=== PATIENT | male | born 1960 | race Caucasian/White ===

== ENCOUNTER → 2017-07-18 16:01 | Outpatient (CLI) | payer BC, SELFPAY ==
--- NOTE | 2017-07-18 16:03 | DI.US.S_ITS ---
PROCEDURE: US ABDOMEN COMPLETE INDICATIONS: RIGHT UPPER QUADRANT PAIN TECHNIQUE: Real-time scanning was performed of the abdominal and retroperitoneal organs, with image documentation. COMPARISON: [facility], US, ABDOMEN COMPLETE, 12/15/2014, 7:24. FINDINGS: Liver: Liver is normal in size and homogeneous in echotexture, diffusely hyperechoic consistent with fatty infiltration. Gallbladder: The gallbladder is surgically absent. Biliary ducts: Intrahepatic bile ducts are non-dilated. Extrahepatic bile duct caliber measures by 0.0 mm. Normal is 6-7 mm or less in diameter, or 10 mm or less post-cholecystectomy. Pancreas: Not seen due to bowel gas. Spleen: Spleen is normal in size and homogeneous in echotexture. Kidneys: Kidneys are normal in size and echotexture. Right kidney measures 11.7 cm long; left kidney measures 12.4 cm long. No hydronephrosis or nephrolithiasis. No solid masses. Aorta: Visualized aorta is normal in caliber at less than 3 cm. Iliacs: Not seen due to bowel gas. IVC: Not seen due to bowel gas. Miscellaneous: No free abdominal fluid. IMPRESSION: Fatty infiltration throughout the liver, prior cholecystectomy. Significant portions of the retroperitoneum are not seen due to overlying bowel gas including the pancreas, proximal third of the aorta, the iliac arteries, and the IVC. Dictated by: Jose A Patten M.D. on 07/18/2017 at 16:53 Approved by: Jose A Patten M.D. on 07/18/2017 at 16:55
== END ==
PROVIDERS: PCP Family Medicine; Visit Provider Internal Medicine Gastroenterology
DX: K76.0 Fatty (change of) liver, not elsewhere classified (principal); R10.11 Right upper quadrant pain; Z90.49 Acquired absence of other specified parts of digestive tract
CPT/HCPCS: 76700

== ENCOUNTER → 2017-07-24 07:14 | Outpatient (CLI) | payer BC, SELFPAY ==
[2017-07-24 09:35] LABS: Add Manual Diff / Slide Review NO; Basophils Percent Auto 0.7 % (0-2); Eosinophils Percent Auto 2.4 % (2-4); Hematocrit 41.7 % (41-53); Hemoglobin 14.5 g/dL (13.5-17.5); Lymphocytes Percent Auto 44.9 % (25-40); Mean Corpuscular HGB Conc 34.7 % (30-36); Mean Corpuscular Hemoglobin 32.9 PG (26-34); Mean Corpuscular Volume 94.8 fL (80-100); Monocytes Percent Auto 10.4 % (3-14); Neutrophils Absolute Auto 2100 /uL (3000-5900); Neutrophils Percent Auto 41.6 % (50-75); Platelet Count 210 X10^3/uL (150-400); Red Cell Distribution Width 12.7 % (11.6-14.8); White Blood Cell Count 5.1 X10^3/uL (4.5-11.0)
[2017-07-24 09:50] LABS: Alanine Aminotransferase 81 IU/L (21-72); Albumin 4.1 g/dL (3.5-5.0); Albumin Globulin Ratio 1.3 (1.0-2.8); Alkaline Phosphatase 34 U/L (38-126); Aspartate Aminotransferase 36 IU/L (17-59); Bilirubin Total 0.5 mg/dL (0.2-1.3); Blood Urea Nitrogen 18 mg/dL (9-20); Calcium 9.4 mg/dL (8.4-10.2); Carbon Dioxide 25 mmol/L (22-32); Chloride 101 mmol/L (98-107); Cholesterol 158 mg/dL (140-199); Estimated Glomerular Filt Rate > 60.0 mL/min (>60); Globulin 3.1 g/dL (1.7-4.1); Glucose 153 mg/dL (70-100); HDL Cholesterol 36 mg/dL (40-60); HEMOLYSIS < 15 (0-50); LDL Cholesterol Calculated 74 mg/dL (<100); Potassium 3.7 mmol/L (3.4-5.1); Sodium 139 mmol/L (137-145); Total Protein 7.2 g/dL (6.3-8.2); Triglycerides 242 mg/dL (35-150)
[2017-07-24 10:04] LABS: Hemoglobin A1C% w Est Avg Glu 7.4 % (4.0-6.0)
[2017-07-24 10:06] LABS: Creatinine Urine Random 138.8 mg/dL
[2017-07-24 10:10] LABS: Microalbumi Creatinin Ratio Ur 4.3 ug/mg CR (<30); Microalbumin Urine Random 0.6 mg/dL (0-1.6)
== END ==
PROVIDERS: PCP Family Medicine; Visit Provider Internal Medicine Cardiovascular Disease
DX: E78.5 Hyperlipidemia, unspecified (principal); E11.9 Type 2 diabetes mellitus without complications
CPT/HCPCS: 36415; 80053; 80061; 82043; 82570; 83036; 85025

== ENCOUNTER → 2017-08-15 07:38 | Outpatient (CLI) | payer BC, SELFPAY ==
--- NOTE | 2017-08-15 | DI.NM.S_ITS ---
PROCEDURE: NM GASTRIC EMPTYING STUDY RADIOPHARMACEUTICAL: 1 mCi Tc-99m sulfur colloid in an egg sandwich. INDICATIONS: RIGHT UPPER QUADRANT PAIN TECHNIQUE: A Tc-99m labeled sulfur colloid labeled egg sandwich or oatmeal was served to the patient. Anterior and posterior planar images of the abdomen were obtained at 0 minutes and 30 minutes, then at hourly intervals up to 4 hours. The patient was upright and ambulating during the interval. COMPARISON: None. FINDINGS: The stomach has normal size, morphology, and position. There is normal emptying of solid gastric contents from the stomach by visual inspection. No gastroesophageal reflux is visualized. The percentage of tracer retained at specific time points are as follows: Time point Percent gastric retention Normal range 30 minutes 90% 70% or more 1 hour 76% 30% to 90% 2 hours 56% 60% or less 3 hours 21% 30% or less 4 hours 4% 10% or less IMPRESSION: Normal gastric emptying study. Dictated by: Opal Mendoza M.D. on 08/15/2017 at 15:33 Approved by: Opal Mendoza M.D. on 08/15/2017 at 15:38
== END ==
PROVIDERS: PCP Family Medicine; Visit Provider Internal Medicine Gastroenterology
DX: R10.11 Right upper quadrant pain (principal)
CPT/HCPCS: 78264; A9541

== ENCOUNTER 2017-11-02 11:57 | Emergency (ER) | payer BC, SELFPAY ==
--- NOTE | 2017-11-02 12:06 | ED.SOB ---
HPI - SOB/Dyspnea General Chief Complaint: Chest Pain Stated Complaint: Chest Congestion Time Seen by Provider: 11/02/17 12:06 Source: patient Mode of arrival: ambulatory Limitations: no limitations History of Present Illness Patient is a 57-year-old male who presents with chest heaviness shortness of breath. It has been ongoing for at least 2 weeks he initially thought he had upper respiratory cold got started on a Z-Lang 3 days ago which he says does not feel like helping. He does have a history of coronary artery disease he says he does not feel like he is having a heart attack. He has had stents in the past and at that time it radiates to his arms. Today he denies any radiation of pain. He does have a cough which is nonproductive in he does feel slightly short of breath with exertion. He was using an albuterol with a spacer at home from the last time he when he had pneumonia but does not seem to be helping. He currently is chest pain-free now. MD Complaint: shortness of breath Related Data Home Medications Medication Instructions Recorded Confirmed melatonin 9 mg PO HS #0 06/09/10 11/02/17 [BENEFIBER] 9 gm PO HSP #0 06/24/16 11/02/17 fenofibrate nanocrystallized 145 mg PO QDAY #0 05/04/17 11/02/17 [Tricor] carvedilol 3.125 mg tablet 3.125 mg PO BID 08/10/17 11/02/17 losartan 50 mg tablet 50 mg PO DAILY 08/10/17 11/02/17 rosuvastatin 40 mg tablet 40 mg PO DAILY 08/10/17 11/02/17 Previous Rx's Medication Instructions Recorded finasteride 5 mg tablet 1.25 mg PO QDAY #30 tab 07/05/17 Glucose: Test Strips See Label Instructions .ROUTE 07/06/17 .COMPLEX #100 glipizide ER 5 mg tablet, extended 5 mg PO DAILY #30 tab 08/10/17 release 24 hr omeprazole 40 mg PO QDAY@0600 #90 cap 09/04/17 metformin 500 mg tablet 500 mg PO BIDCC #180 tab 11/01/17 doxycycline hyclate 100 mg PO BID #14 cap 11/02/17 Allergies Allergy/AdvReac Type Severity Reaction Status Date / Time grass pollen [GRASS POLLEN] Allergy Unknown Verified 11/02/17 11:07 mold [MOLD] Allergy Unknown Verified 11/02/17 11:07 Review of Systems Review of Systems All systems reviewed & are unremarkable except as noted in HPI and below Constitutional Denies chills, Denies fever(s), Denies lethargy and Denies weakness Cardiovascular Reports as per HPI Respiratory Reports as per HPI Gastrointestinal Gastrointestinal: Denies abdominal pain, Denies change in bowel habits, Denies diarrhea, Denies nausea and Denies vomiting Musculoskeletal Denies back pain, Denies muscle weakness, Denies numbness and Denies tingling Integumentary/Breasts Denies pruritus, Denies erythema, Denies rash and Denies wounds Neurologic Denies numbness, Denies tingling and Denies weakness [facility] Social History Smoking Status: Never smoker alcohol intake: current (social) substance use type: does not use Exam Initial Vital Signs Initial Vital Signs: Vital Signs Temperature 97.7 F 11/02/17 12:09 Pulse Rate 79 11/02/17 12:09 Respiratory Rate 20 11/02/17 12:09 Blood Pressure 167/106 H 11/02/17 12:09 Pulse Oximetry 97 11/02/17 12:09 GENERAL: Well-appearing, well-nourished and in no acute distress. HEENT: Head atraumatic,EOMI, pupils reactive, face symmetric, CARDIOVASCULAR: Regular rate and rhythm without murmurs, rubs or gallops. RESPIRATORY: Breath sounds equal bilaterally, no wheezes rales or rhonchi. ABDOMEN: Soft, nontender. Normoactive bowel sounds all 4 quadrants. No guarding or rebound. EXTREMITIES: Normal range of motion, no clubbing or edema. Neurovascularly intact NEUROLOGICAL: Alert and oriented x4.Normal gait and speech. Cranial nerves II through XII grossly intact. SKIN: Warm, dry, no laceration, no petechiae, no rashes or lesions. Course Orders Ordered: ED Orders 11/02/17 12:21 Consult to Respiratory Therapy Evaluate & Treat 11/02/17 12:22 XR chest 2V Stat 11/02/17 12:35 B Type Natriuretic Peptide Stat Complete Blood Count AUTO DIFF Stat Comprehensive Metabolic Panel Stat Magnesium Stat Troponin & CK Cardiac Panel Stat 11/02/17 13:18 Blood Culture Stat Lactate (Lactic Acid) Stat Discontinued Medications Albuterol/Ipratropium (Duoneb) 3 ml INH NOW ONE Stop: 11/02/17 12:21 Last Admin: 11/02/17 12:39 Dose: 3 ml Vital Signs - 8 hr 11/02/17 12:09 11/02/17 12:39 11/02/17 13:00 Temperature 97.7 F Pulse Rate 79 68 74 Respiratory Rate 20 15 Blood Pressure 167/106 H Blood Pressure [Right Arm] 136/86 Pulse Oximetry 97 99 97 11/02/17 13:38 Temperature Pulse Rate 75 Respiratory Rate 26 H Blood Pressure Blood Pressure [Right Arm] 127/75 Pulse Oximetry 98 MDM - SOB/Dyspnea Lab Data Attestation: I reviewed the patient's lab results. Result diagrams: 11/02/17 12:35 11/02/17 12:35 Lab Results 11/02/17 11/02/17 11/02/17 Range/Units 12:35 12:35 12:35 WBC 5.9 (4.5-11.0) X10^3/uL RBC 4.39 L (4.5-5.9) X10^6/uL Hgb 14.3 (13.5-17.5) g/dL Hct 40.8 L (41-53) % MCV 92.9 (80-100) fL MCH 32.6 (26-34) PG MCHC 35.1 (30-36) % RDW 12.9 (11.6-14.8) % Plt Count 188 (150-400) X10^3/uL Neut % (Auto) 60.9 (50-75) % Lymph % (Auto) 26.2 (25-40) % [place] % (Auto) 10.3 (3-14) % Eos % (Auto) 2.2 (2-4) % Baso % (Auto) 0.4 (0-2) % Neut # (Auto) 3600 (1568-2957) /uL Sodium 144 (137-145) mmol/L Potassium 4.3 (3.4-5.1) mmol/L Chloride 107 (98-107) mmol/L Carbon Dioxide 24 (22-32) mmol/L BUN 13 (9-20) mg/dL Creatinine 0.70 (0.66-1.25) mg/dL Estimated GFR > 60.0 (>60) mL/min BUN/Creatinine Ratio 18.6 (6-22) Glucose 145 H (70-100) mg/dL Lactate (0.7-2.1) mmol/L Calcium 9.8 (8.4-10.2) mg/dL Magnesium 1.8 (1.6-2.3) mg/dL Total Bilirubin 0.4 (0.2-1.3) mg/dL AST 41 (17-59) IU/L ALT 73 H (21-72) IU/L Alkaline Phosphatase 29 L (38-126) U/L Total Creatine Kinase 71 (55-170) U/L CK-MB (CK-2) TNP CK-MB (CK-2) Rel Index TNP Troponin I < 0.012 (0.01-0.034) ng/mL B-Natriuretic Peptide < 100.0 (<100) Total Protein 7.5 (6.3-8.2) g/dL Albumin 4.5 (3.5-5.0) g/dL Globulin 3.0 (1.7-4.1) g/dL Albumin/Globulin Ratio 1.5 (1.0-2.8) // Range/Units 13:18 WBC (4.5-11.0) X10^3/uL RBC (4.5-5.9) X10^6/uL Hgb (13.5-17.5) g/dL Hct (41-53) % MCV (80-100) fL MCH (26-34) PG MCHC (30-36) % RDW (11.6-14.8) % Plt Count (150-400) X10^3/uL Neut % (Auto) (50-75) % Lymph % (Auto) (25-40) % [place] % (Auto) (3-14) % Eos % (Auto) (2-4) % Baso % (Auto) (0-2) % Neut # (Auto) (9202-6893) /uL Sodium (137-145) mmol/L Potassium (3.4-5.1) mmol/L Chloride (98-107) mmol/L Carbon Dioxide (22-32) mmol/L BUN (9-20) mg/dL Creatinine (0.66-1.25) mg/dL Estimated GFR (>60) mL/min BUN/Creatinine Ratio (6-22) Glucose (70-100) mg/dL Lactate 1.1 (0.7-2.1) mmol/L Calcium (8.4-10.2) mg/dL Magnesium (1.6-2.3) mg/dL Total Bilirubin (0.2-1.3) mg/dL AST (17-59) IU/L ALT (21-72) IU/L Alkaline Phosphatase (38-126) U/L Total Creatine Kinase (55-170) U/L CK-MB (CK-2) CK-MB (CK-2) Rel Index Troponin I (0.01-0.034) ng/mL B-Natriuretic Peptide (<100) Total Protein (6.3-8.2) g/dL Albumin (3.5-5.0) g/dL Globulin (1.7-4.1) g/dL Albumin/Globulin Ratio (1.0-2.8) Imaging Data Chest x-ray: Radiologist's impression: PROCEDURE: XR CHEST 2V INDICATIONS: cough sob TECHNIQUE: 2 views of the chest were acquired. COMPARISON: [facility], , CHEST 1 VIEW, 04/05/2017, 14:10. FINDINGS: Surgical changes and devices: None. Lungs and pleura: No pleural effusions or pneumothorax. No acute consolidation. Scattered atelectasis Mediastinum: Mediastinal contours are normal. Heart size is normal. Bones and chest wall: No suspicious bony abnormalities. Soft tissues appear unremarkable. IMPRESSION: No acute consolidation Dictated by: Joe Borges M.D. on 11/02/2017 at 13:17 ECG Data Attestation: I personally reviewed and interpreted this ECG as follows: Prior ECG tracings: available for review Interpretation: Normal sinus rhythm rate [address] changes [place] interval is prolonged at 2:36 a.m. previous ER interval also prolonged 232, no T-wave inversions or ST changes MDM Narrative Medical decision making narrative: Patient overall is feeling better after his albuterol. No significant chest x-ray or blood work abnormalities. Possibility is atypical pneumonia. We will switch him to doxycycline. Discharge Plan Departure Patient Disposition: Home Clinical Impression: Atypical pneumonia Discharge Date/Time: 11/02/17 14:17 Interventions: ED Discharge Assessment Last Done: 11/02/17 14:17 Instructions: Atypical Pneumonia Activity Restrictions/Additional Instructions: *You have been diagnosed with atypical pneumonia *What to do: Blood work and x-ray actually looked good. *Continue to take medications as directed Stop taking azithromycin Start taking doxycycline twice a day *Follow up with your primary care provider in 2-3 days *Return to ER if you should have increasing chest pain, shortness of breath or any new, worsening or concerning symptoms Prescriptions: New doxycycline hyclate 100 mg capsule 100 mg PO BID Qty: 14 RF: 0 No Action losartan 50 mg tablet 50 mg PO DAILY RF: 0 rosuvastatin 40 mg tablet 40 mg PO DAILY RF: 0 carvedilol 3.125 mg tablet 3.125 mg PO BID RF: 0 glipizide 5 mg tablet extended release 24hr 5 mg PO DAILY Qty: 30 RF: 5 melatonin 3 MG tablet 9 mg PO HS Qty: 0 RF: 0 [BENEFIBER] 9 gm PO HSP Qty: 0 RF: 0 fenofibrate nanocrystallized [Tricor] 145 MG tablet 145 mg PO QDAY Qty: 0 RF: 0 finasteride 5 mg tablet 1.25 mg PO QDAY Qty: 30 RF: 3 Glucose: Test Strips See Label Instructions .ROUTE .COMPLEX Qty: 100 RF: 3 omeprazole 40 mg capsule,delayed release(DR/EC) 40 mg PO QDAY@0600 Qty: 90 RF: 3 metformin 500 mg tablet 500 mg PO BIDCC Qty: 180 RF: 1 Referrals: Maciej Garrett MD [Primary Care Provider] -
[2017-11-02 12:09] VITALS: BP 167/106; PULSE 79; RESP 20; TEMP 36.5; O2SAT 97; BMI 33.9
--- NOTE | 2017-11-02 12:22 | DI.RAD.S_ITS ---
PROCEDURE: XR CHEST 2V INDICATIONS: cough sob TECHNIQUE: 2 views of the chest were acquired. COMPARISON: [facility], , CHEST 1 VIEW, 04/05/2017, 14:10. FINDINGS: Surgical changes and devices: None. Lungs and pleura: No pleural effusions or pneumothorax. No acute consolidation. Scattered atelectasis Mediastinum: Mediastinal contours are normal. Heart size is normal. Bones and chest wall: No suspicious bony abnormalities. Soft tissues appear unremarkable. IMPRESSION: No acute consolidation Dictated by: Joe Borges M.D. on 11/02/2017 at 13:17 Approved by: Joe Borges M.D. on 11/02/2017 at 13:18
[2017-11-02 12:39] VITALS: PULSE 68; RESP 15; O2SAT 99
[2017-11-02] MEDS: ALBUTEROL/IPRATROPIUM 3 ML AMPUL INH (12:39)
[2017-11-02 12:45] LABS: Add Manual Diff / Slide Review NO; Basophils Percent Auto 0.4 % (0-2); Eosinophils Percent Auto 2.2 % (2-4); Hematocrit 40.8 % (41-53); Hemoglobin 14.3 g/dL (13.5-17.5); Lymphocytes Percent Auto 26.2 % (25-40); Mean Corpuscular HGB Conc 35.1 % (30-36); Mean Corpuscular Hemoglobin 32.6 PG (26-34); Mean Corpuscular Volume 92.9 fL (80-100); Monocytes Percent Auto 10.3 % (3-14); Neutrophils Absolute Auto 3600 /uL (3000-5900); Neutrophils Percent Auto 60.9 % (50-75); Platelet Count 188 X10^3/uL (150-400); Red Blood Cell Count 4.39 X10^6/uL (4.5-5.9); Red Cell Distribution Width 12.9 % (11.6-14.8); White Blood Cell Count 5.9 X10^3/uL (4.5-11.0)
[2017-11-02 13:00] VITALS: BP 136/86; PULSE 74; O2SAT 97
[2017-11-02 13:02] LABS: Alanine Aminotransferase 73 IU/L (21-72); Albumin 4.5 g/dL (3.5-5.0); Albumin Globulin Ratio 1.5 (1.0-2.8); Alkaline Phosphatase 29 U/L (38-126); Aspartate Aminotransferase 41 IU/L (17-59); BUN Creatinine Ratio 18.6 (6-22); Bilirubin Total 0.4 mg/dL (0.2-1.3); Blood Urea Nitrogen 13 mg/dL (9-20); Calcium 9.8 mg/dL (8.4-10.2); Carbon Dioxide 24 mmol/L (22-32); Chloride 107 mmol/L (98-107); Estimated Glomerular Filt Rate > 60.0 mL/min (>60); Glucose 145 mg/dL (70-100); HEMOLYSIS 22 (0-50); Potassium 4.3 mmol/L (3.4-5.1); Sodium 144 mmol/L (137-145); Total Protein 7.5 g/dL (6.3-8.2)
[2017-11-02 13:03] LABS: Creatine Kinase 71 U/L (55-170); Magnesium 1.8 mg/dL (1.6-2.3)
[2017-11-02 13:17] LABS: Troponin I < 0.012 ng/mL (0.01-0.034)
[2017-11-02 13:19] LABS: B Type Natriuretic Peptide < 100.0 (<100)
[2017-11-02 13:38] VITALS: BP 127/75; PULSE 75; RESP 26; O2SAT 98
[2017-11-02 13:38] LABS: Lactate (Lactic Acid) 1.1 mmol/L (0.7-2.1)
== END 2017-11-02 14:17 | disposition home or self-care (01) ==
PROVIDERS: Emergency Provider Emergency Medicine; PCP Student in an Organized Health Care Education/Training Program
DX: J18.9 Pneumonia, unspecified organism (principal)
CPT/HCPCS: 36415; 36591; 71046; 80053; 82550; 83605; 83735; 83880; 84484; 85025; 87040; 93005; 94640; 99282; 99285

== ENCOUNTER → 2017-11-20 08:12 | Outpatient (CLI) | payer BC, SELFPAY ==
[2017-11-20 09:12] LABS: Add Manual Diff / Slide Review NO; Basophils Percent Auto 0.6 % (0-2); Eosinophils Percent Auto 1.8 % (2-4); Hematocrit 41.2 % (41-53); Hemoglobin 14.4 g/dL (13.5-17.5); Lymphocytes Percent Auto 32.8 % (25-40); Mean Corpuscular HGB Conc 34.9 % (30-36); Mean Corpuscular Hemoglobin 32.4 PG (26-34); Mean Corpuscular Volume 92.8 fL (80-100); Monocytes Percent Auto 10.6 % (3-14); Neutrophils Absolute Auto 3700 /uL (3000-5900); Neutrophils Percent Auto 54.2 % (50-75); Platelet Count 202 X10^3/uL (150-400); Red Blood Cell Count 4.43 X10^6/uL (4.5-5.9); Red Cell Distribution Width 12.6 % (11.6-14.8); White Blood Cell Count 6.9 X10^3/uL (4.5-11.0)
[2017-11-20 09:19] LABS: Hemoglobin A1C% w Est Avg Glu 7.3 % (4.0-6.0)
[2017-11-20 09:29] LABS: BUN Creatinine Ratio 15.6 (6-22); Blood Urea Nitrogen 14 mg/dL (9-20); Calcium 9.4 mg/dL (8.4-10.2); Carbon Dioxide 28 mmol/L (22-32); Chloride 102 mmol/L (98-107); Estimated Glomerular Filt Rate > 60.0 mL/min (>60); Glucose 146 mg/dL (70-100); HEMOLYSIS < 15 (0-50); Sodium 140 mmol/L (137-145)
[2017-11-20 09:39] LABS: Alanine Aminotransferase 63 IU/L (21-72); Albumin 4.2 g/dL (3.5-5.0); Albumin Globulin Ratio 1.6 (1.0-2.8); Alkaline Phosphatase 34 U/L (38-126); Aspartate Aminotransferase 31 IU/L (17-59); Bilirubin Total 0.5 mg/dL (0.2-1.3); Bilirubin Unconjugated 0.2 mg/dL (0.0-1.1); Cholesterol 126 mg/dL (140-199); Globulin 2.7 g/dL (1.7-4.1); HDL Cholesterol 34 mg/dL (40-60); HEMOLYSIS < 15 (0-50); LDL Cholesterol Calculated 57 mg/dL (<100); Total Protein 6.9 g/dL (6.3-8.2); Triglycerides 177 mg/dL (35-150)
== END ==
PROVIDERS: Family Medicine; Family Provider Student in an Organized Health Care Education/Training Program; PCP Student in an Organized Health Care Education/Training Program; Visit Provider Internal Medicine Cardiovascular Disease
DX: E78.00 Pure hypercholesterolemia, unspecified (principal); I10 Essential (primary) hypertension; R73.9 Hyperglycemia, unspecified
CPT/HCPCS: 36415; 80048; 80061; 80076; 83036; 85025

== ENCOUNTER → 2017-12-11 15:11 | Outpatient (CLI) | payer BC, SELFPAY ==
[2017-12-14 12:47] LABS: QuantiFERON TB NEGATIVE (Negative)
== END ==
PROVIDERS: Family Provider Student in an Organized Health Care Education/Training Program; PCP Student in an Organized Health Care Education/Training Program; Visit Provider Student in an Organized Health Care Education/Training Program
DX: R61 Generalized hyperhidrosis (principal); Z11.1 Encounter for screening for respiratory tuberculosis
CPT/HCPCS: 36415; 86480

== ENCOUNTER → 2017-12-13 13:49 | Outpatient (CLI) | payer BC, SELFPAY ==
--- NOTE | 2017-12-13 13:51 | DI.CT.S_ITS ---
PROCEDURE: CT CHEST WO CON INDICATIONS: Shortness of breath. H/o pneumonia TECHNIQUE: Noncontrast 5 mm thick sections acquired from the pulmonary apices to the posterior costophrenic angles. 7 mm thick coronal and sagittal MIP reformats were then acquired. For radiation dose reduction, the following was used: automated exposure control, adjustment of mA and/or kV according to patient size. COMPARISON: Prior CT chest abdomen pelvis 03/27/17.. FINDINGS: Image quality: Excellent. Lungs and pleura: No acute air space opacities. No pleural effusions or pneumothorax. Central and peripheral airways are patent and normal in caliber. Mediastinum: Heart size is normal. No pericardial effusion. No mediastinal adenopathy by size criteria. Thoracic aorta and central pulmonary arteries are normal in size. Esophagus is normal in caliber. No hiatal hernia. Bones and chest wall: No suspicious bony lesions. No vertebral body compression fractures. No axillary or supraclavicular adenopathy by size criteria. Thyroid gland appears lobulated in its inferior midline. Abdomen: Visualized upper abdominal solid organs and bowel loops appear normal in the absence of contrast except for what appears to be prominent fatty infiltration throughout the liver and surgical clips of prior cholecystectomy. IMPRESSION: Prior cholecystectomy, no acute disease over the chest. Prominent fatty infiltration throughout the liver partially visualized. No pneumonia found. Note is made of lobulation of the inferior thyroid midline, potentially an indicator of thyroid nodules in that area. The thyroid areas better visualized by CT scanning today than in March earlier this year due to streak artifact from contrast injection. Thyroid ultrasound may be warranted as followup. Dictated by: Jose A Patten M.D. on 12/13/2017 at 14:17 Approved by: Jose A Patten M.D. on 12/13/2017 at 14:20
== END ==
PROVIDERS: Family Provider Student in an Organized Health Care Education/Training Program; PCP Student in an Organized Health Care Education/Training Program; Visit Provider Student in an Organized Health Care Education/Training Program
DX: R06.02 Shortness of breath (principal); Z90.49 Acquired absence of other specified parts of digestive tract; K76.0 Fatty (change of) liver, not elsewhere classified; E07.9 Disorder of thyroid, unspecified
CPT/HCPCS: 71250

== ENCOUNTER → 2017-12-15 15:37 | Outpatient (CLI) | payer BC, SELFPAY ==
[2017-12-15 15:54] LABS: Add Manual Diff / Slide Review NO; Basophils Percent Auto 0.8 % (0-2); Eosinophils Percent Auto 2.2 % (2-4); Hematocrit 44.6 % (41-53); Hemoglobin 15.2 g/dL (13.5-17.5); Mean Corpuscular HGB Conc 34.1 % (30-36); Mean Corpuscular Hemoglobin 32.2 PG (26-34); Mean Corpuscular Volume 94.5 fL (80-100); Monocytes Percent Auto 10.9 % (3-14); Neutrophils Absolute Auto 2700 /uL (3000-5900); Neutrophils Percent Auto 49.1 % (50-75); Platelet Count 214 X10^3/uL (150-400); Red Blood Cell Count 4.71 X10^6/uL (4.5-5.9); Red Cell Distribution Width 13.2 % (11.6-14.8); White Blood Cell Count 5.5 X10^3/uL (4.5-11.0)
[2017-12-15 16:04] LABS: D Dimer 447 ng/mL (<230)
[2017-12-15 16:18] LABS: Erythrocyte Sedimentation Rate 6 MM/HR (0-15)
[2017-12-15 16:51] LABS: C-Reactive Protein Quant < 0.5 mg/dL (<1.0)
[2017-12-15 16:55] LABS: Vitamin D 25 Hydroxy (D3) 24.6 ng/mL (30.0-100.0)
[2017-12-15 17:08] LABS: TSH w/ Reflex to FT4 1.07 uIU/mL (0.47-4.68)
== END ==
PROVIDERS: PCP Student in an Organized Health Care Education/Training Program; Visit Provider Student in an Organized Health Care Education/Training Program
DX: R06.09 Other forms of dyspnea (principal); R06.00 Dyspnea, unspecified; R07.89 Other chest pain; E55.9 Vitamin D deficiency, unspecified; I25.10 Atherosclerotic heart disease of native coronary artery without angina pectoris; R53.83 Other fatigue; E04.1 Nontoxic single thyroid nodule; J18.9 Pneumonia, unspecified organism
CPT/HCPCS: 36415; 82306; 84443; 85025; 85379; 85651; 86140

== ENCOUNTER → 2017-12-18 12:02 | Outpatient (CLI) | payer BC, SELFPAY ==
[2017-12-18 13:31] LABS: BUN Creatinine Ratio 18.8 (6-22); Blood Urea Nitrogen 15 mg/dL (9-20); Estimated Glomerular Filt Rate > 60.0 mL/min (>60)
--- NOTE | 2017-12-18 15:45 | DI.CT.S_ITS ---
PROCEDURE: CT ANGIO CHEST PE PROTOCOL INDICATIONS: Suspect PE; SOB TECHNIQUE: After the administration of intravenous contrast, 2 mm thick sections acquired from the pulmonary apices to the posterior costophrenic angles. 3-dimensional maximum intensity projection (MIP) coronal and sagittal reformats were then acquired through the thorax. For radiation dose reduction, the following was used: automated exposure control, adjustment of mA and/or kV according to patient size. COMPARISON: None. FINDINGS: Image quality: Excellent. Pulmonary arteries: Pulmonary arteries are normal in size, but demonstrate definite bilateral intraluminal filling defects diagnostic of central pulmonary embolism. These emboli involving the lungs bilaterally in the middle and lower thirds, generally are nonocclusive, and are not associated with pulmonary infarctions or evidence of mass lesion within the visualized chest or upper abdomen. Lungs and pleura: Lungs are clear. No pleural effusions or pneumothorax. Central and peripheral airways are patent. Mediastinum: Heart size is normal, without pericardial effusion. No mediastinal or hilar adenopathy. Thoracic aorta is normal in caliber and enhancement. Esophagus is normal in caliber, without hiatal hernia. Bones and chest wall: No suspicious bony lesions. Ribs and thoracic spine appear intact throughout. Thyroid gland appears normal where well visualized. No axillary or supraclavicular adenopathy. Abdomen: Visualized upper abdominal solid organs appear normal in the early arterial phase of enhancement. IMPRESSION: Moderate severity of bilateral pulmonary emboli, which are present within the mid and lower pulmonary arteries and generally nonocclusive. No secondary pulmonary infarction is found. The findings were immediately called to the ordering health care provider caring for the patient. Dictated by: Jose A Patten M.D. on 12/18/2017 at 16:17 Approved by: Jose A Patten M.D. on 12/18/2017 at 16:23
== END ==
PROVIDERS: PCP Student in an Organized Health Care Education/Training Program; Visit Provider Student in an Organized Health Care Education/Training Program
DX: I26.99 Other pulmonary embolism without acute cor pulmonale (principal); R06.02 Shortness of breath; R07.89 Other chest pain; R06.09 Other forms of dyspnea
CPT/HCPCS: 36415; 71275; 82565; 84520

== ENCOUNTER → 2018-03-06 16:39 | Outpatient (CLI) | payer BC, SELFPAY ==
[2018-03-06 17:59] LABS: Add Manual Diff / Slide Review NO; Basophils Absolute Auto 0 /uL (0-100); Basophils Percent Auto 0.4 % (0-2); Eosinophils Absolute Auto 100 /uL (0-450); Eosinophils Percent Auto 1.6 % (2-4); Hematocrit 45.9 % (41-53); Hemoglobin 15.7 g/dL (13.5-17.5); Lymphocytes Absolute Auto 1600 /uL (1100-4500); Lymphocytes Percent Auto 31.7 % (25-40); Mean Corpuscular HGB Conc 34.3 % (30-36); Mean Corpuscular Hemoglobin 32.2 PG (26-34); Mean Corpuscular Volume 93.9 fL (80-100); Monocytes Absolute Auto 500 /uL (0-900); Monocytes Percent Auto 10.4 % (3-14); Neutrophils Absolute Auto 2900 /uL (1500-7000); Neutrophils Percent Auto 55.9 % (50-75); Platelet Count 219 X10^3/uL (150-400); Red Blood Cell Count 4.89 X10^6/uL (4.5-5.9); Red Cell Distribution Width 13.4 % (11.6-14.8); White Blood Cell Count 5.2 X10^3/uL (4.5-11.0)
[2018-03-06 18:36] LABS: Erythrocyte Sedimentation Rate 2 MM/HR (0-15)
[2018-03-06 18:50] LABS: BUN Creatinine Ratio 18.8 (6-22); Blood Urea Nitrogen 15 mg/dL (9-20); Calcium 10.3 mg/dL (8.4-10.2); Carbon Dioxide 23 mmol/L (22-32); Chloride 102 mmol/L (98-107); Creatine Kinase 59 U/L (55-170); Estimated Glomerular Filt Rate > 60.0 mL/min (>60); Glucose 142 mg/dL (70-100); HEMOLYSIS < 15 (0-50); Potassium 4.5 mmol/L (3.4-5.1); Sodium 137 mmol/L (137-145)
== END ==
PROVIDERS: PCP Student in an Organized Health Care Education/Training Program; Visit Provider Student in an Organized Health Care Education/Training Program
DX: M79.10 Myalgia, unspecified site (principal); R50.9 Fever, unspecified
CPT/HCPCS: 36415; 80048; 82550; 85025; 85651

== ENCOUNTER → 2018-04-11 16:18 | Outpatient (CLI) | payer BC, SELFPAY ==
[2018-04-11 18:01] LABS: BUN Creatinine Ratio 22.9 (6-22); Blood Urea Nitrogen 16 mg/dL (9-20); Carbon Dioxide 24 mmol/L (22-32); Chloride 101 mmol/L (98-107); Creatine Kinase 57 U/L (55-170); Estimated Glomerular Filt Rate > 60.0 mL/min (>60); Glucose 277 mg/dL (70-100); HEMOLYSIS 15 (0-50); Magnesium 1.7 mg/dL (1.6-2.3); Potassium 4.1 mmol/L (3.4-5.1); Sodium 138 mmol/L (137-145)
[2018-04-11 18:04] LABS: Hemoglobin A1C% w Est Avg Glu 8.1 % (4.0-6.0)
== END ==
PROVIDERS: PCP Student in an Organized Health Care Education/Training Program; Visit Provider Student in an Organized Health Care Education/Training Program
DX: Z00.00 Encounter for general adult medical examination without abnormal findings (principal); R25.2 Cramp and spasm; E11.9 Type 2 diabetes mellitus without complications
CPT/HCPCS: 36415; 80048; 82550; 83036; 83735

== ENCOUNTER → 2018-05-23 14:54 | Outpatient (CLI) | payer BC, SELFPAY ==
--- NOTE | 2018-05-23 15:57 | DIET.PN ---
DIABETES Nutrition Initial Assessment:? ASSESS:?? 57 yom referred for T2DM. Pt with 2-3 yr hx. He was diagnosed when he had a stent placed. At that time he saw an RD for education. States he generally eat high protein and vegetables w/ low-mod carbs. He has noticed his blood sugar rising over the last several months, but more intensely since March. He was place on Xarelto in December and was given a 5mg increase in Glipizide, but does not report any other changes in med hx or lifestyle. LABS: Per pt report:? A1c: 8.1 (04/24) 7.3 (11/23) FB-250 ? MEDS:?? glipizide 15mg; metformin 1000mg BID ? DIET: Per 24-hour recall:? B: yogurt, apple, almonds L: sandwich on wheat bread D: chicken and mushroom soup Sn: trailmix w/ dried fruit ? Weight: 250lb ? Exercise:? walking 10-15 min 2-3x/day (on work breaks) NUTRITION DX 1. Altered Nutrition related labs related to impaired glucose metabolism, lack of previous exposure to accurate nutrition information as evidenced by pt report, dx of diabetes, previous diet high in refined carbohydrates.? INTERVENTION(s): 1. Discussed pathophysiology of diabetes. Reviewed A1c and its correlation to blood glucose numbers. Discussed recommended BG ranges. 2. Discussed importance of self-monitoring, how often, and when to check. 3. Reviewed hyper/hypoglycemia and treatment. 4. Reviewed safe disposal of equipment (strip/lancets/insulin needles). 5. Discussed impact of nutrition/diet on blood sugar control.? Discussed fed versus non-fed state.?? 6. Discussed the effect of carbohydrates/protein/fat on blood sugar control.? Stressed importance of consistent carbohydrate intake at each meal and provided instructions for recommended servings/portions of carbohydrates/protein per meal. Provided pt with educational material. 7. Reviewed carbohydrate counting and measuring carbohydrate content via serving sizes and reading nutrition labels.? Provided handouts.?? 8. Discussed the difference between simple versus complex carbohydrates and the effect of fiber on blood sugar control.? Discussed various methods to increase fiber content in diet. 9. Stressed importance of meal timing and not going >4-5 hours between meals. Encouraged adding protein to each meal to support glucose control. Provided list of protein foods. Discussed best protein options for heart health and to alleviate hunger. Patient agreeable. 10. Discussed healthy weight loss through diet and exercise to increase lean muscle mass.? Pt agreeable to walking daily. SMART goals: 1. Pt would like to increase physical activity to 3x/wk for 30 min/day incorporating running/rowing/resistance training. 2. Pt would like to see A1c and continuous BG within normal limits by next labs through dietary changes discussed and increased PA. MONITOR/EVALUATE: Anticipate good compliance.? Nutrition follow up schedule for 1 mo to review BG, weight, food record and discuss protein/fat.
== END ==
PROVIDERS: PCP Student in an Organized Health Care Education/Training Program; Visit Provider Student in an Organized Health Care Education/Training Program
DX: E11.9 Type 2 diabetes mellitus without complications (principal)
CPT/HCPCS: 97802

== ENCOUNTER → 2018-06-11 11:42 | Outpatient (CLI) | payer BC, SELFPAY ==
[2018-06-11 12:58] LABS: Estimated Glomerular Filt Rate > 60.0 mL/min (>60)
== END ==
PROVIDERS: PCP Student in an Organized Health Care Education/Training Program; Visit Provider Internal Medicine
DX: Z01.812 Encounter for preprocedural laboratory examination (principal)
CPT/HCPCS: 36415; 82565

== ENCOUNTER → 2018-07-05 07:17 | Outpatient (CLI) | payer BC, SELFPAY ==
[2018-07-05 09:15] LABS: Add Manual Diff / Slide Review NO; Basophils Absolute Auto 0 /uL (0-100); Basophils Percent Auto 0.6 % (0-2); Eosinophils Absolute Auto 100 /uL (0-450); Eosinophils Percent Auto 2.6 % (2-4); Hematocrit 43.6 % (41-53); Hemoglobin 15.1 g/dL (13.5-17.5); Lymphocytes Absolute Auto 1500 /uL (1100-4500); Lymphocytes Percent Auto 33.7 % (25-40); Mean Corpuscular HGB Conc 34.6 % (30-36); Mean Corpuscular Hemoglobin 32.4 PG (26-34); Mean Corpuscular Volume 93.7 fL (80-100); Monocytes Absolute Auto 500 /uL (0-900); Monocytes Percent Auto 10.1 % (3-14); Neutrophils Absolute Auto 2400 /uL (1500-7000); Platelet Count 212 X10^3/uL (150-400); Red Blood Cell Count 4.65 X10^6/uL (4.5-5.9); Red Cell Distribution Width 13.5 % (11.6-14.8); White Blood Cell Count 4.6 X10^3/uL (4.5-11.0)
[2018-07-05 09:31] LABS: Blood Urea Nitrogen 16 mg/dL (9-20); Carbon Dioxide 25 mmol/L (22-32); Chloride 106 mmol/L (98-107); Cholesterol 153 mg/dL (140-199); Estimated Glomerular Filt Rate > 60.0 mL/min (>60); Glucose 168 mg/dL (70-100); HDL Cholesterol 37 mg/dL (40-60); HEMOLYSIS 16 (0-50); LDL Cholesterol Calculated 64 mg/dL (<100); Potassium 4.1 mmol/L (3.4-5.1); Sodium 141 mmol/L (137-145); Triglycerides 260 mg/dL (35-150)
== END ==
PROVIDERS: PCP Student in an Organized Health Care Education/Training Program; Visit Provider Internal Medicine Cardiovascular Disease
DX: I10 Essential (primary) hypertension (principal)
CPT/HCPCS: 36415; 80048; 80061; 85025

== ENCOUNTER → 2018-09-25 15:16 | Outpatient (CLI) | payer BC, SELFPAY ==
[2018-09-25 15:42] LABS: D Dimer < 200 ng/mL (<230)
[2018-09-25 17:16] LABS: BUN Creatinine Ratio 21.4 (6-22); Blood Urea Nitrogen 15 mg/dL (9-20); Calcium 10.5 mg/dL (8.4-10.2); Carbon Dioxide 22 mmol/L (22-32); Chloride 106 mmol/L (98-107); Estimated Glomerular Filt Rate > 60.0 mL/min (>60); Glucose 175 mg/dL (70-100); HEMOLYSIS < 15 (0-50); Potassium 4.3 mmol/L (3.4-5.1); Sodium 141 mmol/L (137-145)
== END ==
PROVIDERS: PCP Student in an Organized Health Care Education/Training Program; Visit Provider Student in an Organized Health Care Education/Training Program
DX: E11.9 Type 2 diabetes mellitus without complications (principal); I26.99 Other pulmonary embolism without acute cor pulmonale; N14.1 Nephropathy induced by other drugs, medicaments and biological substances; T50.8X5A Adverse effect of diagnostic agents, initial encounter
CPT/HCPCS: 36415; 80048; 85379

== ENCOUNTER → 2018-12-18 15:26 | Outpatient (CLI) | payer BC, SELFPAY ==
[2018-12-18 15:39] LABS: Bacteria Urine None Seen
[2018-12-18 17:03] LABS: Appearance Urine UA CLEAR; Bilirubin Urine UA NEGATIVE (NEGATIVE); Color Urine UA YELLOW; Glucose Urine UA 2+ g/dL (Negative); Ketones Urine UA NEGATIVE (NEGATIVE); Leukocyte Esterase Urine UA NEGATIVE (NEGATIVE); Nitrite Urine UA NEGATIVE (Negative); Occult Blood Urine UA NEGATIVE (Negative); Protein Urine UA NEGATIVE (Negative); Specific Gravity Urine UA 1.015 (1.000-1.035); Urobilinogen Urine UA 0.2 E.U./dL (0.2)
[2018-12-18 17:10] LABS: Culture Indicated Urine Cult Not Indicated; RBC Urine 0-1/HPF (0-5/HPF); Squamous Epithelial Cell Urine None Seen (0-5/HPF); WBC Urine 1-5/HPF (0-5/HPF)
== END ==
PROVIDERS: PCP Student in an Organized Health Care Education/Training Program; Visit Provider Student in an Organized Health Care Education/Training Program
DX: R30.0 Dysuria (principal)
CPT/HCPCS: 81001

== ENCOUNTER → 2018-12-28 10:44 | Outpatient (CLI) | payer BC, SELFPAY ==
[2018-12-28 11:42] LABS: UR Morphine/Opiate cutoff 300 Negative (Negative); Ur Creatinine Normal (Normal); Ur Specific Gravity Normal (Normal); Urine Amphetamines Negative (Negative); Urine Barbiturates Negative (Negative); Urine Benzodiazepines Negative (Negative); Urine Cocaine Negative (Negative); Urine MDMA Negative (Negative); Urine Methadone Negative (Negative); Urine Methamphetamines Negative (Negative); Urine Oxycodone Negative (Negative); Urine Phencyclidine Negative (Negative); Urine Tetrahydrocannabinol Negative (Negative); Urine Tricyclic Antidepressant Negative (Negative); Urine pH Normal (Normal)
== END ==
PROVIDERS: PCP Student in an Organized Health Care Education/Training Program; Visit Provider Family Medicine Sleep Medicine
DX: F51.3 Sleepwalking [somnambulism] (principal); G47.19 Other hypersomnia; G47.33 Obstructive sleep apnea (adult) (pediatric); Z87.898 Personal history of other specified conditions
CPT/HCPCS: 80305

== ENCOUNTER → 2019-04-24 07:24 | Outpatient (CLI) | payer BC, SELFPAY ==
[2019-04-24 08:36] LABS: BUN Creatinine Ratio 16.8 (6-22); Blood Urea Nitrogen 17 mg/dL (9-20); Calcium 10.3 mg/dL (8.4-10.2); Carbon Dioxide 26 mmol/L (22-32); Chloride 104 mmol/L (98-107); Estimated Glomerular Filt Rate > 60.0 mL/min (>60); Glucose 160 mg/dL (70-100); HEMOLYSIS < 15 (0-50); Potassium 4.4 mmol/L (3.4-5.1); Sodium 140 mmol/L (137-145)
[2019-04-24 08:37] LABS: Hemoglobin A1C% w Est Avg Glu 6.8 % (4.0-6.0)
== END ==
PROVIDERS: PCP Student in an Organized Health Care Education/Training Program; Referring Provider Student in an Organized Health Care Education/Training Program; Visit Provider Student in an Organized Health Care Education/Training Program
DX: E11.9 Type 2 diabetes mellitus without complications (principal); I10 Essential (primary) hypertension
CPT/HCPCS: 36415; 80048; 83036

== ENCOUNTER 2019-08-07 09:05 | Emergency (ER) | payer BC, SELFPAY ==
[2019-08-07] VITALS (29 sets, daily range): BP systolic 131–194; BP diastolic 84–115; PULSE 64–98; RESP 9–27; TEMP 37.1; O2SAT 94–99; BMI 33.2
--- NOTE | 2019-08-07 09:27 | DI.RAD.S_ITS ---
PROCEDURE: XR CHEST 1V INDICATIONS: chest pain TECHNIQUE: One view of the chest was acquired. COMPARISON: [facility], CT, CT ANGIO CHEST PE PROTOCOL, 12/18/2017, 15:52. [facility], CR, XR CHEST 2V, 11/02/2017, 12:22. [facility], CR, CHEST 1 VIEW, 04/05/2017, 14:10. FINDINGS: Surgical changes and devices: None. Lungs and pleura: Low lung volumes. No consolidation. No pleural effusions or pneumothorax. Mediastinum: Mediastinal contours appear normal. Heart size is normal. Bones and chest wall: No suspicious bony lesions. Overlying soft tissues appear unremarkable. IMPRESSION: Low lung volumes. No acute cardiopulmonary abnormality. Dictated by: David Baldwin M.D. on 08/07/2019 at 10:01 Approved by: David Baldwin M.D. on 08/07/2019 at 10:02
--- NOTE | 2019-08-07 09:28 | DI.CT.S_ITS ---
PROCEDURE: CT ANGIO CHEST PE PROTOCOL INDICATIONS: SOB with hx of PE TECHNIQUE: After the administration of intravenous contrast, 2 mm thick sections acquired from the pulmonary apices to the posterior costophrenic angles. 3-dimensional maximum intensity projection (MIP) coronal and sagittal reformats were then acquired through the thorax. For radiation dose reduction, the following was used: automated exposure control, adjustment of mA and/or kV according to patient size. COMPARISON: [facility], CT, CT CHEST WO CON, 12/13/2017, 13:46. [facility], CT, CHEST/ABDOMEN WITH CONTRAST, 03/27/2017, 8:08. [facility], CR, XR CHEST 1V, 08/07/2019, 9:31. [facility], CT, CT ANGIO CHEST PE PROTOCOL, 12/18/2017, 15:52. FINDINGS: Image quality: Excellent. Pulmonary arteries: Pulmonary arteries demonstrate no intraluminal filling defects to suggest central pulmonary embolism. Mild pruning of distal pulmonary arteries likely sequelae of prior PE. Lungs and pleura: Lungs are clear. No pleural effusions or pneumothorax. Central and peripheral airways are patent. Mediastinum: Heart size is normal, without pericardial effusion. No mediastinal or hilar adenopathy. Coronary artery calcifications consistent with atherosclerosis. Thoracic aorta is normal in caliber and enhancement. Esophagus is normal in caliber. Small hiatal hernia. Bones and chest wall: No suspicious bony lesions. Ribs and thoracic spine appear intact throughout. Thyroid gland is normal. No axillary or supraclavicular adenopathy. Abdomen: A hepatomegaly and hepatic steatosis. Gallbladder is surgically absent. There is fatty infiltration in pancreas. IMPRESSION: 1. No evidence for acute pulmonary embolism. 2. Pruning of distal pulmonaries, likely sequelae of prior PE. 3. Coronary artery atherosclerosis. 4. Mild hepatomegaly and hepatic steatosis. Dictated by: Opal Mendoza M.D. on 08/07/2019 at 10:21 Approved by: Opal Mendoza M.D. on 08/07/2019 at 10:39
--- NOTE | 2019-08-07 09:31 | ED_ITS ---
HPI - Chest Pain General Chief Complaint: Chest Pain Stated Complaint: chest pain Time Seen by Provider: 08/07/19 09:17 Source: patient Limitations: no limitations History of Present Illness HPI narrative: Patient is a 59-year-old male with history of coronary artery disease and pulmonary embolisms presenting with chest pain and shortness of breath. He says actually started yesterday is started on left side of his chest it radiates to the right side and through to his back. It is worse with exertion is better with rest. He says it has been going on for about 36 hours this morning however it was worse. He also has a history of pulmonary embolisms he has been short of breath. He they are unsure why he developed pulmonary embolisms he was initially on Xarelto but has not been on any anticoagulation for some time. He denies any orthopnea or lower extremity edema. MD complaint: chest pain Duration: improved Onset: during rest Pain location: left chest Severity: moderate Quality: tightness Exacerbating factors: exertion Related Data Home Medications Medication Instructions Recorded Confirmed melatonin 9 mg PO HS #0 06/09/10 01/16/19 [BENEFIBER] 9 gm PO HSP #0 06/24/16 01/16/19 empagliflozin 25 mg tablet 25 mg PO DAILY tab 10/02/18 01/16/19 Previous Rx's Medication Instructions Recorded Glucose: Test Strips See Rx Instructions .ROUTE 07/06/17 .COMPLEX #100 aspirin 81 mg tablet,delayed 81 mg PO DAILY #30 tab 12/11/17 release carvedilol 3.125 mg tablet 3.125 mg PO BID #180 tab 04/17/18 fenofibrate nanocrystallized 145 145 mg PO QDAY #90 tab 04/17/18 mg tablet losartan 50 mg tablet 50 mg PO DAILY #90 tab 04/17/18 rosuvastatin 40 mg tablet 40 mg PO DAILY #90 tab 04/17/18 prazosin 5 mg capsule 5 mg PO BEDTIME #90 cap 10/23/18 finasteride 1 mg tablet 1 mg PO QDAY #90 tab 12/26/18 mometasone 0.1 % topical cream 1 applictn TOP BID #15 gram 01/17/19 metformin 500 mg tablet 1,000 mg PO BIDCC #360 tab 02/19/19 glipizide 5 mg tablet, extended 5 mg PO DAILY #90 tab 04/29/19 release 24 hr omeprazole 40 mg capsule,delayed 40 mg PO QDAY@0600 #90 cap 04/29/19 release Allergies Allergy/AdvReac Type Severity Reaction Status Date / Time grass pollen [GRASS POLLEN] Allergy Unknown Verified 08/07/19 09:38 mold [MOLD] Allergy Unknown Verified 08/07/19 09:38 Review of Systems Review of Systems Narrative: GENERAL: Denies chills, fatigue, malaise, fever, sweats, travel HEENT: Denies sinus pain, ear pain, sore throat, difficulty swallowing, neck pain RESPIRATORY: Denies dyspnea, cough, wheezing, hemoptysis, sputum. CARDIOVASCULAR: See HPI GASTROINTESTINAL: Denies nausea, vomiting, abdominal pain, diarrhea, constipation, melena. : Denies dysuria, frequency, incontinence, hematuria, urinary retention, flank pain. MUSCULOSKELETAL: Denies weakness, joint pain, or bony pain SKIN: No rash, no erythema, no pruritus NEUROLOGIC: Denies weakness, dizziness, headache, numbness, change in speech, confusion PSYCHIATRIC: No concerning psychosocial issues. 12 point review of systems is negative except for those stated above and HPI Patient History Medical History Allergic rhinitis (Chronic Unknown) Coronary artery disease (Chronic Unknown) Diabetes (Chronic Unknown) GERD (gastroesophageal reflux disease) (Chronic Unknown) Hx of pneumothorax (Resolved 1978) Hyperlipemia (Chronic Unknown) Hypertension (Chronic Unknown) IBS (irritable bowel syndrome) (Chronic Unknown) Pure hypercholesterolemia (Chronic 02/18/16) Status post insertion of drug-eluting stent into left anterior descending (LAD) artery (Resolved 06/2015) Tinnitus of both ears (Chronic) Type 2 diabetes mellitus without complication, without long-term current use of insulin (Chronic 06/24/16) Surgical History History of esophagogastroduodenoscopy (EGD) Status post colectomy Status post laparoscopic cholecystectomy Social History Smoking Status: Never smoker alcohol intake: current substance use type: does not use Smoking Status: Never smoker Substance Use Type: does not use Exam Initial Vital Signs Initial Vital Signs: Vital Signs Temperature 98.7 F 08/07/19 09:06 Pulse Rate 72 08/07/19 09:06 Respiratory Rate 12 08/07/19 09:06 Blood Pressure 194/115 H 08/07/19 09:06 Pulse Oximetry 99 08/07/19 09:06 GENERAL: Well-appearing, well-nourished and in no acute distress. HEENT: Head atraumatic,EOMI, pupils reactive, face symmetric, moist mucous membranes CARDIOVASCULAR: Regular rate and rhythm without murmurs, rubs or gallops. RESPIRATORY: Breath sounds equal bilaterally, no wheezes rales or rhonchi. ABDOMEN: Soft, nontender. Normoactive bowel sounds all 4 quadrants. No guarding or rebound. EXTREMITIES: Normal range of motion, no clubbing or edema. Neurovascularly intact NEUROLOGICAL: Alert and oriented x4.Normal gait and speech. Cranial nerves II through XII grossly intact. SKIN: Warm, dry, no laceration, no petechiae, no rashes or lesions. Course Orders Ordered: ED Orders 08/07/19 09:20 Complete Blood Count AUTO DIFF Stat Comprehensive Metabolic Panel Stat Lipase Stat NT-proBNP (BNP-Adult 18+) Stat Partial Thromboplastin Time Stat Prothrombin Time INR Stat Troponin & CK Cardiac Panel Stat 08/07/19 09:27 XR chest 1V Stat EKG-12 Lead Stat 08/07/19 09:28 CT angio chest PE protocol Stat 08/07/19 12:06 Troponin I Stat Heparin Sodium/Dextrose (Heparin Drip) 25,000 unit in 500 mls @ 20 mls/hr IV CONT MARIA C; Protocol Last Admin: 08/07/19 10:47 Dose: 1,000 units/hr, 20 mls/hr Documented by: COLETTE Nitroglycerin (Nitrostat) 0.4 mg SL [id number] PRN PRN Reason: Chest Pain Last Admin: 08/07/19 10:27 Dose: 0.4 mg Documented by: Admin: 08/07/19 09:37 Dose: 0.4 mg Documented by: COLETTE Discontinued Medications Aspirin (Aspirin Chew) 324 mg PO NOW ONE Stop: 08/07/19 09:28 Last Admin: 08/07/19 09:36 Dose: 324 mg Documented by: COLETTE Heparin Sodium (Porcine) (Heparin) 5,000 unit IV NOW ONE Stop: 08/07/19 10:21 Last Admin: 08/07/19 10:47 Dose: 5,000 unit Documented by: JNUNEZ Consultations Consultation #1: Dr. Pickering, hospitalist at [facility] happily accepts patient Time: 11:17 Consultation #2: Dr. Hackett, cardiology at [facility] more agrees with current treatment and transfer Time: 11:22 Vital Signs Vital signs: Vital Signs - 8 hr 08/07/19 09:06 08/07/19 09:13 08/07/19 09:15 Temperature 98.7 F Pulse Rate 72 64 75 Respiratory Rate 12 16 17 Blood Pressure 194/115 H Pulse Oximetry 99 98 98 08/07/19 09:30 08/07/19 09:31 08/07/19 09:37 Temperature Pulse Rate 79 78 95 H Respiratory Rate 17 20 Blood Pressure 152/95 H 152/95 H Pulse Oximetry 97 97 08/07/19 09:45 08/07/19 10:03 08/07/19 10:05 Temperature Pulse Rate 98 H 80 Respiratory Rate 27 H 23 Blood Pressure 147/91 H 157/92 H Pulse Oximetry 96 96 96 08/07/19 10:14 08/07/19 10:15 08/07/19 10:27 Temperature Pulse Rate 85 80 80 Respiratory Rate 24 13 Blood Pressure 153/95 H 152/93 H 152/93 H Pulse Oximetry 97 96 08/07/19 10:30 08/07/19 10:45 08/07/19 11:00 Temperature Pulse Rate 92 H 89 88 Respiratory Rate 18 16 15 Blood Pressure 131/88 146/84 H 143/87 H Pulse Oximetry 94 95 96 08/07/19 11:15 08/07/19 11:30 08/07/19 11:31 Temperature Pulse Rate 83 85 86 Respiratory Rate 15 13 21 Blood Pressure 151/84 H 146/88 H Pulse Oximetry 96 96 96 08/07/19 11:45 08/07/19 12:00 08/07/19 12:15 Temperature Pulse Rate 82 85 82 Respiratory Rate 11 L 21 13 Blood Pressure 146/94 H 143/92 H 145/92 H Pulse Oximetry 94 96 95 08/07/19 12:30 08/07/19 12:45 08/07/19 13:00 Temperature Pulse Rate 81 77 80 Respiratory Rate 14 14 12 Blood Pressure 137/89 135/90 141/89 H Pulse Oximetry 95 96 96 MDM - Chest Pain Lab Data Attestation: I reviewed the patient's lab results. Result diagrams: 08/07/19 09:20 08/07/19 09:20 Labs: Lab Results 08/07/19 08/07/19 08/07/19 Range/Units 09:20 09:20 09:20 WBC 5.1 (4.5-11.0) X10^3/uL RBC 5.00 (4.5-5.9) X10^6/uL Hgb 16.6 (13.5-17.5) g/dL Hct 47.7 (41-53) % MCV 95.4 (80-100) fL MCH 33.1 (26-34) PG MCHC 34.7 (30-36) % RDW 13.0 (11.6-14.8) % Plt Count 209 (150-400) X10^3/uL Neut % (Auto) 59.3 (50-75) % Lymph % (Auto) 28.0 (25-40) % [place] % (Auto) 10.5 (3-14) % Eos % (Auto) 1.8 L (2-4) % Baso % (Auto) 0.4 (0-2) % Neut # (Auto) 3000 (8195-8958) /uL Lymph # (Auto) 1400 (4916-2392) /uL [place] # (Auto) 500 (0-900) /uL Eos # (Auto) 100 (0-450) /uL Baso # (Auto) 0 (0-100) /uL PT 12.0 (10.1-12.7) SECONDS INR 1.0 (0.9-1.3) APTT 32 (26.4-36.2) SECONDS Sodium 139 (137-145) mmol/L Potassium 4.2 (3.4-5.1) mmol/L Chloride 108 H (98-107) mmol/L Carbon Dioxide 21 L (22-32) mmol/L BUN 14 (9-20) mg/dL Creatinine 0.74 (0.66-1.25) mg/dL Estimated GFR > 60.0 (>60) mL/min BUN/Creatinine Ratio 18.9 (6-22) Glucose 181 H (80-110) mg/dL Calcium 10.4 H (8.4-10.2) mg/dL Total Bilirubin 0.6 (0.2-1.3) mg/dL AST 38 (17-59) IU/L ALT 53 H (<50) IU/L Alkaline Phosphatase 39 (38-126) U/L Total Creatine Kinase 98 (55-170) U/L CK-MB (CK-2) TNP CK-MB (CK-2) Rel Index TNP Troponin I 0.398 H* (0.01-0.034) ng/mL NT-Pro-B Natriuret Pep 295 H (<125) pg/mL Total Protein 7.7 (6.3-8.2) g/dL Albumin 4.6 (3.5-5.0) g/dL Globulin 3.1 (1.7-4.1) g/dL Albumin/Globulin Ratio 1.5 (1.0-2.8) Lipase 39 (23-300) U/L 08/07/19 Range/Units 12:06 WBC (4.5-11.0) X10^3/uL RBC (4.5-5.9) X10^6/uL Hgb (13.5-17.5) g/dL Hct (41-53) % MCV (80-100) fL MCH (26-34) PG MCHC (30-36) % RDW (11.6-14.8) % Plt Count (150-400) X10^3/uL Neut % (Auto) (50-75) % Lymph % (Auto) (25-40) % [place] % (Auto) (3-14) % Eos % (Auto) (2-4) % Baso % (Auto) (0-2) % Neut # (Auto) (0001-0159) /uL Lymph # (Auto) (0228-4441) /uL [place] # (Auto) (0-900) /uL Eos # (Auto) (0-450) /uL Baso # (Auto) (0-100) /uL PT (10.1-12.7) SECONDS INR (0.9-1.3) APTT (26.4-36.2) SECONDS Sodium (137-145) mmol/L Potassium (3.4-5.1) mmol/L Chloride (98-107) mmol/L Carbon Dioxide (22-32) mmol/L BUN (9-20) mg/dL Creatinine (0.66-1.25) mg/dL Estimated GFR (>60) mL/min BUN/Creatinine Ratio (6-22) Glucose (80-110) mg/dL Calcium (8.4-10.2) mg/dL Total Bilirubin (0.2-1.3) mg/dL AST (17-59) IU/L ALT (<50) IU/L Alkaline Phosphatase (38-126) U/L Total Creatine Kinase (55-170) U/L CK-MB (CK-2) CK-MB (CK-2) Rel Index Troponin I 0.445 H* (0.01-0.034) ng/mL NT-Pro-B Natriuret Pep (<125) pg/mL Total Protein (6.3-8.2) g/dL Albumin (3.5-5.0) g/dL Globulin (1.7-4.1) g/dL Albumin/Globulin Ratio (1.0-2.8) Lipase (23-300) U/L Imaging Data Chest x-ray: Radiologist's Impression: PROCEDURE: XR CHEST 1V INDICATIONS: chest pain TECHNIQUE: One view of the chest was acquired. COMPARISON: [facility], CT, CT ANGIO CHEST PE PROTOCOL, 12/18/2017, 15:52. [facility], CR, XR CHEST 2V, 11/02/2017, 12:22. [facility], , CHEST 1 VIEW, 04/05/2017, 14:10. FINDINGS: Surgical changes and devices: None. Lungs and pleura: Low lung volumes. No consolidation. No pleural effusions or pneumothorax. Mediastinum: Mediastinal contours appear normal. Heart size is normal. Bones and chest wall: No suspicious bony lesions. Overlying soft tissues appear unremarkable. IMPRESSION: Low lung volumes. No acute cardiopulmonary abnormality. Dictated by: David Baldwin M.D. on 08/07/2019 at 10:01 Approved by: David Baldwin M.D. on 08/07/2019 at 10:02 CT scan - chest: Radiologist's Impression: PROCEDURE: CT ANGIO CHEST PE PROTOCOL INDICATIONS: SOB with hx of PE TECHNIQUE: After the administration of intravenous contrast, 2 mm thick sections acquired from the pulmonary apices to the posterior costophrenic angles. 3-dimensional maximum intensity projection (MIP) coronal and sagittal reformats were then acquired through the thorax. For radiation dose reduction, the following was used: automated exposure control, adjustment of mA and/or kV according to patient size. COMPARISON: [facility], CT, CT CHEST WO CON, 12/13/2017, 13:46. [facility], CT, CHEST/ABDOMEN WITH CONTRAST, 03/27/2017, 8:08. [facility], CR, XR CHEST 1V, 08/07/2019, 9:31. [facility], CT, CT ANGIO CHEST PE PROTOCOL, 12/18/2017, 15:52. FINDINGS: Image quality: Excellent. Pulmonary arteries: Pulmonary arteries demonstrate no intraluminal filling d efects to suggest central pulmonary embolism. Mild pruning of distal pulmonary arteries likely sequelae of prior PE. Lungs and pleura: Lungs are clear. No pleural effusions or pneumothorax. Cent ral and peripheral airways are patent. Mediastinum: Heart size is normal, without pericardial effusion. No mediastinal or hilar adenopathy. Coronary artery calcifications consistent with atheros clerosis. Thoracic aorta is normal in caliber and enhancement. Esophagus is normal in caliber. Small hiatal hernia. Bones and chest wall: No suspicious bony lesions. Ribs and thoracic spine appe ar intact throughout. Thyroid gland is normal. No axillary or supraclavicular adenopathy. Abdomen: A hepatomegaly and hepatic steatosis. Gallbladder is surgically absent. There is fatty infiltration in pancreas. IMPRESSION: 1. No evidence for acute pulmonary embolism. 2. Pruning of distal pulmonaries, likely sequelae of prior PE. 3. Coronary artery atherosclerosis. 4. Mild hepatomegaly and hepatic steatosis. Dictated by: Opal Mendoza M.D. on 08/07/2019 at 10:21 ECG Data Attestation: I personally reviewed and interpreted this ECG as follows: Prior ECG tracings: available for review Interpretation: Normal sinus rhythm rate 81 p.r. interval 222 QRS 99 QTC 412 Q- wave noted in lead 3 similar to previous EKG use ST elevation noted in AVF similar to prior no ST depression, appears similar to previous EKG in 2018 EKG 2. MDM Narrative Medical decision making narrative: Patient received 2 nitroglycerin and is chest pain-free. Troponin returns and is elevated based on patient's symptoms and prior history and elevation and troponin concern for NSTEMI or recent cardiac event. He is placed on heparin drip. He remained stable. Repeat troponin is rising. Patient is followed by Dr. Richards at [facility] however [facility] is full and not accepting any patient's. Patient is transferred to [place] to [facility] Critical Care Time Critical Care Time Critical Care Time: Yes Total Critical Care Time: 30 Attestation: The high probability of a clinically significant, sudden or life threatening deterioration of the [cardiovascular] system(s) required my full and direct attention, intervention and personal management. The aggregate critical care time was 30 minutes. This time is in addition to time spent performing reported procedures but includes the following: [x] Data Review and interpretation [x] Patient assessment and monitoring of vital signs [x] Documentation [x] Medication orders and management Discharge Plan Departure Patient Disposition: [facility] Clinical Impression: Acute coronary syndrome Prescriptions: No Action aspirin [Aspir-81] 81 mg tablet,delayed release (DR/EC) 81 mg PO DAILY Qty: 30 RF: 11 melatonin 3 MG tablet 9 mg PO HS Qty: 0 RF: 0 [BENEFIBER] 9 gm PO HSP Qty: 0 RF: 0 Glucose: Test Strips See Rx Instructions .ROUTE .COMPLEX Qty: 100 RF: 3 carvedilol 3.125 mg tablet 3.125 mg PO BID Qty: 180 RF: 1 fenofibrate nanocrystallized [Tricor] 145 mg tablet 145 mg PO QDAY Qty: 90 RF: 1 losartan 50 mg tablet 50 mg PO DAILY Qty: 90 RF: 1 rosuvastatin 40 mg tablet 40 mg PO DAILY Qty: 90 RF: 1 prazosin 5 mg capsule 5 mg PO BEDTIME Qty: 90 RF: 1 finasteride 1 mg tablet 1 mg PO QDAY Qty: 90 RF: 0 mometasone 0.1 % cream 1 applictn TOP BID Qty: 15 RF: 0 metformin 500 mg tablet 1,000 mg PO BIDCC Qty: 360 RF: 1 omeprazole 40 mg capsule,delayed release(DR/EC) 40 mg PO QDAY@0600 Qty: 90 RF: 3 glipizide 5 mg tablet extended release 24hr 5 mg PO DAILY Qty: 90 RF: 0 Jardiance 25 mg tablet 25 mg PO DAILY RF: 0 Referrals: Maciej Garrett MD [Primary Care Provider] -
[2019-08-07 09:36] LABS: Add Manual Diff / Slide Review NO; Basophils Absolute Auto 0 /uL (0-100); Basophils Percent Auto 0.4 % (0-2); Eosinophils Absolute Auto 100 /uL (0-450); Eosinophils Percent Auto 1.8 % (2-4); Hematocrit 47.7 % (41-53); Hemoglobin 16.6 g/dL (13.5-17.5); Lymphocytes Absolute Auto 1400 /uL (1100-4500); Mean Corpuscular HGB Conc 34.7 % (30-36); Mean Corpuscular Hemoglobin 33.1 PG (26-34); Mean Corpuscular Volume 95.4 fL (80-100); Monocytes Absolute Auto 500 /uL (0-900); Monocytes Percent Auto 10.5 % (3-14); Neutrophils Absolute Auto 3000 /uL (1500-7000); Neutrophils Percent Auto 59.3 % (50-75); Platelet Count 209 X10^3/uL (150-400); White Blood Cell Count 5.1 X10^3/uL (4.5-11.0)
[2019-08-07] MEDS: ASPIRIN 81 MG CHEW TAB 324 MG PO (09:36)
[2019-08-07] MEDS: NITROGLYCERIN 0.4 MG SL TAB SL ×2 (09:37→10:27)
[2019-08-07 09:39] LABS: PTT Partial Thromboplastin Tim 32 SECONDS (26.4-36.2)
[2019-08-07 09:43] LABS: Alanine Aminotransferase 53 IU/L (<50); Albumin 4.6 g/dL (3.5-5.0); Albumin Globulin Ratio 1.5 (1.0-2.8); Alkaline Phosphatase 39 U/L (38-126); Aspartate Aminotransferase 38 IU/L (17-59); BUN Creatinine Ratio 18.9 (6-22); Bilirubin Total 0.6 mg/dL (0.2-1.3); Blood Urea Nitrogen 14 mg/dL (9-20); Calcium 10.4 mg/dL (8.4-10.2); Carbon Dioxide 21 mmol/L (22-32); Chloride 108 mmol/L (98-107); Creatine Kinase 98 U/L (55-170); Estimated Glomerular Filt Rate > 60.0 mL/min (>60); Globulin 3.1 g/dL (1.7-4.1); Glucose 181 mg/dL (80-110); Lipase 39 U/L (23-300); Potassium 4.2 mmol/L (3.4-5.1); Sodium 139 mmol/L (137-145); Total Protein 7.7 g/dL (6.3-8.2)
[2019-08-07 09:53] LABS: NT-proBNP (BNP-Adult 18+) 295 pg/mL (<125)
[2019-08-07 10:18] LABS: HEMOLYSIS 22 (0-50)
[2019-08-07 10:20] LABS: Troponin I 0.398 ng/mL (0.01-0.034)
[2019-08-07] MEDS: HEPARIN DRIP 25,000 UNIT/500 ML IV.SOLN 20 UNIT IV (10:47)
[2019-08-07] MEDS: HEPARIN 5,000 UNIT/ML VIAL 5000 UNIT IV (10:47)
[2019-08-07 12:48] LABS: Troponin I 0.445 ng/mL (0.01-0.034)
[2019-08-07 14:17] LABS: COVID19 -Nasal RAPID Negative (Negative)
--- NOTE | 2019-08-07 14:27 | PC.NURSE ---
Heparin infusing upon discharge
== END 2019-08-07 14:30 | disposition short-term general hospital (02) ==
PROVIDERS: Emergency Provider Emergency Medicine; PCP Student in an Organized Health Care Education/Training Program
DX: I24.9 Acute ischemic heart disease, unspecified (principal); R06.02 Shortness of breath; E11.9 Type 2 diabetes mellitus without complications
CPT/HCPCS: 36415; 71045; 71275; 80053; 82550; 83690; 83880; 84484; 85025; 85610; 85730; 87635; 93005; 96365; 96366; 96375; 99285; 99291; J1644; Q9967

== ENCOUNTER → 2019-08-19 08:00 | Outpatient (CLI) | payer BC, SELFPAY ==
[2019-08-19 09:24] LABS: Add Manual Diff / Slide Review NO; Basophils Absolute Auto 0 /uL (0-100); Basophils Percent Auto 0.7 % (0-2); Eosinophils Absolute Auto 100 /uL (0-450); Eosinophils Percent Auto 2.6 % (2-4); Hematocrit 41.3 % (41-53); Hemoglobin 14.3 g/dL (13.5-17.5); Lymphocytes Absolute Auto 2100 /uL (1100-4500); Lymphocytes Percent Auto 43.7 % (25-40); Mean Corpuscular HGB Conc 34.7 % (30-36); Mean Corpuscular Hemoglobin 32.8 PG (26-34); Mean Corpuscular Volume 94.7 fL (80-100); Monocytes Absolute Auto 500 /uL (0-900); Monocytes Percent Auto 10.3 % (3-14); Neutrophils Absolute Auto 2100 /uL (1500-7000); Neutrophils Percent Auto 42.7 % (50-75); Platelet Count 270 X10^3/uL (150-400); Red Blood Cell Count 4.36 X10^6/uL (4.5-5.9); Red Cell Distribution Width 13.2 % (11.6-14.8); White Blood Cell Count 4.8 X10^3/uL (4.5-11.0)
[2019-08-19 10:09] LABS: BUN Creatinine Ratio 20.2 (6-22); Blood Urea Nitrogen 17 mg/dL (9-20); Calcium 9.7 mg/dL (8.4-10.2); Carbon Dioxide 24 mmol/L (22-32); Chloride 105 mmol/L (98-107); Cholesterol 133 mg/dL (140-199); Estimated Glomerular Filt Rate > 60.0 mL/min (>60); Glucose 108 mg/dL (80-110); HDL Cholesterol 34 mg/dL (40-60); HEMOLYSIS < 15 (0-50); LDL Cholesterol Calculated 53 mg/dL (<100); Potassium 3.9 mmol/L (3.4-5.1); Sodium 138 mmol/L (137-145); Triglycerides 232 mg/dL (35-150)
== END ==
PROVIDERS: PCP Student in an Organized Health Care Education/Training Program; Referring Provider Internal Medicine Cardiovascular Disease; Visit Provider Internal Medicine Cardiovascular Disease
DX: I25.10 Atherosclerotic heart disease of native coronary artery without angina pectoris (principal); E78.5 Hyperlipidemia, unspecified
CPT/HCPCS: 36415; 80048; 80061; 85025

== ENCOUNTER → 2019-09-22 13:38 | Outpatient (CLI) | payer BC, SELFPAY ==
[2019-09-23 17:36] LABS: COVID19 Sendout Not Detected (Not Detect)
== END ==
PROVIDERS: PCP Student in an Organized Health Care Education/Training Program; Visit Provider Physician Assistant
DX: Z11.59 Encounter for screening for other viral diseases (principal)
CPT/HCPCS: 87635

== ENCOUNTER → 2019-11-06 14:55 | Outpatient (CLI) | payer BC, SELFPAY ==
--- NOTE | 2019-11-06 14:57 | DI.RAD.S_ITS ---
PROCEDURE: XR HAND LT MIN 3V INDICATIONS: Thumb pain TECHNIQUE: 3 views of the hand(s) acquired. COMPARISON: None. FINDINGS: Bones: No fracture. Diffuse interphalangeal osteoarthritis. Scattered degenerative subchondral sclerosis and spurring. 1st CMC and triscaphe joint degeneration also noted. Subluxed appearance of the 1st CMC joint Soft tissues: No suspicious soft tissue calcifications. IMPRESSION: 1st CMC joint degeneration and subluxation. Diffuse left hand osteoarthritis as above Dictated by: Joe Borges M.D. on 11/06/2019 at 16:19 Approved by: Joe Borges M.D. on 11/06/2019 at 16:27
== END ==
PROVIDERS: Family Provider Student in an Organized Health Care Education/Training Program; PCP Student in an Organized Health Care Education/Training Program; Referring Provider Student in an Organized Health Care Education/Training Program; Visit Provider Student in an Organized Health Care Education/Training Program
DX: M79.645 Pain in left finger(s) (principal); M19.042 Primary osteoarthritis, left hand; M18.12 Unilateral primary osteoarthritis of first carpometacarpal joint, left hand
CPT/HCPCS: 73130

== ENCOUNTER 2019-11-12 09:30 | Outpatient (RCR) | payer BC, SELFPAY ==
--- NOTE | 2019-11-05 11:53 | OT.OP.EVAL ---
Visit Care Team Role Provider Type Maciej Garrett MD Attending Provider Physician Family Provider Primary Care Provider Referring Provider Specialty: Internal Medicine Address: [address] [place] [address], [address], [place], [address] Email: [email or web address] Occupational Therapy Initial Evaluation OT Outpatient Adult Evaluation Start: 11/05/19 09:13 Freq: Status: Active Protocol: Document 11/05/19 10:04 [facility] (Rec: 11/05/19 10:05 [facility] [id number]) General Information Visit Start Time 09:15 Visit Stop Time 10:00 Total Visit Minutes 45 Plan of Care Dates 11/05/19-12/17/19 Insurance Information [facility] Treatment Setting Outpatient Care Note Type Initial Evaluation Goals [employer] Goals 1. John will be modified independent with execution of home exercise program utilizing provided written and visual instructions from therapist. 2. John will verbalize 100% understanding of joint protection principles with ability to reference written/ visual materials as needed. 3. John will be able to verbally identify 2-3 conservative techniques that he can utilize to address pain /discomfort of the left thumb. Assessment/Plan Treatment Assessment John is a 59 y.o right hand dominant male who was referred by his PCP, Maciej Garrett MD, secondary to flexor tenosynovitis of the left thumb. 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 John is predominantly working from home secondary to COVID. PMH: Significant for blood clots; blood pressure; diabetes I; hearing problems; heart attack ; heart disease; pulmonary embolism; vision problems; surgery in 2007. Evaluation findings: Tender to palpation of CMCJ. Minor tightness palpated of L thumb adductor. No observed locking of L thumb into flexion; no palpation of nodule. Pain exacerbated w/ lateral thumb pinch; denial of pain exacerbation w/ gripping of large items and/or completing work or gardening tasks (given left hand is non- dominant hand). Slight IPJ flex noted w/ L thumb w/ lateral pinch. Prescribed anti inflammatory by PCP; applying topically as directed by PCP to area of discomfort. Reportedly has used 2 week prescription within allotted time frame. Denial of use of additional conservative measures for pain/discomfort sx management; denial of use/ history of use of splint. Denial of education re: joint protection principles relative to the hand/digits. Pain 3/10 without active use; exacerbation to 7/10 as indicated on Pain Assessment Grid. Verbal indication of 4/ 10 on pain scale post- treatment session activities. Patient is modifying day-to- day life utilizing 2-handed approach/grasping objects from above. Based on evaluation findings outpatient OT is recommended to provide education and develop an appropriate HEP, which would include joint protection education, strengthening as tolerated/ able, neuro retraining, conservative pain/swelling management techniques, self- manual techniques, and identification of appropriate splinting option and/or referral to [facility] for custom- made splint. Home Exercise Program Treatment: Initiated HEP. Instructed in 2 different techniques to address tightness of add. Initiated joint protection education; provided basic handout which is comprised of joint protection principles. Initiated CMC neuro re- education. Discussed having an x-ray given findings in evaluation relative to dx of arthritis. Comment 6 weeks Treatment Frequency Once a Week Therapeutic Contents Active Range of Motion, Adaptive Equipment Education, Client Education,Cognitive Skills Development,Functional Activities,Home Exercise Program,Joint Protection, Manual Therapy,Education, Neurodevelopment Treatment, Neuromuscular Re-Education, Self-Care,Stretching/ Flexibility Activities, Therapeutic Activities, Therapeutic Exercises, Modalities,Sensory Re- education Types of Modalities Contrast Bath,E-Stim, Functional Stimulation (FES), Ice Massage,Ultrasound Patient Instruction Home Exercise Program,Plan of Care,Questions/Concerns Other Suggested Referrals Recommend consideration of x- ray given presenting sx
--- NOTE | 2019-12-31 12:02 | OT.OP.DC ---
Visit Care Team Role Provider Type Maciej Garrett MD Attending Provider Physician Family Provider Primary Care Provider Referring Provider Address: [address] [place] [address], [address], [place], [address] Email: [email or web address] Outpatient OT Outpatient Adult Evaluation Start: 11/05/19 09:13 Freq: Status: Active Protocol: Document 11/05/19 10:04 [facility] (Rec: 11/05/19 09:22 AMS [id number]) Assessment/Plan Assessment Treatment Assessment Error. Therapist unable to correct. OT Outpatient Treatment Note - Adult Start: 11/05/19 09:13 Freq: Status: Active Protocol: Document 12/31/19 11:56 [facility] (Rec: 12/31/19 12:02 AMS [id number]) OT Outpatient Adult Treatment Note Visit Information Plan of Care Dates 11/05/19-12/17/19 Insurance Information [facility] Setting Treatment Setting Outpatient Care Visit Type Note Type Discharge Summary General Information General Information John is a 59 y.o right hand dominant male who was referred by his PCP, Maciej Garrett MD, secondary to flexor tenosynovitis of the left thumb. 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 John is predominantly working from home secondary to COVID. PMH: Significant for blood clots; blood pressure; diabetes I; hearing problems; heart attack ; heart disease; pulmonary embolism; vision problems; surgery in 2007. - Subjective Observations Per [facility] Staff note in [facility], patient 'was having an injection' (11/25/19) and thus , treatment was 'placed on hold'. Patient has not been seen in the outpatient setting since 11/12/19 and POC ended on 12/17/19. Thus, recommend d /c from outpatient OT at this time and therapist to follow- up as appropriate/as deemed appropriate by PCP. - Objective Shelter Goals ALL GOALS D/C 12/31/19 1. Don will be modified independent with execution of home exercise program utilizing provided written and visual instructions from therapist. 2. Don will verbalize 100% understanding of joint protection principles with ability to reference written/ visual materials as needed. GOALS MET Don will be able to verbally identify 2-3 conservative techniques that he can utilize to address pain/discomfort of the left thumb. - - Assessment Assessment of Improvement Per [facility], patient 'was having an injection' (11/25/19) and thus , treatment was 'placed on hold'. Patient has not been seen in the outpatient setting since 11/12/19 and POC ended on 12/17/19. Thus, recommend d /c from outpatient OT at this time and therapist to follow- up as appropriate/as deemed appropriate by PCP. - Plan Therapy Recommendations Discharge from Occupational Therapy
== END 2020-01-01 08:01 ==
LOC: OT 09:30
PROVIDERS: Family Provider Student in an Organized Health Care Education/Training Program; PCP Student in an Organized Health Care Education/Training Program; Referring Provider Student in an Organized Health Care Education/Training Program; Visit Provider Student in an Organized Health Care Education/Training Program
DX: M65.9 Synovitis and tenosynovitis, unspecified (principal); M25.542 Pain in joints of left hand; R53.1 Weakness
CPT/HCPCS: 97035; 97110; 97165; 97530

== ENCOUNTER → 2019-12-06 07:11 | Outpatient (CLI) | payer BC, SELFPAY ==
[2019-12-06 08:17] LABS: Add Manual Diff / Slide Review NO; Basophils Absolute Auto 0 /uL (0-100); Basophils Percent Auto 0.5 % (0-2); Eosinophils Absolute Auto 100 /uL (0-450); Eosinophils Percent Auto 1.9 % (2-4); Hematocrit 44.5 % (41-53); Hemoglobin 15.1 g/dL (13.5-17.5); Lymphocytes Absolute Auto 1800 /uL (1100-4500); Lymphocytes Percent Auto 35.1 % (25-40); Mean Corpuscular HGB Conc 33.9 % (30-36); Mean Corpuscular Hemoglobin 32.4 PG (26-34); Mean Corpuscular Volume 95.7 fL (80-100); Monocytes Absolute Auto 600 /uL (0-900); Monocytes Percent Auto 12.1 % (3-14); Neutrophils Absolute Auto 2500 /uL (1500-7000); Neutrophils Percent Auto 50.4 % (50-75); Platelet Count 211 X10^3/uL (150-400); Red Blood Cell Count 4.65 X10^6/uL (4.5-5.9); Red Cell Distribution Width 13.1 % (11.6-14.8)
[2019-12-06 08:35] LABS: BUN Creatinine Ratio 24.4 (6-22); Blood Urea Nitrogen 19 mg/dL (9-20); Calcium 9.7 mg/dL (8.4-10.2); Carbon Dioxide 27 mmol/L (22-32); Chloride 105 mmol/L (98-107); Cholesterol 131 mg/dL (140-199); Estimated Glomerular Filt Rate > 60.0 mL/min (>60); Glucose 119 mg/dL (80-110); HDL Cholesterol 41 mg/dL (40-60); HEMOLYSIS < 15 (0-50); LDL Cholesterol Calculated 62 mg/dL (<100); Potassium 3.8 mmol/L (3.4-5.1); Sodium 139 mmol/L (137-145); Triglycerides 139 mg/dL (35-150)
== END ==
PROVIDERS: Family Provider Student in an Organized Health Care Education/Training Program; PCP Student in an Organized Health Care Education/Training Program; Referring Provider Internal Medicine Cardiovascular Disease; Visit Provider Internal Medicine Cardiovascular Disease
DX: E78.5 Hyperlipidemia, unspecified (principal); I10 Essential (primary) hypertension; Z12.5 Encounter for screening for malignant neoplasm of prostate
CPT/HCPCS: 36415; 80048; 80061; 85025; G0103

== ENCOUNTER 2019-12-19 14:00 | Outpatient (RCR) | payer BC, SELFPAY | END 2019-12-19 15:00 | LOC: CAR 14:00 | PROVIDERS: PCP Student in an Organized Health Care Education/Training Program; Referring Provider Student in an Organized Health Care Education/Training Program; Visit Provider Student in an Organized Health Care Education/Training Program | DX: I21.4 Non-ST elevation (NSTEMI) myocardial infarction (principal) | CPT/HCPCS: 93798 ==

== ENCOUNTER 2020-01-03 09:36 | Emergency (ER) | payer BC, SELFPAY ==
[2020-01-03] VITALS (9 sets, daily range): BP systolic 138–186; BP diastolic 82–108; PULSE 67–82; RESP 14–28; TEMP 37; O2SAT 94–100; BMI 31.8
--- NOTE | 2020-01-03 09:52 | DI.RAD.S_ITS ---
PROCEDURE: XR CHEST 1V INDICATIONS: chest pain TECHNIQUE: One view of the chest was acquired. COMPARISON: [facility], CR, XR CHEST 1V, 08/07/2019, 9:31. [facility], CR, XR CHEST 2V, 11/02/2017, 12:22. FINDINGS: Surgical changes and devices: Pacemaker in normal position, dual chamber leads. Lungs and pleura: Lungs are clear. No pleural effusions or pneumothorax. Mediastinum: Mediastinal contours appear normal. Heart size is normal. Bones and chest wall: No suspicious bony lesions. Overlying soft tissues appear unremarkable. IMPRESSION: Pacemaker appears normal, no source of chest pain is seen. Dictated by: Jose A Patten M.D. on 01/03/2020 at 10:44 Approved by: Jose A Patten M.D. on 01/03/2020 at 10:45
[2020-01-03 10:07] LABS: Add Manual Diff / Slide Review NO; Basophils Absolute Auto 0 /uL (0-100); Basophils Percent Auto 0.6 % (0-2); Eosinophils Absolute Auto 100 /uL (0-450); Eosinophils Percent Auto 1.9 % (2-4); Hematocrit 46.6 % (41-53); Hemoglobin 15.9 g/dL (13.5-17.5); Lymphocytes Absolute Auto 1800 /uL (1100-4500); Lymphocytes Percent Auto 28.3 % (25-40); Mean Corpuscular HGB Conc 34.2 % (30-36); Mean Corpuscular Hemoglobin 32.6 PG (26-34); Mean Corpuscular Volume 95.4 fL (80-100); Monocytes Absolute Auto 700 /uL (0-900); Monocytes Percent Auto 11.1 % (3-14); Neutrophils Absolute Auto 3700 /uL (1500-7000); Neutrophils Percent Auto 58.1 % (50-75); Platelet Count 202 X10^3/uL (150-400); Red Blood Cell Count 4.89 X10^6/uL (4.5-5.9); Red Cell Distribution Width 13.1 % (11.6-14.8); White Blood Cell Count 6.4 X10^3/uL (4.5-11.0)
[2020-01-03 10:11] LABS: INR 1.1 (0.9-1.3); Prothrombin Time 12.2 SECONDS (10.1-12.7)
[2020-01-03 10:14] LABS: PTT Partial Thromboplastin Tim 32 SECONDS (26.4-36.2)
[2020-01-03 10:16] LABS: Alanine Aminotransferase 59 IU/L (<50); Albumin 4.7 g/dL (3.5-5.0); Albumin Globulin Ratio 1.4 (1.0-2.8); Alkaline Phosphatase 36 U/L (38-126); Aspartate Aminotransferase 35 IU/L (17-59); BUN Creatinine Ratio 17.9 (6-22); Bilirubin Total 0.6 mg/dL (0.2-1.3); Blood Urea Nitrogen 15 mg/dL (9-20); Calcium 9.6 mg/dL (8.4-10.2); Carbon Dioxide 26 mmol/L (22-32); Chloride 107 mmol/L (98-107); Creatine Kinase 82 U/L (55-170); Estimated Glomerular Filt Rate > 60.0 mL/min (>60); Globulin 3.4 g/dL (1.7-4.1); Glucose 126 mg/dL (80-110); HEMOLYSIS 21 (0-50); Lipase 62 U/L (23-300); Potassium 4.1 mmol/L (3.4-5.1); Sodium 140 mmol/L (137-145); Total Protein 8.1 g/dL (6.3-8.2)
[2020-01-03 10:28] LABS: Troponin I < 0.012 ng/mL (0.01-0.034)
--- NOTE | 2020-01-03 11:08 | ED.CHESTPAIN ---
HPI - Chest Pain General Chief Complaint: Chest Pain Stated Complaint: pacemaker placed Wed/thinks collapsed lung/painful Time Seen by Provider: 01/03/20 11:08 Source: patient Mode of arrival: Ambulatory Limitations: no limitations History of Present Illness HPI narrative: This is a 59-year-old male who comes to the emergency department with complaint of anterior chest pain radiating up to his neck. Patient had a pacemaker placed on Monday approximately [address] Beltrán for a cardiac arrhythmia or possible AV block. Patient also has had cardiac stents placed in August. He is on aspirin and Brilinta, his hypertension, dyslipidemia, [id number] diabetes. Patient has also had a history of collapsed lung as well as multiple emboli found on a CT several years ago. He was on 6 months of anticoagulation with Xarelto and then his medication was stopped. There were no known exacerbating factors at that time. Patient has not had fevers no cold cough or congestion other than some mild rhinorrhea. He states he has seasonal allergies and this is typical. He has not had any voice changes. He is unsure if he was intubated or had an LMA or was just sedated for his procedure. He states he feels mildly short of breath but does have pain with deep inspiration. He also has pain at the site of the pacemaker but states that that is a different location in a different type of pain. He has not had any nausea, no vomiting no other GI or urinary symptoms. He is not appreciate any redness, swelling or drainage from his pacemaker site and states it seems to be healing well. Related Data Home Medications Medication Instructions Recorded Confirmed melatonin 9 mg PO HS #0 06/09/10 10/17/19 ticagrelor 90 mg tablet 90 mg PO BID 08/20/19 10/17/19 losartan 100 mg tablet 100 mg PO DAILY 10/17/19 10/17/19 Previous Rx's Medication Instructions Recorded Glucose: Test Strips See Rx Instructions .ROUTE 07/06/17 .COMPLEX #100 aspirin 81 mg tablet,delayed 81 mg PO DAILY #30 tab 12/11/17 release fenofibrate nanocrystallized 145 145 mg PO QDAY #90 tab 04/17/18 mg tablet rosuvastatin 40 mg tablet 40 mg PO DAILY #90 tab 04/17/18 mometasone 0.1 % topical cream 1 applictn TOP BID #15 gram 01/17/19 omeprazole 40 mg capsule,delayed 40 mg PO QDAY@0600 #90 cap 04/29/19 release nitroglycerin 0.4 mg sublingual 0.4 mg SL Q5M PRN #20 tab 08/20/19 tablet glipizide 5 mg tablet, extended 5 mg PO DAILY #90 tab 09/09/19 release 24 hr metformin 500 mg tablet 1,000 mg PO BIDCC #360 tab 09/09/19 empagliflozin 25 mg tablet 25 mg PO DAILY #90 tab 09/18/19 diclofenac sodium 1 % topical gel 2 gram TOP QID PRN #100 gram 10/17/19 finasteride 1 mg tablet 1 mg PO QDAY #90 tab 12/30/19 Allergies Allergy/AdvReac Type Severity Reaction Status Date / Time grass pollen [GRASS POLLEN] Allergy Unknown Verified 01/03/20 09:52 mold [MOLD] Allergy Unknown Verified 01/03/20 09:52 Review of Systems Review of Systems ROS Unobtainable: All systems reviewed & are unremarkable except as noted in HPI and below Patient History Medical History Allergic rhinitis (Unknown) Coronary artery disease (Unknown) Diabetes (Unknown) GERD (gastroesophageal reflux disease) (Unknown) Hx of pneumothorax (1978) Hyperlipemia (Unknown) Hypertension (Unknown) IBS (irritable bowel syndrome) (Unknown) Pure hypercholesterolemia (02/18/16) Status post insertion of drug-eluting stent into left anterior descending (LAD) artery (06/2015) Tinnitus of both ears Type 2 diabetes mellitus without complication, without long-term current use of insulin (06/24/16) Surgical History History of esophagogastroduodenoscopy (EGD) S/P coronary artery stent placement (~08/2019) Status post colectomy Status post laparoscopic cholecystectomy Social History Smoking Status: Never smoker alcohol intake: current substance use type: does not use Smoking Status: Never smoker alcohol intake frequency: holidays/special occasions only Substance Use Type: does not use Exam Narrative Exam Narrative: GENERAL: Alert and oriented x three, well-nourished male in mild distress. HEENT: Head normocephalic, atraumatic, EOMI, pupils reactive, face symmetric, moist mucous membranes NECK: Supple, full range of motion CARDIOVASCULAR: Regular rate and rhythm without murmurs, rubs or gallops. Patient's incision with pacemaker is present, is clean dry and intact with no significant erythema or drainage. Appears to be healing well. No edema bilateral lower extremities. No JVD. RESPIRATORY: Breath sounds equal bilaterally, no wheezes rales or rhonchi. No tachypnea or accessory muscle use. ABDOMEN: Soft, nontender. Normoactive bowel sounds all 4 quadrants. No guarding or rebound, rigidity, no mass : No CVA tenderness EXTREMITIES: Normal range of motion, no clubbing or edema. Neurovascularly intact NEUROLOGICAL: Cranial nerves II through XII grossly intact. Moving all extremities SKIN: Warm, dry, no petechiae, no rashes or lesions. Initial Vital Signs Initial Vital Signs: Vital Signs Temperature 98.6 F 01/03/20 09:47 Pulse Rate 82 01/03/20 09:47 Respiratory Rate 20 01/03/20 09:47 Blood Pressure 186/108 H 01/03/20 09:47 Pulse Oximetry 100 01/03/20 09:47 Scores PERC Score Age greater than or equal to 50 years: Yes Heart rate greater than or equal to 100 bpm: No Room Air O2 Sat less than 95%: No Unilateral leg swelling: No Recent trauma or surgery: Yes Hemoptysis: No Prior PE or DVT: Yes Hormone Use: No Total PERC Score: 3 Course Orders Ordered: ED Orders 01/03/20 09:50 Complete Blood Count AUTO DIFF Stat Comprehensive Metabolic Panel Stat Lipase Stat Partial Thromboplastin Time Stat Prothrombin Time INR Stat Troponin & CK Cardiac Panel Stat 01/03/20 09:52 XR chest 1V Stat EKG-12 Lead Stat 01/03/20 11:20 CT angio chest PE protocol Stat Discontinued Medications Acetaminophen (Acetaminophen 325 Mg Tablet) 975 mg PO NOW ONE Stop: 01/03/20 11:22 Last Admin: 01/03/20 11:28 Dose: 975 mg Documented by: FRANCISCO Sodium Chloride (Normal Saline 0.9%) 1,000 mls @ 250 mls/hr IV CONT MARIA C Last Admin: 01/03/20 11:28 Dose: 250 mls/hr Documented by: FRANCISCO Vital Signs Vital signs: Vital Signs - 8 hr 01/03/20 11:00 01/03/20 11:30 01/03/20 12:04 Pulse Rate 74 74 67 Respiratory Rate 14 18 15 Blood Pressure 145/90 H 150/96 H Pulse Oximetry 94 97 100 01/03/20 12:11 01/03/20 12:30 01/03/20 13:03 Pulse Rate 70 67 73 Respiratory Rate 28 H 16 18 Blood Pressure 138/82 147/89 H 152/99 H Pulse Oximetry 98 96 97 MDM - Chest Pain Lab Data Attestation: I reviewed the patient's lab results. Lab results narrative: CBC shows no major abnormalities, CMP shows normal electrolytes and renal function along with a glucose of 126. ALT is slightly elevated at 59 with a normal AST and normal alk-phos and bilirubin, lipase is negative and troponin is also negative. Result diagrams: 01/03/20 09:50 01/03/20 09:50 Labs: Lab Results 01/03/20 01/03/20 01/03/20 Range/Units 09:50 09:50 09:50 WBC 6.4 (4.5-11.0) X10^3/uL RBC 4.89 (4.5-5.9) X10^6/uL Hgb 15.9 (13.5-17.5) g/dL Hct 46.6 (41-53) % MCV 95.4 (80-100) fL MCH 32.6 (26-34) PG MCHC 34.2 (30-36) % RDW 13.1 (11.6-14.8) % Plt Count 202 (150-400) X10^3/uL Neut % (Auto) 58.1 (50-75) % Lymph % (Auto) 28.3 (25-40) % Storey % (Auto) 11.1 (3-14) % Eos % (Auto) 1.9 L (2-4) % Baso % (Auto) 0.6 (0-2) % Neut # (Auto) 3700 (3301-6581) /uL Lymph # (Auto) 1800 (7368-7377) /uL Storey # (Auto) 700 (0-900) /uL Eos # (Auto) 100 (0-450) /uL Baso # (Auto) 0 (0-100) /uL PT 12.2 (10.1-12.7) SECONDS INR 1.1 (0.9-1.3) APTT 32 (26.4-36.2) SECONDS Sodium 140 (137-145) mmol/L Potassium 4.1 (3.4-5.1) mmol/L Chloride 107 (98-107) mmol/L Carbon Dioxide 26 (22-32) mmol/L BUN 15 (9-20) mg/dL Creatinine 0.84 (0.66-1.25) mg/dL Estimated GFR > 60.0 (>60) mL/min BUN/Creatinine Ratio 17.9 (6-22) Glucose 126 H (80-110) mg/dL Calcium 9.6 (8.4-10.2) mg/dL Total Bilirubin 0.6 (0.2-1.3) mg/dL AST 35 (17-59) IU/L ALT 59 H (<50) IU/L Alkaline Phosphatase 36 L (38-126) U/L Total Creatine Kinase 82 (55-170) U/L CK-MB (CK-2) TNP CK-MB (CK-2) Rel Index TNP Troponin I < 0.012 (0.01-0.034) ng/mL Total Protein 8.1 (6.3-8.2) g/dL Albumin 4.7 (3.5-5.0) g/dL Globulin 3.4 (1.7-4.1) g/dL Albumin/Globulin Ratio 1.4 (1.0-2.8) Lipase 62 (23-300) U/L Imaging Data Chest x-ray: Radiologist's Impression: [address] [id number] ReportSigned Patient: Serafin Jauregui EMR#: [id number]: 1960Acct:[id number]/Sex: 59 / MDate of Service: 01/03/20Loc: EDAccession Number: [id number] Procedure: XR chest 1V Ordering Provider: Shannon Rivas D.O. PROCEDURE: XR CHEST 1V INDICATIONS: chest pain TECHNIQUE: One view of the chest was acquired. COMPARISON: [facility], CR, XR CHEST 1V, 08/07/2019, 9:31. [facility], CR, XR CHEST 2V, 11/02/2017, 12:22. FINDINGS: Surgical changes and devices: Pacemaker in normal position, dual chamber leads. Lungs and pleura: Lungs are clear. No pleural effusions or pneumothorax. Mediastinum: Mediastinal contours appear normal. Heart size is normal. Bones and chest wall: No suspicious bony lesions. Overlying soft tissues appear unremarkable. IMPRESSION: Pacemaker appears normal, no source of chest pain is seen. Dictated by: Jose A Patten M.D. on 01/03/2020 at 10:44 Approved by: Jose A Patten M.D. on 01/03/2020 at 10:45 CT scan - chest: Radiologist's Impression: [address] [id number] Scan ReportSigned Patient: Serafin Jauregui EMR#: [id number]: [id number]:[id number]/Sex: 59 / MDate of Service: 01/03/20Loc: EDAccession Number: [id number] Procedure: CT angio chest PE protocol Ordering Provider: Shannon Rivas D.O. PROCEDURE: CT ANGIO CHEST PE PROTOCOL INDICATIONS: chest pain, s/p pacer placed, hx of multiple PE's TECHNIQUE: After the administration of intravenous contrast, 2 mm thick sections acquired from the pulmonary apices to the posterior costophrenic angles. 3-dimensional maximum intensity projection (MIP) coronal and sagittal reformats were then acquired through the thorax. For radiation dose reduction, the following was used: automated exposure control, adjustment of mA and/or kV according to patient size. COMPARISON: [facility], CT, CT ANGIO CHEST PE PROTOCOL, 08/07/2019, 9:44. FINDINGS: Image quality: Excellent. Pulmonary arteries: Pulmonary arteries are normal in size, and demonstrate no intraluminal filling defects to suggest central pulmonary embolism. A pruned appearance of the pulmonary arteries consistent with prior PEs is again noted Lungs and pleura: Mild bibasilar atelectasis. Lungs are clear. No pleural effusions or pneumothorax. Central and peripheral airways are patent. Mediastinum: Heart size is normal, without pericardial effusion. No mediastinal or hilar adenopathy. Thoracic aorta is normal in caliber and enhancement. Esophagus is normal in caliber, without hiatal hernia. The coronary arteries have atherosclerotic calcifications. Bones and chest wall: No suspicious bony lesions. There is been interval placement of a left chest wall pacer. Ribs and thoracic spine appear intact throughout. Thyroid gland is normal. . No axillary or supraclavicular . enopathy. Abdomen: The liver demonstrates low density consistent with hepatic steatosis. Otherwise upper abdominal solid organs appear normal in the early arterial phase of enhancement. IMPRESSION: 1. No pulmonary embolism. 2. No acute abnormality of the chest. 3. Coronary artery atherosclerosis. 4. Hepatic steatosis. Dictated by: Cruz Burden M.D. on 01/03/2020 at 12:15 Approved by: Cruz Burden M.D. on 01/03/2020 at 12:24 ECG Data Attestation: I personally reviewed and interpreted this ECG as follows: Prior ECG tracings: available for review Interpretation: Sinus rhythm with first-degree AV block rate of 78, P are 226, QRS of 96 and QTC of 428. Patient has a full lab and/inverted T-wave in 3 AVS only new changes compared to prior EKG is AVF no elevation appreciated. MDM Narrative Medical decision making narrative: This is a 59-year-old male who comes with complaint of chest pain at the site of his pacemaker placement but also centrally. He states it has been present since his procedure and has been slowly worsening he does describe it as pleuritic. He is unsure if he was intubated but some of his descriptive symptoms do sound consistent with irritation from possibly an LMA or ET tube. Patient's labs do not support any infectious or cardiac causes at this time. He does have a significant history for unprovoked pulmonary emboli and CT angiography shows no PE but signs consistent with prior PE's and hepatic steatosis. Patient and I discussed findings, strict return precautions. Discharge Plan Departure Patient Disposition: Home Clinical Impression: Atypical chest pain, Hepatic steatosis Instructions: DI for Atypical Chest Pain Activity Restrictions/Additional Instructions: Follow-up with your radial saw operator this coming week for recheck. Your labs and imaging do not show any acute findings for the reason of your discomfort I suspect he may have some irritation from your procedure. Continue home medications as prescribed. You may continue Tylenol up to a 1000 mg every 8 hours or a total of 3000 mg in 24 hours. Return to the ER for fevers greater 100.4 F, new or worsening chest pain or pressure, lightheadedness or passing out, persistent vomiting, swelling in your lower extremities, signs of infection at her pacemaker site or other new or concerning symptoms. Prescriptions: No Action aspirin [Aspir-81] 81 mg tablet,delayed release (DR/EC) 81 mg PO DAILY Qty: 30 RF: 11 melatonin 3 MG tablet 9 mg PO HS Qty: 0 RF: 0 Glucose: Test Strips See Rx Instructions .ROUTE .COMPLEX Qty: 100 RF: 3 fenofibrate nanocrystallized [Tricor] 145 mg tablet 145 mg PO QDAY Qty: 90 RF: 1 rosuvastatin 40 mg tablet 40 mg PO DAILY Qty: 90 RF: 1 mometasone 0.1 % cream 1 applictn TOP BID Qty: 15 RF: 0 omeprazole 40 mg capsule,delayed release(DR/EC) 40 mg PO QDAY@0600 Qty: 90 RF: 3 glipizide 5 mg tablet extended release 24hr 5 mg PO DAILY Qty: 90 RF: 1 metformin 500 mg tablet 1,000 mg PO BIDCC Qty: 360 RF: 1 Jardiance 25 mg tablet 25 mg PO DAILY Qty: 90 RF: 1 finasteride 1 mg tablet 1 mg PO QDAY Qty: 90 RF: 3 Brilinta 90 mg tablet 90 mg PO BID RF: 0 nitroglycerin 0.4 mg tablet, sublingual 0.4 mg SL Q5M PRN (Reason: chest pain) Qty: 20 RF: 0 losartan 100 mg tablet 100 mg PO DAILY RF: 0 diclofenac sodium [Voltaren] 1 % gel 2 gram TOP QID PRN (Reason: pain) Qty: 100 RF: 1 Referrals: Maciej Garrett MD [Primary Care Provider] -
--- NOTE | 2020-01-03 11:20 | DI.CT.S_ITS ---
PROCEDURE: CT ANGIO CHEST PE PROTOCOL INDICATIONS: chest pain, s/p pacer placed, hx of multiple PE's TECHNIQUE: After the administration of intravenous contrast, 2 mm thick sections acquired from the pulmonary apices to the posterior costophrenic angles. 3-dimensional maximum intensity projection (MIP) coronal and sagittal reformats were then acquired through the thorax. For radiation dose reduction, the following was used: automated exposure control, adjustment of mA and/or kV according to patient size. COMPARISON: [facility], CT, CT ANGIO CHEST PE PROTOCOL, 08/07/2019, 9:44. FINDINGS: Image quality: Excellent. Pulmonary arteries: Pulmonary arteries are normal in size, and demonstrate no intraluminal filling defects to suggest central pulmonary embolism. A pruned appearance of the pulmonary arteries consistent with prior PEs is again noted Lungs and pleura: Mild bibasilar atelectasis. Lungs are clear. No pleural effusions or pneumothorax. Central and peripheral airways are patent. Mediastinum: Heart size is normal, without pericardial effusion. No mediastinal or hilar adenopathy. Thoracic aorta is normal in caliber and enhancement. Esophagus is normal in caliber, without hiatal hernia. The coronary arteries have atherosclerotic calcifications. Bones and chest wall: No suspicious bony lesions. There is been interval placement of a left chest wall pacer. Ribs and thoracic spine appear intact throughout. Thyroid gland is normal. . No axillary or supraclavicular . enopathy. Abdomen: The liver demonstrates low density consistent with hepatic steatosis. Otherwise upper abdominal solid organs appear normal in the early arterial phase of enhancement. IMPRESSION: 1. No pulmonary embolism. 2. No acute abnormality of the chest. 3. Coronary artery atherosclerosis. 4. Hepatic steatosis. Dictated by: Cruz Burden M.D. on 01/03/2020 at 12:15 Approved by: Cruz Burden M.D. on 01/03/2020 at 12:24
[2020-01-03] MEDS: SODIUM CHLORIDE 0.9% 1,000 ML 250 ML IV (11:28)
[2020-01-03] MEDS: ACETAMINOPHEN 325 MG TABLET 975 MG PO (11:28)
--- NOTE | 2020-01-10 19:14 | PC.NURSE ---
stop time 1300
== END 2020-01-03 13:03 | disposition home or self-care (01) ==
PROVIDERS: Emergency Provider Emergency Medicine; Family Provider Student in an Organized Health Care Education/Training Program; PCP Student in an Organized Health Care Education/Training Program
DX: R07.89 Other chest pain (principal); K76.0 Fatty (change of) liver, not elsewhere classified; Z95.0 Presence of cardiac pacemaker
CPT/HCPCS: 36415; 71045; 71275; 80053; 82550; 83690; 84484; 85025; 85610; 85730; 93005; 93010; 96360; 96361; 99284; Q9967

== ENCOUNTER 2020-01-08 14:28 | Emergency (ER) | payer BC, SELFPAY ==
[2020-01-08] VITALS (9 sets, daily range): BP systolic 128–183; BP diastolic 80–105; PULSE 62–73; RESP 15–25; TEMP 36.2; O2SAT 95–99; BMI 40.0
--- NOTE | 2020-01-08 14:32 | DI.RAD.S_ITS ---
PROCEDURE: XR CHEST 1V INDICATIONS: chest pain TECHNIQUE: One view of the chest was acquired. COMPARISON: [facility], CR, XR CHEST 1V, 01/03/2020, 10:10. [facility], CR, XR CHEST 1V, 08/07/2019, 9:31. FINDINGS: Surgical changes and devices: Pacemaking device with dual chamber leads normal Lungs and pleura: Lungs are clear. No pleural effusions or pneumothorax. Mediastinum: Mediastinal contours appear normal. Heart size is normal. Bones and chest wall: No suspicious bony lesions. Overlying soft tissues appear unremarkable. IMPRESSION: Normal for age considering pacemaker device, source of current chest pain symptoms is not seen. Dictated by: Jose A Patten M.D. on 01/08/2020 at 15:06 Approved by: Jose A Patten M.D. on 01/08/2020 at 15:07
[2020-01-08 15:00] LABS: Add Manual Diff / Slide Review NO; Basophils Absolute Auto 0 /uL (0-100); Basophils Percent Auto 0.6 % (0-2); Eosinophils Absolute Auto 100 /uL (0-450); Eosinophils Percent Auto 2.2 % (2-4); Hematocrit 44.7 % (41-53); Hemoglobin 15.1 g/dL (13.5-17.5); Lymphocytes Absolute Auto 1300 /uL (1100-4500); Lymphocytes Percent Auto 24.3 % (25-40); Mean Corpuscular HGB Conc 33.7 % (30-36); Mean Corpuscular Hemoglobin 32.1 PG (26-34); Mean Corpuscular Volume 95.3 fL (80-100); Monocytes Absolute Auto 600 /uL (0-900); Monocytes Percent Auto 10.8 % (3-14); Neutrophils Absolute Auto 3400 /uL (1500-7000); Neutrophils Percent Auto 62.1 % (50-75); Platelet Count 238 X10^3/uL (150-400); Red Blood Cell Count 4.69 X10^6/uL (4.5-5.9); Red Cell Distribution Width 12.9 % (11.6-14.8); White Blood Cell Count 5.4 X10^3/uL (4.5-11.0)
[2020-01-08 15:03] LABS: INR 1.1 (0.9-1.3); Prothrombin Time 12.1 SECONDS (10.1-12.7)
--- NOTE | 2020-01-08 15:03 | ED.CHESTPAIN ---
HPI - Chest Pain <OLE BermudezP - Last Filed: 01/08/20 19:43> General Chief Complaint: Chest Pain Stated Complaint: chest pain Time Seen by Provider: 01/08/20 14:46 Source: patient Mode of arrival: Ambulatory Limitations: no limitations History of Present Illness HPI narrative: 59yo male presents to the ED for throat pain that radiates to his chest. He was seen in the ED for the same on 01/03/2020 diagnosed with atypical chest pain. Patient had a pacemaker placed on 01/01/2020 at [facility] by Dr. Beltrán. He states ?they put something down my throat for the procedure, he is unsure if he was completely intubated. He reports he was sedated. Patient states the day after he developed a sore throat with a raspy voice that worsened on Monday which prompted him to be seen in the emergency department. He states the pain starts in his throat and radiates down to his mid chest laterally. He states this throat pain is a dull aching constant pain worse with swallowing and better with eating. His chest pain is a sharp stabbing pain that occurs when he swallows. After his stay in the emergency department, he states his pain improved on Monday and Monday, started returned yesterday and is worse today. He states ?this feels like a collapsed lung ?. Reports he had a collapsed lung as a young adult. He denies any other symptoms such as rhinorrhea, cough, dizziness, shortness of breath, nausea, vomiting, diarrhea, or any other concerns. Patient states he had a follow-up visit for his pacemaker, states it is reading an operating appropriately. Patient reports the place maker was placed for AV blocks. He attempted to follow up with his PCP and was told to be seen in the ED. Related Data Home Medications Medication Instructions Recorded Confirmed melatonin 9 mg PO HS #0 06/09/10 10/17/19 ticagrelor 90 mg tablet 90 mg PO BID 08/20/19 10/17/19 losartan 100 mg tablet 100 mg PO DAILY 10/17/19 10/17/19 Previous Rx's Medication Instructions Recorded Glucose: Test Strips See Rx Instructions .ROUTE 07/06/17 .COMPLEX #100 aspirin 81 mg tablet,delayed 81 mg PO DAILY #30 tab 12/11/17 release fenofibrate nanocrystallized 145 145 mg PO QDAY #90 tab 04/17/18 mg tablet rosuvastatin 40 mg tablet 40 mg PO DAILY #90 tab 04/17/18 mometasone 0.1 % topical cream 1 applictn TOP BID #15 gram 01/17/19 omeprazole 40 mg capsule,delayed 40 mg PO QDAY@0600 #90 cap 04/29/19 release nitroglycerin 0.4 mg sublingual 0.4 mg SL Q5M PRN #20 tab 08/20/19 tablet glipizide 5 mg tablet, extended 5 mg PO DAILY #90 tab 09/09/19 release 24 hr metformin 500 mg tablet 1,000 mg PO BIDCC #360 tab 09/09/19 empagliflozin 25 mg tablet 25 mg PO DAILY #90 tab 09/18/19 diclofenac sodium 1 % topical gel 2 gram TOP QID PRN #100 gram 10/17/19 finasteride 5 mg tablet 1.25 mg PO DAILY #23 tab 01/05/20 Allergies Allergy/AdvReac Type Severity Reaction Status Date / Time grass pollen [GRASS POLLEN] Allergy Unknown Verified 01/03/20 09:52 mold [MOLD] Allergy Unknown Verified 01/03/20 09:52 Review of Systems <CHRISTEL Bermudez - Last Filed: 01/08/20 19:43> Review of Systems Narrative: REVIEW OF SYSTEMS: GENERAL: Denies fever or chills. HENT: No head trauma. CARDIOVASCULAR: Reports sharp stabbing chest pain that starts in the throat and radiates to his chest. RESPIRATORY: No shortness of breath or cough. GASTROINTESTINAL: No nausea, vomiting, diarrhea, or constipation. GENITOURINARY: No flank pain. MUSCULOSKELETAL: No deformities. INTEGUMENTARY: No rash. NEURO: No numbness, tingling, memory loss, or confusion. Patient History <CHRISTEL Bermudez - Last Filed: 01/08/20 19:43> Medical History Allergic rhinitis (Unknown) Coronary artery disease (Unknown) Diabetes (Unknown) GERD (gastroesophageal reflux disease) (Unknown) Hx of pneumothorax (1978) Hyperlipemia (Unknown) Hypertension (Unknown) IBS (irritable bowel syndrome) (Unknown) Pure hypercholesterolemia (02/18/16) Status post insertion of drug-eluting stent into left anterior descending (LAD) artery (06/2015) Tinnitus of both ears Type 2 diabetes mellitus without complication, without long-term current use of insulin (06/24/16) Surgical History History of esophagogastroduodenoscopy (EGD) S/P coronary artery stent placement (~08/2019) Status post colectomy Status post laparoscopic cholecystectomy Social History Smoking Status: Never smoker alcohol intake: current substance use type: does not use Smoking Status: Never smoker alcohol intake frequency: holidays/special occasions only Substance Use Type: does not use Exam <CHRISTEL Bermudez - Last Filed: 01/08/20 19:43> Initial Vital Signs Initial Vital Signs: Vital Signs Blood Pressure 183/105 H 01/08/20 14:33 PHYSICAL EXAMINATION: GENERAL: 59-year-old male well-appearing, awake and alert. HENT: Normocephalic, atraumatic. Ear canals patent. Oral mucosa is pink and moist. Oropharynx without erythema, no lymphadenopathy. Voice without alteration. EYES: Conjunctiva pink, sclera white, no periorbital swelling. CHEST: Normal to inspection and without deformities. CARDIOVASCULAR: S1 and S2 sounds normal. Regular rate and rhythm, no murmurs, clicks, or bruits. No pedal edema. RESPIRATORY: Normal respiratory rate, trachea midline, airway patent. No stridor, nasal flaring or accessory muscle use. Lungs are clear in all helms without wheeze, rhonchi, or crackles. GASTROINTESTINAL: Bowel sounds normoactive. Abdomen is soft and non-tender. No organomegaly. MUSCULOSKELETAL: Normal gait and coordination. Equal tone and mass bilaterally. EXTREMITIES: CMS intact. Moves all extremities. SKIN: Warm, dry, soft, appropriate color for ethnicity. No lesions, rashes, or wounds. NEURO: Alert and Oriented X 3. <Cristhian Sterling MD - Last Filed: 01/09/20 18:40> Initial Vital Signs Initial Vital Signs: Vital Signs Blood Pressure 183/105 H 01/08/20 14:33 Course <CHRISTEL Bermudez - Last Filed: 01/08/20 19:43> Course Course Narrative: Patient reported improved symptoms post administration of GI cocktail. Orders Ordered: Discontinued Medications Al Hydrox/Mg Hydrox/Simethicone 20 ml/ Lidocaine HCl 15 ml 0 ml PO NOW ONE Stop: 01/08/20 16:56 Last Admin: 01/08/20 17:03 Dose: 45 ml Documented by: DESIREER Consultations Consultation #1: Patient staffed with Dr. Sterling discussed test, test results, plan of care. Vital Signs Vital signs: Vital Signs - 8 hr 01/08/20 14:33 01/08/20 14:34 01/08/20 14:35 Temperature 97.1 F L Pulse Rate 73 69 Respiratory Rate 18 Blood Pressure 183/105 H 183/105 H Pulse Oximetry 98 99 01/08/20 15:00 01/08/20 15:30 01/08/20 15:32 Temperature Pulse Rate 68 73 71 Respiratory Rate 23 18 16 Blood Pressure 131/87 146/90 H Pulse Oximetry 96 97 97 01/08/20 16:00 01/08/20 16:30 01/08/20 17:00 Temperature Pulse Rate 68 62 67 Respiratory Rate 15 20 25 H Blood Pressure 140/81 143/80 H 128/84 Pulse Oximetry 96 95 96 <Cristhian Sterling MD - Last Filed: 01/09/20 18:40> Orders Ordered: Discontinued Medications Al Hydrox/Mg Hydrox/Simethicone 20 ml/ Lidocaine HCl 15 ml 0 ml PO NOW ONE Stop: 01/08/20 16:56 Last Admin: 01/08/20 17:03 Dose: 45 ml Documented by: [email or web address] Vital Signs Vital signs: Vital Signs - 8 hr 01/08/20 14:33 01/08/20 14:34 01/08/20 14:35 Temperature 97.1 F L Pulse Rate 73 69 Respiratory Rate 18 Blood Pressure 183/105 H 183/105 H Pulse Oximetry 98 99 01/08/20 15:00 01/08/20 15:30 01/08/20 15:32 Temperature Pulse Rate 68 73 71 Respiratory Rate 23 18 16 Blood Pressure 131/87 146/90 H Pulse Oximetry 96 97 97 01/08/20 16:00 01/08/20 16:30 01/08/20 17:00 Temperature Pulse Rate 68 62 67 Respiratory Rate 15 20 25 H Blood Pressure 140/81 143/80 H 128/84 Pulse Oximetry 96 95 96 MDM - Chest Pain <OLE BermudezP - Last Filed: 01/08/20 19:43> Medical Records Data Attestation: I reviewed the patient's medical records. Lab Data Attestation: I reviewed the patient's lab results. Result diagrams: 01/08/20 14:45 01/08/20 14:45 Labs: Lab Results 01/08/20 01/08/20 01/08/20 Range/Units 14:45 14:45 14:45 WBC 5.4 (4.5-11.0) X10^3/uL RBC 4.69 (4.5-5.9) X10^6/uL Hgb 15.1 (13.5-17.5) g/dL Hct 44.7 (41-53) % MCV 95.3 (80-100) fL MCH 32.1 (26-34) PG MCHC 33.7 (30-36) % RDW 12.9 (11.6-14.8) % Plt Count 238 (150-400) X10^3/uL Neut % (Auto) 62.1 (50-75) % Lymph % (Auto) 24.3 L (25-40) % [place] % (Auto) 10.8 (3-14) % Eos % (Auto) 2.2 (2-4) % Baso % (Auto) 0.6 (0-2) % Neut # (Auto) 3400 (4965-7211) /uL Lymph # (Auto) 1300 (8197-6108) /uL [place] # (Auto) 600 (0-900) /uL Eos # (Auto) 100 (0-450) /uL Baso # (Auto) 0 (0-100) /uL PT 12.1 (10.1-12.7) SECONDS INR 1.1 (0.9-1.3) APTT 30 D (26.4-36.2) SECONDS Sodium 139 (137-145) mmol/L Potassium 4.3 (3.4-5.1) mmol/L Chloride 106 (98-107) mmol/L Carbon Dioxide 23 (22-32) mmol/L BUN 18 (9-20) mg/dL Creatinine 0.79 (0.66-1.25) mg/dL Estimated GFR > 60.0 (>60) mL/min BUN/Creatinine Ratio 22.8 H (6-22) Glucose 125 H (80-110) mg/dL Calcium 10.1 (8.4-10.2) mg/dL Total Bilirubin 0.4 (0.2-1.3) mg/dL AST 36 (17-59) IU/L ALT 50 H (<50) IU/L Alkaline Phosphatase 36 L (38-126) U/L Total Creatine Kinase 60 (55-170) U/L CK-MB (CK-2) TNP CK-MB (CK-2) Rel Index TNP Troponin I < 0.012 (0.01-0.034) ng/mL Total Protein 8.1 (6.3-8.2) g/dL Albumin 4.8 (3.5-5.0) g/dL Globulin 3.3 (1.7-4.1) g/dL Albumin/Globulin Ratio 1.5 (1.0-2.8) Lipase 54 (23-300) U/L Imaging Data CT NECK: : Radiologist's Impression: [address] [id number] Scan ReportSigned Patient: Serafin Jauregui EMR#: [id number]: [id number]:[id number]/Sex: 59 / MDate of Service: 01/08/20Loc: EDAccession Number: [id number] Procedure: CT soft tissue neck w con Ordering Provider: Charlotte Freitas PROCEDURE: CT SOFT TISSUE NECK W CON INDICATIONS: Throat pain/swelling 1 week post intubation TECHNIQUE: After the administration of intravenous contrast, 3.0 mm axial sections acquired from the sella to the aortic arch. Additional oblique axial 3.0 mm sections acquired through the pharynx. 3 mm thick coronal and sagittal reformats were generated. For radiation dose reduction, the following was used: automated exposure control. COMPARISON: [facility], CT, CT ANGIO CHEST PE PROTOCOL, 01/03/2020, 11:56. [facility], CR, XR CHEST 1V, 01/03/2020, 10:10. [facility], CR, XR CHEST 2 VIEWS, 01/01/2020, 20:35. FINDINGS: Image quality: Excellent. Lymph nodes: No enlarged lymph nodes seen throughout the neck. Vessels: Visualized vasculature appears patent. Neck spaces: The oropharynx, nasopharynx, and pharynx demonstrate no mucosal lesions. The vocal cords, false vocal cords, pyriform sinuses, epiglottis, vallecula, and tongue base all appear normal. Extramucosal spaces appear unremarkable. Glands: The parotid and submandibular glands appear normal. Thyroid gland appears normal . Miscellaneous: Visualized brain and orbits appear normal. Lung apices appear clear. Superficial soft tissues appear normal. Bones: No suspicious bony lesions. Visualized sinuses and mastoids appear unremarkable. IMPRESSION: Reported pain after intubation approximately 1 week ago. No evidence of hematoma or soft tissue edema identified. The tracheal airway is normal in caliber. No sign of airway margin inflammation. Source of continued pain is not identified. Dictated by: Jose A Patten M.D. on 01/08/2020 at 15:49 Approved by: Jose A Patten M.D. on 01/08/2020 at 15:51 Chest x-ray: Radiologist's Impression: [address] [id number] ReportSigned Patient: Serafin Jauregui EMR#: [id number]: 1960Acct:[id number]/Sex: 59 / MDate of Service: 01/08/20Loc: EDAccession Number: [id number] Procedure: XR chest 1V Ordering Provider: Cristhian Sterling MD PROCEDURE: XR CHEST 1V INDICATIONS: chest pain TECHNIQUE: One view of the chest was acquired. COMPARISON: [facility], CR, XR CHEST 1V, 01/03/2020, 10:10. [facility], CR, XR CHEST 1V, 08/07/2019, 9:31. FINDINGS: Surgical changes and devices: Pacemaking device with dual chamber leads normal Lungs and pleura: Lungs are clear. No pleural effusions or pneumothorax. Mediastinum: Mediastinal contours appear normal. Heart size is normal. Bones and chest wall: No suspicious bony lesions. Overlying soft tissues appear unremarkable. IMPRESSION: Normal for age considering pacemaker device, source of current chest pain symptoms is not seen. Dictated by: Jose A Patten M.D. on 01/08/2020 at 15:06 Approved by: Jose A Patten M.D. on 01/08/2020 at 15:07 [facility] Narrative Medical decision making narrative: 59-year-old male presents emergency department for throat pain that radiates to chest. Patient had an extensive workup in the emergency department on 01/03/[address] a that was negative for any PEs or aneurysms and negative cardiac workup. Less concerning for cardiac etiology given negative cardiac or today and negative cardiac workup on 01/03/2020. Additionally, pain starts in the throat and radiates to chest, patient describes as sharp stabbing which is less concerning for ACS. I suspect patient's throat pain is most likely caused by a barotrauma given airway and/or intubation that was using procedure. However, given continued complaints that has gotten better but worse in the past few days, CT soft tissue neck was ordered to assess for abscess, tears, or infections. CT soft tissue neck was negative for any concerning findings. Patient was able to swallow, eat and drink, no significant throat swelling or concerns for airway compromise. Patient is hemodynamically stable. Reported improved symptoms after GI cocktail administration. Patient is non hypoxic, not tachycardic, and well-appearing. Patient was referred for a follow-up with ENT for further evaluation and treatment. Strict ED return precautions given for new or worsening symptoms. Patient agreed to plan of care verbalized understanding. <Cristhian Sterling MD - Last Filed: 01/09/20 18:40> Lab Data Labs: Lab Results 01/08/20 01/08/20 01/08/20 Range/Units 14:45 14:45 14:45 WBC 5.4 (4.5-11.0) X10^3/uL RBC 4.69 (4.5-5.9) X10^6/uL Hgb 15.1 (13.5-17.5) g/dL Hct 44.7 (41-53) % MCV 95.3 (80-100) fL MCH 32.1 (26-34) PG MCHC 33.7 (30-36) % RDW 12.9 (11.6-14.8) % Plt Count 238 (150-400) X10^3/uL Neut % (Auto) 62.1 (50-75) % Lymph % (Auto) 24.3 L (25-40) % [place] % (Auto) 10.8 (3-14) % Eos % (Auto) 2.2 (2-4) % Baso % (Auto) 0.6 (0-2) % Neut # (Auto) 3400 (8535-3752) /uL Lymph # (Auto) 1300 (8263-4958) /uL [place] # (Auto) 600 (0-900) /uL Eos # (Auto) 100 (0-450) /uL Baso # (Auto) 0 (0-100) /uL PT 12.1 (10.1-12.7) SECONDS INR 1.1 (0.9-1.3) APTT 30 D (26.4-36.2) SECONDS Sodium 139 (137-145) mmol/L Potassium 4.3 (3.4-5.1) mmol/L Chloride 106 (98-107) mmol/L Carbon Dioxide 23 (22-32) mmol/L BUN 18 (9-20) mg/dL Creatinine 0.79 (0.66-1.25) mg/dL Estimated GFR > 60.0 (>60) mL/min BUN/Creatinine Ratio 22.8 H (6-22) Glucose 125 H (80-110) mg/dL Calcium 10.1 (8.4-10.2) mg/dL Total Bilirubin 0.4 (0.2-1.3) mg/dL AST 36 (17-59) IU/L ALT 50 H (<50) IU/L Alkaline Phosphatase 36 L (38-126) U/L Total Creatine Kinase 60 (55-170) U/L CK-MB (CK-2) TNP CK-MB (CK-2) Rel Index TNP Troponin I < 0.012 (0.01-0.034) ng/mL Total Protein 8.1 (6.3-8.2) g/dL Albumin 4.8 (3.5-5.0) g/dL Globulin 3.3 (1.7-4.1) g/dL Albumin/Globulin Ratio 1.5 (1.0-2.8) Lipase 54 (23-300) U/L Discharge Plan Departure Patient Disposition: Home Clinical Impression: Atypical chest pain, Pain in throat Instructions: DI for Atypical Chest Pain Activity Restrictions/Additional Instructions: Thank you for entrusting me with your care today. As discussed, your laboratory work, chest x-ray, and CT are non-remarkable. I am unsure the exact cause of your pain, it is most likely due to the procedure and the breathing tube that they put in your throat. I refer due to ENT, please give them a call tomorrow to schedule an appointment. Follow-up with your primary care provider in the next few weeks if another referral is needed. Return emergency department for any new or worsening symptoms. Prescriptions: No Action aspirin [Aspir-81] 81 mg tablet,delayed release (DR/EC) 81 mg PO DAILY Qty: 30 RF: 11 melatonin 3 MG tablet 9 mg PO HS Qty: 0 RF: 0 Glucose: Test Strips See Rx Instructions .ROUTE .COMPLEX Qty: 100 RF: 3 fenofibrate nanocrystallized [Tricor] 145 mg tablet 145 mg PO QDAY Qty: 90 RF: 1 rosuvastatin 40 mg tablet 40 mg PO DAILY Qty: 90 RF: 1 mometasone 0.1 % cream 1 applictn TOP BID Qty: 15 RF: 0 omeprazole 40 mg capsule,delayed release(DR/EC) 40 mg PO QDAY@0600 Qty: 90 RF: 3 glipizide 5 mg tablet extended release 24hr 5 mg PO DAILY Qty: 90 RF: 1 metformin 500 mg tablet 1,000 mg PO BIDCC Qty: 360 RF: 1 Jardiance 25 mg tablet 25 mg PO DAILY Qty: 90 RF: 1 finasteride 5 mg tablet 1.25 mg PO DAILY Qty: 23 RF: 3 Brilinta 90 mg tablet 90 mg PO BID RF: 0 nitroglycerin 0.4 mg tablet, sublingual 0.4 mg SL Q5M PRN (Reason: chest pain) Qty: 20 RF: 0 losartan 100 mg tablet 100 mg PO DAILY RF: 0 diclofenac sodium [Voltaren] 1 % gel 2 gram TOP QID PRN (Reason: pain) Qty: 100 RF: 1 Referrals: Maciej Garrett MD [Primary Care Provider] - Michel Self MD [Physician] -
[2020-01-08 15:06] LABS: PTT Partial Thromboplastin Tim 30 SECONDS (26.4-36.2)
--- NOTE | 2020-01-08 15:11 | DI.CT.S_ITS ---
PROCEDURE: CT SOFT TISSUE NECK W CON INDICATIONS: Throat pain/swelling 1 week post intubation TECHNIQUE: After the administration of intravenous contrast, 3.0 mm axial sections acquired from the sella to the aortic arch. Additional oblique axial 3.0 mm sections acquired through the pharynx. 3 mm thick coronal and sagittal reformats were generated. For radiation dose reduction, the following was used: automated exposure control. COMPARISON: [facility], CT, CT ANGIO CHEST PE PROTOCOL, 01/03/2020, 11:56. [facility], CR, XR CHEST 1V, 01/03/2020, 10:10. [facility], CR, XR CHEST 2 VIEWS, 01/01/2020, 20:35. FINDINGS: Image quality: Excellent. Lymph nodes: No enlarged lymph nodes seen throughout the neck. Vessels: Visualized vasculature appears patent. Neck spaces: The oropharynx, nasopharynx, and pharynx demonstrate no mucosal lesions. The vocal cords, false vocal cords, pyriform sinuses, epiglottis, vallecula, and tongue base all appear normal. Extramucosal spaces appear unremarkable. Glands: The parotid and submandibular glands appear normal. Thyroid gland appears normal . Miscellaneous: Visualized brain and orbits appear normal. Lung apices appear clear. Superficial soft tissues appear normal. Bones: No suspicious bony lesions. Visualized sinuses and mastoids appear unremarkable. IMPRESSION: Reported pain after intubation approximately 1 week ago. No evidence of hematoma or soft tissue edema identified. The tracheal airway is normal in caliber. No sign of airway margin inflammation. Source of continued pain is not identified. Dictated by: Jose A Patten M.D. on 01/08/2020 at 15:49 Approved by: Jose A Patten M.D. on 01/08/2020 at 15:51
[2020-01-08 15:12] LABS: Alanine Aminotransferase 50 IU/L (<50); Albumin 4.8 g/dL (3.5-5.0); Albumin Globulin Ratio 1.5 (1.0-2.8); Alkaline Phosphatase 36 U/L (38-126); Aspartate Aminotransferase 36 IU/L (17-59); BUN Creatinine Ratio 22.8 (6-22); Bilirubin Total 0.4 mg/dL (0.2-1.3); Blood Urea Nitrogen 18 mg/dL (9-20); Calcium 10.1 mg/dL (8.4-10.2); Carbon Dioxide 23 mmol/L (22-32); Chloride 106 mmol/L (98-107); Creatine Kinase 60 U/L (55-170); Estimated Glomerular Filt Rate > 60.0 mL/min (>60); Globulin 3.3 g/dL (1.7-4.1); Glucose 125 mg/dL (80-110); HEMOLYSIS < 15 (0-50); Lipase 54 U/L (23-300); Potassium 4.3 mmol/L (3.4-5.1); Sodium 139 mmol/L (137-145); Total Protein 8.1 g/dL (6.3-8.2)
[2020-01-08 15:23] LABS: Troponin I < 0.012 ng/mL (0.01-0.034)
[2020-01-08] MEDS: MAG HYDROX/ALUMINUM/SIMETH SUS 20 ML, LIDOCAINE VISCOUS 2% 15 ML PO (17:03)
== END 2020-01-08 17:28 | disposition home or self-care (01) ==
PROVIDERS: Emergency Medicine; Emergency Provider Nurse Practitioner; Family Provider Student in an Organized Health Care Education/Training Program; PCP Student in an Organized Health Care Education/Training Program
DX: R07.89 Other chest pain (principal); R07.0 Pain in throat; Z95.0 Presence of cardiac pacemaker; E11.9 Type 2 diabetes mellitus without complications
CPT/HCPCS: 36415; 70491; 71045; 80053; 82550; 83690; 84484; 85025; 85610; 85730; 93005; 99284

== ENCOUNTER → 2020-02-12 16:37 | Outpatient (CLI) | payer BC, SELFPAY ==
[2020-02-12 17:48] LABS: Microalbumi Creatinin Ratio Ur 11.4 ug/mg CR (<30); Microalbumin Urine Random 1.1 mg/dL (0-1.6)
[2020-02-12 18:07] LABS: Hemoglobin A1C% w Est Avg Glu 6.9 % (4.0-6.0)
== END ==
PROVIDERS: Family Provider Student in an Organized Health Care Education/Training Program; PCP Student in an Organized Health Care Education/Training Program; Referring Provider Student in an Organized Health Care Education/Training Program; Visit Provider Student in an Organized Health Care Education/Training Program
DX: E11.65 Type 2 diabetes mellitus with hyperglycemia (principal)
CPT/HCPCS: 36415; 82043; 82570; 83036

== ENCOUNTER 2020-04-22 14:30 | Outpatient (RCR) | payer BC, SELFPAY ==
--- NOTE | 2020-03-13 16:50 | PT.OIE ---
Current Diagnoses Pain in right shoulder (03/13/20) Stiffness of right shoulder, not elsewhere classified (03/13/20) Bicipital tendinitis, right shoulder (03/13/20) Impingement syndrome of right shoulder (03/13/20) Past Medical History (Last Reviewed 01/08/20 @ 19:25 by CHRISTEL Bermudez) Allergic rhinitis (Unknown) Coronary artery disease (Unknown) Diabetes (Unknown) GERD (gastroesophageal reflux disease) (Unknown) Hx of pneumothorax (1978) Hyperlipemia (Unknown) Hypertension (Unknown) IBS (irritable bowel syndrome) (Unknown) Pure hypercholesterolemia (02/18/16) Status post insertion of drug-eluting stent into left anterior descending (LAD) artery (06/2015) Tinnitus of both ears Type 2 diabetes mellitus without complication, without long-term current use of insulin (06/24/16) Past Surgical History (Last Reviewed 01/08/20 @ 19:25 by CHRISTEL Bermudez) History of esophagogastroduodenoscopy (EGD) S/P coronary artery stent placement (~08/2019) Status post colectomy Status post laparoscopic cholecystectomy Visit Care Team Role Provider Type Maciej Garrett MD Attending Provider Physician Family Provider Primary Care Provider Referring Provider Specialty: Internal Medicine Address: [address] [place] [address], [address], [facility] Email: [email or web address] Physical Therapy Initial Evaluation PT-OP-A Visit Information Start: 03/13/20 16:02 Freq: Status: Active Protocol: Document 03/13/20 14:30 DCW (Rec: 03/13/20 16:49 DCW [id number]) Out-Patient Physical Therapy Visit Information Visit Information Visit Type Initial Evaluation Visit Start Time 14:30 Visit Stop Time 15:10 Total Visit Minutes 40 Visit Number 1 Number of CALCIMINER Visits 0 Evaluation Information Evaluation Date 03/13/20 PT-OP-B Current Condition Start: 03/13/20 16:12 Freq: Status: Active Protocol: Document 03/13/20 14:30 DCW (Rec: 03/13/20 16:49 DCW [id number]) Current Condition History of Current Condition Onset Date four month history Current Complaints R shoulder pain, stiffness, weakness History of Current Condition Pt is a 59 year old male presenting with a four month history of right shoulder pain . Pt reports he initially noticed pain in his left thumb in November,, was told it was arthritis, and received an injection, which helped greatly. Pt notes, however, that following his injection, he noticed increased pain around his right shoulder. Pt assumed it was also arthritis, and assumed it would get better, however it has not improved over the past four months. Pt reports pain is worst with any overhead activities, especially when in abduction. Notes his current pain is 2/10, but it can get as high as a 7/10. PT-OP-C Subjective Start: 03/13/20 16:02 Freq: Status: Active Protocol: Document 03/13/20 14:30 DCW (Rec: 03/13/20 16:49 DCW [id number]) OP-PT Subjective Patient Comments Patient Comments It seems to mainly be pain down the from and outside of my arm, but just down to about mid-way toward my elbow. Patient Reported Progress Same Patient Questionnaires Quick Dash- Upper Extremity Quick Dash UE Score 27.27% Quick Dash UE Impairment 20 to 39% Impaired (Score 20- 39) OP-PT Pain Assessment Pain Assessment Grid Paper Pain Assessment Grid Completed Yes Location Right Upper Anterior Lateral Arm Intensity 6 Scale Used Numeric (0 - 10) PT-OP-E Functional Tests Start: 03/13/20 16:02 Freq: Status: Active Protocol: Document 03/13/20 14:30 DCW (Rec: 03/13/20 16:49 DCW [id number]) Functional Tests Apley's Scratch Test Action 1- Left Posterior opposite shoulder Action 1- Right Lateral opposite shoulder Action 2- Left T4 Action 2- Right T4 Action 3- Left T5 Action 3- Right T10 PT-OP-F Manual Assessment Start: 03/13/20 16:02 Freq: Status: Active Protocol: Document 03/13/20 14:30 DCW (Rec: 03/13/20 16:49 DCW [id number]) Manual Assessments Soft Tissue Assessment Soft Tissue Mobility Assessment Tenderness to palpation 3/4 - wincing and withdraw along subacrominal space and bicipital groove. Noticeable inflammation and edema along long head biceps tendon with palpation. PT-OP-K Range of Motion Start: 03/13/20 16:02 Freq: Status: Active Protocol: Document 03/13/20 14:30 DCW (Rec: 03/13/20 16:49 [facility] [id number]) Shoulder Goniometric Range of Motion Shoulder Right Active Testing Position Sitting Flexion 130 Abduction 160 Comments Pain at 90? both abduction and flexion PT-OP-L Special Tests Start: 03/13/20 16:02 Freq: Status: Active Protocol: Document 03/13/20 14:30 DCW (Rec: 03/13/20 16:49 [facility] [id number]) Special Tests Shoulder Special Tests Painful Arc Test Results Positive R Yergason's Biceps Test Results Positive R Speed's Biceps Test Results Negative Passive ER Rotator Cuff Test Results Mild complaint of pain at end- range Lift-Off Rotator Cuff Test Results Negative Thomas Boom Impingement Test Results Positive R Comments Elicited strongest reaction from pt Empty Can Test Results Negative Drop Arm Rotator Cuff Test Results Negative Clunk Test Test Results Negative Belly Press Test Results Negative Apprehension Test Test Results Negative PT-OP-M Strength Start: 03/13/20 16:02 Freq: Status: Active Protocol: Document 03/13/20 14:30 DCW (Rec: 03/13/20 16:49 [facility] [id number]) Shoulder Strength Shoulder Manual Muscle Testing Right Flexion 4- Good- Abduction (C5) 4 Good External Rotation 4 Good Internal Rotation 4 Good PT-OP-Q Treatments Start: 03/13/20 16:02 Freq: Status: Active Protocol: Document 03/13/20 14:30 DCW (Rec: 03/13/20 16:49 [facility] [id number]) Therapeutic Exercises Sitting Exercises 2 Sitting Exercise Name Shoulder internal rotation Side right Resistance Lv 2 Equipment Used T-band 1 Sitting Exercise Name Shoulder external rotation Side right Resistance Lv 2 Equipment Used T-band PT-OP-T Assessment and Plan Start: 03/13/20 16:02 Freq: Status: Active Protocol: Document 03/13/20 14:30 DCW (Rec: 03/13/20 16:49 [facility] [id number]) Physical Therapy Assessment Rehab Potential Rehabilitation Potential Good Evaluation Complexity Number of Personal Factors/Comorbidities 0 Number of Body Systems Impaired 3 Impairments Impairments Functional Activities, Functional Mobility,Pain,ROM, Soft Tissue Mobility,Strength, Tone Goals Three Impairment Pt experiences tenderness to palpation 3/4 at bicipital groove Warehouse Puller Goal (LTG) Tenderness to palpation decreased to 2/4 - pain with wincing along bicipital groove LTG Duration 05/11/20 Two Impairment Pt experiences limited overhead activities secondary to pain [facility] Goal (LTG) Pt to demonstrate a pain-free range of motion with both flexion and abduction 0?-120? LTG Duration 05/11/20 One Impairment Pt does not have an appropriate home exercise program Short Term Goal (STG) Pt to be independent and compliant with appropriate HEP STG Duration 04/10/20 Assessment Summary Assessment Pt presents with signs and symptoms consistent with right subacromial impingement and bicipital tendonitis. Pt's testing was most significantly positive with Thomas-Boom impingement, and pt's location of pain with overhead motion supports this complaint. Pt should benefit from skilled therapy focusing on improving strength of surrounding musculature to increase ability for proper compensatory strategies. Pt should also benefit from STM to decrease current protective tone, modalities to decrease inflammation and pain-control, and ROM to help limit risk of adhesive capsulitis. Physical Therapy Plan Frequency and Duration Frequency of Treatment 2x/Week Duration of Treatment Eight weeks Plan of Care Start Date 03/13/20 Plan of Care End Date 05/08/20 Therapeutic Interventions Therapeutic Interventions Home Exercise Program,Joint Mobilizations,Manual Therapy, Patient/Caregiver Education, Self-Care/Home Management,Soft Tissue Mobilization, Therapeutic Activities, Therapeutic Exercises Modalities Cold Pack/Ice Massage,Electric Stimulation,Hot Packs, Iontophoresis,Ultrasound Other Therapeutic Interventions Iontophoresis using Dexamethasone 4 mg/mL Next Visit Focus/Plan Next Note Type Treatment Note Next Visit Plan Shoulder strengthening, STM, ROM
--- NOTE | 2020-03-13 16:50 | PT.OPPOC ---
Physical, Occupational & Speech Therapy At [facility] Current Diagnoses Pain in right shoulder (03/13/20) Stiffness of right shoulder, not elsewhere classified (03/13/20) Bicipital tendinitis, right shoulder (03/13/20) Impingement syndrome of right shoulder (03/13/20) Visit Care Team Role Provider Type Maciej Garrett MD Attending Provider Physician Family Provider Primary Care Provider Referring Provider Specialty: Internal Medicine Address: [address] [place] [address], [address], [facility] Email: [email or web address] Plan Of Care PT-OP-T Assessment and Plan Start: 03/13/20 16:02 Freq: Status: Active Protocol: Document 03/13/20 14:30 DCW (Rec: 03/13/20 16:49 DCW [id number]) Physical Therapy Assessment Rehab Potential Rehabilitation Potential Good Evaluation Complexity Number of Personal Factors/Comorbidities 0 Number of Body Systems Impaired 3 Impairments Impairments Functional Activities, Functional Mobility,Pain,ROM, Soft Tissue Mobility,Strength, Tone Goals Three Impairment Pt experiences tenderness to palpation 3/4 at bicipital groove Alf Goal (LTG) Tenderness to palpation decreased to 2/4 - pain with wincing along bicipital groove LTG Duration 05/11/20 Two Impairment Pt experiences limited overhead activities secondary to pain Logistics Analyst Goal (LTG) Pt to demonstrate a pain-free range of motion with both flexion and abduction 0?-120? LTG Duration 05/11/20 One Impairment Pt does not have an appropriate home exercise program Short Term Goal (STG) Pt to be independent and compliant with appropriate HEP STG Duration 04/10/20 Assessment Summary Assessment Pt presents with signs and symptoms consistent with right subacromial impingement and bicipital tendonitis. Pt's testing was most significantly positive with Thomas-Boom impingement, and pt's location of pain with overhead motion supports this complaint. Pt should benefit from skilled therapy focusing on improving strength of surrounding musculature to increase ability for proper compensatory strategies. Pt should also benefit from STM to decrease current protective tone, modalities to decrease inflammation and pain-control, and ROM to help limit risk of adhesive capsulitis. Physical Therapy Plan Frequency and Duration Frequency of Treatment 2x/Week Duration of Treatment Eight weeks Plan of Care Start Date 03/13/20 Plan of Care End Date 05/08/20 Therapeutic Interventions Therapeutic Interventions Home Exercise Program,Joint Mobilizations,Manual Therapy, Patient/Caregiver Education, Self-Care/Home Management,Soft Tissue Mobilization, Therapeutic Activities, Therapeutic Exercises Modalities Cold Pack/Ice Massage,Electric Stimulation,Hot Packs, Iontophoresis,Ultrasound Other Therapeutic Interventions Iontophoresis using Dexamethasone 4 mg/mL Next Visit Focus/Plan Next Note Type Treatment Note Next Visit Plan Shoulder strengthening, STM, ROM Plan of Care Dates Plan of Care Start Date 03/13/20 Plan of Care End Date 05/08/20 Electronically Signed by: Abhishek Reddy, PT 03/13/20 [id number] Please Sign and Return: I have reviewed this Plan of Care and certify that the skilled therapy services above are required to meet the patient?s needs. Physician Signature Date Printed Name and Credentials Clinical Instructor Signature Printed Name and Credentials
--- NOTE | 2020-03-16 12:45 | PT.OTN ---
Current Diagnoses Pain in right shoulder (03/16/20) Stiffness of right shoulder, not elsewhere classified (03/16/20) Bicipital tendinitis, right shoulder (03/16/20) Impingement syndrome of right shoulder (03/16/20) Physical Therapy Treatment Note PT-OP-A Visit Information Start: 03/13/20 16:02 Freq: Status: Active Protocol: Document 03/16/20 12:00 DCW (Rec: 03/16/20 12:45 DCW [id number]) Out-Patient Physical Therapy Visit Information Visit Information Visit Type Treatment Note Visit Start Time 12:00 Visit Stop Time 12:45 Total Visit Minutes 45 Visit Number 2 Number of TIMBER FRAMER HELPER Visits 0 Evaluation Information Evaluation Date 03/13/20 PT-OP-B Current Condition Start: 03/13/20 16:12 Freq: Status: Active Protocol: Document 03/13/20 14:30 DCW (Rec: 03/13/20 16:49 DCW [id number]) Current Condition History of Current Condition Onset Date four month history Current Complaints R shoulder pain, stiffness, weakness History of Current Condition Pt is a 59 year old male presenting with a four month history of right shoulder pain . Pt reports he initially noticed pain in his left thumb in November,, was told it was arthritis, and received an injection, which helped greatly. Pt notes, however, that following his injection, he noticed increased pain around his right shoulder. Pt assumed it was also arthritis, and assumed it would get better, however it has not improved over the past four months. Pt reports pain is worst with any overhead activities, especially when in abduction. Notes his current pain is 2/10, but it can get as high as a 7/10. PT-OP-C Subjective Start: 03/13/20 16:02 Freq: Status: Active Protocol: Document 03/16/20 12:00 DCW (Rec: 03/16/20 12:45 DCW [id number]) OP-PT Subjective Patient Comments Patient Comments Pt notes his shoulder is no better, no worse. PT-OP-E Functional Tests Start: 03/13/20 16:02 Freq: Status: Active Protocol: Document 03/13/20 14:30 DCW (Rec: 03/13/20 16:49 DCW [id number]) Functional Tests Apley's Scratch Test Action 1- Left Posterior opposite shoulder Action 1- Right Lateral opposite shoulder Action 2- Left T4 Action 2- Right T4 Action 3- Left T5 Action 3- Right T10 PT-OP-F Manual Assessment Start: 03/13/20 16:02 Freq: Status: Active Protocol: Document 03/13/20 14:30 DCW (Rec: 03/13/20 16:49 DCW [id number]) Manual Assessments Soft Tissue Assessment Soft Tissue Mobility Assessment Tenderness to palpation 3/4 - wincing and withdraw along subacrominal space and bicipital groove. Noticeable inflammation and edema along long head biceps tendon with palpation. PT-OP-K Range of Motion Start: 03/13/20 16:02 Freq: Status: Active Protocol: Document 03/13/20 14:30 DCW (Rec: 03/13/20 16:49 DCW [id number]) Shoulder Goniometric Range of Motion Shoulder Right Active Testing Position Sitting Flexion 130 Abduction 160 Comments Pain at 90? both abduction and flexion PT-OP-L Special Tests Start: 03/13/20 16:02 Freq: Status: Active Protocol: Document 03/13/20 14:30 DCW (Rec: 03/13/20 16:49 DCW [id number]) Special Tests Shoulder Special Tests Painful Arc Test Results Positive R Yergason's Biceps Test Results Positive R Speed's Biceps Test Results Negative Passive ER Rotator Cuff Test Results Mild complaint of pain at end- range Lift-Off Rotator Cuff Test Results Negative Thomas Boom Impingement Test Results Positive R Comments Elicited strongest reaction from pt Empty Can Test Results Negative Drop Arm Rotator Cuff Test Results Negative Clunk Test Test Results Negative Belly Press Test Results Negative Apprehension Test Test Results Negative PT-OP-M Strength Start: 03/13/20 16:02 Freq: Status: Active Protocol: Document 03/13/20 14:30 DCW (Rec: 03/13/20 16:49 DCW [id number]) Shoulder Strength Shoulder Manual Muscle Testing Right Flexion 4- Good- Abduction (C5) 4 Good External Rotation 4 Good Internal Rotation 4 Good PT-OP-Q Treatments Start: 03/13/20 16:02 Freq: Status: Active Protocol: Document 03/16/20 12:00 DCW (Rec: 03/16/20 12:45 DCW [id number]) Cardio Equipment Upper Body Ergometer (UBE) Duration (Minutes) 5 RPM 60 Seat Position 13 Height 3.5 Other Forward/Backward Therapeutic Exercises Supine Exercises 1 Supine Exercise Name Serratus punch Side bilateral Resistance 3# Comments Lowered to 45 degrees flexion d/t pain Sidelying Exercises 1 Sidelying Exercise Name External rotation Side right Resistance 4# Sitting Exercises 3 Sitting Exercise Name PROM - Pulleys Side bilateral Comments Flex/Abd Standing Exercises 2 Standing Exercise Name Shoulder Flex Side bilateral Resistance 3# Comments Pain-free ROM 1 Standing Exercise Name Shoulder Abd Side bilateral Resistance 3# Comments Pain-free ROM Manual Therapy Treatment Soft Tissue Mobilization 1 Body Location R Pec, LH Biceps tendon Mobilization Type Cross-Friction,Sustained Pressure Joint Mobilizations 1 Joint R GH Direction Inf Grade III PT-OP-R Modalities Start: 03/13/20 16:02 Freq: Status: Active Protocol: Document 03/16/20 12:00 DCW (Rec: 03/16/20 12:45 DCW [id number]) Iontophoresis Treatment Right Anterior Shoulder Treatment Medication Hyaluronidase (+) Medication Amount (mL) (ml) 1.0 Medication Dosage 4 mg/mL Treatment Polarity Negative to Negative Active Electrode Placement Bicipital Groove PT-OP-T Assessment and Plan Start: 03/13/20 16:02 Freq: Status: Active Protocol: Document 03/16/20 12:00 DCW (Rec: 03/16/20 12:45 DCW [id number]) Physical Therapy Assessment Impairments Impairments Functional Activities, Functional Mobility,Pain,ROM, Soft Tissue Mobility,Strength, Tone Goals Three Impairment Pt experiences tenderness to palpation 3/4 at bicipital groove Meat Smoker Goal (LTG) Tenderness to palpation decreased to 2/4 - pain with wincing along bicipital groove LTG Duration 05/11/20 Two Impairment Pt experiences limited overhead activities secondary to pain Meat Smoker Goal (LTG) Pt to demonstrate a pain-free range of motion with both flexion and abduction 0?-120? LTG Duration 05/11/20 One Impairment Pt does not have an appropriate home exercise program Short Term Goal (STG) Pt to be independent and compliant with appropriate HEP STG Duration 04/10/20 Assessment Summary Assessment Pt tolerated treatment fairly well today, cooker tender along bicipital groove and into pec major. Trial of Ionto /c Dexamethasone to help decrease inflammatory response along LH biceps tendon. Physical Therapy Plan Frequency and Duration Frequency of Treatment 2x/Week Duration of Treatment Eight weeks Plan of Care Start Date 03/13/20 Plan of Care End Date 05/08/20 Therapeutic Interventions Therapeutic Interventions Home Exercise Program,Joint Mobilizations,Manual Therapy, Patient/Caregiver Education, Self-Care/Home Management,Soft Tissue Mobilization, Therapeutic Activities, Therapeutic Exercises Modalities Cold Pack/Ice Massage,Electric Stimulation,Hot Packs, Iontophoresis,Ultrasound Other Therapeutic Interventions Iontophoresis using Dexamethasone 4 mg/mL Next Visit Focus/Plan Next Note Type Treatment Note Next Visit Plan Shoulder strengthening, STM, ROM
--- NOTE | 2020-03-19 15:17 | PT.OTN ---
Current Diagnoses Pain in right shoulder (03/19/20) Stiffness of right shoulder, not elsewhere classified (03/19/20) Bicipital tendinitis, right shoulder (03/19/20) Impingement syndrome of right shoulder (03/19/20) Physical Therapy Treatment Note PT-OP-A Visit Information Start: 03/13/20 16:02 Freq: Status: Active Protocol: Document 03/19/20 14:37 SP (Rec: 03/19/20 15:59 SP [id number]) Out-Patient Physical Therapy Visit Information Visit Information Visit Type Treatment Note Visit Note GARO Shearer attended tx. Visit Start Time 14:37 Visit Stop Time 15:17 Total Visit Minutes 40 Visit Number 3 Number of ROLL COATING MACHINE OPERATOR Visits 1 PT-OP-B Current Condition Start: 03/13/20 16:12 Freq: Status: Active Protocol: Document 03/13/20 14:30 DCW (Rec: 03/13/20 16:49 DCW [id number]) Current Condition History of Current Condition Onset Date four month history Current Complaints R shoulder pain, stiffness, weakness History of Current Condition Pt is a 59 year old male presenting with a four month history of right shoulder pain . Pt reports he initially noticed pain in his left thumb in November,, was told it was arthritis, and received an injection, which helped greatly. Pt notes, however, that following his injection, he noticed increased pain around his right shoulder. Pt assumed it was also arthritis, and assumed it would get better, however it has not improved over the past four months. Pt reports pain is worst with any overhead activities, especially when in abduction. Notes his current pain is 2/10, but it can get as high as a 7/10. PT-OP-C Subjective Start: 03/13/20 16:02 Freq: Status: Active Protocol: Document 03/19/20 14:37 SP (Rec: 03/19/20 15:59 SP [id number]) OP-PT Subjective Patient Comments Patient Comments Pt reported R shld 2/10 pre tx , doing ok, no significant changes, all painful. Has a hard time sleeping finding comfortable position. Not sure the iontophoresis patch made any difference. PT-OP-E Functional Tests Start: 03/13/20 16:02 Freq: Status: Active Protocol: Document 03/13/20 14:30 DCW (Rec: 03/13/20 16:49 DCW [id number]) Functional Tests Apley's Scratch Test Action 1- Left Posterior opposite shoulder Action 1- Right Lateral opposite shoulder Action 2- Left T4 Action 2- Right T4 Action 3- Left T5 Action 3- Right T10 PT-OP-F Manual Assessment Start: 03/13/20 16:02 Freq: Status: Active Protocol: Document 03/13/20 14:30 DCW (Rec: 03/13/20 16:49 DCW [id number]) Manual Assessments Soft Tissue Assessment Soft Tissue Mobility Assessment Tenderness to palpation 3/4 - wincing and withdraw along subacrominal space and bicipital groove. Noticeable inflammation and edema along long head biceps tendon with palpation. PT-OP-K Range of Motion Start: 03/13/20 16:02 Freq: Status: Active Protocol: Document 03/13/20 14:30 DCW (Rec: 03/13/20 16:49 DCW [id number]) Shoulder Goniometric Range of Motion Shoulder Right Active Testing Position Sitting Flexion 130 Abduction 160 Comments Pain at 90? both abduction and flexion PT-OP-L Special Tests Start: 03/13/20 16:02 Freq: Status: Active Protocol: Document 03/13/20 14:30 DCW (Rec: 03/13/20 16:49 DCW [id number]) Special Tests Shoulder Special Tests Painful Arc Test Results Positive R Yergason's Biceps Test Results Positive R Speed's Biceps Test Results Negative Passive ER Rotator Cuff Test Results Mild complaint of pain at end- range Lift-Off Rotator Cuff Test Results Negative Thomas Boom Impingement Test Results Positive R Comments Elicited strongest reaction from pt Empty Can Test Results Negative Drop Arm Rotator Cuff Test Results Negative Clunk Test Test Results Negative Belly Press Test Results Negative Apprehension Test Test Results Negative PT-OP-M Strength Start: 03/13/20 16:02 Freq: Status: Active Protocol: Document 03/13/20 14:30 DCW (Rec: 03/13/20 16:49 DCW [id number]) Shoulder Strength Shoulder Manual Muscle Testing Right Flexion 4- Good- Abduction (C5) 4 Good External Rotation 4 Good Internal Rotation 4 Good PT-OP-Q Treatments Start: 03/13/20 16:02 Freq: Status: Active Protocol: Document 03/19/20 14:37 SP (Rec: 03/19/20 15:59 SP [id number]) Therapeutic Exercises Supine Exercises 1 Supine Exercise Name Serratus punch Side bilateral Resistance 3# Comments Lowered to 45 degrees flexion 1-2/10 pain Sidelying Exercises open book Sidelying Exercise Name focus scap retraction glides and TS rotation flexibility Side bilateral Reps/Minutes x5 Comments cued scap away from head awareness, TS and scapular mobility 1 Sidelying Exercise Name External rotation Side right Resistance 4>3# Reps/Minutes x10 Comments cued just passed front- muscle tiring- pain free Sitting Exercises 3 Sitting Exercise Name PROM FF, ABD- Pulleys Side bilateral Comments Cued scap stab depression awarenes 2 Sitting Exercise Name Standing: Shoulder internal rotation w/ towel under arm Side right Resistance Lv 2 Equipment Used T-band Reps/Minutes x10 Comments cued retract/depression awareness 1 Sitting Exercise Name Standing: Shoulder external rotation w/ towel under arm Side right Resistance Lv 2 Equipment Used T-band Reps/Minutes x10 Comments cued retract/depression awareness Standing Exercises pec stetch corner Standing Exercise Name add HEP Side bilateral Reps/Minutes 20 sec x3 Comments cued CS ext neutral, scap scap depression 2 Standing Exercise Name Shoulder Flex Side bilateral Resistance 3# Reps/Minutes x10 Comments Pain-free ROM 1 Standing Exercise Name Shoulder Abd Side bilateral Resistance 3# Reps/Minutes 10 Comments Pain-free ROM PT-OP-R Modalities Start: 03/13/20 16:02 Freq: Status: Active Protocol: Document 03/16/20 12:00 DCW (Rec: 03/16/20 12:45 DCW [id number]) Iontophoresis Treatment Right Anterior Shoulder Treatment Medication Hyaluronidase (+) Medication Amount (mL) (ml) 1.0 Medication Dosage 4 mg/mL Treatment Polarity Negative to Negative Active Electrode Placement Bicipital Groove PT-OP-T Assessment and Plan Start: 03/13/20 16:02 Freq: Status: Active Protocol: Document 03/19/20 14:37 SP (Rec: 03/19/20 15:59 SP [id number]) Physical Therapy Assessment Goals Three Impairment Pt experiences tenderness to palpation 3/4 at bicipital groove Qa Consultant Goal (LTG) Tenderness to palpation decreased to 2/4 - pain with wincing along bicipital groove LTG Duration 05/11/20 Two Impairment Pt experiences limited overhead activities secondary to pain [facility]ci Goal (LTG) Pt to demonstrate a pain-free range of motion with both flexion and abduction 0?-120? LTG Duration 05/11/20 One Impairment Pt does not have an appropriate home exercise program Short Term Goal (STG) Pt to be independent and compliant with appropriate HEP STG Duration 04/10/20 Assessment Summary Assessment Pt tolerated tx well, cued to stay within painfree range during ther ex and scap retraction/ depression stabilization and CS extension to neutral awareness for proper form. Pt stated no increase in pain just muscle tiring end of tx. Physical Therapy Plan Frequency and Duration Frequency of Treatment 2x/Week Duration of Treatment Eight weeks Plan of Care Start Date 03/13/20 Plan of Care End Date 05/08/20 Therapeutic Interventions Therapeutic Interventions Home Exercise Program,Joint Mobilizations,Manual Therapy, Patient/Caregiver Education, Self-Care/Home Management,Soft Tissue Mobilization, Therapeutic Activities, Therapeutic Exercises Modalities Cold Pack/Ice Massage,Electric Stimulation,Hot Packs, Iontophoresis,Ultrasound Other Therapeutic Interventions Iontophoresis using Dexamethasone 4 mg/mL Next Visit Focus/Plan Next Note Type Treatment Note Next Visit Plan Shoulder strengthening, STM, ROM
--- NOTE | 2020-03-27 08:15 | PT.OTN ---
Current Diagnoses Pain in right shoulder (03/27/20) Stiffness of right shoulder, not elsewhere classified (03/27/20) Bicipital tendinitis, right shoulder (03/27/20) Impingement syndrome of right shoulder (03/27/20) Physical Therapy Treatment Note PT-OP-A Visit Information Start: 03/13/20 16:02 Freq: Status: Active Protocol: Document 03/27/20 07:30 LD (Rec: 03/27/20 17:02 LD [id number]) Out-Patient Physical Therapy Visit Information Visit Information Visit Type Treatment Note Visit Note GARO Shearer co-led tx w/ supervision of LUCHO Branch. Visit Start Time 07:30 Visit Stop Time 08:15 Total Visit Minutes 45 Visit Number 4 Number of RIFFLER TENDER Visits 1 PT-OP-B Current Condition Start: 03/13/20 16:12 Freq: Status: Active Protocol: Document 03/13/20 14:30 DCW (Rec: 03/13/20 16:49 DCW [id number]) Current Condition History of Current Condition Onset Date four month history Current Complaints R shoulder pain, stiffness, weakness History of Current Condition Pt is a 59 year old male presenting with a four month history of right shoulder pain . Pt reports he initially noticed pain in his left thumb in November,, was told it was arthritis, and received an injection, which helped greatly. Pt notes, however, that following his injection, he noticed increased pain around his right shoulder. Pt assumed it was also arthritis, and assumed it would get better, however it has not improved over the past four months. Pt reports pain is worst with any overhead activities, especially when in abduction. Notes his current pain is 2/10, but it can get as high as a 7/10. PT-OP-C Subjective Start: 03/13/20 16:02 Freq: Status: Active Protocol: Document 03/27/20 07:30 LD (Rec: 03/27/20 17:02 LD [id number]) OP-PT Subjective Patient Comments Patient Comments Pt reports doing ok, has been doing his exercises at home. PT-OP-E Functional Tests Start: 03/13/20 16:02 Freq: Status: Active Protocol: Document 03/13/20 14:30 DCW (Rec: 03/13/20 16:49 DCW [id number]) Functional Tests Apley's Scratch Test Action 1- Left Posterior opposite shoulder Action 1- Right Lateral opposite shoulder Action 2- Left T4 Action 2- Right T4 Action 3- Left T5 Action 3- Right T10 PT-OP-F Manual Assessment Start: 03/13/20 16:02 Freq: Status: Active Protocol: Document 03/13/20 14:30 DCW (Rec: 03/13/20 16:49 DCW [id number]) Manual Assessments Soft Tissue Assessment Soft Tissue Mobility Assessment Tenderness to palpation 3/4 - wincing and withdraw along subacrominal space and bicipital groove. Noticeable inflammation and edema along long head biceps tendon with palpation. PT-OP-K Range of Motion Start: 03/13/20 16:02 Freq: Status: Active Protocol: Document 03/13/20 14:30 DCW (Rec: 03/13/20 16:49 DCW [id number]) Shoulder Goniometric Range of Motion Shoulder Right Active Testing Position Sitting Flexion 130 Abduction 160 Comments Pain at 90? both abduction and flexion PT-OP-L Special Tests Start: 03/13/20 16:02 Freq: Status: Active Protocol: Document 03/13/20 14:30 DCW (Rec: 03/13/20 16:49 DCW [id number]) Special Tests Shoulder Special Tests Painful Arc Test Results Positive R Yergason's Biceps Test Results Positive R Speed's Biceps Test Results Negative Passive ER Rotator Cuff Test Results Mild complaint of pain at end- range Lift-Off Rotator Cuff Test Results Negative Thomas Boom Impingement Test Results Positive R Comments Elicited strongest reaction from pt Empty Can Test Results Negative Drop Arm Rotator Cuff Test Results Negative Clunk Test Test Results Negative Belly Press Test Results Negative Apprehension Test Test Results Negative PT-OP-M Strength Start: 03/13/20 16:02 Freq: Status: Active Protocol: Document 03/13/20 14:30 DCW (Rec: 03/13/20 16:49 DCW [id number]) Shoulder Strength Shoulder Manual Muscle Testing Right Flexion 4- Good- Abduction (C5) 4 Good External Rotation 4 Good Internal Rotation 4 Good PT-OP-Q Treatments Start: 03/13/20 16:02 Freq: Status: Active Protocol: Document 03/27/20 07:35 LD (Rec: 03/27/20 10:16 LD [id number]) Therapeutic Exercises Supine Exercises 1 Supine Exercise Name Serratus punch Side bilateral Resistance 3# Comments Lowered to 45 degrees flexion 1-2/10 pain Sidelying Exercises open book Sidelying Exercise Name focus scap retraction glides and TS rotation flexibility Side bilateral Reps/Minutes x5 Comments cued scap away from head awareness, TS and scapular mobility 1 Sidelying Exercise Name External rotation Side right Resistance 2# Reps/Minutes x10 Comments cued just passed front- muscle tiring- pain free Sitting Exercises 3 Sitting Exercise Name PROM FF, ABD- Pulleys Side bilateral Comments Cued scap stab depression awarenes 2 Sitting Exercise Name Standing: Shoulder internal rotation w/ towel under arm Side right Resistance Lv 2 Equipment Used T-band Reps/Minutes x10 Comments cued retract/depression awareness Standing Exercises D1 Extension Side right Resistance L2 Reps/Minutes 10x Comments cued for scap depression and tall posture, comfort of arm position Shoulder extension Standing Exercise Name added to HEP Side bilateral Resistance L2 Reps/Minutes 10x Comments cued for scap depression, retraction, neutral CS D2 Extension Standing Exercise Name error, add later Rows Standing Exercise Name added to HEP Side bilateral Resistance L2 Reps/Minutes 10x Comments cued for scap depression, retraction and neutral CS PT-OP-R Modalities Start: 03/13/20 16:02 Freq: Status: Active Protocol: Document 03/27/20 07:35 LD (Rec: 03/27/20 10:16 [id number]) Iontophoresis Treatment Right Anterior Shoulder Treatment Medication Dexamethasone (-) Medication Amount (mL) (ml) 1.0 Medication Dosage 4 mg/mL Treatment Polarity Negative to positive Active Electrode Placement Bicipital Groove PT-OP-T Assessment and Plan Start: 03/13/20 16:02 Freq: Status: Active Protocol: Document 03/27/20 07:35 LD (Rec: 03/27/20 10:16 [id number]) Physical Therapy Assessment Goals Three Impairment Pt experiences tenderness to palpation 3/4 at bicipital groove Shelter Goal (LTG) Tenderness to palpation decreased to 2/4 - pain with wincing along bicipital groove LTG Duration 05/11/20 Two Impairment Pt experiences limited overhead activities secondary to pain Tool Maker Apprentice Goal (LTG) Pt to demonstrate a pain-free range of motion with both flexion and abduction 0?-120? LTG Duration 05/11/20 One Impairment Pt does not have an appropriate home exercise program Short Term Goal (STG) Pt to be independent and compliant with appropriate HEP STG Duration 04/10/20 Assessment Summary Assessment Tx focus on HEP review. Added rows, extension and D1 ext for scap stabilization. Required cueing for scap depresion/ retraction and neutral CS during ther ex. Tender near bicipital groove, applied Ionto to anterior R shoulder to decrease inflammatory repsonse. Pt reported 'no pain ' at end of tx. Physical Therapy Plan Frequency and Duration Frequency of Treatment 2x/Week Duration of Treatment Eight weeks Plan of Care Start Date 03/13/20 Plan of Care End Date 05/08/20 Therapeutic Interventions Therapeutic Interventions Home Exercise Program,Joint Mobilizations,Manual Therapy, Patient/Caregiver Education, Self-Care/Home Management,Soft Tissue Mobilization, Therapeutic Activities, Therapeutic Exercises Modalities Cold Pack/Ice Massage,Electric Stimulation,Hot Packs, Iontophoresis,Ultrasound Other Therapeutic Interventions Iontophoresis using Dexamethasone 4 mg/mL Next Visit Focus/Plan Next Note Type Treatment Note Next Visit Plan Assess response to iontophoresis. Review HEP. Shoulder strengthening, STM, ROM
--- NOTE | 2020-03-31 13:45 | PT.OTN ---
Current Diagnoses Pain in right shoulder (03/31/20) Stiffness of right shoulder, not elsewhere classified (03/31/20) Bicipital tendinitis, right shoulder (03/31/20) Impingement syndrome of right shoulder (03/31/20) Physical Therapy Treatment Note PT-OP-A Visit Information Start: 03/13/20 16:02 Freq: Status: Active Protocol: Document 03/31/20 13:13 SP (Rec: 03/31/20 15:17 SP [id number]) Out-Patient Physical Therapy Visit Information Visit Information Visit Type Treatment Note Visit Note ASSEMBLER CARDS AND ANNOUNCEMENTS brought pt back late. Visit Start Time 13:11 Visit Stop Time 13:45 Total Visit Minutes 34 Visit Number 5 Number of ASSEMBLER CARDS AND ANNOUNCEMENTS Visits 2 PT-OP-B Current Condition Start: 03/13/20 16:12 Freq: Status: Active Protocol: Document 03/13/20 14:30 DCW (Rec: 03/13/20 16:49 DCW [id number]) Current Condition History of Current Condition Onset Date four month history Current Complaints R shoulder pain, stiffness, weakness History of Current Condition Pt is a 59 year old male presenting with a four month history of right shoulder pain . Pt reports he initially noticed pain in his left thumb in November,, was told it was arthritis, and received an injection, which helped greatly. Pt notes, however, that following his injection, he noticed increased pain around his right shoulder. Pt assumed it was also arthritis, and assumed it would get better, however it has not improved over the past four months. Pt reports pain is worst with any overhead activities, especially when in abduction. Notes his current pain is 2/10, but it can get as high as a 7/10. PT-OP-C Subjective Start: 03/13/20 16:02 Freq: Status: Active Protocol: Document 03/31/20 13:13 SP (Rec: 03/31/20 15:17 SP [id number]) OP-PT Subjective Patient Comments Patient Comments Pt stated thinks the iontophoresis patch did help with pain control but adhesive only lasted approx 6 hrs so applied tape to last longer. Pt pain 2/10 anterior R shld pain upon arrival but states feels is getting less. Compliant with HEP. Patient Reported Progress Improving PT-OP-E Functional Tests Start: 03/13/20 16:02 Freq: Status: Active Protocol: Document 03/13/20 14:30 DCW (Rec: 03/13/20 16:49 DCW [id number]) Functional Tests Apley's Scratch Test Action 1- Left Posterior opposite shoulder Action 1- Right Lateral opposite shoulder Action 2- Left T4 Action 2- Right T4 Action 3- Left T5 Action 3- Right T10 PT-OP-F Manual Assessment Start: 03/13/20 16:02 Freq: Status: Active Protocol: Document 03/13/20 14:30 DCW (Rec: 03/13/20 16:49 DCW [id number]) Manual Assessments Soft Tissue Assessment Soft Tissue Mobility Assessment Tenderness to palpation 3/4 - wincing and withdraw along subacrominal space and bicipital groove. Noticeable inflammation and edema along long head biceps tendon with palpation. PT-OP-K Range of Motion Start: 03/13/20 16:02 Freq: Status: Active Protocol: Document 03/13/20 14:30 DCW (Rec: 03/13/20 16:49 DCW [id number]) Shoulder Goniometric Range of Motion Shoulder Right Active Testing Position Sitting Flexion 130 Abduction 160 Comments Pain at 90? both abduction and flexion PT-OP-L Special Tests Start: 03/13/20 16:02 Freq: Status: Active Protocol: Document 03/13/20 14:30 DCW (Rec: 03/13/20 16:49 DCW [id number]) Special Tests Shoulder Special Tests Painful Arc Test Results Positive R Yergason's Biceps Test Results Positive R Speed's Biceps Test Results Negative Passive ER Rotator Cuff Test Results Mild complaint of pain at end- range Lift-Off Rotator Cuff Test Results Negative Thomas Boom Impingement Test Results Positive R Comments Elicited strongest reaction from pt Empty Can Test Results Negative Drop Arm Rotator Cuff Test Results Negative Clunk Test Test Results Negative Belly Press Test Results Negative Apprehension Test Test Results Negative PT-OP-M Strength Start: 03/13/20 16:02 Freq: Status: Active Protocol: Document 03/13/20 14:30 DCW (Rec: 03/13/20 16:49 DCW [id number]) Shoulder Strength Shoulder Manual Muscle Testing Right Flexion 4- Good- Abduction (C5) 4 Good External Rotation 4 Good Internal Rotation 4 Good PT-OP-Q Treatments Start: 03/13/20 16:02 Freq: Status: Active Protocol: Document 03/31/20 13:13 SP (Rec: 03/31/20 15:17 SP [id number]) Therapeutic Exercises Sidelying Exercises shld abd Sidelying Exercise Name added to HEP Side right Resistance AROM Reps/Minutes x10 Comments cued humeral protraction then inferior glide pain free range open book Sidelying Exercise Name scapular retraction glide and TS rotation flexibility Side right Reps/Minutes x5 Comments cued scap away from head awareness, TS and scapular mobility 1 Sidelying Exercise Name External rotation Side right Resistance 2# Reps/Minutes x10 Comments cued just passed front- muscle tiring- pain free Standing Exercises shld IR w/ TB Standing Exercise Name towel roll under arm Side right Resistance TB #2 Reps/Minutes x10 Comments cued scap stab, CS neutral, relax jaw STMs pec racquet ball wall Standing Exercise Name self STMs vs pec roll at wall Reps/Minutes 2 min totatl Comments lessened tightness over anterior shld D1 Extension Standing Exercise Name Review HEP Side right Resistance L2 Reps/Minutes 10x Comments cued for scap depression and tall posture, comfort of arm position, CS neut Shoulder extension Standing Exercise Name review HEP Side bilateral Resistance L2 Reps/Minutes 10x Comments cued for scap depression, retraction, neutral CS Rows Standing Exercise Name Review HEP Side bilateral Resistance L2 Reps/Minutes 10x Comments cued for scap depression, retraction and neutral CS pec stetch corner Standing Exercise Name added to HEP Side right Reps/Minutes 30 x2 Comments cued CS ext neutral posture PT-OP-R Modalities Start: 03/13/20 16:02 Freq: Status: Active Protocol: Document 03/27/20 07:35 LD (Rec: 03/27/20 10:16 LD [id number]) Iontophoresis Treatment Right Anterior Shoulder Treatment Medication Dexamethasone (-) Medication Amount (mL) (ml) 1.0 Medication Dosage 4 mg/mL Treatment Polarity Negative to positive Active Electrode Placement Bicipital Groove PT-OP-T Assessment and Plan Start: 03/13/20 16:02 Freq: Status: Active Protocol: Document 03/31/20 13:13 SP (Rec: 03/31/20 15:17 SP [id number]) Physical Therapy Assessment Goals Three Impairment Pt experiences tenderness to palpation 3/4 at bicipital groove Ripsaw Grader Goal (LTG) Tenderness to palpation decreased to 2/4 - pain with wincing along bicipital groove LTG Duration 05/11/20 Two Impairment Pt experiences limited overhead activities secondary to pain Ripsaw Grader Goal (LTG) Pt to demonstrate a pain-free range of motion with both flexion and abduction 0?-120? LTG Duration 05/11/20 One Impairment Pt does not have an appropriate home exercise program Short Term Goal (STG) Pt to be independent and compliant with appropriate HEP STG Duration 04/10/20 Assessment Summary Assessment Pt tolerated tx well, required cuing for scap stabilization, neutral CS and inferior glide of proximal humerus awareness . No increase in pain end of tx. Forgot to reapply iontophoreses at end of tx. Assess need next tx. Physical Therapy Plan Frequency and Duration Frequency of Treatment 2x/Week Duration of Treatment Eight weeks Plan of Care Start Date 03/13/20 Plan of Care End Date 05/08/20 Therapeutic Interventions Therapeutic Interventions Home Exercise Program,Joint Mobilizations,Manual Therapy, Patient/Caregiver Education, Self-Care/Home Management,Soft Tissue Mobilization, Therapeutic Activities, Therapeutic Exercises Modalities Cold Pack/Ice Massage,Electric Stimulation,Hot Packs, Iontophoresis,Ultrasound Other Therapeutic Interventions Iontophoresis using Dexamethasone 4 mg/mL Next Visit Focus/Plan Next Note Type Treatment Note Next Visit Plan Assess response to Review HEP . Continue per PT POC: Shoulder strengthening, STM, ROM
--- NOTE | 2020-04-02 13:00 | PT.OTN ---
Current Diagnoses Pain in right shoulder (04/02/20) Stiffness of right shoulder, not elsewhere classified (04/02/20) Bicipital tendinitis, right shoulder (04/02/20) Impingement syndrome of right shoulder (04/02/20) Physical Therapy Treatment Note PT-OP-A Visit Information Start: 03/13/20 16:02 Freq: Status: Active Protocol: Document 04/02/20 12:18 LD (Rec: 04/02/20 14:15 LD [id number]) Out-Patient Physical Therapy Visit Information Visit Information Visit Type Treatment Note Visit Note SPTA led tx w/ supervision of [facility]. Visit Start Time 12:18 Visit Stop Time 13:00 Total Visit Minutes 42 Visit Number 6 Number of LIFE SCIENCES INSTRUCTOR Visits 3 PT-OP-B Current Condition Start: 03/13/20 16:12 Freq: Status: Active Protocol: Document 03/13/20 14:30 DCW (Rec: 03/13/20 16:49 DCW [id number]) Current Condition History of Current Condition Onset Date four month history Current Complaints R shoulder pain, stiffness, weakness History of Current Condition Pt is a 59 year old male presenting with a four month history of right shoulder pain . Pt reports he initially noticed pain in his left thumb in November,, was told it was arthritis, and received an injection, which helped greatly. Pt notes, however, that following his injection, he noticed increased pain around his right shoulder. Pt assumed it was also arthritis, and assumed it would get better, however it has not improved over the past four months. Pt reports pain is worst with any overhead activities, especially when in abduction. Notes his current pain is 2/10, but it can get as high as a 7/10. PT-OP-C Subjective Start: 03/13/20 16:02 Freq: Status: Active Protocol: Document 04/02/20 12:18 LD (Rec: 04/02/20 14:15 LD [id number]) OP-PT Subjective Patient Comments Patient Comments Pt stated pain level 1/10 in R anterior shoulder, would like iontophoresis patch today. Patient Reported Progress Improving PT-OP-E Functional Tests Start: 03/13/20 16:02 Freq: Status: Active Protocol: Document 03/13/20 14:30 DCW (Rec: 03/13/20 16:49 DCW [id number]) Functional Tests Apley's Scratch Test Action 1- Left Posterior opposite shoulder Action 1- Right Lateral opposite shoulder Action 2- Left T4 Action 2- Right T4 Action 3- Left T5 Action 3- Right T10 PT-OP-F Manual Assessment Start: 03/13/20 16:02 Freq: Status: Active Protocol: Document 03/13/20 14:30 DCW (Rec: 03/13/20 16:49 DCW [id number]) Manual Assessments Soft Tissue Assessment Soft Tissue Mobility Assessment Tenderness to palpation 3/4 - wincing and withdraw along subacrominal space and bicipital groove. Noticeable inflammation and edema along long head biceps tendon with palpation. PT-OP-K Range of Motion Start: 03/13/20 16:02 Freq: Status: Active Protocol: Document 03/13/20 14:30 DCW (Rec: 03/13/20 16:49 DCW [id number]) Shoulder Goniometric Range of Motion Shoulder Right Active Testing Position Sitting Flexion 130 Abduction 160 Comments Pain at 90? both abduction and flexion PT-OP-L Special Tests Start: 03/13/20 16:02 Freq: Status: Active Protocol: Document 03/13/20 14:30 DCW (Rec: 03/13/20 16:49 DCW [id number]) Special Tests Shoulder Special Tests Painful Arc Test Results Positive R Yergason's Biceps Test Results Positive R Speed's Biceps Test Results Negative Passive ER Rotator Cuff Test Results Mild complaint of pain at end- range Lift-Off Rotator Cuff Test Results Negative Thomas Boom Impingement Test Results Positive R Comments Elicited strongest reaction from pt Empty Can Test Results Negative Drop Arm Rotator Cuff Test Results Negative Clunk Test Test Results Negative Belly Press Test Results Negative Apprehension Test Test Results Negative PT-OP-M Strength Start: 03/13/20 16:02 Freq: Status: Active Protocol: Document 03/13/20 14:30 DCW (Rec: 03/13/20 16:49 DCW [id number]) Shoulder Strength Shoulder Manual Muscle Testing Right Flexion 4- Good- Abduction (C5) 4 Good External Rotation 4 Good Internal Rotation 4 Good PT-OP-Q Treatments Start: 03/13/20 16:02 Freq: Status: Active Protocol: Document 04/02/20 12:17 LD (Rec: 04/02/20 14:15 LD [id number]) Cardio Equipment Upper Body Ergometer (UBE) Duration (Minutes) 6 RPM 60 Seat Position 13 Height 3.5 Other Forward/Backward Therapeutic Exercises Sidelying Exercises shld abd Sidelying Exercise Name Review HEP Side right Resistance AROM Reps/Minutes x10 Comments cued hum retraction w/ an upward rot, then inferior glide pain free ROM open book Sidelying Exercise Name scapular retraction glide and TS rotation flexibility (HEP review) Side right Reps/Minutes x5 Comments cued scap away from head awareness, TS and scapular mobility 1 Sidelying Exercise Name External rotation (HEP review) Side right Resistance 2# Reps/Minutes x10 Comments cued just passed front- muscle tiring- pain free Standing Exercises D1 Extension Standing Exercise Name Review HEP Side right Resistance L2 Reps/Minutes 10x Comments cued for scap depression and tall posture, comfort of arm position, CS neut Shoulder extension Standing Exercise Name review HEP Side bilateral Resistance L2 Reps/Minutes 10x Comments cued for scap depression, retraction, neutral CS Rows Standing Exercise Name Review HEP Side bilateral Resistance L2 Reps/Minutes 10x Comments cued for scap depression, retraction and neutral CS pec stetch corner Standing Exercise Name Review HEP Side right Reps/Minutes 30 x2 Comments cued CS ext neutral posture PT-OP-R Modalities Start: 03/13/20 16:02 Freq: Status: Active Protocol: Document 04/02/20 12:17 LD (Rec: 04/02/20 14:15 LD [id number]) Iontophoresis Treatment Right Anterior Shoulder Treatment Medication Dexamethasone (-) Medication Amount (mL) (ml) 1.0 Medication Dosage 4 mg/mL Treatment Polarity Negative to positive Active Electrode Placement Bicipital Groove PT-OP-T Assessment and Plan Start: 03/13/20 16:02 Freq: Status: Active Protocol: Document 04/02/20 12:17 LD (Rec: 04/02/20 14:15 LD [id number]) Physical Therapy Assessment Goals Three Impairment Pt experiences tenderness to palpation 3/4 at bicipital groove Senior Care Goal (LTG) Tenderness to palpation decreased to 2/4 - pain with wincing along bicipital groove LTG Duration 05/11/20 Two Impairment Pt experiences limited overhead activities secondary to pain Senior Care Goal (LTG) Pt to demonstrate a pain-free range of motion with both flexion and abduction 0?-120? LTG Duration 05/11/20 One Impairment Pt does not have an appropriate home exercise program Short Term Goal (STG) Pt to be independent and compliant with appropriate HEP STG Duration 04/10/20 Assessment Summary Assessment Tx focus on HEP review. Applied iontophoresis patch ( shorter wear time) beginning of tx. Pt tolerated tx well with good awareness of neutral CS, and additional cueing for scap stabilization. No increase in pain end of tx. Will assess response to iontophoresis next tx. Physical Therapy Plan Frequency and Duration Frequency of Treatment 2x/Week Duration of Treatment Eight weeks Plan of Care Start Date 03/13/20 Plan of Care End Date 05/08/20 Therapeutic Interventions Therapeutic Interventions Home Exercise Program,Joint Mobilizations,Manual Therapy, Patient/Caregiver Education, Self-Care/Home Management,Soft Tissue Mobilization, Therapeutic Activities, Therapeutic Exercises Modalities Cold Pack/Ice Massage,Electric Stimulation,Hot Packs, Iontophoresis,Ultrasound Other Therapeutic Interventions Iontophoresis using Dexamethasone 4 mg/mL Next Visit Focus/Plan Next Note Type Treatment Note Next Visit Plan Assess response to iotophoresis. Review HEP. Continue per PT POC: Shoulder strengthening, STM, ROM
--- NOTE | 2020-04-08 14:32 | PT.OTN ---
Current Diagnoses Pain in right shoulder (04/08/20) Stiffness of right shoulder, not elsewhere classified (04/08/20) Bicipital tendinitis, right shoulder (04/08/20) Impingement syndrome of right shoulder (04/08/20) Physical Therapy Treatment Note PT-OP-A Visit Information Start: 03/13/20 16:02 Freq: Status: Active Protocol: Document 04/08/20 13:45 DCW (Rec: 04/08/20 14:32 DCW [id number]) Out-Patient Physical Therapy Visit Information Visit Information Visit Type Treatment Note Visit Start Time 13:45 Visit Stop Time 14:30 Total Visit Minutes 45 Visit Number 7 Number of PRIVATE SECURITY GUARD Visits 0 Evaluation Information Evaluation Date 03/13/20 PT-OP-B Current Condition Start: 03/13/20 16:12 Freq: Status: Active Protocol: Document 03/13/20 14:30 DCW (Rec: 03/13/20 16:49 DCW [id number]) Current Condition History of Current Condition Onset Date four month history Current Complaints R shoulder pain, stiffness, weakness History of Current Condition Pt is a 59 year old male presenting with a four month history of right shoulder pain . Pt reports he initially noticed pain in his left thumb in November,, was told it was arthritis, and received an injection, which helped greatly. Pt notes, however, that following his injection, he noticed increased pain around his right shoulder. Pt assumed it was also arthritis, and assumed it would get better, however it has not improved over the past four months. Pt reports pain is worst with any overhead activities, especially when in abduction. Notes his current pain is 2/10, but it can get as high as a 7/10. PT-OP-C Subjective Start: 03/13/20 16:02 Freq: Status: Active Protocol: Document 04/08/20 13:45 DCW (Rec: 04/08/20 14:32 DCW [id number]) OP-PT Subjective Patient Comments Patient Comments I actually think it's getting better. PT-OP-E Functional Tests Start: 03/13/20 16:02 Freq: Status: Active Protocol: Document 03/13/20 14:30 DCW (Rec: 03/13/20 16:49 DCW [id number]) Functional Tests Apley's Scratch Test Action 1- Left Posterior opposite shoulder Action 1- Right Lateral opposite shoulder Action 2- Left T4 Action 2- Right T4 Action 3- Left T5 Action 3- Right T10 PT-OP-F Manual Assessment Start: 03/13/20 16:02 Freq: Status: Active Protocol: Document 03/13/20 14:30 DCW (Rec: 03/13/20 16:49 DCW [id number]) Manual Assessments Soft Tissue Assessment Soft Tissue Mobility Assessment Tenderness to palpation 3/4 - wincing and withdraw along subacrominal space and bicipital groove. Noticeable inflammation and edema along long head biceps tendon with palpation. PT-OP-K Range of Motion Start: 03/13/20 16:02 Freq: Status: Active Protocol: Document 03/13/20 14:30 DCW (Rec: 03/13/20 16:49 DCW [id number]) Shoulder Goniometric Range of Motion Shoulder Right Active Testing Position Sitting Flexion 130 Abduction 160 Comments Pain at 90? both abduction and flexion PT-OP-L Special Tests Start: 03/13/20 16:02 Freq: Status: Active Protocol: Document 03/13/20 14:30 DCW (Rec: 03/13/20 16:49 DCW [id number]) Special Tests Shoulder Special Tests Painful Arc Test Results Positive R Yergason's Biceps Test Results Positive R Speed's Biceps Test Results Negative Passive ER Rotator Cuff Test Results Mild complaint of pain at end- range Lift-Off Rotator Cuff Test Results Negative Thomas Boom Impingement Test Results Positive R Comments Elicited strongest reaction from pt Empty Can Test Results Negative Drop Arm Rotator Cuff Test Results Negative Clunk Test Test Results Negative Belly Press Test Results Negative Apprehension Test Test Results Negative PT-OP-M Strength Start: 03/13/20 16:02 Freq: Status: Active Protocol: Document 03/13/20 14:30 DCW (Rec: 03/13/20 16:49 DCW [id number]) Shoulder Strength Shoulder Manual Muscle Testing Right Flexion 4- Good- Abduction (C5) 4 Good External Rotation 4 Good Internal Rotation 4 Good PT-OP-Q Treatments Start: 03/13/20 16:02 Freq: Status: Active Protocol: Document 04/08/20 13:45 DCW (Rec: 04/08/20 14:32 DCW [id number]) Cardio Equipment Upper Body Ergometer (UBE) Duration (Minutes) 5 RPM 60 Seat Position 13 Height 3.0 Other Forward/Backward Therapeutic Exercises Supine Exercises 2 Supine Exercise Name Horizontal Adduction Side bilateral Resistance 3# 1 Supine Exercise Name Serratus punch Side bilateral Resistance 3# Standing Exercises 5 Standing Exercise Name Finger walk ball up wall Side right Equipment Used Red 1.5 kg ball 4 Standing Exercise Name Wall clocks Side bilateral Resistance Yellow Equipment Used T-band 3 Standing Exercise Name Wall push-ups Comments <> and W hand placement shld IR w/ TB Standing Exercise Name IR/ER Side right Resistance TB #3 Reps/Minutes x10 Comments cued scap stab, CS neutral, relax jaw 2 Standing Exercise Name Shoulder Flex Side bilateral Resistance 3# Reps/Minutes x10 Comments Pain-free ROM 1 Standing Exercise Name Shoulder Abd Side bilateral Resistance 3# Reps/Minutes 10 Comments Pain-free ROM Other Exercises 1 Other Exercise Name Resisted UE side-stepping Resistance Yellow Equipment Used T-band Manual Therapy Treatment Soft Tissue Mobilization 1 Body Location R Pec, LH Biceps tendon Mobilization Type Cross-Friction,Sustained Pressure Joint Mobilizations 1 Joint R GH Direction Inf Grade III PT-OP-R Modalities Start: 03/13/20 16:02 Freq: Status: Active Protocol: Document 04/08/20 13:45 DCW (Rec: 04/08/20 14:32 DCW [id number]) Iontophoresis Treatment Right Anterior Shoulder Treatment Medication Dexamethasone (-) Medication Amount (mL) (ml) 1.0 Medication Dosage 4 mg/mL Treatment Polarity Negative to positive Active Electrode Placement Bicipital Groove PT-OP-T Assessment and Plan Start: 03/13/20 16:02 Freq: Status: Active Protocol: Document 04/08/20 13:45 DCW (Rec: 04/08/20 14:32 DCW [id number]) Physical Therapy Assessment Goals Three Impairment Pt experiences tenderness to palpation 3/4 at bicipital groove Fdc Goal (LTG) Tenderness to palpation decreased to 2/4 - pain with wincing along bicipital groove LTG Duration 05/11/20 Two Impairment Pt experiences limited overhead activities secondary to pain Strip Machine Tender Goal (LTG) Pt to demonstrate a pain-free range of motion with both flexion and abduction 0?-120? LTG Duration 05/11/20 One Impairment Pt does not have an appropriate home exercise program Short Term Goal (STG) Pt to be independent and compliant with appropriate HEP STG Duration 04/10/20 Assessment Summary Assessment Pt showing good progress so far, significantly improving pain-free ROM, tolerating treatment very well. Physical Therapy Plan Frequency and Duration Frequency of Treatment 2x/Week Duration of Treatment Eight weeks Plan of Care Start Date 03/13/20 Plan of Care End Date 05/08/20 Therapeutic Interventions Therapeutic Interventions Home Exercise Program,Joint Mobilizations,Manual Therapy, Patient/Caregiver Education, Self-Care/Home Management,Soft Tissue Mobilization, Therapeutic Activities, Therapeutic Exercises Modalities Cold Pack/Ice Massage,Electric Stimulation,Hot Packs, Iontophoresis,Ultrasound Other Therapeutic Interventions Iontophoresis using Dexamethasone 4 mg/mL Next Visit Focus/Plan Next Note Type Treatment Note Next Visit Plan Assess response to iotophoresis. Review HEP. Continue per PT POC: Shoulder strengthening, STM, ROM
--- NOTE | 2020-04-10 15:23 | PT.OTN ---
Current Diagnoses Pain in right shoulder (04/10/20) Stiffness of right shoulder, not elsewhere classified (04/10/20) Bicipital tendinitis, right shoulder (04/10/20) Impingement syndrome of right shoulder (04/10/20) Physical Therapy Treatment Note PT-OP-A Visit Information Start: 03/13/20 16:02 Freq: Status: Active Protocol: Document 04/10/20 14:32 DCW (Rec: 04/10/20 15:23 DCW [id number]) Out-Patient Physical Therapy Visit Information Visit Information Visit Type Treatment Note Visit Start Time 14:32 Visit Stop Time 15:15 Total Visit Minutes 43 Visit Number 8 Number of SOLUTIONS MARKET CONSULTANT Visits 0 Evaluation Information Evaluation Date 03/13/20 PT-OP-B Current Condition Start: 03/13/20 16:12 Freq: Status: Active Protocol: Document 03/13/20 14:30 DCW (Rec: 03/13/20 16:49 DCW [id number]) Current Condition History of Current Condition Onset Date four month history Current Complaints R shoulder pain, stiffness, weakness History of Current Condition Pt is a 59 year old male presenting with a four month history of right shoulder pain . Pt reports he initially noticed pain in his left thumb in November,, was told it was arthritis, and received an injection, which helped greatly. Pt notes, however, that following his injection, he noticed increased pain around his right shoulder. Pt assumed it was also arthritis, and assumed it would get better, however it has not improved over the past four months. Pt reports pain is worst with any overhead activities, especially when in abduction. Notes his current pain is 2/10, but it can get as high as a 7/10. PT-OP-C Subjective Start: 03/13/20 16:02 Freq: Status: Active Protocol: Document 04/10/20 14:32 DCW (Rec: 04/10/20 15:21 DCW [id number]) OP-PT Subjective Patient Comments Patient Comments It's a little stiff today. I wouldn't stay sore, but certainly stiff. PT-OP-E Functional Tests Start: 03/13/20 16:02 Freq: Status: Active Protocol: Document 03/13/20 14:30 DCW (Rec: 03/13/20 16:49 DCW [id number]) Functional Tests Apley's Scratch Test Action 1- Left Posterior opposite shoulder Action 1- Right Lateral opposite shoulder Action 2- Left T4 Action 2- Right T4 Action 3- Left T5 Action 3- Right T10 PT-OP-F Manual Assessment Start: 03/13/20 16:02 Freq: Status: Active Protocol: Document 03/13/20 14:30 DCW (Rec: 03/13/20 16:49 DCW [id number]) Manual Assessments Soft Tissue Assessment Soft Tissue Mobility Assessment Tenderness to palpation 3/4 - wincing and withdraw along subacrominal space and bicipital groove. Noticeable inflammation and edema along long head biceps tendon with palpation. PT-OP-K Range of Motion Start: 03/13/20 16:02 Freq: Status: Active Protocol: Document 03/13/20 14:30 DCW (Rec: 03/13/20 16:49 DCW [id number]) Shoulder Goniometric Range of Motion Shoulder Right Active Testing Position Sitting Flexion 130 Abduction 160 Comments Pain at 90? both abduction and flexion PT-OP-L Special Tests Start: 03/13/20 16:02 Freq: Status: Active Protocol: Document 03/13/20 14:30 DCW (Rec: 03/13/20 16:49 DCW [id number]) Special Tests Shoulder Special Tests Painful Arc Test Results Positive R Yergason's Biceps Test Results Positive R Speed's Biceps Test Results Negative Passive ER Rotator Cuff Test Results Mild complaint of pain at end- range Lift-Off Rotator Cuff Test Results Negative Thomas Boom Impingement Test Results Positive R Comments Elicited strongest reaction from pt Empty Can Test Results Negative Drop Arm Rotator Cuff Test Results Negative Clunk Test Test Results Negative Belly Press Test Results Negative Apprehension Test Test Results Negative PT-OP-M Strength Start: 03/13/20 16:02 Freq: Status: Active Protocol: Document 03/13/20 14:30 DCW (Rec: 03/13/20 16:49 DCW [id number]) Shoulder Strength Shoulder Manual Muscle Testing Right Flexion 4- Good- Abduction (C5) 4 Good External Rotation 4 Good Internal Rotation 4 Good PT-OP-Q Treatments Start: 03/13/20 16:02 Freq: Status: Active Protocol: Document 04/10/20 14:32 DCW (Rec: 04/10/20 15:21 DCW [id number]) Cardio Equipment Upper Body Ergometer (UBE) Duration (Minutes) 6 RPM 60 Seat Position 13 Height 3.5 Other Forward/Backward Therapeutic Exercises Standing Exercises 6 Standing Exercise Name D1/D2 Flexion Side right Resistance 2# 4 Standing Exercise Name Wall clocks Side bilateral Resistance Yellow Equipment Used T-band shld IR w/ TB Standing Exercise Name IR/ER Side right Resistance TB #3 Reps/Minutes x10 Comments cued scap stab, CS neutral, relax jaw 2 Standing Exercise Name Shoulder Flex Side bilateral Resistance 4# Reps/Minutes x10 Comments Pain-free ROM 1 Standing Exercise Name Shoulder Abd Side bilateral Resistance 4# Reps/Minutes 10 Comments Pain-free ROM Other Exercises 1 Other Exercise Name Resisted UE side-stepping Resistance Yellow Equipment Used T-band Manual Therapy Treatment Soft Tissue Mobilization 1 Body Location R Pec, LH Biceps tendon Mobilization Type Cross-Friction,Sustained Pressure Joint Mobilizations 1 Joint R GH Direction Inf Grade III PT-OP-R Modalities Start: 03/13/20 16:02 Freq: Status: Active Protocol: Document 04/08/20 13:45 DCW (Rec: 04/08/20 14:32 DCW [id number]) Iontophoresis Treatment Right Anterior Shoulder Treatment Medication Dexamethasone (-) Medication Amount (mL) (ml) 1.0 Medication Dosage 4 mg/mL Treatment Polarity Negative to positive Active Electrode Placement Bicipital Groove PT-OP-T Assessment and Plan Start: 03/13/20 16:02 Freq: Status: Active Protocol: Document 04/10/20 14:32 DCW (Rec: 04/10/20 15:21 DCW [id number]) Physical Therapy Assessment Impairments Impairments Functional Activities, Functional Mobility,Pain,ROM, Soft Tissue Mobility,Strength, Tone Goals Three Impairment Pt experiences tenderness to palpation 3/4 at bicipital groove Correction Goal (LTG) Tenderness to palpation decreased to 2/4 - pain with wincing along bicipital groove LTG Duration 05/11/20 Two Impairment Pt experiences limited overhead activities secondary to pain Umbrella Frame Maker Goal (LTG) Pt to demonstrate a pain-free range of motion with both flexion and abduction 0?-120? LTG Duration 05/11/20 One Impairment Pt does not have an appropriate home exercise program Short Term Goal (STG) Pt to be independent and compliant with appropriate HEP STG Duration 04/10/20 Assessment Summary Assessment Pt did well today. Does note his blood sugar has increased recently, wonders if it is caused by the Dexamethasone, therapist decided to skip Ionto to see if his blood sugar stabilizes. Physical Therapy Plan Frequency and Duration Frequency of Treatment 2x/Week Duration of Treatment Eight weeks Plan of Care Start Date 03/13/20 Plan of Care End Date 05/08/20 Therapeutic Interventions Therapeutic Interventions Home Exercise Program,Joint Mobilizations,Manual Therapy, Patient/Caregiver Education, Self-Care/Home Management,Soft Tissue Mobilization, Therapeutic Activities, Therapeutic Exercises Modalities Cold Pack/Ice Massage,Electric Stimulation,Hot Packs, Iontophoresis,Ultrasound Other Therapeutic Interventions Iontophoresis using Dexamethasone 4 mg/mL Next Visit Focus/Plan Next Note Type Treatment Note Next Visit Plan Discuss pt's blood sugar response to skipping ionto. Continue per PT POC: Shoulder strengthening, STM, ROM
--- NOTE | 2020-04-13 15:19 | PT.OTN ---
Current Diagnoses Pain in right shoulder (04/13/20) Stiffness of right shoulder, not elsewhere classified (04/13/20) Bicipital tendinitis, right shoulder (04/13/20) Impingement syndrome of right shoulder (04/13/20) Physical Therapy Treatment Note PT-OP-A Visit Information Start: 03/13/20 16:02 Freq: Status: Active Protocol: Document 04/13/20 14:31 DCW (Rec: 04/13/20 15:19 DCW [id number]) Out-Patient Physical Therapy Visit Information Visit Information Visit Type Treatment Note Visit Start Time 14:31 Visit Stop Time 15:15 Total Visit Minutes 44 Visit Number 9 Number of CHARGE ACCOUNTS AUDIT CLERK Visits 0 Evaluation Information Evaluation Date 03/13/20 PT-OP-B Current Condition Start: 03/13/20 16:12 Freq: Status: Active Protocol: Document 03/13/20 14:30 DCW (Rec: 03/13/20 16:49 DCW [id number]) Current Condition History of Current Condition Onset Date four month history Current Complaints R shoulder pain, stiffness, weakness History of Current Condition Pt is a 59 year old male presenting with a four month history of right shoulder pain . Pt reports he initially noticed pain in his left thumb in November,, was told it was arthritis, and received an injection, which helped greatly. Pt notes, however, that following his injection, he noticed increased pain around his right shoulder. Pt assumed it was also arthritis, and assumed it would get better, however it has not improved over the past four months. Pt reports pain is worst with any overhead activities, especially when in abduction. Notes his current pain is 2/10, but it can get as high as a 7/10. PT-OP-C Subjective Start: 03/13/20 16:02 Freq: Status: Active Protocol: Document 04/13/20 14:31 DCW (Rec: 04/13/20 15:19 DCW [id number]) OP-PT Subjective Patient Comments Patient Comments It was feeling good until early Monday morning, I woke up in a lot of pain, a 6 or 7. It has gone down a bit, but it is still certainly not the good feeling I had last week. PT-OP-E Functional Tests Start: 03/13/20 16:02 Freq: Status: Active Protocol: Document 03/13/20 14:30 DCW (Rec: 03/13/20 16:49 DCW [id number]) Functional Tests Apley's Scratch Test Action 1- Left Posterior opposite shoulder Action 1- Right Lateral opposite shoulder Action 2- Left T4 Action 2- Right T4 Action 3- Left T5 Action 3- Right T10 PT-OP-F Manual Assessment Start: 03/13/20 16:02 Freq: Status: Active Protocol: Document 03/13/20 14:30 DCW (Rec: 03/13/20 16:49 DCW [id number]) Manual Assessments Soft Tissue Assessment Soft Tissue Mobility Assessment Tenderness to palpation 3/4 - wincing and withdraw along subacrominal space and bicipital groove. Noticeable inflammation and edema along long head biceps tendon with palpation. PT-OP-K Range of Motion Start: 03/13/20 16:02 Freq: Status: Active Protocol: Document 03/13/20 14:30 DCW (Rec: 03/13/20 16:49 DCW [id number]) Shoulder Goniometric Range of Motion Shoulder Right Active Testing Position Sitting Flexion 130 Abduction 160 Comments Pain at 90? both abduction and flexion PT-OP-L Special Tests Start: 03/13/20 16:02 Freq: Status: Active Protocol: Document 03/13/20 14:30 DCW (Rec: 03/13/20 16:49 DCW [id number]) Special Tests Shoulder Special Tests Painful Arc Test Results Positive R Yergason's Biceps Test Results Positive R Speed's Biceps Test Results Negative Passive ER Rotator Cuff Test Results Mild complaint of pain at end- range Lift-Off Rotator Cuff Test Results Negative Thomas Boom Impingement Test Results Positive R Comments Elicited strongest reaction from pt Empty Can Test Results Negative Drop Arm Rotator Cuff Test Results Negative Clunk Test Test Results Negative Belly Press Test Results Negative Apprehension Test Test Results Negative PT-OP-M Strength Start: 03/13/20 16:02 Freq: Status: Active Protocol: Document 03/13/20 14:30 DCW (Rec: 03/13/20 16:49 DCW [id number]) Shoulder Strength Shoulder Manual Muscle Testing Right Flexion 4- Good- Abduction (C5) 4 Good External Rotation 4 Good Internal Rotation 4 Good PT-OP-Q Treatments Start: 03/13/20 16:02 Freq: Status: Active Protocol: Document 04/13/20 14:31 DCW (Rec: 04/13/20 15:19 DCW [id number]) Cardio Equipment Upper Body Ergometer (UBE) Duration (Minutes) 6 RPM 60 Seat Position 13 Height 3.5 Other Forward/Backward Therapeutic Exercises Standing Exercises 6 Standing Exercise Name D1/D2 Flexion Side right Resistance 2# 4 Standing Exercise Name Wall clocks Side bilateral Resistance Yellow Equipment Used T-band Shoulder extension Standing Exercise Name Shoulder Ext Side bilateral Resistance L2 Reps/Minutes 10x Comments cued for scap depression, retraction, neutral CS Rows Standing Exercise Name Review HEP Side bilateral Resistance L2 Reps/Minutes 10x Comments cued for scap depression, retraction and neutral CS 2 Standing Exercise Name Shoulder Flex Side bilateral Resistance 4# Reps/Minutes x10 Comments Pain-free ROM 1 Standing Exercise Name Shoulder Abd Side bilateral Resistance 4# Reps/Minutes 10 Comments Pain-free ROM Other Exercises 1 Other Exercise Name Resisted UE side-stepping Resistance Yellow Equipment Used T-band Manual Therapy Treatment Soft Tissue Mobilization 1 Body Location R Pec, LH Biceps tendon Mobilization Type Cross-Friction,Sustained Pressure Joint Mobilizations 1 Joint R GH Direction Inf Grade III PT-OP-R Modalities Start: 03/13/20 16:02 Freq: Status: Active Protocol: Document 04/08/20 13:45 DCW (Rec: 04/08/20 14:32 DCW [id number]) Iontophoresis Treatment Right Anterior Shoulder Treatment Medication Dexamethasone (-) Medication Amount (mL) (ml) 1.0 Medication Dosage 4 mg/mL Treatment Polarity Negative to positive Active Electrode Placement Bicipital Groove PT-OP-T Assessment and Plan Start: 03/13/20 16:02 Freq: Status: Active Protocol: Document 04/13/20 14:31 DCW (Rec: 04/13/20 15:19 DCW [id number]) Physical Therapy Assessment Impairments Impairments Functional Activities, Functional Mobility,Pain,ROM, Soft Tissue Mobility,Strength, Tone Goals Three Impairment Pt experiences tenderness to palpation 3/4 at bicipital groove Custodial Goal (LTG) Tenderness to palpation decreased to 2/4 - pain with wincing along bicipital groove LTG Duration 05/11/20 Two Impairment Pt experiences limited overhead activities secondary to pain Photo Tube Assembler Goal (LTG) Pt to demonstrate a pain-free range of motion with both flexion and abduction 0?-120? LTG Duration 05/11/20 One Impairment Pt does not have an appropriate home exercise program Short Term Goal (STG) Pt to be independent and compliant with appropriate HEP STG Duration 04/10/20 Assessment Summary Assessment Pt improved since his flare-up this weekend, increased pain along bicipital groove. Physical Therapy Plan Frequency and Duration Frequency of Treatment 2x/Week Duration of Treatment Eight weeks Plan of Care Start Date 03/13/20 Plan of Care End Date 05/08/20 Therapeutic Interventions Therapeutic Interventions Home Exercise Program,Joint Mobilizations,Manual Therapy, Patient/Caregiver Education, Self-Care/Home Management,Soft Tissue Mobilization, Therapeutic Activities, Therapeutic Exercises Modalities Cold Pack/Ice Massage,Electric Stimulation,Hot Packs, Iontophoresis,Ultrasound Other Therapeutic Interventions Iontophoresis using Dexamethasone 4 mg/mL Next Visit Focus/Plan Next Note Type Treatment Note Next Visit Plan Discuss pt's blood sugar response to skipping ionto. Continue per PT POC: Shoulder strengthening, STM, ROM
--- NOTE | 2020-04-15 15:15 | PT.OTN ---
Current Diagnoses Pain in right shoulder (04/15/20) Stiffness of right shoulder, not elsewhere classified (04/15/20) Bicipital tendinitis, right shoulder (04/15/20) Impingement syndrome of right shoulder (04/15/20) Physical Therapy Treatment Note PT-OP-A Visit Information Start: 03/13/20 16:02 Freq: Status: Active Protocol: Document 04/15/20 14:30 DCW (Rec: 04/15/20 15:15 DCW [id number]) Out-Patient Physical Therapy Visit Information Visit Information Visit Type Treatment Note Visit Start Time 14:30 Visit Stop Time 15:15 Total Visit Minutes 45 Visit Number 10 Number of TOWN ADMINISTRATOR Visits 0 Evaluation Information Evaluation Date 03/13/20 PT-OP-B Current Condition Start: 03/13/20 16:12 Freq: Status: Active Protocol: Document 03/13/20 14:30 DCW (Rec: 03/13/20 16:49 DCW [id number]) Current Condition History of Current Condition Onset Date four month history Current Complaints R shoulder pain, stiffness, weakness History of Current Condition Pt is a 59 year old male presenting with a four month history of right shoulder pain . Pt reports he initially noticed pain in his left thumb in November,, was told it was arthritis, and received an injection, which helped greatly. Pt notes, however, that following his injection, he noticed increased pain around his right shoulder. Pt assumed it was also arthritis, and assumed it would get better, however it has not improved over the past four months. Pt reports pain is worst with any overhead activities, especially when in abduction. Notes his current pain is 2/10, but it can get as high as a 7/10. PT-OP-C Subjective Start: 03/13/20 16:02 Freq: Status: Active Protocol: Document 04/15/20 14:30 DCW (Rec: 04/15/20 15:15 DCW [id number]) OP-PT Subjective Patient Comments Patient Comments Pt notes that he is still doing much better than he was this past weekend when he had a flare-up. PT-OP-E Functional Tests Start: 03/13/20 16:02 Freq: Status: Active Protocol: Document 03/13/20 14:30 DCW (Rec: 03/13/20 16:49 DCW [id number]) Functional Tests Apley's Scratch Test Action 1- Left Posterior opposite shoulder Action 1- Right Lateral opposite shoulder Action 2- Left T4 Action 2- Right T4 Action 3- Left T5 Action 3- Right T10 PT-OP-F Manual Assessment Start: 03/13/20 16:02 Freq: Status: Active Protocol: Document 03/13/20 14:30 DCW (Rec: 03/13/20 16:49 DCW [id number]) Manual Assessments Soft Tissue Assessment Soft Tissue Mobility Assessment Tenderness to palpation 3/4 - wincing and withdraw along subacrominal space and bicipital groove. Noticeable inflammation and edema along long head biceps tendon with palpation. PT-OP-K Range of Motion Start: 03/13/20 16:02 Freq: Status: Active Protocol: Document 03/13/20 14:30 DCW (Rec: 03/13/20 16:49 DCW [id number]) Shoulder Goniometric Range of Motion Shoulder Right Active Testing Position Sitting Flexion 130 Abduction 160 Comments Pain at 90? both abduction and flexion PT-OP-L Special Tests Start: 03/13/20 16:02 Freq: Status: Active Protocol: Document 03/13/20 14:30 DCW (Rec: 03/13/20 16:49 DCW [id number]) Special Tests Shoulder Special Tests Painful Arc Test Results Positive R Yergason's Biceps Test Results Positive R Speed's Biceps Test Results Negative Passive ER Rotator Cuff Test Results Mild complaint of pain at end- range Lift-Off Rotator Cuff Test Results Negative Thomas Boom Impingement Test Results Positive R Comments Elicited strongest reaction from pt Empty Can Test Results Negative Drop Arm Rotator Cuff Test Results Negative Clunk Test Test Results Negative Belly Press Test Results Negative Apprehension Test Test Results Negative PT-OP-M Strength Start: 03/13/20 16:02 Freq: Status: Active Protocol: Document 03/13/20 14:30 DCW (Rec: 03/13/20 16:49 DCW [id number]) Shoulder Strength Shoulder Manual Muscle Testing Right Flexion 4- Good- Abduction (C5) 4 Good External Rotation 4 Good Internal Rotation 4 Good PT-OP-Q Treatments Start: 03/13/20 16:02 Freq: Status: Active Protocol: Document 04/15/20 14:30 DCW (Rec: 04/15/20 15:15 DCW [id number]) Therapeutic Exercises Supine Exercises 1 Supine Exercise Name 90/90 IR/ER /c weighted ball Side right Equipment Used 1.5 kg ball Standing Exercises 6 Standing Exercise Name D1/D2 Flexion Side right Resistance 2# 4 Standing Exercise Name Wall clocks Side bilateral Resistance Yellow Equipment Used T-band shld IR w/ TB Standing Exercise Name IR/ER Side right Resistance TB #3 Reps/Minutes x10 Comments cued scap stab, CS neutral, relax jaw Shoulder extension Standing Exercise Name Shoulder Ext Side bilateral Resistance Lv 3 Reps/Minutes 10x Comments cued for scap depression, retraction, neutral CS Rows Side bilateral Resistance Lv 3 Reps/Minutes 10x Comments cued for scap depression, retraction and neutral CS 2 Standing Exercise Name Shoulder Flex Side bilateral Resistance 4# Reps/Minutes x10 Comments Pain-free ROM 1 Standing Exercise Name Shoulder Abd Side bilateral Resistance 4# Reps/Minutes 10 Comments Pain-free ROM Other Exercises 1 Other Exercise Name Resisted UE side-stepping Resistance Yellow Equipment Used T-band Manual Therapy Treatment Soft Tissue Mobilization 1 Body Location R Pec, LH Biceps tendon Mobilization Type Cross-Friction,Sustained Pressure Joint Mobilizations 1 Joint R GH Direction Inf Grade III PT-OP-R Modalities Start: 03/13/20 16:02 Freq: Status: Active Protocol: Document 04/08/20 13:45 DCW (Rec: 04/08/20 14:32 DCW [id number]) Iontophoresis Treatment Right Anterior Shoulder Treatment Medication Dexamethasone (-) Medication Amount (mL) (ml) 1.0 Medication Dosage 4 mg/mL Treatment Polarity Negative to positive Active Electrode Placement Bicipital Groove PT-OP-T Assessment and Plan Start: 03/13/20 16:02 Freq: Status: Active Protocol: Document 04/15/20 14:30 DCW (Rec: 04/15/20 15:15 DCW [id number]) Physical Therapy Assessment Impairments Impairments Functional Activities, Functional Mobility,Pain,ROM, Soft Tissue Mobility,Strength, Tone Goals Three Impairment Pt experiences tenderness to palpation 3/4 at bicipital groove Retirement Goal (LTG) Tenderness to palpation decreased to 2/4 - pain with wincing along bicipital groove LTG Duration 05/11/20 Two Impairment Pt experiences limited overhead activities secondary to pain Personal Financial Counselor Goal (LTG) Pt to demonstrate a pain-free range of motion with both flexion and abduction 0?-120? LTG Duration 05/11/20 One Impairment Pt does not have an appropriate home exercise program Short Term Goal (STG) Pt to be independent and compliant with appropriate HEP STG Duration 04/10/20 Assessment Summary Assessment Pt much better today than earlier this week, is having some decreased scapulothoracic rhythm due to subscap tightness. Physical Therapy Plan Frequency and Duration Frequency of Treatment 2x/Week Duration of Treatment Eight weeks Plan of Care Start Date 03/13/20 Plan of Care End Date 05/08/20 Therapeutic Interventions Therapeutic Interventions Home Exercise Program,Joint Mobilizations,Manual Therapy, Patient/Caregiver Education, Self-Care/Home Management,Soft Tissue Mobilization, Therapeutic Activities, Therapeutic Exercises Modalities Cold Pack/Ice Massage,Electric Stimulation,Hot Packs, Iontophoresis,Ultrasound Other Therapeutic Interventions Iontophoresis using Dexamethasone 4 mg/mL Next Visit Focus/Plan Next Note Type Treatment Note Next Visit Plan Discuss pt's blood sugar response to skipping ionto. Continue per PT POC: Shoulder strengthening, STM, ROM
--- NOTE | 2020-04-20 15:16 | PT.OTN ---
Current Diagnoses Pain in right shoulder (04/20/20) Stiffness of right shoulder, not elsewhere classified (04/20/20) Bicipital tendinitis, right shoulder (04/20/20) Impingement syndrome of right shoulder (04/20/20) Physical Therapy Treatment Note PT-OP-A Visit Information Start: 03/13/20 16:02 Freq: Status: Active Protocol: Document 04/20/20 14:32 DCW (Rec: 04/20/20 15:15 DCW [id number]) Out-Patient Physical Therapy Visit Information Visit Information Visit Type Treatment Note Visit Start Time 14:32 Visit Stop Time 15:15 Total Visit Minutes 43 Visit Number 11 Number of FIRE SPRINKLER SERVICE TECHNICIAN Visits 0 Evaluation Information Evaluation Date 03/13/20 PT-OP-B Current Condition Start: 03/13/20 16:12 Freq: Status: Active Protocol: Document 03/13/20 14:30 DCW (Rec: 03/13/20 16:49 DCW [id number]) Current Condition History of Current Condition Onset Date four month history Current Complaints R shoulder pain, stiffness, weakness History of Current Condition Pt is a 59 year old male presenting with a four month history of right shoulder pain . Pt reports he initially noticed pain in his left thumb in November,, was told it was arthritis, and received an injection, which helped greatly. Pt notes, however, that following his injection, he noticed increased pain around his right shoulder. Pt assumed it was also arthritis, and assumed it would get better, however it has not improved over the past four months. Pt reports pain is worst with any overhead activities, especially when in abduction. Notes his current pain is 2/10, but it can get as high as a 7/10. PT-OP-C Subjective Start: 03/13/20 16:02 Freq: Status: Active Protocol: Document 04/20/20 14:32 DCW (Rec: 04/20/20 15:15 DCW [id number]) OP-PT Subjective Patient Comments Patient Comments It's feeling pretty good. It' s getting back to the 'I think it's getting better' state where it was before my flare- up. PT-OP-E Functional Tests Start: 03/13/20 16:02 Freq: Status: Active Protocol: Document 03/13/20 14:30 DCW (Rec: 03/13/20 16:49 DCW [id number]) Functional Tests Apley's Scratch Test Action 1- Left Posterior opposite shoulder Action 1- Right Lateral opposite shoulder Action 2- Left T4 Action 2- Right T4 Action 3- Left T5 Action 3- Right T10 PT-OP-F Manual Assessment Start: 03/13/20 16:02 Freq: Status: Active Protocol: Document 03/13/20 14:30 DCW (Rec: 03/13/20 16:49 DCW [id number]) Manual Assessments Soft Tissue Assessment Soft Tissue Mobility Assessment Tenderness to palpation 3/4 - wincing and withdraw along subacrominal space and bicipital groove. Noticeable inflammation and edema along long head biceps tendon with palpation. PT-OP-K Range of Motion Start: 03/13/20 16:02 Freq: Status: Active Protocol: Document 03/13/20 14:30 DCW (Rec: 03/13/20 16:49 DCW [id number]) Shoulder Goniometric Range of Motion Shoulder Right Active Testing Position Sitting Flexion 130 Abduction 160 Comments Pain at 90? both abduction and flexion PT-OP-L Special Tests Start: 03/13/20 16:02 Freq: Status: Active Protocol: Document 03/13/20 14:30 DCW (Rec: 03/13/20 16:49 DCW [id number]) Special Tests Shoulder Special Tests Painful Arc Test Results Positive R Yergason's Biceps Test Results Positive R Speed's Biceps Test Results Negative Passive ER Rotator Cuff Test Results Mild complaint of pain at end- range Lift-Off Rotator Cuff Test Results Negative Thomas Boom Impingement Test Results Positive R Comments Elicited strongest reaction from pt Empty Can Test Results Negative Drop Arm Rotator Cuff Test Results Negative Clunk Test Test Results Negative Belly Press Test Results Negative Apprehension Test Test Results Negative PT-OP-M Strength Start: 03/13/20 16:02 Freq: Status: Active Protocol: Document 03/13/20 14:30 DCW (Rec: 03/13/20 16:49 DCW [id number]) Shoulder Strength Shoulder Manual Muscle Testing Right Flexion 4- Good- Abduction (C5) 4 Good External Rotation 4 Good Internal Rotation 4 Good PT-OP-Q Treatments Start: 03/13/20 16:02 Freq: Status: Active Protocol: Document 04/20/20 14:32 DCW (Rec: 04/20/20 15:15 DCW [id number]) Therapeutic Exercises Supine Exercises 1 Supine Exercise Name 90/90 IR/ER /c weighted ball Side right Equipment Used 1.5 kg ball Sitting Exercises 3 Sitting Exercise Name PROM FF, ABD- Pulleys Side bilateral Comments Cued scap stab depression awarenes Standing Exercises 6 Standing Exercise Name D1/D2 Flexion Side right Resistance 2# 2 Standing Exercise Name Shoulder Flex Side bilateral Resistance 4# Reps/Minutes x10 Comments Pain-free ROM 1 Standing Exercise Name Shoulder Abd Side bilateral Resistance 4# Reps/Minutes 10 Comments Pain-free ROM Manual Therapy Treatment Soft Tissue Mobilization 1 Body Location R Pec, LH Biceps tendon Mobilization Type Cross-Friction,Sustained Pressure Joint Mobilizations 1 Joint R GH Direction Inf Grade III PT-OP-R Modalities Start: 03/13/20 16:02 Freq: Status: Active Protocol: Document 04/20/20 14:32 DCW (Rec: 04/20/20 15:15 DCW [id number]) Iontophoresis Treatment Right Anterior Shoulder Treatment Medication Dexamethasone (-) Medication Amount (mL) (ml) 1.0 Medication Dosage 4 mg/mL Treatment Polarity Negative to positive Active Electrode Placement Bicipital Groove PT-OP-T Assessment and Plan Start: 03/13/20 16:02 Freq: Status: Active Protocol: Document 04/20/20 14:32 DCW (Rec: 04/20/20 15:15 DCW [id number]) Physical Therapy Assessment Impairments Impairments Functional Activities, Functional Mobility,Pain,ROM, Soft Tissue Mobility,Strength, Tone Goals Three Impairment Pt experiences tenderness to palpation 3/4 at bicipital groove Clinical Pharmacist Goal (LTG) Tenderness to palpation decreased to 2/4 - pain with wincing along bicipital groove LTG Duration 05/11/20 Two Impairment Pt experiences limited overhead activities secondary to pain Long-Term Goal (LTG) Pt to demonstrate a pain-free range of motion with both flexion and abduction 0?-120? LTG Duration 05/11/20 One Impairment Pt does not have an appropriate home exercise program Short Term Goal (STG) Pt to be independent and compliant with appropriate HEP STG Duration 04/10/20 Assessment Summary Assessment Returned to use of Ionto today to help with continued biceps tendon pain and inflammation. Assess next visit if pt's blood sugar have stayed down or increased after dose of Dexamethasone. Physical Therapy Plan Frequency and Duration Frequency of Treatment 2x/Week Duration of Treatment Eight weeks Plan of Care Start Date 03/13/20 Plan of Care End Date 05/08/20 Therapeutic Interventions Therapeutic Interventions Home Exercise Program,Joint Mobilizations,Manual Therapy, Patient/Caregiver Education, Self-Care/Home Management,Soft Tissue Mobilization, Therapeutic Activities, Therapeutic Exercises Modalities Cold Pack/Ice Massage,Electric Stimulation,Hot Packs, Iontophoresis,Ultrasound Other Therapeutic Interventions Iontophoresis using Dexamethasone 4 mg/mL Next Visit Focus/Plan Next Note Type Treatment Note Next Visit Plan Discuss pt's blood sugar response to skipping ionto. Continue per PT POC: Shoulder strengthening, STM, ROM
--- NOTE | 2020-04-22 15:16 | PT.OTN ---
Current Diagnoses Pain in right shoulder (04/22/20) Stiffness of right shoulder, not elsewhere classified (04/22/20) Bicipital tendinitis, right shoulder (04/22/20) Impingement syndrome of right shoulder (04/22/20) Physical Therapy Treatment Note PT-OP-A Visit Information Start: 03/13/20 16:02 Freq: Status: Active Protocol: Document 04/22/20 14:30 DCW (Rec: 04/22/20 15:16 DCW [id number]) Out-Patient Physical Therapy Visit Information Visit Information Visit Type Treatment Note Visit Start Time 14:30 Visit Stop Time 15:15 Total Visit Minutes 45 Visit Number [address] Visits 0 Evaluation Information Evaluation Date 03/13/20 PT-OP-B Current Condition Start: 03/13/20 16:12 Freq: Status: Active Protocol: Document 03/13/20 14:30 DCW (Rec: 03/13/20 16:49 DCW [id number]) Current Condition History of Current Condition Onset Date four month history Current Complaints R shoulder pain, stiffness, weakness History of Current Condition Pt is a 59 year old male presenting with a four month history of right shoulder pain . Pt reports he initially noticed pain in his left thumb in November,, was told it was arthritis, and received an injection, which helped greatly. Pt notes, however, that following his injection, he noticed increased pain around his right shoulder. Pt assumed it was also arthritis, and assumed it would get better, however it has not improved over the past four months. Pt reports pain is worst with any overhead activities, especially when in abduction. Notes his current pain is 2/10, but it can get as high as a 7/10. PT-OP-C Subjective Start: 03/13/20 16:02 Freq: Status: Active Protocol: Document 04/22/20 14:30 DCW (Rec: 04/22/20 15:16 DCW [id number]) OP-PT Subjective Patient Comments Patient Comments Pt notes a bit more pain today than yesterday. PT-OP-E Functional Tests Start: 03/13/20 16:02 Freq: Status: Active Protocol: Document 03/13/20 14:30 DCW (Rec: 03/13/20 16:49 DCW [id number]) Functional Tests Apley's Scratch Test Action 1- Left Posterior opposite shoulder Action 1- Right Lateral opposite shoulder Action 2- Left T4 Action 2- Right T4 Action 3- Left T5 Action 3- Right T10 PT-OP-F Manual Assessment Start: 03/13/20 16:02 Freq: Status: Active Protocol: Document 03/13/20 14:30 DCW (Rec: 03/13/20 16:49 DCW [id number]) Manual Assessments Soft Tissue Assessment Soft Tissue Mobility Assessment Tenderness to palpation 3/4 - wincing and withdraw along subacrominal space and bicipital groove. Noticeable inflammation and edema along long head biceps tendon with palpation. PT-OP-K Range of Motion Start: 03/13/20 16:02 Freq: Status: Active Protocol: Document 03/13/20 14:30 DCW (Rec: 03/13/20 16:49 DCW [id number]) Shoulder Goniometric Range of Motion Shoulder Right Active Testing Position Sitting Flexion 130 Abduction 160 Comments Pain at 90? both abduction and flexion PT-OP-L Special Tests Start: 03/13/20 16:02 Freq: Status: Active Protocol: Document 03/13/20 14:30 DCW (Rec: 03/13/20 16:49 DCW [id number]) Special Tests Shoulder Special Tests Painful Arc Test Results Positive R Yergason's Biceps Test Results Positive R Speed's Biceps Test Results Negative Passive ER Rotator Cuff Test Results Mild complaint of pain at end- range Lift-Off Rotator Cuff Test Results Negative Thomas Boom Impingement Test Results Positive R Comments Elicited strongest reaction from pt Empty Can Test Results Negative Drop Arm Rotator Cuff Test Results Negative Clunk Test Test Results Negative Belly Press Test Results Negative Apprehension Test Test Results Negative PT-OP-M Strength Start: 03/13/20 16:02 Freq: Status: Active Protocol: Document 03/13/20 14:30 DCW (Rec: 03/13/20 16:49 DCW [id number]) Shoulder Strength Shoulder Manual Muscle Testing Right Flexion 4- Good- Abduction (C5) 4 Good External Rotation 4 Good Internal Rotation 4 Good PT-OP-Q Treatments Start: 03/13/20 16:02 Freq: Status: Active Protocol: Document 04/22/20 14:30 DCW (Rec: 04/22/20 15:16 DCW [id number]) Cardio Equipment Upper Body Ergometer (UBE) Duration (Minutes) 6 RPM 60 Seat Position 13 Height 3.5 Other Forward/Backward Therapeutic Exercises Supine Exercises 1 Supine Exercise Name 90/90 IR/ER /c weighted ball Side right Equipment Used 1.5 kg ball Standing Exercises 6 Standing Exercise Name D1/D2 Flexion Side right Resistance 3# shld IR w/ TB Standing Exercise Name IR/ER Side right Resistance TB #3 Reps/Minutes x10 Comments cued scap stab, CS neutral, relax jaw 2 Standing Exercise Name Shoulder Flex Side bilateral Resistance 4# Reps/Minutes x10 Comments Pain-free ROM 1 Standing Exercise Name Shoulder Abd Side bilateral Resistance 4# Reps/Minutes 10 Comments Pain-free ROM Manual Therapy Treatment Soft Tissue Mobilization 1 Body Location R Pec, LH Biceps tendon Mobilization Type Cross-Friction,Sustained Pressure Joint Mobilizations 1 Joint R GH Direction Inf Grade III PT-OP-R Modalities Start: 03/13/20 16:02 Freq: Status: Active Protocol: Document 04/22/20 14:30 DCW (Rec: 04/22/20 15:16 DCW [id number]) Iontophoresis Treatment Right Anterior Shoulder Patient Tolerance Stopped using as it once again caused increase in pt's blood sugar PT-OP-T Assessment and Plan Start: 03/13/20 16:02 Freq: Status: Active Protocol: Document 04/22/20 14:30 DCW (Rec: 04/22/20 15:16 DCW [id number]) Physical Therapy Assessment Impairments Impairments Functional Activities, Functional Mobility,Pain,ROM, Soft Tissue Mobility,Strength, Tone Goals Three Impairment Pt experiences tenderness to palpation 3/4 at bicipital groove Snf Goal (LTG) Tenderness to palpation decreased to 2/4 - pain with wincing along bicipital groove LTG Duration 05/11/20 Two Impairment Pt experiences limited overhead activities secondary to pain Snf Goal (LTG) Pt to demonstrate a pain-free range of motion with both flexion and abduction 0?-120? LTG Duration 05/11/20 One Impairment Pt does not have an appropriate home exercise program Short Term Goal (STG) Pt to be independent and compliant with appropriate HEP STG Duration 04/10/20 Assessment Summary Assessment Pt again experienced blood sugar increase with use of Ionto patch, will stop using for this reason. Pt overall is showing improvement, decreased tone through right pec. Physical Therapy Plan Frequency and Duration Frequency of Treatment 2x/Week Duration of Treatment Eight weeks Plan of Care Start Date 03/13/20 Plan of Care End Date 05/08/20 Therapeutic Interventions Therapeutic Interventions Home Exercise Program,Joint Mobilizations,Manual Therapy, Patient/Caregiver Education, Self-Care/Home Management,Soft Tissue Mobilization, Therapeutic Activities, Therapeutic Exercises Modalities Cold Pack/Ice Massage,Electric Stimulation,Hot Packs, Iontophoresis,Ultrasound Other Therapeutic Interventions Iontophoresis using Dexamethasone 4 mg/mL Next Visit Focus/Plan Next Note Type Treatment Note Next Visit Plan Discuss pt's blood sugar response to skipping ionto. Continue per PT POC: Shoulder strengthening, STM, ROM
--- NOTE | 2020-07-09 15:26 | PT.OPDS ---
Current Diagnoses Pain in right shoulder (04/22/20) Stiffness of right shoulder, not elsewhere classified (04/22/20) Bicipital tendinitis, right shoulder (04/22/20) Impingement syndrome of right shoulder (04/22/20) Visit Care Team Role Provider Type Maciej Garrett MD Attending Provider Physician Family Provider Primary Care Provider Referring Provider Specialty: Internal Medicine Address: [address] [place] [address], [address], [facility] Email: [email or web address] Visit Number Visit Number 12 Discharge Summary PT-OP-B Current Condition Start: 03/13/20 16:12 Freq: Status: Active Protocol: Document 03/13/20 14:30 DCW (Rec: 03/13/20 16:49 DCW [id number]) Current Condition History of Current Condition Onset Date four month history Current Complaints R shoulder pain, stiffness, weakness History of Current Condition Pt is a 59 year old male presenting with a four month history of right shoulder pain . Pt reports he initially noticed pain in his left thumb in November,, was told it was arthritis, and received an injection, which helped greatly. Pt notes, however, that following his injection, he noticed increased pain around his right shoulder. Pt assumed it was also arthritis, and assumed it would get better, however it has not improved over the past four months. Pt reports pain is worst with any overhead activities, especially when in abduction. Notes his current pain is 2/10, but it can get as high as a 7/10. PT-OP-C Subjective Start: 03/13/20 16:02 Freq: Status: Active Protocol: Document 04/22/20 14:30 DCW (Rec: 04/22/20 15:16 DCW [id number]) OP-PT Subjective Patient Comments Patient Comments Pt notes a bit more pain today than yesterday. PT-OP-E Functional Tests Start: 03/13/20 16:02 Freq: Status: Active Protocol: Document 03/13/20 14:30 DCW (Rec: 03/13/20 16:49 DCW [id number]) Functional Tests Maximey's Scratch Test Action 1- Left Posterior opposite shoulder Action 1- Right Lateral opposite shoulder Action 2- Left T4 Action 2- Right T4 Action 3- Left T5 Action 3- Right T10 PT-OP-F Manual Assessment Start: 03/13/20 16:02 Freq: Status: Active Protocol: Document 03/13/20 14:30 DCW (Rec: 03/13/20 16:49 DCW [id number]) Manual Assessments Soft Tissue Assessment Soft Tissue Mobility Assessment Tenderness to palpation 3/4 - wincing and withdraw along subacrominal space and bicipital groove. Noticeable inflammation and edema along long head biceps tendon with palpation. PT-OP-K Range of Motion Start: 03/13/20 16:02 Freq: Status: Active Protocol: Document 03/13/20 14:30 DCW (Rec: 03/13/20 16:49 DCW [id number]) Shoulder Goniometric Range of Motion Shoulder Right Active Testing Position Sitting Flexion 130 Abduction 160 Comments Pain at 90? both abduction and flexion PT-OP-L Special Tests Start: 03/13/20 16:02 Freq: Status: Active Protocol: Document 03/13/20 14:30 DCW (Rec: 03/13/20 16:49 DCW [id number]) Special Tests Shoulder Special Tests Painful Arc Test Results Positive R Yergason's Biceps Test Results Positive R Speed's Biceps Test Results Negative Passive ER Rotator Cuff Test Results Mild complaint of pain at end- range Lift-Off Rotator Cuff Test Results Negative Thomas Boom Impingement Test Results Positive R Comments Elicited strongest reaction from pt Empty Can Test Results Negative Drop Arm Rotator Cuff Test Results Negative Clunk Test Test Results Negative Belly Press Test Results Negative Apprehension Test Test Results Negative PT-OP-M Strength Start: 03/13/20 16:02 Freq: Status: Active Protocol: Document 03/13/20 14:30 DCW (Rec: 03/13/20 16:49 DCW [id number]) Shoulder Strength Shoulder Manual Muscle Testing Right Flexion 4- Good- Abduction (C5) 4 Good External Rotation 4 Good Internal Rotation 4 Good PT-OP-T Assessment and Plan Start: 03/13/20 16:02 Freq: Status: Active Protocol: Document 07/09/20 15:25 DCW (Rec: 07/09/20 15:26 DCW [id number]) Physical Therapy Assessment Assessment Summary Assessment Pt has not been seen in skilled therapy for more than two months, will be discharged at this time. Pt will need a new referral in order to return to therapy. Physical Therapy Plan Discharge Physical Therapy Discharge Reasons No Longer Attending PT Next Visit Focus/Plan Next Note Type Discharge Summary
== END 2020-07-10 07:56 | disposition home or self-care (01) ==
LOC: PHYS 14:30
PROVIDERS: Family Provider Student in an Organized Health Care Education/Training Program; PCP Student in an Organized Health Care Education/Training Program; Referring Provider Student in an Organized Health Care Education/Training Program; Visit Provider Student in an Organized Health Care Education/Training Program
DX: M25.511 Pain in right shoulder (principal); M25.611 Stiffness of right shoulder, not elsewhere classified; M75.41 Impingement syndrome of right shoulder; M75.21 Bicipital tendinitis, right shoulder
CPT/HCPCS: 97110; 97140; 97161

== ENCOUNTER → 2020-07-13 07:08 | Outpatient (CLI) | payer BC, SELFPAY ==
[2020-07-13 08:02] LABS: Add Manual Diff / Slide Review NO; Basophils Absolute Auto 0 /uL (0-100); Basophils Percent Auto 0.7 % (0-2); Eosinophils Absolute Auto 100 /uL (0-450); Eosinophils Percent Auto 2.7 % (2-4); Hematocrit 43.6 % (41-53); Hemoglobin 15.1 g/dL (13.5-17.5); Lymphocytes Absolute Auto 1600 /uL (1100-4500); Lymphocytes Percent Auto 36.2 % (25-40); Mean Corpuscular HGB Conc 34.6 % (30-36); Mean Corpuscular Hemoglobin 32.8 PG (26-34); Mean Corpuscular Volume 94.9 fL (80-100); Monocytes Absolute Auto 400 /uL (0-900); Monocytes Percent Auto 10.2 % (3-14); Neutrophils Absolute Auto 2200 /uL (1500-7000); Neutrophils Percent Auto 50.2 % (50-75); Platelet Count 203 X10^3/uL (150-400); Red Blood Cell Count 4.59 X10^6/uL (4.5-5.9); Red Cell Distribution Width 13.4 % (11.6-14.8); White Blood Cell Count 4.3 X10^3/uL (4.5-11.0)
[2020-07-13 08:25] LABS: BUN Creatinine Ratio 22.4 (6-22); Blood Urea Nitrogen 17 mg/dL (9-20); Calcium 10.3 mg/dL (8.4-10.2); Carbon Dioxide 23 mmol/L (22-32); Chloride 103 mmol/L (98-107); Cholesterol 162 mg/dL (140-199); Estimated Glomerular Filt Rate > 60.0 mL/min (>60); Glucose 153 mg/dL (80-110); HDL Cholesterol 42 mg/dL (40-60); HEMOLYSIS < 15 (0-50); LDL Cholesterol Calculated 55 mg/dL (<100); Potassium 4.3 mmol/L (3.4-5.1); Sodium 137 mmol/L (137-145); Triglycerides 323 mg/dL (35-150)
== END ==
PROVIDERS: Family Provider Student in an Organized Health Care Education/Training Program; PCP Student in an Organized Health Care Education/Training Program; Referring Provider Internal Medicine Cardiovascular Disease; Visit Provider Internal Medicine Cardiovascular Disease
DX: I10 Essential (primary) hypertension (principal); E78.5 Hyperlipidemia, unspecified
CPT/HCPCS: 36415; 80048; 80061; 85025

== ENCOUNTER → 2020-08-14 14:35 | Outpatient (CLI) | payer BC, SELFPAY ==
[2020-08-14 15:45] LABS: Hemoglobin A1C% w Est Avg Glu 7.2 % (4.0-6.0)
[2020-08-14 16:19] LABS: Prostate Specific Antigen Scrn 0.371 ng/mL (0.1-4.0)
== END ==
PROVIDERS: Family Provider Student in an Organized Health Care Education/Training Program; PCP Student in an Organized Health Care Education/Training Program; Referring Provider Student in an Organized Health Care Education/Training Program; Visit Provider Student in an Organized Health Care Education/Training Program
DX: E11.9 Type 2 diabetes mellitus without complications (principal); Z12.5 Encounter for screening for malignant neoplasm of prostate
CPT/HCPCS: 36415; 83036; G0103

== ENCOUNTER → 2020-12-02 09:19 | Outpatient (CLI) | payer BC, SELFPAY ==
[2020-12-02 12:53] LABS: COVID19 -Nasal RAPID Negative (Negative)
== END ==
PROVIDERS: Family Provider Student in an Organized Health Care Education/Training Program; PCP Student in an Organized Health Care Education/Training Program; Visit Provider Nurse Practitioner Family
DX: Z20.822 Contact with and (suspected) exposure to COVID-19 (principal)
CPT/HCPCS: 87635

== ENCOUNTER 2020-12-03 10:09 | Day surgery (SDC) | payer BC, SELFPAY ==
[2020-12-01 15:22] VITALS: BMI 32.4
[2020-12-03] VITALS (8 sets, daily range): BP systolic 121–135; BP diastolic 68–86; PULSE 60–68; RESP 12–18; TEMP 36.1–36.4; O2SAT 94–98; BMI 31.4
[2020-12-03] MEDS: LACTATED RINGERS 1,000 ML 42 ML IV (10:56)
--- NOTE | 2020-12-03 12:12 | PM.HP.1 ---
History of Present Illness History of Present Illness Date Patient Seen: 12/03/20 Time Patient Seen: 12:05 Chief complaint: LEFT THUMB Narrative: 60-year-old gentleman with pain to the base of the left thumb that has affected his everyday hand use. Lot of pain with any gripping or twisting. Continues to have issues despite conservative treatment. Patient History Medical History Allergic rhinitis (Unknown) Coronary artery disease (Unknown) Diabetes (Unknown) Dyspnea on exertion (05/01/17) GERD (gastroesophageal reflux disease) (Unknown) Hx of pneumothorax (1978) Hyperlipemia (Unknown) Hypertension (Unknown) IBS (irritable bowel syndrome) (Unknown) Paresthesia of left upper extremity (12/17/15) Pure hypercholesterolemia (02/18/16) Status post insertion of drug-eluting stent into left anterior descending (LAD) artery (06/2015) Tinnitus of both ears Type 2 diabetes mellitus without complication, without long-term current use of insulin (06/24/16) Surgical History History of esophagogastroduodenoscopy (EGD) S/P coronary artery stent placement (~08/2019) Status post colectomy Status post laparoscopic cholecystectomy Family & Social History Social History: household members significant other Tobacco & Substance use: Smoking Status Never smoker alcohol intake current alcohol intake frequency a few times a week Substance Use Type does not use Meds Home Medications and Allergies Home Medications Medication Instructions Recorded Confirmed Type melatonin 3 mg tablet 9 mg PO HS #0 06/09/10 12/03/20 History aspirin 81 mg tablet,delayed 81 mg PO DAILY #30 tab 12/11/17 12/03/20 Rx release (Aspir-) fenofibrate nanocrystallized 145 145 mg PO QDAY #90 tab 04/17/18 12/03/20 Rx mg tablet (Tricor) rosuvastatin 40 mg tablet 40 mg PO DAILY #90 tab 04/17/18 12/03/20 Rx mometasone 0.1 % topical cream 1 applictn TOP BID #15 gram 01/17/19 12/03/20 Rx nitroglycerin 0.4 mg sublingual 0.4 mg SL Q5M PRN #20 tab 08/20/19 12/01/20 Rx tablet losartan 100 mg tablet 100 mg PO DAILY 10/17/19 12/03/20 History finasteride 5 mg tablet 1.25 mg PO DAILY #23 tab 01/05/20 12/03/20 Rx diclofenac sodium 1 % topical gel 2 g TOP QID PRN #100 gram 03/30/20 12/03/20 Rx (Voltaren) omeprazole 40 mg capsule,delayed 40 mg PO QDAY@0600 #90 cap 04/20/20 12/03/20 Rx release carvedilol 3.125 mg tablet 3.125 mg PO BID 07/23/20 12/03/20 History metformin 500 mg tablet 1,000 mg PO BIDCC #360 tab 09/28/20 12/03/20 Rx empagliflozin 25 mg tablet 25 mg PO DAILY #90 tab 10/05/20 12/03/20 Rx (Jardiance) glipizide 5 mg tablet, extended 5 mg PO DAILY #90 tab 11/16/20 12/03/20 Rx release 24 hr Allergies Allergy/AdvReac Type Severity Reaction Status Date / Time grass pollen [GRASS POLLEN] Allergy Unknown Verified 06/01/20 16:00 mold [MOLD] Allergy Unknown Verified 06/01/20 16:00 Exam Vital Signs (past 8 hours): - 12/03/20 10:36 Temperature 97.6 F Pulse Rate 61 Respiratory Rate 18 Blood Pressure 135/86 Pulse Oximetry 97 Oxygen Delivery Method Room Air Narrative Exam Narrative: On physical exam, signs of arthritic changes to the basal joint. Positive shoulder sign and joint large mint. Decreased in both radial and palmar abduction as well as opposition. Pain at the end range of motion. Pain with grind testing. Crepitus coming from the basal joint. Full range of motion of the radiocarpal joint. Full range of motion of the 2nd through 5th fingers. Assessment & Plan Assessment & Plan narrative: Patient with left basal thumb arthritis this has been unresponsive to conservative treatment. Due to this fact, patient is interested in surgery to address his arthritis. I went over the risks and limitations associated with the procedure as well as the rehabilitation needed afterwards. All of the patient's questions and concerns were answered to his full satisfaction consent form was freely obtained. The risk, benefits, alternatives, possible complications, operative course, and postop outcomes were discussed. Complications including but not limiting to bleeding, infection, fracture, nerve injury, continued pain postoperatively or instability postoperatively were discussed in detail. Medical complications including but not limited to deep venous thrombosis event, anesthesia complications with excessive bleeding, vascular events or cardiac events and other possible complications were discussed in detail. Need for postoperative rehabilitation and anticipated hospital stay and clinical course were discussed in detail. Patient acknowledges understanding and elects to proceed with surgery. Time Spent With Patient Critical Care time: I spent a total of [] minutes of critical care time on this patient's care today; this time is exclusive of procedural time.
--- NOTE | 2020-12-03 12:14 | PM.PREOP ---
Pre-operative Note Interval Note History & Physical reviewed/Exam performed by Physician: Yes Changes to H&P: No
[2020-12-03] MEDS: CEFAZOLIN 1 GM VIAL 2 GM IV (13:05)
--- NOTE | 2020-12-03 13:21 | SUR.OPER ---
Supine on padded OR bed, head on pillow, Right arm secured on padded arm boards at <90 degrees abduction,Left arm positioned on arm table. legs uncrossed, safety belt at thigh, tape over blanket over lower legs.
[2020-12-03] MEDS: BUPIVACAINE 0.5% (PF) 30 ML, EPINEPHrine 0.15 MG INJ (13:29)
--- NOTE | 2020-12-03 14:10 | PM.OP.1 ---
Operative Date/Time/Diagnoses Date of procedure: 12/03/20 Time of procedure: 13:00 Pre-op diagnosis: Left basal thumb arthritis Post-op diagnosis: same Procedure & Clinicians Procedure: left basal thumb arthroplasty Same procedure as scheduled: Yes Indications: End-stage arthritis left basal joint Surgeon: Dexter Kessler Click Yes if Unassisted: Yes Anesthesia Type: General Operative Notes Findings: End-stage arthritis to the basal joint. No sign of any significant ST-T arthritis. Closure Type: primary Applied: implant(s) (Arthrex tight rope) Procedure in detail: On date of service, the patient was met in the holding area. The operative site was signed and witnessed by the OR staff. The surgery was once again discussed with patient, and any remaining questions Were answered fully. Patient was taken back to the operating theater and placed on the operating table in a supine position. Great care was taken to ensure that all bony prominences were properly padded. A well-padded tourniquet was placed up along the upper extremity. A timeout was performed verifying patient's name, procedure, and operative site. The arm was prepped and draped in the normal sterile fashion. An Esmarch was used to exsanguinate the limb and the tourniquet was turned up to 250 mm mercury. A 15 blade was used to incise the skin only in a dorsal radial position. Pickups and tenotomy 3 used to dissect down through the fascial tissue. Great care was taken to ensure that the branches off the superficial radial nerve root identified and protected. Next, an interval was made between EPB and APL. The recurrent branch of the radial artery was identified and protected. The capsular tissues surrounding the basal joints was opened and released around the trapezium and a 360? fashion. This gave us good visualization of the basal joint as well as the trapezial scaphoid joint. Significant arthritis at the basal joints but no sign of any arthritis at the trapezial scaphoid joint. Next half of the trapezium was removed as well as any potential osteophytes. The wound was then copiously irrigated to remove any remaining bony fragments. Guidewire was placed between the 1st and 2nd metacarpal. Its position was verified with C-arm. Once we were satisfied with the position of the guidewire and the distraction of the basal joint, suture material was passed through the 1st and 2nd metacarpal using the guidewire. Endobutton was then secured on to the 1st metacarpal. The thumb was then distracted in adducted while a 2nd Endobutton was secured to the 2nd metacarpal providing distraction and a suspension plasty of the basal joint. This provided a good suspension plasty of the basal joint and held the thumb out to the appropriate length. C-arm was brought in and final x-rays were obtained. The wound was copiously irrigated once again and then closed in a layered fashion. The hand was cleaned, dried, and dressed. Thumb spica splint was applied patient was extubated and taken to the PACU in stable condition. Complications: none Post-operative Condition: stable Disposition: PACU Plan for aftercare: Patient will be discharged home today. Patient will follow our postoperative protocol for basal thumb surgery.
[2020-12-03] MEDS: OXYCODONE IR 5 MG TABLET PO (15:10)
[2020-12-03] MEDS: ACETAMINOPHEN 325 MG TABLET 650 MG PO (15:10)
== END 2020-12-03 15:35 | disposition home or self-care (01) ==
PROVIDERS: Family Provider Student in an Organized Health Care Education/Training Program; PCP Student in an Organized Health Care Education/Training Program; Referring Provider Orthopaedic Surgery; Visit Provider Orthopaedic Surgery
PROC: (CPT 26540; principal; 2020-12-03 11:45)
DX: M18.12 Unilateral primary osteoarthritis of first carpometacarpal joint, left hand (principal); I10 Essential (primary) hypertension; E11.9 Type 2 diabetes mellitus without complications; Z79.84 Long term (current) use of oral hypoglycemic drugs; K21.9 Gastro-esophageal reflux disease without esophagitis; E78.5 Hyperlipidemia, unspecified
CPT/HCPCS: 25447; 82962; J0171; J0690; J2250; J2405; J2704; J3010

== ENCOUNTER → 2021-01-19 07:25 | Outpatient (CLI) | payer BC, SELFPAY ==
[2021-01-19 09:29] LABS: Hemoglobin A1C% w Est Avg Glu 6.9 % (4.0-6.0)
[2021-01-19 10:57] LABS: Creatinine Urine Random 69.9 mg/dL
[2021-01-19 11:05] LABS: Microalbumin Urine Random < 0.6 mg/dL (0-1.6)
== END ==
PROVIDERS: Family Provider Student in an Organized Health Care Education/Training Program; PCP Student in an Organized Health Care Education/Training Program; Referring Provider Student in an Organized Health Care Education/Training Program; Visit Provider Student in an Organized Health Care Education/Training Program
DX: E11.9 Type 2 diabetes mellitus without complications (principal)
CPT/HCPCS: 36415; 82043; 82570; 83036

== ENCOUNTER 2021-01-29 11:05 | Emergency (ER) | payer BC, SELFPAY ==
[2021-01-29] VITALS (15 sets, daily range): BP systolic 129–182; BP diastolic 81–106; PULSE 60–82; RESP 12–24; TEMP 36.9; O2SAT 92–97; BMI 31.4
--- NOTE | 2021-01-29 11:21 | DI.RAD.S_ITS ---
PROCEDURE: XR CHEST 1V INDICATIONS: chest pain TECHNIQUE: One view of the chest was acquired. COMPARISON: [facility], CR, XR CHEST 1V, 01/08/2020, 14:35. FINDINGS: Surgical changes and devices: Left chest wall pacer is seen with intact leads. Lungs and pleura: Lungs are clear. No pleural effusions or pneumothorax. Mediastinum: Mediastinal contours appear normal. Heart size is normal. Bones and chest wall: No suspicious bony lesions. Overlying soft tissues appear unremarkable. IMPRESSION: No acute cardiopulmonary abnormality. Dictated by: Cruz Burden M.D. on 01/29/2021 at 10:54 Approved by: Cruz Burden M.D. on 01/29/2021 at 10:55
[2021-01-29 11:34] LABS: Add Manual Diff / Slide Review NO; Basophils Absolute Auto 0 /uL (0-100); Basophils Percent Auto 0.5 % (0-2); Eosinophils Absolute Auto 100 /uL (0-450); Eosinophils Percent Auto 1.4 % (2-4); Hematocrit 44.8 % (41-53); Hemoglobin 15.2 g/dL (13.5-17.5); Lymphocytes Absolute Auto 1700 /uL (1100-4500); Lymphocytes Percent Auto 32.8 % (25-40); Mean Corpuscular Hemoglobin 31.8 PG (26-34); Mean Corpuscular Volume 93.3 fL (80-100); Monocytes Absolute Auto 500 /uL (0-900); Monocytes Percent Auto 9.7 % (3-14); Neutrophils Absolute Auto 2800 /uL (1500-7000); Neutrophils Percent Auto 55.6 % (50-75); Platelet Count 188 X10^3/uL (150-400); Red Blood Cell Count 4.79 X10^6/uL (4.5-5.9); White Blood Cell Count 5.1 X10^3/uL (4.5-11.0)
[2021-01-29 11:42] LABS: Alanine Aminotransferase 59 IU/L (<50); Albumin 4.8 g/dL (3.5-5.0); Albumin Globulin Ratio 1.5 (1.0-2.8); Alkaline Phosphatase 43 U/L (38-126); Aspartate Aminotransferase 45 IU/L (17-59); Bilirubin Total 0.6 mg/dL (0.2-1.3); Blood Urea Nitrogen 17 mg/dL (9-20); Calcium 10.1 mg/dL (8.4-10.2); Carbon Dioxide 21 mmol/L (22-32); Chloride 109 mmol/L (98-107); Creatine Kinase 72 U/L (55-170); Estimated Glomerular Filt Rate > 60.0 mL/min (>60); Globulin 3.2 g/dL (1.7-4.1); Glucose 155 mg/dL (80-110); HEMOLYSIS 36 (0-50); Lipase 62 U/L (23-300); Magnesium 1.9 mg/dL (1.6-2.3); Potassium 4.3 mmol/L (3.4-5.1); Sodium 140 mmol/L (137-145)
[2021-01-29 11:54] LABS: Troponin I < 0.012 ng/mL (0.01-0.034)
[2021-01-29 12:38] LABS: COVID19 -Nasal RAPID Negative (Negative)
--- NOTE | 2021-01-29 13:09 | ED_ITS ---
HPI - Chest Pain General Chief Complaint: Chest Pain Stated Complaint: chest pain/sob Time Seen by Provider: 01/29/21 13:03 Source: patient Mode of arrival: Ambulatory Limitations: no limitations Limitations: no limitations History of Present Illness HPI narrative: This is a 60-year-old male who comes with complaint of chest pain and shortness of breath. Patient states his 1st episode was at 4:00 a.m., patient states he took a nitro sublingual which resolved his symptoms. He had another episode at 9:30 a.m. took another sublingual nitro and resolved again. He describes it some left-sided pressure and indigestion. He has had some aching in his left arm as well. He was diaphoretic at that time but states that might have been related to his glucose being elevated. He denies any shortness of breath. No lightheadedness. Patient has not had any nausea or vomiting. He has not had any new swelling in his extremities. He did have surgery on his left thumb in November. Patient has a history significant for PE in 2017 with no exact cause found. Dyslipidemia diabetes, hypertension and coronary artery disease with stents on 2 different occasions for a total of 5 cardiac stents. He takes an aspirin 81 mg nightly, no other thinners. He has not had any other new medication changes. He does have a pacemaker. Mode history of colon resection. No tobacco, he drinks about 1 bottle of wine weekly, no illicit. His only allergies are to mold. Dr. Whittington is his manager sales training and Dr. Verma is his PCP. Related Data Home Medications Medication Instructions Recorded Confirmed melatonin 3 mg tablet 9 mg PO HS #0 06/09/10 12/03/20 losartan 100 mg tablet 100 mg PO DAILY 10/17/19 12/03/20 carvedilol 3.125 mg tablet 3.125 mg PO BID 07/23/20 12/03/20 Previous Rx's Medication Instructions Recorded aspirin 81 mg tablet,delayed 81 mg PO DAILY #30 tab 12/11/17 release (Aspir-) fenofibrate nanocrystallized 145 145 mg PO QDAY #90 tab 04/17/18 mg tablet (Tricor) rosuvastatin 40 mg tablet 40 mg PO DAILY #90 tab 04/17/18 mometasone 0.1 % topical cream 1 applictn TOP BID #15 gram 01/17/19 diclofenac sodium 1 % topical gel 2 g TOP QID PRN #100 gram 03/30/20 (Voltaren) omeprazole 40 mg capsule,delayed 40 mg PO QDAY@0600 #90 cap 04/20/20 release hydroxyzine pamoate 25 mg capsule 25 mg PO TID-QID PRN #60 cap 12/03/20 (Vistaril) oxycodone-acetaminophen 5 mg-325 2 tab PO Q4-6H PRN #60 tab 12/03/20 mg tablet (Percocet) metformin 500 mg tablet 1,000 mg PO BIDCC #360 tab 12/28/20 empagliflozin 25 mg tablet 25 mg PO DAILY #90 tab 01/04/21 (Jardiance) finasteride 5 mg tablet 1.25 mg PO DAILY #23 tab 01/04/21 glipizide 5 mg tablet, extended 5 mg PO DAILY #30 tab 01/25/21 release 24 hr nitroglycerin 0.4 mg sublingual 0.4 mg SL Q5M PRN #20 tab 01/28/21 tablet amlodipine 5 mg tablet 5 mg PO DAILY #20 tab 01/29/21 Allergies Allergy/AdvReac Type Severity Reaction Status Date / Time grass pollen [GRASS POLLEN] Allergy Unknown Verified 01/29/21 11:13 mold [MOLD] Allergy Unknown Verified 01/29/21 11:13 Review of Systems Review of Systems ROS Unobtainable: All systems reviewed & are unremarkable except as noted in HPI and below Patient History Medical History Allergic rhinitis (Unknown) Coronary artery disease (Unknown) Diabetes (Unknown) Dyspnea on exertion (05/01/17) GERD (gastroesophageal reflux disease) (Unknown) Hx of pneumothorax (1978) Hyperlipemia (Unknown) Hypertension (Unknown) IBS (irritable bowel syndrome) (Unknown) Paresthesia of left upper extremity (12/17/15) Pure hypercholesterolemia (02/18/16) Status post insertion of drug-eluting stent into left anterior descending (LAD) artery (06/2015) Tinnitus of both ears Type 2 diabetes mellitus without complication, without long-term current use of insulin (06/24/16) Surgical History History of esophagogastroduodenoscopy (EGD) S/P coronary artery stent placement (~08/2019) Status post colectomy Status post laparoscopic cholecystectomy Social History household members: significant other Smoking Status: Never smoker alcohol intake: current substance use type: does not use Smoking Status: Never smoker alcohol intake frequency: a few times a week Substance Use Type: does not use Exam Narrative Exam Narrative: GENERAL: Alert and oriented x three, well-nourished male in mild distress. HEENT: Head normocephalic, atraumatic, EOMI, pupils reactive, face symmetric, moist mucous membranes NECK: Supple, full range of motion CARDIOVASCULAR: Regular rate and rhythm without murmurs, rubs or gallops. No JVD. RESPIRATORY: Breath sounds equal bilaterally, no wheezes rales or rhonchi. ABDOMEN: Soft, nontender. Normoactive bowel sounds all 4 quadrants. No guarding or rebound, rigidity, no mass : No CVA tenderness EXTREMITIES: Normal range of motion, no clubbing. Patient has some mild swelling over the area of the left thumb with no warmth, erythema other skin changes. Neurovascularly intact. 2+ radial pulse bilaterally. NEUROLOGICAL: Cranial nerves II through XII grossly intact. Moving all extremities SKIN: Warm, dry, no petechiae, no rashes or lesions. Initial Vital Signs Initial Vital Signs: Vital Signs Pulse Rate 82 01/29/21 11:11 Blood Pressure 182/106 H 01/29/21 11:11 Pulse Oximetry 95 01/29/21 11:11 Course Orders Ordered: ED Orders 01/29/21 11:15 Complete Blood Count AUTO DIFF Stat Comprehensive Metabolic Panel Stat Lipase Stat Magnesium Stat Troponin & CK Cardiac Panel Stat 01/29/21 11:21 XR chest 1V Stat EKG-12 Lead Stat 01/29/21 12:04 COVID19 -Nasal swab/Pre-Proc Stat 01/29/21 13:28 Troponin I Stat 01/29/21 14:26 CT angio chest PE protocol Stat Discontinued Medications Amlodipine Besylate (Amlodipine 5 Mg Tablet) 5 mg PO NOW ONE Stop: 01/29/21 16:22 Last Admin: 01/29/21 16:36 Dose: 5 mg Documented by: JUAN ANTONIO Aspirin (Aspirin 81 Mg Chew Tab) 324 mg PO NOW ONE Stop: 01/29/21 15:46 Last Admin: 01/29/21 15:59 Dose: 243 mg Documented by: KESHA Reevaluation(s) Reevaluation #1: Patient I discussed Dr. Youngblood is recommendations for observation overnight and stress testing. He politely declines. He is aware that there was concerned about cardiac cause. We discussed risks versus benefits. Dr. Youngblood did recommend if patient chooses not to stay amlodipine 5 mg daily. We will initiate this here this evening in the emergency department the prescription to [facility]. Time: 16:24 Consultations Consultation #1: Dr. Youngblood, recommends cardiac observation and stress testing. She notes he had a cardiac catheterization in August with a repeat catheterization several days later which were negative. Patient if patient elects not to stay or stress testing is unavailable because of the holiday she would recommend amlodipine 5 mg daily and she would contact Dr. Whittington's leather whitener to expedite stress testing. Time: 16:05 Vital Signs Vital signs: Vital Signs - 8 hr 01/29/21 11:11 01/29/21 11:13 01/29/21 11:30 Temperature 98.4 F Pulse Rate 82 77 64 Respiratory Rate 19 15 Blood Pressure 182/106 H 182/106 H 139/81 Pulse Oximetry 95 95 93 01/29/21 12:00 01/29/21 12:30 01/29/21 13:00 Temperature Pulse Rate 65 63 62 Respiratory Rate 20 13 12 Blood Pressure 142/83 H 138/87 129/83 Pulse Oximetry 92 94 94 01/29/21 13:30 01/29/21 14:00 01/29/21 14:41 Temperature Pulse Rate 63 61 63 Respiratory Rate 16 17 20 Blood Pressure 147/85 H 149/88 H Pulse Oximetry 95 92 93 01/29/21 14:42 01/29/21 15:00 01/29/21 15:01 Temperature Pulse Rate 62 63 63 Respiratory Rate 24 19 13 Blood Pressure 143/92 H 160/94 H Pulse Oximetry 96 97 97 01/29/21 15:30 01/29/21 16:00 01/29/21 16:30 Temperature Pulse Rate 60 62 63 Respiratory Rate 15 17 15 Blood Pressure 139/97 H 137/96 H 148/82 H Pulse Oximetry 96 96 95 MDM - Chest Pain Lab Data Result diagrams: 01/29/21 11:15 01/29/21 11:15 Labs: Lab Results 01/29/21 01/29/21 01/29/21 Range/Units 11:15 11:15 12:04 WBC 5.1 (4.5-11.0) X10^3/uL RBC 4.79 (4.5-5.9) X10^6/uL Hgb 15.2 (13.5-17.5) g/dL Hct 44.8 (41-53) % MCV 93.3 (80-100) fL MCH 31.8 (26-34) PG MCHC 34.0 (30-36) % RDW 13.0 (11.6-14.8) % Plt Count 188 (150-400) X10^3/uL Neut % (Auto) 55.6 (50-75) % Lymph % (Auto) 32.8 (25-40) % Franklin % (Auto) 9.7 (3-14) % Eos % (Auto) 1.4 L (2-4) % Baso % (Auto) 0.5 (0-2) % Neut # (Auto) 2800 (9179-1773) /uL Lymph # (Auto) 1700 (2410-8521) /uL Franklin # (Auto) 500 (0-900) /uL Eos # (Auto) 100 (0-450) /uL Baso # (Auto) 0 (0-100) /uL Sodium 140 (137-145) mmol/L Potassium 4.3 (3.4-5.1) mmol/L Chloride 109 H (98-107) mmol/L Carbon Dioxide 21 L (22-32) mmol/L BUN 17 (9-20) mg/dL Creatinine 0.81 (0.66-1.25) mg/dL Estimated GFR > 60.0 (>60) mL/min BUN/Creatinine Ratio 21.0 (6-22) Glucose 155 H (80-110) mg/dL Calcium 10.1 (8.4-10.2) mg/dL Magnesium 1.9 (1.6-2.3) mg/dL Total Bilirubin 0.6 (0.2-1.3) mg/dL AST 45 (17-59) IU/L ALT 59 H (<50) IU/L Alkaline Phosphatase 43 (38-126) U/L Total Creatine Kinase 72 (55-170) U/L CK-MB (CK-2) TNP CK-MB (CK-2) Rel Index TNP Troponin I < 0.012 (0.01-0.034) ng/mL Total Protein 8.0 (6.3-8.2) g/dL Albumin 4.8 (3.5-5.0) g/dL Globulin 3.2 (1.7-4.1) g/dL Albumin/Globulin Ratio 1.5 (1.0-2.8) Lipase 62 (23-300) U/L SARS-CoV-2 (PCR) Negative (Negative) 01/29/21 Range/Units 13:28 WBC (4.5-11.0) X10^3/uL RBC (4.5-5.9) X10^6/uL Hgb (13.5-17.5) g/dL Hct (41-53) % MCV (80-100) fL MCH (26-34) PG MCHC (30-36) % RDW (11.6-14.8) % Plt Count (150-400) X10^3/uL Neut % (Auto) (50-75) % Lymph % (Auto) (25-40) % Franklin % (Auto) (3-14) % Eos % (Auto) (2-4) % Baso % (Auto) (0-2) % Neut # (Auto) (2250-5538) /uL Lymph # (Auto) (2896-1880) /uL Franklin # (Auto) (0-900) /uL Eos # (Auto) (0-450) /uL Baso # (Auto) (0-100) /uL Sodium (137-145) mmol/L Potassium (3.4-5.1) mmol/L Chloride (98-107) mmol/L Carbon Dioxide (22-32) mmol/L BUN (9-20) mg/dL Creatinine (0.66-1.25) mg/dL Estimated GFR (>60) mL/min BUN/Creatinine Ratio (6-22) Glucose (80-110) mg/dL Calcium (8.4-10.2) mg/dL Magnesium (1.6-2.3) mg/dL Total Bilirubin (0.2-1.3) mg/dL AST (17-59) IU/L ALT (<50) IU/L Alkaline Phosphatase (38-126) U/L Total Creatine Kinase (55-170) U/L CK-MB (CK-2) CK-MB (CK-2) Rel Index Troponin I < 0.012 (0.01-0.034) ng/mL Total Protein (6.3-8.2) g/dL Albumin (3.5-5.0) g/dL Globulin (1.7-4.1) g/dL Albumin/Globulin Ratio (1.0-2.8) Lipase (23-300) U/L SARS-CoV-2 (PCR) (Negative) Imaging Data CT scan - chest: Radiologist's Impression: Launch?[place] [address] CT Scan Report Signed Patient: Serafin Jauregui MR#: [id number] : 1960 Acct:[id number] Age/Sex: 60 / M Date of Service: 01/29/21 Loc: ED Accession Number: [id number] ?? Procedure: CT angio chest PE protocol Ordering Provider: Shannon Rivas D.O. PROCEDURE:? CT ANGIO CHEST PE PROTOCOL ? INDICATIONS:? chest pain, hx PE ? TECHNIQUE:? After the administration of intravenous contrast, 2 mm thick sections acquired from the pulmonary apices to the posterior costophrenic angles.? 3-dimensional maximum intensity projection (MIP) coronal and sagittal reformats were then acquired through the thorax.? For radiation dose reduction, the following was used:? automated exposure control, adjustment of mA and/or kV according to patient size.? ? COMPARISON:? [facility], CT, CT ANGIO CHEST PE PROTOCOL, 01/03/2020, 11:56. ? FINDINGS:? Image quality:? Excellent.? ? Pulmonary arteries:? Pulmonary arteries are normal in size, and demonstrate no intraluminal filling defects to suggest central pulmonary embolism.? ? Lungs and pleura:? Lungs are clear.? No pleural effusions or pneumothorax.? Central and peripheral airways are patent.? ? Mediastinum:? Heart size is normal, without pericardial effusion.? The coronary arteries have atherosclerotic calcifications.? No mediastinal or hilar adenopathy.? Thoracic aorta is normal in caliber and enhancement.? Esophagus is normal in caliber, without hiatal hernia.? ? Bones and chest wall:? No suspicious bony lesions.? Ribs and thoracic spine appear intact throughout.? Thyroid gland is normal.? No axillary or supraclavicular adenopathy.? ? Abdomen:? Visualized upper abdominal solid organs appear normal in the early arterial phase of enhancement.? ? IMPRESSION:? 1. No pulmonary embolism.? No acute abnormality of the chest. 2. Coronary artery atherosclerosis.? ? ? Dictated by: Cruz Burden M.D. on 01/29/2021 at 14:17 ? ? Approved by: Cruz Burden M.D. on 01/29/2021 at 14:19?? ECG Data Attestation: I personally reviewed and interpreted this ECG as follows: Prior ECG tracings: available for review Interpretation: Sinus rhythm with first-degree AV block. Rate of 69 AR 216, QRS of 94 and QTC of 407. Patient has a Q-wave with inverted T-waves in 3. No acute elevation or depression otherwise noted. Patient has prior EKG from 01/08/2020 which appears similar. Atrial paced rhythm intermittently. Rate of 61 AR 204 QRS of 98 QTC of 408. Patient has same changes in 3 and AVF as prior. With no other acute changes appreciated. MDM Narrative Medical decision making narrative: This is a 60-year-old male comes emergency department complaint of chest with 2 episodes that began today with a history of coronary artery disease, stents on 2 separate occasions for 5 total as well as a history of pulmonary emboli in 2018 with no clear cause found. Patient's EKG and labs are reassuring. He is a little hypertensive today. He has not been hypoxic or tachycardic. He did have improvement at home with sublingual nitro. His CT angiography does not show any pulmonary emboli. Case was discussed with his Cardiology team, Dr. Youngblood with cardiology. Recommendation is for cardiac obvious stress testing. We did check and there is stress testing available tomorrow morning. Patient was offered observation but politely refuses secondary to the holiday. He does understand risks versus benefits. Dr. Youngblood did then recommend amlodipine 5 mg daily and she will contact their leather whitener to have the patient seen promptly for cardiac stress testing. Discharge Plan Departure Patient Disposition: Home Clinical Impression: Chest pain Instructions: DI for Chest Pain Activity Restrictions/Additional Instructions: Follow up with cardiology. Your cardiology team is aware that you are here today and plan to return home. They recommend taking amlodipine 5 mg once daily. Prescription sent to [facility] in [place]. Continue your aspirin and other medications daily If you have new or worsening chest pain, shortness of breath, lightheadedness or passing out, new swelling in your extremities or other new or concerning symptoms please return. Prescriptions: New amlodipine 5 mg tablet 5 mg PO DAILY Qty: 20 0RF No Action aspirin [Aspir-81] 81 mg tablet,delayed release (DR/EC) 81 mg PO DAILY Qty: 30 11RF melatonin 3 MG tablet 9 mg PO HS Qty: 0 0RF fenofibrate nanocrystallized [Tricor] 145 mg tablet 145 mg PO QDAY Qty: 90 1RF rosuvastatin 40 mg tablet 40 mg PO DAILY Qty: 90 1RF mometasone 0.1 % cream 1 applictn TOP BID Qty: 15 0RF diclofenac sodium [Voltaren] 1 % gel 2 g TOP QID PRN (Reason: pain) Qty: 100 1RF Rx Instructions: apply to wrist or hand as needed for pain omeprazole 40 mg capsule,delayed release(DR/EC) 40 mg PO QDAY@0600 Qty: 90 3RF carvedilol 3.125 mg tablet 3.125 mg PO BID 0RF Rx Instructions: take 2 tablets twice a day per cardiology metformin 500 mg tablet 1,000 mg PO BIDCC Qty: 360 0RF Rx Instructions: PT NEEDS TO BE SEEN BEFORE ANYMORE FILLS 12/28/20 Jardiance 25 mg tablet 25 mg PO DAILY Qty: 90 0RF finasteride 5 mg tablet 1.25 mg PO DAILY Qty: 23 3RF Rx Instructions: Take one quarter tablet once a day. glipizide 5 mg tablet extended release 24hr 5 mg PO DAILY Qty: 30 0RF Rx Instructions: PT DUE FOR APPT W/PCP PRIOR TO END OF THIS RX/BEFORE FUTURE FILLS. PLEASE CALL TO SCHEDULE APPT. THANK YOU 01/25/21 nitroglycerin 0.4 mg tablet, sublingual 0.4 mg SL Q5M PRN (Reason: chest pain) Qty: 20 0RF Rx Instructions: do not exceed 3 doses per episode losartan 100 mg tablet 100 mg PO DAILY 0RF oxycodone-acetaminophen [Percocet] 5-325 mg tablet 2 tab PO Q4-6H PRN (Reason: pain) Qty: 60 0RF hydroxyzine pamoate [Vistaril] 25 mg capsule 25 mg PO TID-QID PRN (Reason: spasms) Qty: 60 0RF Referrals: Maciej Garrett MD [Primary Care Provider] - Ruben Whittington MD [Physician] -
[2021-01-29 14:01] LABS: Troponin I < 0.012 ng/mL (0.01-0.034)
--- NOTE | 2021-01-29 14:26 | DI.CT.S_ITS ---
PROCEDURE: CT ANGIO CHEST PE PROTOCOL INDICATIONS: chest pain, hx PE TECHNIQUE: After the administration of intravenous contrast, 2 mm thick sections acquired from the pulmonary apices to the posterior costophrenic angles. 3-dimensional maximum intensity projection (MIP) coronal and sagittal reformats were then acquired through the thorax. For radiation dose reduction, the following was used: automated exposure control, adjustment of mA and/or kV according to patient size. COMPARISON: [facility], CT, CT ANGIO CHEST PE PROTOCOL, 01/03/2020, 11:56. FINDINGS: Image quality: Excellent. Pulmonary arteries: Pulmonary arteries are normal in size, and demonstrate no intraluminal filling defects to suggest central pulmonary embolism. Lungs and pleura: Lungs are clear. No pleural effusions or pneumothorax. Central and peripheral airways are patent. Mediastinum: Heart size is normal, without pericardial effusion. The coronary arteries have atherosclerotic calcifications. No mediastinal or hilar adenopathy. Thoracic aorta is normal in caliber and enhancement. Esophagus is normal in caliber, without hiatal hernia. Bones and chest wall: No suspicious bony lesions. Ribs and thoracic spine appear intact throughout. Thyroid gland is normal. No axillary or supraclavicular adenopathy. Abdomen: Visualized upper abdominal solid organs appear normal in the early arterial phase of enhancement. IMPRESSION: 1. No pulmonary embolism. No acute abnormality of the chest. 2. Coronary artery atherosclerosis. Dictated by: Cruz Burden M.D. on 01/29/2021 at 14:17 Approved by: Cruz Burden M.D. on 01/29/2021 at 14:19
[2021-01-29] MEDS: ASPIRIN 81 MG CHEW TAB 324 MG PO (15:59)
[2021-01-29] MEDS: AMLODIPINE 5 MG TABLET PO (16:36)
== END 2021-01-29 16:41 | disposition home or self-care (01) ==
PROVIDERS: Emergency Provider Emergency Medicine; Family Provider Student in an Organized Health Care Education/Training Program; PCP Student in an Organized Health Care Education/Training Program
DX: R07.9 Chest pain, unspecified (principal); R06.02 Shortness of breath; Z20.822 Contact with and (suspected) exposure to COVID-19
CPT/HCPCS: 36415; 71045; 71275; 80053; 82550; 83690; 83735; 84484; 85025; 87635; 93005; 99284; C9803; Q9967

== ENCOUNTER 2021-02-17 08:30 | Outpatient (RCR) | payer BC, SELFPAY ==
--- NOTE | 2020-12-23 15:30 | OT.OP.EVAL ---
Visit Care Team Role Provider Type Dexter Kessler MD Referring Provider Physician Specialty: Orthopedic Surgery Address: [address] [place] [address], [address] Email: [email or web address] Maciej Garrett MD Family Provider Physician Primary Care Provider Specialty: Internal Medicine Address: [address] [place] [address], [facility] [address], [place], [address] Email: [email or web address] Maris Man MD Attending Provider Physician Specialty: Orthopedic Surgery Address: [address] [place] [address], [id number] Email: [email or web address] Occupational Therapy Initial Evaluation OT Outpatient Adult Evaluation Start: 12/23/20 15:51 Freq: Status: Active Protocol: Document 12/23/20 15:52 AMS (Rec: 12/23/20 16:00 AMS [id number]) General Information Visit Start Time 08:30 Visit Stop Time 09:00 Total Visit Minutes 30 Plan of Care Dates 12/23/20 - 02/17/21 Insurance Information [place]; no visit limits Treatment Setting Outpatient Care Goals Longterm Goals 1. Patient will be modified independent with execution of home exercise program utilizing provided written and visual instructions from therapist. 2. Patient will be able to verbally identify at least 2 different strategies to support edema management. 3. Patient will present with improved ability to engage in meaningful activities with incorporation of the left hand ; this will be evidenced by patient obtaining a score of 25.0 or less on QuickDASH UE Outcome Measure. Assessment/Plan Treatment Assessment Patient is a 60 year-old right hand dominant male referred to outpatient OT secondary to left thumb ligament reconstruction with tendon interposition surgery. Surgery was performed on 12/03/20 by Dexter Kessler MD. Prescription was as follows: OT to evaluate and treat. HEP. Range of motion. Restrictions : No strengthening. Patient arrived with custom brace. Pain Assessment Grid completed with indication of 6-7 out of 10 on the pain scale relative to volar radial surface of left hand and wrist and 6-8 out of 10 on the pain scale relative to dostal radial surface of the left hand and wrist. QuickDASH UE Outcome Measure Score = 59.1; QuickDASH UE Work Module Score = 68.8. Range of motion: 0- 43 degrees active left wrist extension; 0-40 degrees active left wrist flexion; 0-10 degrees active left wrist [address]; 0-30 degrees active left wrist UD. 0-20 degrees active left thumb flex and MCPJ (gentle range of motion); CMC active left thumb abduction 0-30 ( gentle range of motion); active left thumb IPJ flexion 0-45 degrees. Patient would likely benefit from outpatient OT following surgeon's orders /recommendations to support patient's ability to return to active engagement in meaningful activities with active incorporation of the left hand. Comment 8 weeks Comment 1-2 times per week Therapeutic Contents Active Range of Motion,Client Education,Cognitive Skills Development,Functional Activities,Home Exercise Program,Joint Protection, Manual Therapy,Education, Neurodevelopment Treatment, Neuromuscular Re-Education, Self-Care,Therapeutic Activities,Therapeutic Exercises,Modalities,Sensory Re-education Modalities As Needed,As Prescribed Additional Types of Modalities Heat/Ice/Paraffin/Contrast Baths/Ultrasound
--- NOTE | 2020-12-28 15:30 | OT.OP.TRT ---
Visit Care Team Role Provider Type Dexter Kessler MD Referring Provider Physician Specialty: Orthopedic Surgery Address: [address] [place] [address], [id number] Email: [email or web address] Family Provider Physician Primary Care Provider Specialty: Internal Medicine Address: [address] [place] [address], [facility] [address], [address] Email: [email or web address] Maris Man MD Attending Provider Physician Specialty: Orthopedic Surgery Address: [address] [place] [address], [id number] Email: @[employer] Occupational Therapy Treatment Note OT Outpatient Treatment Note - Adult Start: 12/23/20 15:51 Freq: Status: Active Protocol: Document 12/28/20 15:30 AMS (Rec: 12/29/20 11:37 AMS [id number]) OT Outpatient Adult Treatment Note Session Time Visit Start Time 08:30 Visit Stop Time 09:00 Total Visit Minutes 30 Visit Information Plan of Care Dates 12/23/20 - 02/17/21 Insurance Information [facility]; no visit limits Setting Treatment Setting Outpatient Care Visit Type Note Type Treatment Note General Information General Information Patient is a 60 year-old right hand dominant male referred to outpatient OT secondary to left thumb ligament reconstruction with tendon interposition surgery. Surgery was performed on 12/03/20 by Dexter Kessler MD. Prescription was as follows: OT to evaluate and treat. HEP. Range of motion. Restrictions : No strengthening. - Subjective Identification Type Name Identification Reconciled With Medical Record Observations I started wearing the brace again at night. It hurts in the mornings per Serafin. I have already returned to work . Patient/Caregiver Compliance with Home Excellent Exercise Program - Objective Objective Measurements Please refer to below for progress towards meeting established OT goals. 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 Patient will be modified independent with execution of home exercise program utilizing provided written and visual instructions from therapist. 2. Patient will be able to verbally identify at least 2 different strategies to support edema management. 3. Patient will present with improved ability to engage in meaningful activities with incorporation of the left hand ; this will be evidenced by patient obtaining a score of 25.0 or less on QuickDASH UE Outcome Measure. - Treatment 1 Descriptor Ultrasound. x 8 minutes to dorsum of left radial surface; x 8 minutes to volar radial surface of the left hand for swelling management. Skin intact pre- and post- treatment. Exercises 1 Descriptor HEP reviewed home exercise recommendations. Reviewed swelling management techniques including elevation, gentle massage, and use of cold compress. Reviewed gentle range of motion exercises for the thumb (joint blocking flex /ext), opposition, palmar abduction, as well as gross finger abduction, hook fist and full fist, and wrist range of motion in all directions. Recommended 3-5 hold as able/ tolerated (within gentle range of motion). Discussed elevation of UE at work and consideration of cold compress if able to so in office. - Assessment Assessment of Improvement (+) compliance with home exercise program. (+) wearing of night splint at this time. Stiffness/discomfort primarily in mornings. Focus of treatment on edema management, gentle range of motion, positioning. Advanced as able/ per protocol/per surgeon recommendations. - Plan Therapy Recommendations Continue with Current Program, Advance per Rehabilitation Protocol
--- NOTE | 2021-01-06 08:57 | OT.OP.TRT ---
Visit Care Team Role Provider Type Dexter Kessler MD Referring Provider Physician Specialty: Orthopedic Surgery Address: [address] [place] [address], [id number] Email: [email or web address] Maciej Garrett MD Family Provider Physician Primary Care Provider Specialty: Internal Medicine Address: [address] [place] [address], [facility] [address], [place], [address] Email: [email or web address] Maris Man MD Attending Provider Physician Specialty: Orthopedic Surgery Address: [address] [place] [address], [id number] Email: [email or web address] Occupational Therapy Treatment Note OT Outpatient Treatment Note - Adult Start: 12/23/20 15:51 Freq: Status: Active Protocol: Document 01/06/21 08:52 AMS (Rec: 01/06/21 08:57 AMS [id number]) OT Outpatient Adult Treatment Note Session Time Visit Start Time 07:30 Visit Stop Time 08:05 Total Visit Minutes 35 Visit Information Plan of Care Dates 12/23/20 - 02/17/21 Insurance Information [facility]; no visit limits Setting Treatment Setting Outpatient Care Visit Type Note Type Treatment Note General Information General Information Patient is a 60 year-old right hand dominant male referred to outpatient OT secondary to left thumb ligament reconstruction with tendon interposition surgery. Surgery was performed on 12/03/20 by Dexter Kessler MD. Prescription was as follows: OT to evaluate and treat. HEP. Range of motion. Restrictions : No strengthening. - Subjective Identification Type Name Identification Reconciled With Medical Record Observations I have been wearing the soft brace at night per Serafin. Ever since Thanksgiving this brace has been really tight around the thumb. Patient/Caregiver Compliance with Home Excellent Exercise Program - Objective Objective Measurements Please refer to below for progress towards meeting established OT goals. Alf Goals 1. Patient will be modified independent with execution of home exercise program utilizing provided written and visual instructions from therapist. 2. Patient will be able to verbally identify at least 2 different strategies to support edema management. 3. Patient will present with improved ability to engage in meaningful activities with incorporation of the left hand ; this will be evidenced by patient obtaining a score of 25.0 or less on QuickDASH UE Outcome Measure. - Treatment 1 Descriptor Ultrasound. x 8 minutes to dorsum of left radial surface; x 8 minutes to volar radial surface of the left hand for swelling management. Skin intact pre- and post- treatment. Exercises 1 Descriptor HEP reviewed home exercise recommendations. Reviewed swelling management techniques including elevation, gentle massage, and use of cold compress. Completed kinesiotaping to volar surface of radial side of hand w/ proximal anchor for swelling. Instructed to remove kinesiotape if redness/itching occurs from tape. Provided adhesive tape remover pads. - Assessment Assessment of Improvement (+) compliance with home exercise program. (+) wearing of soft splint at night d/t reported increased swelling since Thanksgiving. Trialed kinesiotape to volar surface of hand/digits/wrist to assist with swelling management. Taking [id number] pain medication. Began scar tissue management education; instructed in light massage. Advance as able/per protocol/ per surgeon recommendations. - Plan Therapy Recommendations Continue with Current Program, Advance per Rehabilitation Protocol
--- NOTE | 2021-01-11 15:30 | OT.OP.TRT ---
Visit Care Team Role Provider Type Dexter Kessler MD Referring Provider Physician Specialty: Orthopedic Surgery Address: [address] [place] [address], [address] Email: [email or web address] Maciej Garrett MD Family Provider Physician Primary Care Provider Specialty: Internal Medicine Address: [address] [place] [address], [facility] [address], [place], [address] Email: [email or web address] Maris Man MD Attending Provider Physician Specialty: Orthopedic Surgery Address: [address] [place] [address], [address] Email: @[email or web address] Occupational Therapy Treatment Note OT Outpatient Treatment Note - Adult Start: 12/23/20 15:51 Freq: Status: Active Protocol: Document 01/11/21 15:55 AMS (Rec: 01/11/21 15:56 AMS [id number]) OT Outpatient Adult Treatment Note Session Time Visit Start Time 07:35 Visit Stop Time 08:05 Total Visit Minutes 30 Visit Information Plan of Care Dates 12/23/20 - 02/17/21 Insurance Information [facility]; no visit limits Setting Treatment Setting Outpatient Care Visit Type Note Type Treatment Note General Information General Information Patient is a 60 year-old right hand dominant male referred to outpatient OT secondary to left thumb ligament reconstruction with tendon interposition surgery. Surgery was performed on 12/03/20 by Dexter Kessler MD. Prescription was as follows: OT to evaluate and treat. HEP. Range of motion. Restrictions : No strengthening. - Subjective Identification Type Name Identification Reconciled With Medical Record Observations The kinesiotape helped. I have an appointment with Dr. Kessler at 9:00 a.m. this morning per Serafin. Patient/Caregiver Compliance with Home Excellent Exercise Program - Objective Objective Measurements Please refer to below for progress towards meeting established OT goals. 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 Patient will be modified independent with execution of home exercise program utilizing provided written and visual instructions from therapist. 2. Patient will be able to verbally identify at least 2 different strategies to support edema management. 3. Patient will present with improved ability to engage in meaningful activities with incorporation of the left hand ; this will be evidenced by patient obtaining a score of 25.0 or less on QuickDASH UE Outcome Measure. - Treatment 1 Descriptor Ultrasound. x 8 minutes to dorsum of left radial surface; x 8 minutes to volar radial surface of the left hand for swelling management. Skin intact pre- and post- treatment. Exercises 1 Descriptor HEP reviewed home exercise recommendations. Reviewed swelling management techniques including elevation, gentle massage, and use of cold compress. Recommended contacting outpatient clinic front end ui developer staff to schedule additional appointments per recommendations of surgeon. - Assessment Assessment of Improvement (+) compliance with home exercise program. (+) response to kinesiotape to assist w/ swelling management. Patient to see surgeon this a.m. Advance as able/per protocol/ per surgeon recommendations. - Plan Additional Therapy Recommendations Advance per surgeon recommendations
--- NOTE | 2021-01-21 15:30 | OT.OP.TRT ---
Visit Care Team Role Provider Type Dexter Kessler MD Referring Provider Physician Specialty: Orthopedic Surgery Address: [address] [place] [address], [phone] Email: [email or web address] Maciej Garrett MD Family Provider Physician Primary Care Provider Specialty: Internal Medicine Address: [address] [place] [address], [facility] [address], [address] Email: [email or web address] Maris Man MD Attending Provider Physician Specialty: Orthopedic Surgery Address: [address] [place] [address], [address] Email: @[employer] Occupational Therapy Treatment Note OT Outpatient Treatment Note - Adult Start: 12/23/20 15:51 Freq: Status: Active Protocol: Document 01/21/21 14:44 AMS (Rec: 01/21/21 14:45 AMS [id number]) OT Outpatient Adult Treatment Note Visit Information Plan of Care Dates 12/23/20 - 02/17/21 Insurance Information [employer] [place]; no visit limits Setting Treatment Setting Outpatient Care Visit Type Note Type Treatment Note General Information General Information Patient is a 60 year-old right hand dominant male referred to outpatient OT secondary to left thumb ligament reconstruction with tendon interposition surgery. Surgery was performed on 12/03/20 by Dexter Kessler MD. Prescription was as follows: OT to evaluate and treat. HEP. Range of motion. Restrictions : No strengthening. - Subjective Identification Type Name Identification Reconciled With Medical Record Observations I think that the kinesiotape helped per Serafin. Patient/Caregiver Compliance with Home Excellent Exercise Program - Objective Objective Measurements Please refer to below for progress towards meeting established OT goals. 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 Patient will be modified independent with execution of home exercise program utilizing provided written and visual instructions from therapist. 2. Patient will present with improved ability to engage in meaningful activities with incorporation of the left hand ; this will be evidenced by patient obtaining a score of 25.0 or less on QuickDASH UE Outcome Measure. GOALS MET Able to verbally identify at least 2 different strategies to support edema management. * MET 01/22/21 - Treatment 1 Descriptor Ultrasound. x 8 minutes to dorsum of left radial surface for swelling management. Skin intact pre- and post- treatment. Exercises 1 Descriptor HEP. Reviewed home exercise recommendations, including new exercise Dr. Kessler recommended (thumb stretch hold for 60 seconds). Recommended isometric opposition hold for 5 to 8 seconds and light pinching (e. g., sponge). Also recommended thumb slides with specific focus on touching base of ring finger of the left hand. Reviewed splint wearing schedule - recommended wearing of splint at night time and when completing medium/heavy daily tasks. - Assessment Assessment of Improvement (+) compliance with home exercise program. (+) response to kinesiotape to assist w/ swelling management. Applied kinesiotape once again on this date. Upgraded home exercise program. Able to oppose thumb to left 4th digit. - Plan Therapy Recommendations Continue with Current Program, Advance per Rehabilitation Protocol Additional Therapy Recommendations Advance per surgeon recommendations
--- NOTE | 2021-01-27 15:30 | OT.OP.TRT ---
Visit Care Team Role Provider Type Dexter Kessler MD Referring Provider Physician Specialty: Orthopedic Surgery Address: [address] [place] [address], [address] Email: [email or web address] Maciej Garrett MD Family Provider Physician Primary Care Provider Specialty: Internal Medicine Address: [address] [place] [address], [address], [address] Email: [email or web address] Maris Man MD Attending Provider Physician Specialty: Orthopedic Surgery Address: [address] [place] [address], [address] Email: [email or web address] Occupational Therapy Treatment Note OT Outpatient Treatment Note - Adult Start: 12/23/20 15:51 Freq: Status: Active Protocol: Document 01/27/21 15:30 AMS (Rec: 01/28/21 12:04 AMS [id number]) OT Outpatient Adult Treatment Note Session Time Visit Start Time 07:35 Visit Stop Time 08:05 Total Visit Minutes 30 Visit Information Plan of Care Dates 12/23/20 - 02/17/21 Insurance Information [facility]; no visit limits Setting Treatment Setting Outpatient Care Visit Type Note Type Treatment Note General Information General Information Patient is a 60 year-old right hand dominant male referred to outpatient OT secondary to left thumb ligament reconstruction with tendon interposition surgery. Surgery was performed on 12/03/20 by Dexter Kessler MD. Prescription was as follows: OT to evaluate and treat. HEP. Range of motion. Restrictions : No strengthening. - Subjective Identification Type Name Identification Reconciled With Medical Record Observations I am able to do a lot more in the evening. It the morning the thumb is a lot stiffer per Serafin. Patient/Caregiver Compliance with Home Excellent Exercise Program - Objective Objective Measurements Please refer to below for progress towards meeting established OT goals. 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 Patient will be modified independent with execution of home exercise program utilizing provided written and visual instructions from therapist. 2. Patient will present with improved ability to engage in meaningful activities with incorporation of the left hand ; this will be evidenced by patient obtaining a score of 25.0 or less on QuickDASH UE Outcome Measure. GOALS MET Able to verbally identify at least 2 different strategies to support edema management. * MET 01/22/21 - Treatment 1 Descriptor Ultrasound. x 8 minutes to dorsum of left radial surface for swelling management. Skin intact pre- and post- treatment. Exercises 1 Descriptor HEP. Reviewed home exercise program. Provided clothespin for home use for slight increase in resistance with pinching activities (versus sponge); recommended completing as able to coordinate with opposition to each digit pad. Discussed focus on thumb abd to discourage tightening in of thumb add/maintaining web space. Serafin denied any questions. - Assessment Assessment of Improvement (+) compliance with home exercise program. Upgraded home exercise program. Able to oppose thumb to left 5th digit (in the evening). Overall, making progress. - Plan Therapy Recommendations Continue with Current Program, Advance per Rehabilitation Protocol Additional Therapy Recommendations Advance per surgeon recommendations
--- NOTE | 2021-02-03 08:57 | OT.OP.TRT ---
Visit Care Team Role Provider Type Dexter Kessler MD Referring Provider Physician Specialty: Orthopedic Surgery Address: [address] [place] [address], [address] Email: [email or web address] Maciej Garrett MD Family Provider Physician Primary Care Provider Specialty: Internal Medicine Address: [address] [place] [address], [address], [address] Email: [email or web address] Maris Man MD Attending Provider Physician Specialty: Orthopedic Surgery Address: [address] [place] [address], [id number] Email: [email or web address] Occupational Therapy Treatment Note OT Outpatient Treatment Note - Adult Start: 12/23/20 15:51 Freq: Status: Active Protocol: Document 02/03/21 08:53 AMS (Rec: 02/03/21 08:57 AMS [id number]) OT Outpatient Adult Treatment Note Session Time Visit Start Time 07:40 Visit Stop Time 08:00 Total Visit Minutes 20 Visit Information Plan of Care Dates 12/23/20 - 02/17/21 Insurance Information [facility]; no visit limits Setting Treatment Setting Outpatient Care Visit Type Note Type Treatment Note General Information General Information Patient is a 60 year-old right hand dominant male referred to outpatient OT secondary to left thumb ligament reconstruction with tendon interposition surgery. Surgery was performed on 12/03/20 by Dexter Kessler MD. Prescription was as follows: OT to evaluate and treat. HEP. Range of motion. Restrictions : No strengthening. - Subjective Identification Type Name Identification Reconciled With Medical Record Observations No new complaints. Patient/Caregiver Compliance with Home Excellent Exercise Program - Objective Objective Measurements Please refer to below for progress towards meeting established OT goals. 01/27/21 = report of ability to oppose thumb to 5th digit pad Halfway Goals 1. Patient will be modified independent with execution of home exercise program utilizing provided written and visual instructions from therapist. 2. Patient will present with improved ability to engage in meaningful activities with incorporation of the left hand ; this will be evidenced by patient obtaining a score of 25.0 or less on QuickDASH UE Outcome Measure. GOALS MET Able to verbally identify at least 2 different strategies to support edema management. * MET 01/22/21 - Treatment 1 Descriptor Ultrasound. x 8 minutes to dorsum of left radial surface for swelling management. Skin intact pre- and post- treatment. Exercises 1 Descriptor HEP. Reviewed home exercise program. Provided medium soft, red, theraputty for home use for slight increase in resistance with pinching activities. Instructed in various pinching exercises to execute with theraputty; recommended some resistance w/ palmar radial thumb abduction , extension, thumb abduction with palm on flat surface w/ avoidance of resistance w/ thumb adduction. Discussed care and storage of theraputty . Serafin denied any questions. - Assessment Assessment of Improvement (+) compliance with home exercise program. Upgraded home exercise program. Able to oppose thumb to left 5th digit in the morning; unable to touch base of 5th digit ( slide). Overall, making progress. - Plan Therapy Recommendations Continue with Current Program, Advance per Rehabilitation Protocol Additional Therapy Recommendations Advance per surgeon recommendations
--- NOTE | 2021-02-10 11:01 | OT.OP.TRT ---
Visit Care Team Role Provider Type Dexter Kessler MD Referring Provider Physician Specialty: Orthopedic Surgery Address: [address] [place] [address], [id number] Email: [email or web address] [email or web address] Garrett MD Family Provider Physician Primary Care Provider Specialty: Internal Medicine Address: [address] [place] [address], [address], [address] Email: [email or web address] Maris Man MD Attending Provider Physician Specialty: Orthopedic Surgery Address: [address] [place] [address], [id number] Email: @[email or web address] Occupational Therapy Treatment Note OT Outpatient Treatment Note - Adult Start: 12/23/20 15:51 Freq: Status: Active Protocol: Document 02/10/21 10:52 AMS (Rec: 02/10/21 11:01 [facility] [id number]) OT Outpatient Adult Treatment Note Session Time Visit Start Time 07:35 Visit Stop Time 08:02 Total Visit Minutes 27 Visit Information Plan of Care Dates 12/23/20 - 02/17/21 Insurance Information [facility]; no visit limits Setting Treatment Setting Outpatient Care Visit Type Note Type Treatment Note General Information General Information Patient is a 60 year-old right hand dominant male referred to outpatient OT secondary to left thumb ligament reconstruction with tendon interposition surgery. Surgery was performed on 12/03/20 by Dexter Kessler MD. Prescription was as follows: OT to evaluate and treat. HEP. Range of motion. Restrictions : No strengthening. - Subjective Identification Type Name Identification Reconciled With Medical Record Observations I am now able to manage the steering wheel with this hand (and actually turn it). I also am able to type using the thumb/left hand and do simple meal prep per Serafin. Patient/Caregiver Compliance with Home Excellent Exercise Program - Objective Objective Measurements Please refer to below for progress towards meeting established OT goals. 01/27/21 = report of ability to oppose thumb to 5th digit pad Skilled Nursing Goals 1. Patient will be modified independent with execution of home exercise program utilizing provided written and visual instructions from therapist. 2. Patient will present with improved ability to engage in meaningful activities with incorporation of the left hand ; this will be evidenced by patient obtaining a score of 25.0 or less on QuickDASH UE Outcome Measure. GOALS MET Able to verbally identify at least 2 different strategies to support edema management. * MET 01/22/21 - Treatment 4 Descriptor Scar tissue massage completed by therapist. Site of incision has healed. Multidirectional scar tissue massage completed. 1 Descriptor Ultrasound. x 8 minutes to dorsum of left radial surface for swelling management. Skin intact pre- and post- treatment. Exercises 3 Descriptor Weight bearing in preparation for functional movements/ transitional movements. Weight bearing TT. Forward/ backwards gentle rocking. 2x10 . 1 Descriptor HEP. Reviewed home exercise program. Provided medium firm, green, theraputty for home use for slight increase in resistance with pinching activities. Reviewed pinching/ strengthening exercises to execute with theraputty. Serafin is aware of proper care and storage of theraputty. Recommended working on functional weight bearing in forwards <-> backwards rocking motion at TT to support functional/transitional movements. Recommended working on stabilizing with the left hand, as well as opening screw top food items (peanut butter jar). 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 Provided TB #2 as another option for working on application programmer analyst/pulling. Recommended continued scar tissue massage. Serafin denied any questions. - Assessment Assessment of Improvement (+) compliance with home exercise program. Upgraded home exercise program. Able to oppose thumb to left 5th digit in the morning; able to execute thumb slide to PIPJ of 5th digit. Improving functional abilities of the left hand with active incorporation of the thumb. Overall, making progress. - Plan Therapy Recommendations Continue with Current Program, Advance per Rehabilitation Protocol Additional Therapy Recommendations Advance per surgeon recommendations
--- NOTE | 2021-02-17 15:30 | OT.OPPN ---
Current Diagnoses Unilateral primary osteoarthritis of first carpometacarpal joint, left hand (02/17/21) OT Progress Note OT Outpatient Treatment Note - Adult Start: 12/23/20 15:51 Freq: Status: Active Protocol: Document 02/17/21 15:30 AMS (Rec: 02/18/21 09:05 AMS [id number]) OT Outpatient Adult Treatment Note Session Time Visit Start Time 07:30 Visit Stop Time 08:02 Total Visit Minutes 32 Visit Information Plan of Care Dates 02/17/21 - 03/17/21 Insurance Information [employer] [place]; no visit limits Setting Treatment Setting Outpatient Care Visit Type Note Type Progress Note General Information General Information Patient is a 60 year-old right hand dominant male referred to outpatient OT secondary to left thumb ligament reconstruction with tendon interposition surgery. Surgery was performed on 12/03/20 by Dexter Kessler MD. Prescription was as follows: OT to evaluate and treat. HEP. Range of motion. Restrictions : No strengthening. - Subjective Identification Type Name Identification Reconciled With Medical Record Observations I see Dr. Kessler the of this month. Ever since I started using this hand, I have been using it more and more. I still am not able to pick-up a gallon of milk with this hand. There are also still twinges when trying to twist jar lid or stabilize the jar in the hand per Don. Patient/Caregiver Compliance with Home Excellent Exercise Program - Objective Objective Measurements Please refer to below for progress towards meeting established OT goals. 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 Patient will be modified independent with execution of home exercise program utilizing provided written and visual instructions from therapist. 2. Patient will present with improved functional abilities of the left hand. 2a. Patient will be able to manage gallon of milk with the left hand with meal preparation and/or management of grocery shopping items/ refrigerator. GOALS MET Able to verbally identify at least 2 different strategies to support edema management. * MET 01/22/21 Presenting w/ improved ability to engage in meaningful activities w/ incorporation of L hand; pt obtained a score of 25.0 or less on QuickDASH UE Outcome Measure. *MET = 22.73 - Treatment 4 Descriptor Scar tissue massage completed by therapist. Site of incision has healed. Multidirectional scar tissue massage completed. Exercises 3 Descriptor Weight bearing in preparation for functional movements/ transitional movements. Weight bearing TT. Forward/ backwards gentle rocking. 2x10 . 1 Descriptor HEP. Reviewed home exercise program, including thumb stretch. Recommend passive thumb tuck stretch combined with ulnar deviation. Serafin denied any questions. - Assessment Assessment of Improvement Serafin has made good progress since time of initial evaluation. Patient's pain has reduced from approx 6 to 8 out of 10 on the pain scale to 2 out of 10 on the pain scale . His QuickDASH Disability/ Symptom Score has also decreased from 59.1 to 22.73 and his QuickDASH Work Module Score has decreased from 68.8 to 18.75. Scores indicate improved ability to engage in meaningful activities in the home and work environments; this type of progress is also evidenced by patient report. Serafin reports ability to drive with active incorporation of left hand on steering wheel and complete most meal preparation/grocery shopping tasks (e.g., managing zip lock bags). Serafin reports primarily struggling with gallon of milk and opening/stabilizing jars with the left hand. Serafin has carried over recommendations and has demonstrated improved range of motion of the thumb w / reduction of swelling. Serafin reports that he will be following up with surgeon the 25 of February. Additional visits are recommended based on patient feedback and some difficulties still presenting in his day-to-day life. - Plan Therapy Recommendations Continue with Current Program, Advance per Rehabilitation Protocol Additional Therapy Recommendations Advance per surgeon recommendations Comment 4 weeks Comment 1-2 times per week Therapeutic Contents Active Range of Motion, Adaptive Equipment Education, Client Education,Cognitive Skills Development,Functional Activities,Home Exercise Program,Joint Protection, Manual Therapy,Education, Neurodevelopment Treatment, Neuromuscular Re-Education, Self-Care,Stretching/ Flexibility Activities, Therapeutic Activities, Therapeutic Exercises, Modalities Modalities As Needed,As Prescribed Additional Types of Modalities Ultrasound/Paraffin/Heat/Cold Please Sign and Return: I have reviewed this Plan of Care and certify that the skilled therapy services above are required to meet the patient?s needs. Physician Signature Date Printed Name and Credentials Clinical Instructor Signature Printed Name and Credentials
--- NOTE | 2021-03-18 08:40 | OT.OP.DC ---
Visit Care Team Role Provider Type Dexter Kessler MD Referring Provider Physician Address: [address] [place] [address], [id number] Email: [email or web address] Maciej Garrett MD Family Provider Physician Primary Care Provider Address: [address] [place] [address], [facility] [address], [place], [address] Email: [email or web address] Maris Man MD Attending Provider Physician Address: [address] [place] [address], [id number] Email: [email or web address] OT Outpatient OT Outpatient Adult Evaluation Start: 12/23/20 15:51 Freq: Status: Active Protocol: Document 12/23/20 15:52 AMS (Rec: 12/23/20 16:00 AMS [id number]) General Information Session Time Visit Start Time 08:30 Visit Stop Time 09:00 Total Visit Minutes 30 Visit Information Plan of Care Dates 12/23/20 - 02/17/21 Insurance Information [employer] [place]; no visit limits Setting Treatment Setting Outpatient Care Goals 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 Patient will be modified independent with execution of home exercise program utilizing provided written and visual instructions from therapist. 2. Patient will be able to verbally identify at least 2 different strategies to support edema management. 3. Patient will present with improved ability to engage in meaningful activities with incorporation of the left hand ; this will be evidenced by patient obtaining a score of 25.0 or less on QuickDASH UE Outcome Measure. Assessment/Plan Assessment Treatment Assessment Patient is a 60 year-old right hand dominant male referred to outpatient OT secondary to left thumb ligament reconstruction with tendon interposition surgery. Surgery was performed on 12/03/20 by Dexter Kessler MD. Prescription was as follows: OT to evaluate and treat. HEP. Range of motion. Restrictions : No strengthening. Patient arrived with custom brace. Pain Assessment Grid completed with indication of 6-7 out of 10 on the pain scale relative to volar radial surface of left hand and wrist and 6-8 out of 10 on the pain scale relative to dostal radial surface of the left hand and wrist. QuickDASH UE Outcome Measure Score = 59.1; QuickDASH UE Work Module Score = 68.8. Range of motion: 0- 43 degrees active left wrist extension; 0-40 degrees active left wrist flexion; 0-10 [address] active left wrist [address]; 0-30 degrees active left wrist UD. 0-20 degrees active left thumb flex and MCPJ (gentle range of motion); CMC active left thumb abduction 0-30 ( gentle range of motion); active left thumb IPJ flexion 0-45 degrees. Patient would likely benefit from outpatient OT following surgeon's orders /recommendations to support patient's ability to return to active engagement in meaningful activities with active incorporation of the left hand. Plan Comment 8 weeks Comment 1-2 times per week Therapeutic Contents Active Range of Motion,Client Education,Cognitive Skills Development,Functional Activities,Home Exercise Program,Joint Protection, Manual Therapy,Education, Neurodevelopment Treatment, Neuromuscular Re-Education, Self-Care,Therapeutic Activities,Therapeutic Exercises,Modalities,Sensory Re-education Modalities As Needed,As Prescribed Additional Types of Modalities Heat/Ice/Paraffin/Contrast Baths/Ultrasound Sensory Assessment Sensory Profile2 Functional Wrist/Hand Scan Hand Side OT Outpatient Treatment Note - Adult Start: 12/23/20 15:51 Freq: Status: Active Protocol: Document 03/18/21 08:34 [facility] (Rec: 03/18/21 08:39 [facility] [id number]) OT Outpatient Adult Treatment Note Visit Information Plan of Care Dates 02/17/21 - 03/17/21 Insurance Information [place]; no visit limits Setting Treatment Setting Outpatient Care Visit Type Note Type Discharge Summary - Subjective Identification Type Name Identification Reconciled With Medical Record Observations John had follow-up appointment with Dr. Kessler at the end of February (per documentation, Feb 25). Given that last appointment was cancelled, POC 03/17/21, John had follow-up w/ surgeon, and he has not been seen in the outpatient setting since , it is recommended that he be d/c from outpatient OT at this time. 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 * MET 01/22/21 Presenting w/ improved ability to engage in meaningful activities w/ incorporation of L hand; obtained score of 25. 0 or less on QuickDASH UE Outcome Measure. *MET 02/17/21 = 22.73 Patient will be modified independent with execution of home exercise program utilizing provided written and visual instructions from therapist. *mod independent w/ HEP established at time of last treatment session 02/17/21 GOALS D/C Able to manage gallon of milk with the left hand with meal preparation and/or management of grocery shopping items/ refrigerator. D/C 03/18; no follow-up appt to determine abilities - - Assessment Assessment of Improvement John had follow-up appointment with Dr. Kessler at the end of February (per documentation, Feb 25). Given that last appointment was cancelled, POC 03/17/21, John had follow-up w/ surgeon, and he has not been seen in the outpatient setting since , it is recommended that he be d/c from outpatient OT at this time. - Plan Therapy Recommendations Discharge from Occupational Therapy
== END 2021-03-19 08:50 ==
LOC: OT 08:30
PROVIDERS: Family Provider Student in an Organized Health Care Education/Training Program; PCP Student in an Organized Health Care Education/Training Program; Referring Provider Orthopaedic Surgery; Visit Provider Orthopaedic Surgery
DX: M18.12 Unilateral primary osteoarthritis of first carpometacarpal joint, left hand (principal)
CPT/HCPCS: 97035; 97110; 97140; 97165; 97530

== ENCOUNTER → 2021-03-15 11:57 | Outpatient (CLI) | payer BC, SELFPAY ==
[2021-03-15 13:49] LABS: COVID19 -Nasal RAPID Negative (Negative)
== END ==
PROVIDERS: Family Provider Student in an Organized Health Care Education/Training Program; PCP Student in an Organized Health Care Education/Training Program; Visit Provider Family Medicine Sleep Medicine
DX: Z20.822 Contact with and (suspected) exposure to COVID-19 (principal)
CPT/HCPCS: 87635; C9803

== ENCOUNTER → 2021-03-16 09:49 | Outpatient (CLI) | payer BC, SELFPAY ==
--- NOTE | 2021-03-16 | DI.NM.S_ITS ---
PROCEDURE: NM JOHN PERF SPECT R&S PHARM Rest and pharmacological stress myocardial perfusion SPECT with gated imaging and ejection fraction RADIOPHARMACEUTICAL: 13.1 mCi Tc-99m tetrafosmin IV at rest and 24.7 mCi Tc-99m tetrafosmin IV at peak effect of pharmacological stress. Khl-kln-rizajhna was performed. INDICATIONS: Precordial pain TECHNIQUE: Radiopharmaceutical was injected at peak stress test, and also at rest. SPECT images were obtained. SPECT myocardial perfusion images were displayed in short axis, horizontal long axis, and vertical long axis views. Gated images were reviewed using ETC Education software. COMPARISON: None. CARDIAC STRESS: A pharmacologic stress test was performed under the supervision of an attending staff, using an infusion of lexiscan 0.4mg IV X1. Hemodynamic data: There is normal blood pressure and heart rate response to pharmacologic stress. Symptoms: The patient denied anginal chest pain. Aminophylline: none EKG: No diagnostic changes of ischemia; no ectopy. FINDINGS: Raw data: There is good myocardial uptake of radiotracer. No significant motion artifacts. Onfu-sl-wcier ratio is 0.37 (normal is less than 0.38 for tetrafosmin tracer). Left ventricle function: Gated images demonstrate normal left ventricular wall thickening. No segmental wall motion abnormalities. No transient ischemic dilation; TID is 1.15 (normal less than 1.3). Left ventricle resting end diastolic volume is 122 mL. Left ventricle stress ejection fraction is 75%; normal range is above 45%. Myocardial perfusion: There is mildly intense fixed apical and inferior wall defect that mostly resolves with prone imaging, suggesting artifact but small non-transmural infarct can't be definitively excluded. No ischemia. IMPRESSION: Low risk, probably normal pharmaceutical nuclear stress test 1) There is mildly intense fixed apical and inferior wall defect that mostly resolves with prone imaging, suggesting artifact but small non-transmural infarct can't be definitively excluded. No ischemia. 2) Normal left ventricular size, wall motion, and systolic function (EF post stress 75%). 3) No ECG evidence of ischemia. 4) No angina during the study. 5) Compared to the nuclear stress test done 04/10/2017, no significant change. Dictated by: Ruben Whittington MD on 03/16/2021 at 16:39 Approved by: Ruben Whittington MD on 03/16/2021 at 16:42
== END ==
PROVIDERS: Family Provider Student in an Organized Health Care Education/Training Program; PCP Student in an Organized Health Care Education/Training Program; Referring Provider Internal Medicine; Visit Provider Internal Medicine
DX: R07.2 Precordial pain (principal)
CPT/HCPCS: 78452; 93016; 93017; 93018; A9502

== ENCOUNTER → 2021-07-13 07:09 | Outpatient (CLI) | payer BC, SELFPAY ==
[2021-07-13 08:11] LABS: Add Manual Diff / Slide Review NO; Basophils Absolute Auto 0 /uL (0-100); Basophils Percent Auto 0.6 % (0-2); Eosinophils Absolute Auto 100 /uL (0-450); Eosinophils Percent Auto 1.8 % (2-4); Hematocrit 44.2 % (41-53); Hemoglobin 15.4 g/dL (13.5-17.5); Lymphocytes Absolute Auto 1400 /uL (1100-4500); Lymphocytes Percent Auto 31.8 % (25-40); Mean Corpuscular HGB Conc 34.9 % (30-36); Mean Corpuscular Hemoglobin 32.8 PG (26-34); Mean Corpuscular Volume 94.1 fL (80-100); Monocytes Absolute Auto 500 /uL (0-900); Monocytes Percent Auto 10.9 % (3-14); Neutrophils Absolute Auto 2500 /uL (1500-7000); Neutrophils Percent Auto 54.9 % (50-75); Platelet Count 185 X10^3/uL (150-400); Red Cell Distribution Width 13.6 % (11.6-14.8); White Blood Cell Count 4.5 X10^3/uL (4.5-11.0)
[2021-07-13 09:00] LABS: BUN Creatinine Ratio 17.9 (6-22); Blood Urea Nitrogen 17 mg/dL (9-20); Carbon Dioxide 23 mmol/L (22-32); Chloride 104 mmol/L (98-107); Cholesterol 152 mg/dL (140-199); Estimated Glomerular Filt Rate > 60 mL/min (>60); Glucose 192 mg/dL (80-110); HDL Cholesterol 41 mg/dL (40-60); HEMOLYSIS < 15 (0-50); LDL Cholesterol Calculated 54 mg/dL (<100); Potassium 4.7 mmol/L (3.4-5.1); Sodium 140 mmol/L (137-145); Triglycerides 283 mg/dL (35-150)
[2021-07-13 09:25] LABS: Prostate Specific Antigen Scrn 0.334 ng/mL (0.1-4.0)
== END ==
PROVIDERS: Family Provider Student in an Organized Health Care Education/Training Program; PCP Student in an Organized Health Care Education/Training Program; Referring Provider Internal Medicine Cardiovascular Disease; Visit Provider Internal Medicine Cardiovascular Disease
DX: I25.10 Atherosclerotic heart disease of native coronary artery without angina pectoris (principal); E78.5 Hyperlipidemia, unspecified; E11.9 Type 2 diabetes mellitus without complications; Z12.5 Encounter for screening for malignant neoplasm of prostate
CPT/HCPCS: 36415; 80048; 80061; 83036; 85025; G0103

== ENCOUNTER 2021-08-06 04:21 | Emergency (ER) | payer BC, SELFPAY ==
[2021-08-06] VITALS (8 sets, daily range): BP systolic 116–152; BP diastolic 68–83; PULSE 59–67; RESP 15–59; TEMP 37.1; O2SAT 96–98; BMI 32.5
--- NOTE | 2021-08-06 04:30 | DI.RAD.S_ITS ---
PROCEDURE: XR CHEST 1V INDICATIONS: chest pain TECHNIQUE: One view of the chest was acquired. COMPARISON: [facility], CR, XR CHEST 1V, 01/29/2021, 11:37. 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 Lungs and pleura: Lungs are clear. No pleural effusions or pneumothorax. Mediastinum: Mediastinal contours appear normal. Heart size is normal. Bones and chest wall: No suspicious bony lesions. Overlying soft tissues appear unremarkable. IMPRESSION: No acute cardiopulmonary pathology. No discrepancies from preliminary reading. Dictated by: Raymond Carter M.D. on 08/06/2021 at 8:19 Approved by: Raymond Carter M.D. on 08/06/2021 at 8:20
[2021-08-06 04:54] LABS: Add Manual Diff / Slide Review NO; Basophils Absolute Auto 0 /uL (0-100); Basophils Percent Auto 0.6 % (0-2); Eosinophils Absolute Auto 100 /uL (0-450); Eosinophils Percent Auto 2.1 % (2-4); Hematocrit 43.2 % (41-53); Hemoglobin 14.9 g/dL (13.5-17.5); Lymphocytes Absolute Auto 2100 /uL (1100-4500); Lymphocytes Percent Auto 40.8 % (25-40); Mean Corpuscular HGB Conc 34.5 % (30-36); Mean Corpuscular Hemoglobin 32.8 PG (26-34); Mean Corpuscular Volume 95.2 fL (80-100); Monocytes Absolute Auto 600 /uL (0-900); Monocytes Percent Auto 10.8 % (3-14); Neutrophils Absolute Auto 2400 /uL (1500-7000); Neutrophils Percent Auto 45.7 % (50-75); Platelet Count 176 X10^3/uL (150-400); Red Blood Cell Count 4.54 X10^6/uL (4.5-5.9); Red Cell Distribution Width 13.6 % (11.6-14.8); White Blood Cell Count 5.2 X10^3/uL (4.5-11.0)
--- NOTE | 2021-08-06 04:57 | ED.CHESTPAIN ---
HPI - Chest Pain <Prem Thompson MD - Last Filed: 08/11/21 09:44> General Chief Complaint: Weakness Stated Complaint: chest pain, nitro Time Seen by Provider: 08/06/21 04:29 Source: patient Mode of arrival: Ambulatory Limitations: no limitations History of Present Illness HPI narrative: Patient's use [facility] inside sales trainer Dr. Whittington, scheduled for 1:00 p.m. stress test today in [place]. As well as echocardiogram. Patient has never had a echocardiogram in the past. Patient has had off and on chest pain since January of last year. Contacted his primary care provider and schedule for testing today. 1:00 a.m. today 4 hours ago experienced substernal pressure, nonradiating, no sweating or dyspnea or nausea. Took nitro with some relief able to go back to sleep but no awoke 2 more times in had 2nd and 3rd dose of nitro and decided to come here. Chest pain-free at this time. Took 81 mg of aspirin at 11:00 p.m. before bed. History of 2 heart attacks in the past. Feels similar chest pressure again Related Data Home Medications Medication Instructions Recorded Confirmed melatonin 3 mg tablet 9 mg PO HS ##0 06/09/10 07/19/21 losartan 100 mg tablet 100 mg PO DAILY 10/17/19 07/19/21 carvedilol 3.125 mg tablet 3.125 mg PO BID 07/23/20 07/19/21 Previous Rx's Medication Instructions Recorded aspirin 81 mg tablet,delayed 81 mg PO DAILY #30 tabs 12/11/17 release (Aspir-) fenofibrate nanocrystallized 145 145 mg PO QDAY #90 tabs 04/17/18 mg tablet (Tricor) rosuvastatin 40 mg tablet 40 mg PO DAILY #90 tabs 04/17/18 diclofenac sodium 1 % topical gel 2 g topical QID PRN pain #100 grams 03/30/20 (Voltaren) finasteride 5 mg tablet 1.25 mg PO DAILY #23 tabs 01/04/21 amlodipine 5 mg tablet 5 mg PO DAILY #20 tabs 01/29/21 nitroglycerin 0.4 mg sublingual 0.4 mg sublingual Q5M PRN chest 03/01/21 tablet pain #20 tabs dapagliflozin 10 mg tablet 10 mg PO DAILY #90 tabs 04/26/21 ([facility]) glipizide 5 mg tablet, extended 5 mg PO DAILY #90 tabs 04/26/21 release 24 hr metformin 500 mg tablet 1,000 mg PO BIDCC #360 tabs 06/28/21 mometasone 0.1 % topical cream 1 applic topical BID #15 grams 07/19/21 omeprazole 20 mg capsule,delayed 20 mg PO 5XW #1 cap 07/19/21 release Allergies Allergy/AdvReac Type Severity Reaction Status Date / Time grass pollen [GRASS POLLEN] Allergy Unknown Verified 07/19/21 16:10 mold [MOLD] Allergy Unknown Verified 07/19/21 16:10 Review of Systems <Prem Thompson MD - Last Filed: 08/11/21 09:44> Review of Systems Narrative: GENERAL: Denies chills, fatigue, malaise, fever, sweats. HEENT: Denies sinus pain, ear pain, sore throat RESPIRATORY: Denies dyspnea, cough CARDIOVASCULAR: Positive for chest pain, negative for palpitations GASTROINTESTINAL: Denies nausea, vomiting, abdominal pain : Denies dysuria, frequency, hematuria MUSCULOSKELETAL: denies muscle or bony pain SKIN: Denies rash, skin lesions NEUROLOGIC: Denies weakness, numbness ROS Unobtainable: All systems reviewed & are unremarkable except as noted in HPI and below Patient History <Prem Thompson MD - Last Filed: 08/11/21 09:44> Medical History Allergic rhinitis (Unknown) Bicipital tendinitis of right shoulder Coronary artery disease involving [place] coronary artery of [place] heart without angina pectoris (07/21/15) Dyspnea on exertion (05/01/17) GERD (gastroesophageal reflux disease) (Unknown) Hx of pneumothorax (1978) IBS (irritable bowel syndrome) (Unknown) Pacemaker Paresthesia of left upper extremity (12/17/15) Pure hypercholesterolemia (02/18/16) Status post insertion of drug-eluting stent into left anterior descending (LAD) artery (06/2015) Tinnitus of both ears Type 2 diabetes mellitus without complication, without long-term current use of insulin (06/24/16) Surgical History History of esophagogastroduodenoscopy (EGD) S/P coronary artery stent placement (~08/2019) Status post colectomy Status post laparoscopic cholecystectomy Social History household members: significant other Smoking Status: Never smoker alcohol intake: current substance use type: does not use Smoking Status: Never smoker alcohol intake frequency: a few times a week Substance Use Type: does not use Exam <Prem Thompson MD - Last Filed: 08/11/21 09:44> Narrative Exam Narrative: GENERAL: in no distress, not toxic not dyspneic HEAD: Normocephalic. EYES: Pupils equal round No scleral icterus. ENT: Mucous membranes moist. NECK: Trachea midline. CARDIOVASCULAR: Regular rate and rhythm without murmurs RESPIRATORY: Clear to auscultation. Breath sounds equal bilaterally. No wheezes, rales, or rhonchi. GASTROINTESTINAL: Abdomen soft, non-tender EXTREMITIES: No gross deformities. BACK: No flank tenderness. NEURO: AOx4. SKIN: Warm and dry PSYCH: Not anxious, is cooperative Initial Vital Signs Initial Vital Signs: Vital Signs Temperature 98.8 F 08/06/21 04:32 Pulse Rate 65 08/06/21 04:32 Respiratory Rate 15 08/06/21 04:32 Blood Pressure 152/83 H 08/06/21 04:32 Pulse Oximetry 98 08/06/21 04:32 Oxygen Delivery Method 08/06/21 04:32 <Quentin Molina MD - Last Filed: 08/06/21 08:55> Initial Vital Signs Initial Vital Signs: Vital Signs Temperature 98.8 F 08/06/21 04:32 Pulse Rate 65 08/06/21 04:32 Respiratory Rate 15 08/06/21 04:32 Blood Pressure 152/83 H 08/06/21 04:32 Pulse Oximetry 98 08/06/21 04:32 Oxygen Delivery Method 08/06/21 04:32 Course <Prem Thompson MD - Last Filed: 08/11/21 09:44> Course Course Narrative: No new issues during course of stay Sign-out dr molina 2nd troponin pending. Patient has scheduled stress test at 1:00 p.m. today inside sales trainer is Dr. Whittington Orders Ordered: Discontinued Medications Aspirin (Aspirin Ec 81 Mg Tablet) 243 mg PO NOW ONE Stop: 08/06/21 04:58 Last Admin: 08/06/21 05:10 Dose: 243 mg Documented By: MANDEEP Vital Signs Vital signs: Vital Signs - 8 hr 08/06/21 04:32 08/06/21 05:32 08/06/21 06:00 Temperature 98.8 F Pulse Rate 65 62 Respiratory Rate 15 25 H Blood Pressure 152/83 H 136/75 Pulse Oximetry 98 96 Oxygen Delivery Method Room Air 08/06/21 06:00 Temperature Pulse Rate 59 L Respiratory Rate 18 Blood Pressure Pulse Oximetry 96 Oxygen Delivery Method <Quentin Molina MD - Last Filed: 08/06/21 08:55> Orders Ordered: Discontinued Medications Aspirin (Aspirin Ec 81 Mg Tablet) 243 mg PO NOW ONE Stop: 08/06/21 04:58 Last Admin: 08/06/21 05:10 Dose: 243 mg Documented By: MANDEEP Reevaluation(s) Reevaluation #1: At 8:40 a.m. I talked to the patient who remains pain-free. He is comfortable with the plan as noted in the discharge. Consultations Consultation #1: I discussed the case by secure messaging with Dr. Garner who is on-call for Dr. Whittington who felt that outpatient follow-up was appropriate. Time: 08:50 Vital Signs Vital signs: Vital Signs - 8 hr 08/06/21 04:32 08/06/21 05:32 08/06/21 06:00 Temperature 98.8 F Pulse Rate 65 62 Respiratory Rate 15 25 H Blood Pressure 152/83 H 136/75 Pulse Oximetry 98 96 Oxygen Delivery Method Room Air 08/06/21 06:00 Temperature Pulse Rate 59 L Respiratory Rate 18 Blood Pressure Pulse Oximetry 96 Oxygen Delivery Method MDM - Chest Pain <Prem Thompson MD - Last Filed: 08/11/21 09:44> Differential Diagnosis Differential diagnosis: Likely stable angina, unstable angina pectoris and chest pain Lab Data Result diagrams: 08/06/21 04:35 08/06/21 04:35 Labs: Lab Results 08/06/21 08/06/21 08/06/21 Range/Units 04:35 04:35 04:35 WBC 5.2 (4.5-11.0) X10^3/uL RBC 4.54 (4.5-5.9) X10^6/uL Hgb 14.9 (13.5-17.5) g/dL Hct 43.2 (41-53) % MCV 95.2 (80-100) fL MCH 32.8 (26-34) PG MCHC 34.5 (30-36) % RDW 13.6 (11.6-14.8) % Plt Count 176 (150-400) X10^3/uL Neut % (Auto) 45.7 L (50-75) % Lymph % (Auto) 40.8 H (25-40) % [place] % (Auto) 10.8 (3-14) % Eos % (Auto) 2.1 (2-4) % Baso % (Auto) 0.6 (0-2) % Neut # (Auto) 2400 (1755-3812) /uL Lymph # (Auto) 2100 (4459-3297) /uL [place] # (Auto) 600 (0-900) /uL Eos # (Auto) 100 (0-450) /uL Baso # (Auto) 0 (0-100) /uL PT 11.1 (10.1-12.7) SECONDS INR 1.0 (0.9-1.3) APTT 30 (26.4-36.2) SECONDS Sodium 139 (137-145) mmol/L Potassium 4.0 (3.4-5.1) mmol/L Chloride 107 (98-107) mmol/L Carbon Dioxide 21 L (22-32) mmol/L BUN 22 H (9-20) mg/dL Creatinine 0.71 (0.66-1.25) mg/dL Estimated GFR > 60 (>60) mL/min BUN/Creatinine Ratio 31.0 H (6-22) Glucose 183 H (80-110) mg/dL Calcium 9.5 (8.4-10.2) mg/dL Total Bilirubin 0.5 (0.2-1.3) mg/dL AST 32 (17-59) IU/L ALT 44 (<50) IU/L Alkaline Phosphatase 29 L (38-126) U/L Total Creatine Kinase 57 (55-170) U/L CK-MB (CK-2) TNP CK-MB (CK-2) Rel Index TNP Troponin I < 0.012 (0.01-0.034) ng/mL Total Protein 7.2 (6.3-8.2) g/dL Albumin 4.4 (3.5-5.0) g/dL Globulin 2.8 (1.7-4.1) g/dL Albumin/Globulin Ratio 1.6 (1.0-2.8) Lipase 101 (23-300) U/L SARS-CoV-2 (PCR) (Negative) 08/06/21 08/06/21 Range/Units 05:10 06:53 WBC (4.5-11.0) X10^3/uL RBC (4.5-5.9) X10^6/uL Hgb (13.5-17.5) g/dL Hct (41-53) % MCV (80-100) fL MCH (26-34) PG MCHC (30-36) % RDW (11.6-14.8) % Plt Count (150-400) X10^3/uL Neut % (Auto) (50-75) % Lymph % (Auto) (25-40) % [place] % (Auto) (3-14) % Eos % (Auto) (2-4) % Baso % (Auto) (0-2) % Neut # (Auto) (7463-1480) /uL Lymph # (Auto) (8973-9388) /uL [place]le # (Auto) (0-900) /uL Eos # (Auto) (0-450) /uL Baso # (Auto) (0-100) /uL PT (10.1-12.7) SECONDS INR (0.9-1.3) APTT (26.4-36.2) SECONDS Sodium (137-145) mmol/L Potassium (3.4-5.1) mmol/L Chloride (98-107) mmol/L Carbon Dioxide (22-32) mmol/L BUN (9-20) mg/dL Creatinine (0.66-1.25) mg/dL Estimated GFR (>60) mL/min BUN/Creatinine Ratio (6-22) Glucose (80-110) mg/dL Calcium (8.4-10.2) mg/dL Total Bilirubin (0.2-1.3) mg/dL AST (17-59) IU/L ALT (<50) IU/L Alkaline Phosphatase (38-126) U/L Total Creatine Kinase (55-170) U/L CK-MB (CK-2) CK-MB (CK-2) Rel Index Troponin I < 0.012 (0.01-0.034) ng/mL Total Protein (6.3-8.2) g/dL Albumin (3.5-5.0) g/dL Globulin (1.7-4.1) g/dL Albumin/Globulin Ratio (1.0-2.8) Lipase (23-300) U/L SARS-CoV-2 (PCR) Negative (Negative) Imaging Data Chest x-ray: Radiologist's Impression: No acute cardiopulmonary abnormality is identified ECG Data Interpretation: EKG is normal sinus rhythm rate [ ] and free of any signs of ischemia or ectopy. No ST segmental elevation or depression. No T wave inversions Normal sinus rhythm rate [address] elevation or depression <Quentin Molina MD - Last Filed: 08/06/21 08:55> Lab Data Labs: Lab Results 08/06/21 08/06/21 08/06/21 Range/Units 04:35 04:35 04:35 WBC 5.2 (4.5-11.0) X10^3/uL RBC 4.54 (4.5-5.9) X10^6/uL Hgb 14.9 (13.5-17.5) g/dL Hct 43.2 (41-53) % MCV 95.2 (80-100) fL MCH 32.8 (26-34) PG MCHC 34.5 (30-36) % RDW 13.6 (11.6-14.8) % Plt Count 176 (150-400) X10^3/uL Neut % (Auto) 45.7 L (50-75) % Lymph % (Auto) 40.8 H (25-40) % [place] % (Auto) 10.8 (3-14) % Eos % (Auto) 2.1 (2-4) % Baso % (Auto) 0.6 (0-2) % Neut # (Auto) 2400 (4556-9852) /uL Lymph # (Auto) 2100 (6327-6966) /uL [place] # (Auto) 600 (0-900) /uL Eos # (Auto) 100 (0-450) /uL Baso # (Auto) 0 (0-100) /uL PT 11.1 (10.1-12.7) SECONDS INR 1.0 (0.9-1.3) APTT 30 (26.4-36.2) SECONDS Sodium 139 (137-145) mmol/L Potassium 4.0 (3.4-5.1) mmol/L Chloride 107 (98-107) mmol/L Carbon Dioxide 21 L (22-32) mmol/L BUN 22 H (9-20) mg/dL Creatinine 0.71 (0.66-1.25) mg/dL Estimated GFR > 60 (>60) mL/min BUN/Creatinine Ratio 31.0 H (6-22) Glucose 183 H (80-110) mg/dL Calcium 9.5 (8.4-10.2) mg/dL Total Bilirubin 0.5 (0.2-1.3) mg/dL AST 32 (17-59) IU/L ALT 44 (<50) IU/L Alkaline Phosphatase 29 L (38-126) U/L Total Creatine Kinase 57 (55-170) U/L CK-MB (CK-2) TNP CK-MB (CK-2) Rel Index TNP Troponin I < 0.012 (0.01-0.034) ng/mL Total Protein 7.2 (6.3-8.2) g/dL Albumin 4.4 (3.5-5.0) g/dL Globulin 2.8 (1.7-4.1) g/dL Albumin/Globulin Ratio 1.6 (1.0-2.8) Lipase 101 (23-300) U/L SARS-CoV-2 (PCR) (Negative) 08/06/21 08/06/21 Range/Units 05:10 06:53 WBC (4.5-11.0) X10^3/uL RBC (4.5-5.9) X10^6/uL Hgb (13.5-17.5) g/dL Hct (41-53) % MCV (80-100) fL MCH (26-34) PG MCHC (30-36) % RDW (11.6-14.8) % Plt Count (150-400) X10^3/uL Neut % (Auto) (50-75) % Lymph % (Auto) (25-40) % [place] % (Auto) (3-14) % Eos % (Auto) (2-4) % Baso % (Auto) (0-2) % Neut # (Auto) (7934-3745) /uL Lymph # (Auto) (9180-8593) /uL [place] # (Auto) (0-900) /uL Eos # (Auto) (0-450) /uL Baso # (Auto) (0-100) /uL PT (10.1-12.7) SECONDS INR (0.9-1.3) APTT (26.4-36.2) SECONDS Sodium (137-145) mmol/L Potassium (3.4-5.1) mmol/L Chloride (98-107) mmol/L Carbon Dioxide (22-32) mmol/L BUN (9-20) mg/dL Creatinine (0.66-1.25) mg/dL Estimated GFR (>60) mL/min BUN/Creatinine Ratio (6-22) Glucose (80-110) mg/dL Calcium (8.4-10.2) mg/dL Total Bilirubin (0.2-1.3) mg/dL AST (17-59) IU/L ALT (<50) IU/L Alkaline Phosphatase (38-126) U/L Total Creatine Kinase (55-170) U/L CK-MB (CK-2) CK-MB (CK-2) Rel Index Troponin I < 0.012 (0.01-0.034) ng/mL Total Protein (6.3-8.2) g/dL Albumin (3.5-5.0) g/dL Globulin (1.7-4.1) g/dL Albumin/Globulin Ratio (1.0-2.8) Lipase (23-300) U/L SARS-CoV-2 (PCR) Negative (Negative) MDM Narrative Medical decision making narrative: I assumed care of this patient from Dr. Thompson at approximately 7:00 a.m.. I have reviewed the documentation and interviewed the patient myself. In summary this gentleman has been having intermittent episodes of chest pain that have diff I would have a eluded definitive diagnosis and he has a stress test as part of his evaluation is set up as an outpatient later today. He came in overnight with chest pain which has now resolved. His EKG was normal and to troponin values are also normal and reassuring. I think it is reasonable to discharge him now for outpatient follow-up this afternoon for stress testing. Discharge Plan Departure Patient Disposition: Home Clinical Impression: Chest pain Instructions: DI for Chest Pain Activity Restrictions/Additional Instructions: No immediately dangerous cause for chest pain is identified. Certainly further evaluation is required. I do not think it is necessary to hospitalize you at this point as you have this outpatient test scheduled for later today. If in the meantime her chest pain returns, I recommend you follow-up at the closest emergency department. Further instructions and evaluation are dependent on the results of the stress test performed this afternoon. Please follow-up with Dr. Whittington for further instructions. Prescriptions: No Action aspirin [Aspir-81] 81 mg tablet,delayed release (DR/EC) 81 mg PO DAILY Qty: 30 11RF melatonin 3 MG tablet 9 mg PO HS Qty: 0 fenofibrate nanocrystallized [Tricor] 145 mg tablet 145 mg PO QDAY Qty: 90 1RF rosuvastatin 40 mg tablet 40 mg PO DAILY Qty: 90 1RF diclofenac sodium [Voltaren] 1 % gel 2 g TOP QID PRN (Reason: pain) Qty: 100 1RF Rx Instructions: apply to wrist or hand as needed for pain carvedilol 3.125 mg tablet 3.125 mg PO BID Rx Instructions: take 2 tablets twice a day per cardiology finasteride 5 mg tablet 1.25 mg PO DAILY Qty: 23 3RF Rx Instructions: Take one quarter tablet once a day. nitroglycerin 0.4 mg tablet, sublingual 0.4 mg SL Q5M PRN (Reason: chest pain) Qty: 20 0RF Rx Instructions: do not exceed 3 doses per episode glipizide 5 mg tablet extended release 24 hr 5 mg PO DAILY Qty: 90 1RF Farxiga 10 mg tablet 10 mg PO DAILY Qty: 90 3RF metformin 500 mg tablet 1,000 mg PO BIDCC Qty: 360 1RF mometasone 0.1 % cream 1 applic TOP BID Qty: 15 0RF omeprazole 20 mg capsule,delayed release(DR/EC) 20 mg PO 5XW Qty: 1 0RF losartan 100 mg tablet 100 mg PO DAILY amlodipine 5 mg tablet 5 mg PO DAILY Qty: 20 0RF Referrals: Maciej Garrett MD [Primary Care Provider] - Visit Report Forms: Patient Portal/API
[2021-08-06 04:59] LABS: Alanine Aminotransferase 44 IU/L (<50); Albumin 4.4 g/dL (3.5-5.0); Albumin Globulin Ratio 1.6 (1.0-2.8); Alkaline Phosphatase 29 U/L (38-126); Aspartate Aminotransferase 32 IU/L (17-59); Bilirubin Total 0.5 mg/dL (0.2-1.3); Blood Urea Nitrogen 22 mg/dL (9-20); Calcium 9.5 mg/dL (8.4-10.2); Carbon Dioxide 21 mmol/L (22-32); Chloride 107 mmol/L (98-107); Creatine Kinase 57 U/L (55-170); Estimated Glomerular Filt Rate > 60 mL/min (>60); Globulin 2.8 g/dL (1.7-4.1); Glucose 183 mg/dL (80-110); HEMOLYSIS 30 (0-50); Lipase 101 U/L (23-300); Sodium 139 mmol/L (137-145); Total Protein 7.2 g/dL (6.3-8.2)
[2021-08-06 05:02] LABS: Prothrombin Time 11.1 SECONDS (10.1-12.7)
[2021-08-06 05:05] LABS: PTT Partial Thromboplastin Tim 30 SECONDS (26.4-36.2)
[2021-08-06] MEDS: ASPIRIN EC 81 MG TABLET 243 MG PO (05:10)
[2021-08-06 05:11] LABS: Troponin I < 0.012 ng/mL (0.01-0.034)
[2021-08-06 05:43] LABS: COVID19 -Nasal RAPID Negative (Negative)
--- NOTE | 2021-08-06 06:23 | PC.NURSE ---
Pt states he has a dual chamber pacemaker. Pt also states he has a cardiology appointment for a heart echo today at 1300.
[2021-08-06 07:31] LABS: Troponin I < 0.012 ng/mL (0.01-0.034)
== END 2021-08-06 09:01 | disposition home or self-care (01) ==
PROVIDERS: Emergency Medicine; Emergency Provider Family Medicine Addiction Medicine; Family Provider Student in an Organized Health Care Education/Training Program; PCP Student in an Organized Health Care Education/Training Program
DX: R07.9 Chest pain, unspecified (principal); Z20.822 Contact with and (suspected) exposure to COVID-19
CPT/HCPCS: 36415; 71045; 80053; 82550; 83690; 84484; 85025; 85610; 85730; 87635; 93005; 93010; 99284; C9803

== ENCOUNTER → 2022-01-14 06:49 | Outpatient (CLI) | payer BC, SELFPAY ==
[2022-01-14 09:27] LABS: Hemoglobin A1C% w Est Avg Glu 7.4 % (4.0-6.0)
== END ==
PROVIDERS: Family Provider Student in an Organized Health Care Education/Training Program; PCP Student in an Organized Health Care Education/Training Program; Referring Provider Student in an Organized Health Care Education/Training Program; Visit Provider Student in an Organized Health Care Education/Training Program
DX: E11.9 Type 2 diabetes mellitus without complications (principal)
CPT/HCPCS: 36415; 83036

== ENCOUNTER → 2022-03-09 06:48 | Outpatient (CLI) | payer BC, SELFPAY ==
[2022-03-09 08:27] LABS: Hemoglobin A1C% w Est Avg Glu 7.1 % (4.0-6.0)
[2022-03-09 08:35] LABS: Cholesterol 156 mg/dL (140-199); HDL Cholesterol 45 mg/dL (40-60); LDL Cholesterol Calculated 72 mg/dL (<100); Triglycerides 195 mg/dL (35-150)
[2022-03-09 09:31] LABS: Creatinine Urine Random 69.3 mg/dL
[2022-03-09 09:36] LABS: Microalbumin Urine Random < 0.6 mg/dL (0-1.6)
== END ==
PROVIDERS: Family Provider Student in an Organized Health Care Education/Training Program; PCP Student in an Organized Health Care Education/Training Program; Referring Provider Student in an Organized Health Care Education/Training Program; Visit Provider Student in an Organized Health Care Education/Training Program
DX: E11.9 Type 2 diabetes mellitus without complications (principal); I25.10 Atherosclerotic heart disease of native coronary artery without angina pectoris; E78.00 Pure hypercholesterolemia, unspecified
CPT/HCPCS: 36415; 80061; 82043; 82570; 83036

== ENCOUNTER → 2022-08-11 07:26 | Outpatient (CLI) | payer BC, SELFPAY ==
[2022-08-11 09:16] LABS: Add Manual Diff / Slide Review NO; Basophils Absolute Auto 0 /uL (0-100); Basophils Percent Auto 0.7 % (0-2); Eosinophils Absolute Auto 100 /uL (0-450); Eosinophils Percent Auto 2.1 % (2-4); Hematocrit 42.3 % (41-53); Hemoglobin 14.4 g/dL (13.5-17.5); Lymphocytes Absolute Auto 1400 /uL (1100-4500); Lymphocytes Percent Auto 30.7 % (25-40); Mean Corpuscular HGB Conc 33.9 % (30-36); Mean Corpuscular Hemoglobin 32.2 PG (26-34); Monocytes Absolute Auto 400 /uL (0-900); Neutrophils Absolute Auto 2600 /uL (1500-7000); Neutrophils Percent Auto 57.5 % (50-75); Platelet Count 174 X10^3/uL (150-400); Red Blood Cell Count 4.46 X10^6/uL (4.5-5.9); Red Cell Distribution Width 12.9 % (11.6-14.8); White Blood Cell Count 4.6 X10^3/uL (4.5-11.0)
[2022-08-11 09:32] LABS: Blood Urea Nitrogen 20 mg/dL (9-20); Calcium 9.4 mg/dL (8.4-10.2); Carbon Dioxide 26 mmol/L (22-32); Chloride 104 mmol/L (98-107); Cholesterol 121 mg/dL (140-199); Estimated Glomerular Filt Rate > 60 mL/min (>60); Glucose 180 mg/dL (80-110); HDL Cholesterol 39 mg/dL (40-60); HEMOLYSIS < 15 (0-50); LDL Cholesterol Calculated 37 mg/dL (<100); Potassium 4.4 mmol/L (3.4-5.1); Sodium 138 mmol/L (137-145); Triglycerides 226 mg/dL (35-150)
[2022-08-11 10:10] LABS: Prostate Specific Antigen Scrn 0.408 ng/mL (0.1-4.0)
[2022-08-11 14:57] LABS: Hep C Virus Ab w/Reflex Quant NEGATIVE s/c (NEGATIVE)
[2022-08-12 06:35] LABS: x Labcorp Estim. Avg Glu (eAG) 192 mg/dL (.); x Labcorp Hemoglobin A1c 8.3 % (4.8-5.6)
== END ==
PROVIDERS: Family Provider Student in an Organized Health Care Education/Training Program; PCP Student in an Organized Health Care Education/Training Program; Referring Provider Internal Medicine Cardiovascular Disease; Visit Provider Student in an Organized Health Care Education/Training Program
DX: I25.10 Atherosclerotic heart disease of native coronary artery without angina pectoris (principal); E11.9 Type 2 diabetes mellitus without complications; I10 Essential (primary) hypertension; Z11.59 Encounter for screening for other viral diseases; E78.00 Pure hypercholesterolemia, unspecified; Z12.5 Encounter for screening for malignant neoplasm of prostate
CPT/HCPCS: 36415; 80048; 80061; 83036; 85025; 86803; G0103

== ENCOUNTER → 2022-12-10 08:12 | Outpatient (CLI) | payer BC, SELFPAY ==
--- NOTE | 2022-12-10 08:13 | DI.RAD.S_ITS ---
PROCEDURE: XR LUMBAR SPINE 2-3V INDICATIONS: back pain TECHNIQUE: 3 views of the lumbar spine were acquired. COMPARISON: None. FINDINGS: Bones: 5 [id number] vertebrae are present. There is mildly abnormal bony alignment associated with facet osteoarthritis at L4-5 and L5-S1 which is moderately severe. Anterolisthesis, grade 1, of L4 on L5 is associated. There is [id number] disc space narrowing at this level and mild such degenerative change at L5-S1. At the thoracolumbar junction area only a mild degree of degenerative disc disease is seen.. No vertebral body compression fractures. No suspicious bony lesions. Soft tissues: Overlying bowel gas pattern is normal. No suspicious soft tissue calcifications. IMPRESSION: No trauma found, no chronic compression fracture is identified. Moderate L4-5 and L5-S1 degenerative disc disease and facet osteoarthritis, allowing grade 1 anterolisthesis of L4 on L5 predominantly due to facet hyperostosis and degenerative ligamentous laxity in that area. Dictated by: Jose A Patten M.D. on 12/10/2022 at 20:26 Approved by: Jose A Patten M.D. on 12/10/2022 at 20:27
[2022-12-10 09:09] LABS: Hemoglobin A1C% w Est Avg Glu 8.5 % (4.0-6.0)
[2022-12-10 09:22] LABS: HEMOLYSIS < 15 (0-50); Potassium 4.4 mmol/L (3.4-5.1)
[2022-12-10 09:23] LABS: Alanine Aminotransferase 66 IU/L (<50); Albumin 4.1 g/dL (3.5-5.0); Albumin Globulin Ratio 1.6 (1.0-2.8); Alkaline Phosphatase 29 U/L (38-126); Aspartate Aminotransferase 43 IU/L (17-59); BUN Creatinine Ratio 19.1 (6-22); Bilirubin Total 0.4 mg/dL (0.2-1.3); Blood Urea Nitrogen 13 mg/dL (9-20); Calcium 9.8 mg/dL (8.4-10.2); Carbon Dioxide 25 mmol/L (22-32); Chloride 102 mmol/L (98-107); Estimated Glomerular Filt Rate > 60 mL/min (>60); Globulin 2.6 g/dL (1.7-4.1); Glucose 231 mg/dL (80-110); Sodium 136 mmol/L (137-145); Total Protein 6.7 g/dL (6.3-8.2)
[2022-12-10 09:49] LABS: Prostate Specific Antigen 0.309 ng/mL (0.10-4.00)
[2022-12-10 10:52] LABS: Creatinine Urine Random 97.3 mg/dL
[2022-12-10 10:55] LABS: Microalbumi Creatinin Ratio Ur 6.1 ug/mg CR (<30); Microalbumin Urine Random 0.6 mg/dL (0-1.6)
--- OUTSIDE RECORDS SUMMARY | 2023-01-06 14:45 | XMS_ITS | Referral Summary ---
Author Name Unknown Organization [facility] Address [address] [place] [id number] Care Team Providers Care Audio Visual Project Manager Name Role Phone Maciej Garrett MD Primary Care Provider [phone] Reason for Referral * Rehabilitation - Outpatient - Authorized Specialty Diagnoses / Procedures Referred By Contac t Referred To Contact Cardiac Rehabilitation Diagnoses History of heart artery stent Ruben Whittington MD [address] [place] [address] [address] [place] [address] [address] Referral ID Status Reason Start Date Expiration Date V isits Requested Visits Authorized [id number] Authorized 04/20/2022 04/15/2023 1 1 Reason for Visit * Reason Comments Heart Problem Encounter Details Date Type Department Care Team Description 04/20/2022 10:00 AM PDT Telemedicine [facility] Cardiology [place] [address] [place] [address], [address] [place] [id number] Ruben Whittington MD [address] [place] [address] [address] [place] [address] ASHD (arteriosclerotic heart disease) (Primary Dx); History of heart artery stent; Essential hypertension; Hyperlipidemia, unspecified hyperlipidemia type; Pacemaker Allergies Active Allergy Reactions Criticality Noted Date Comments Mold 08/31/2018 Tree And Shrub Pollen 08/31/2018 documented as of this encounter (statuses as of 10/31/2022) Medications Medication Sig Dispensed Refills Start Date End Date Status metFORMIN (GLUCOPHAGE) 1,000 mg tablet Take 1 tablet (1,000 mg total) by mouth 2 (two) times a day with meals 0 Active omeprazole (PriLOSEC) 10 mg capsule Take 1 capsule (10 mg total) by mouth daily 0 Active finasteride (PROSCAR) 5 mg tablet Take 1.25 mg by mouth nightly. 0 Active aspirin 81 mg EC tablet Take 1 tablet by mouth once daily for heart. 90 tablet 3 8 Active MELATONIN ORAL Take 5 mg by mouth nightly 0 Active glipiZIDE (GLUCOTROL) 5 mg tablet Take 1 tablet (5 mg total) by mouth nightly 0 Active cholecalciferol, vitamin D3, 50 mcg (2,000 unit) capsule Take 1 capsule by mouth daily 0 Active Farxiga 10 mg tablet Take 1 tablet by mouth daily 0 2 Active nitroglycerin (NITROSTAT) 0.[address] 1 tablet (0.4 mg total) under the tongue every 5 (five) minutes as needed Do not exceed more than 3 in a 15 minute period. Call 911 if chest pain persists after 3rd dose. 0 2 Active azelastine (ASTELIN) 137 mcg (0.1 %) nasal sprayIndications :Allergic rhinitis, unspecified seasonality, unspecified trigger,Nasal obstruction Administer 2 sprays into each nostril 2 (two) times a day as needed for rhinitis or allergies Use in each nostril as directed 30 mL 11 2 Active clopidogreL (PLAVIX) 75 mg tablet Take 1 tablet (75 mg total) by mouth daily 90 tablet 3 3 Active mometasone (ELOCON) 0.1 % cream Apply topically daily 0 04/21/19 23 Discontinued(No Longer Needed, Treatment Complete) ZANTAC-360, FAMOTIDINE, ORAL Take 40 mg by mouth nightly 0 04/21/19 23 Discontinued(No Longer Needed, Treatment Complete) ranolazine (RANEXA) 500 mg 12 hr tablet Take 1 tablet (500 mg total) by mouth 2 (two) times a day 60 tablet 11 2 04/21/19 23 Discontinued rosuvastatin (CRESTOR) 40 mg tablet Take 1 tablet (40 mg total) by mouth nightly 90 tablet 3 2 08/24/19 23 Discontinued(Reo rder) losartan (COZAAR) 100 mg tablet Take 1 tablet (100 mg total) by mouth nightly 90 tablet 3 2 08/24/19 23 Discontinued(Reo rder) fenofibrate (TRICOR) 145 mg tablet Take 1 tablet (145 mg total) by mouth daily 90 tablet 3 2 08/24/19 23 Discontinued(Reo rder) carvediloL (COREG) 6.25 mg tablet Take 1 tablet (6.25 mg total) by mouth 2 (two) times a day 180 tablet 3 2 06/11/19 23 Discontinued(Reo rder) isosorbide mononitrate (IMDUR) 120 mg 24 hr tablet Take 1 tablet (120 mg total) by mouth every morning Takes at 4 PM 90 tablet 3 3 04/21/19 23 Discontinued ezetimibe (ZETIA) 10 mg tablet Take 1 tablet (10 mg total) by mouth every morning 90 tablet 3 3 08/24/19 23 Discontinued(Reo rder) documented as of this encounter (statuses as of 10/31/2022) Active Problems Problem Noted Date Diagnosed Date Cardiac pacemaker in situ 04/30/2021 CHB (complete heart block) 12/27/2019 Mobitz type 1 second degree AV block 12/05/2019 LUQ pain 07/11/2017 Overview: Added automatically from request for surgery [id number] RUQ pain 07/11/2017 Overview: Added automatically from request for surgery [id number] ASHD (arteriosclerotic heart disease) 04/06/2017 History of heart artery stent 04/06/2017 Essential hypertension 04/06/2017 Hyperlipidemia 04/06/2017 Diabetes mellitus type II, non insulin dependent 04/06/2017 documented as of this encounter (statuses as of 10/31/2022) Immunizations Name Administration Dates Next Due FLU PF 6+Mos Quad (Fluzone, FluLaval, Fluarix) 10/17/2019,10/16/2018 Influenza, Quadrivalent 10/25/2016,10/13,11/11/2014,2013,10/29/2012,11/15/2011,01/12/1996 Influenza, Seasonal, Injectable 11/07/2019 Influenza, Unspecified 10/25/2016,2015,11/11/2014,2013,10/29/2012,11/15/2011,01/12/1996 Live Zoster (Zostavax) 10/14/2015 Moderna Covid Vaccine, Bivalent (12+) 10/21/2021 Moderna SARS-CoV-2 Vaccine Monovalent 05/27/2020 ,04/29/2020 Recombinant Zoster (Shingrix) 12/23/2019, 020,10/14/2015 TD Preservative Free (Generic) 07/07/2005 TD Preservative Free (Tenivac) 07/07/2005 Tdap (Boostrix,Adacel) 11/15/2011 VFC Tdap (Boostrix,Adacel) 11/15/2011 documented as of this encounter Social History Tobacco Use Types Packs/Day Years Used Date Smoking Tobacco: Never Smokeless Tobacco: Never Alcohol Use Standard Drinks/Week Comments Yes 5 (1 standard drink = 0.6 oz pur e alcohol) AUDIT-C Answer Date Recorded Q1: How often do you have a drink containing alcohol? 4 or more times a week 03/26/2020 Q2: How many drinks containi ng alcohol do you have on a typical day when you are drinking? 1 or 2 Frequency of Binge Drinking Not on file Sex and Gender Information Value Date Recorded Sex Assigned at Male 08/05/2021 6:38 PM PDT Gender Identity Male 08/05/2021 6:38 PM PDT Sexual Orientation Not on file Job Start Date Occupation Industry Not on file Not on file Not on file documented as of this encounter Last Filed Vital Signs Vital Sign Reading Time Taken Comments Blood Pressure 147/88 04/20/2022 9:48 AM PDT Pulse 69 04/20/2022 9:48 AM PDT Temperature - - Respiratory Rate - - Oxygen Saturation - - Inhaled Oxygen Concentration - - Weight 104 kg (230 lb) 04/20/2022 9:48 AM PDT Height 182.9 cm (6') 04/20/2022 9:48 AM PDT Body Mass Index 31.19 04/20/2022 9:48 AM PDT documented in this encounter Progress Notes * Ruben Whittington MD - 04/20/2022 10:00 AM PDT Stop isosorbide mononitrate. Start ezetimibe 10mg daily in the morning. * Ruben Whittington MD - 04/20/2022 10:00 AM PDT Subjective Patient ID: Serafin Jauregui is a 61 y.o. male that presents today for had concerns including HeartProblem. HPI: 61 yo M h/o CAD s/p ABNER to LAD, HTN, HLD, and diabetes here for f/u on his CAD. He is being seen via two way video. Since his last visit with me, he underwent ABNER to RCA that was COMPUTER ENGINEER and his angina has resolved. Denies heart racing sensations, dyspnea, lightheadedness, or syncope. PROBLEM LIST: # CAD status post ABNER ??2 to LAD 06/2015 in the setting of unstable angina. S/p ABNER to RCA 08/09/2019 in the setting of STEMI. S/p ABNER to COMPUTER ENGINEER of the RCA 03/23/2022. LVEF 60% on Echo 08/08/2019 # Intermittent complete heart block s/p permanent pacemaker 01/02/2020 # HTN # HLD # Diabetes # Obesity # PE 2018 in the setting of immobility at home Past Medical History: Diagnosis Date ??? Clotting disorder (CMS-HCC) ??? Coronary artery disease ??? Diabetes mellitus (CMS-HCC) ??? GERD (gastroesophageal reflux disease) ??? Hyperlipidemia ??? Hypertension ??? Myocardial infarction (CMS-HCC) ??? Pulmonary embolism (CMS-HCC) 2017 ??? Tinnitus Last visit, whenever that was Past Surgical History: Procedure Laterality Date ??? CARDIAC CATHETERIZATION ??? CHEST TUBE INSERTION ??? CHOLECYSTECTOMY ??? COLON SURGERY ??? COLONOSCOPY 2011 ??? CORONARY ANGIOPLASTY ??? INSERT / REPLACE / REMOVE PACEMAKER ??? [place] EDG TRANSORAL BIOPSY SINGLE/MULTIPLE N/A 07/17/2017 Procedure: EGD w/ biopsy; Surgeon: Prem Hernandez MD; Location: [facility]; Service: Gastroenterology Family History Problem Relation Age of Onset ??? Hypertension Mother Social History Socioeconomic History ??? Marital status: Significant Other Tobacco Use ??? Smoking status: Never ??? Smokeless tobacco: Never Substance and Sexual Activity ??? Alcohol use: Yes Alcohol/week: 5.0 standard drinks Types: 5 Glasses of wine per week ??? Drug use: Not Currently Types: Marijuana Comment: Last used ??? Sexual activity: Defer Allergies Allergen Reactions ??? Mold ??? Tree And Shrub Pollen Current Medication List Sig aspirin 81 mg EC tablet Take 1 tablet by mouth once daily for heart. azelastine (ASTELIN) 137 mcg (0.1 %) nasal spray Administer 2 sprays into each nostril 2 (two) times a day as needed for rhinitis or allergies Use in each nostril as directed carvediloL (COREG) 6.25 mg tablet Take 1 tablet (6.25 mg total) by mouth 2 (two) times a day cholecalciferol, vitamin D3, 50 mcg (2,000 unit) capsule Take 1 capsule by mouth daily clopidogreL (PLAVIX) 75 mg tablet Take 1 tablet (75 mg total) by mouth daily Farxiga 10 mg tablet Take 1 tablet by mouth daily fenofibrate (TRICOR) 145 mg tablet Take 1 tablet (145 mg total) by mouth daily finasteride (PROSCAR) 5 mg tablet Take 1.25 mg by mouth nightly. glipiZIDE (GLUCOTROL) 5 mg tablet Take 1 tablet (5 mg total) by mouth nightly losartan (COZAAR) 100 mg tablet Take 1 tablet (100 mg total) by mouth nightly MELATONIN ORAL Take 15 mg by mouth nightly metFORMIN (GLUCOPHAGE) 1,000 mg tablet Take 1 tablet (1,000 mg total) by mouth 2 (two) times a day with meals nitroglycerin (NITROSTAT) 0.[address] 1 tablet (0.4 mg total) under the tongue every 5 (five) minutes as needed Do not exceed more than 3 in a 15 minute period. Call 911 if chest pain persists after 3rd dose. omeprazole (PriLOSEC) 10 mg capsule Take 1 capsule (10 mg total) by mouth daily rosuvastatin (CRESTOR) 40 mg tablet Take 1 tablet (40 mg total) by mouth nightly isosorbide mononitrate (IMDUR) 120 mg 24 hr tablet (Discontinued) Take 1 tablet (120 mg total) by mouth every morning Takes at 4 PM ranolazine (RANEXA) 500 mg 12 hr tablet (Discontinued) Take 1 tablet (500 mg total) by mouth 2 (two) times a day ezetimibe (ZETIA) 10 mg tablet Take 1 tablet (10 mg total) by mouth every morning mometasone (ELOCON) 0.1 % cream (Discontinued) Apply topically daily ZANTAC-360, FAMOTIDINE, ORAL (Discontinued) Take 40 mg by mouth nightly Review of Systems Constitutional: Negative for fatigue and unexpected weight change. Eyes: Negative for visual disturbance. Respiratory: Negative for chest tightness and shortness of breath. Cardiovascular: Negative for chest pain, palpitations and leg swelling. Gastrointestinal: Negative for blood in stool. Endocrine: Negative for polydipsia. Genitourinary: Negative for hematuria. Skin: Negative for rash. Neurological: Negative for dizziness, syncope, weakness and light-headedness. Hematological: Does not bruise/bleed easily. Psychiatric/Behavioral: The patient is not nervous/anxious. All other systems reviewed and are negative. Objective BP (!) 147/88 (BP Location: Left arm, Patient Position: Sitting) Pulse 69 Ht 1.829 m Wt 104 kg BMI 31.19 kg/m?? Physical Exam: COPIED FROM LAST PHYSICAL EXAM DONE IN CLINIC AND UNCHANGED (BUT AUSCULTATION COULD NOT BE DONE TODAY) General appearance: No apparent distress, well-nourished, pleasant, cooperative HEET: Normocephalic atraumatic, no scleral icterus, tongue midline, mucous membranes moist Neck: Supple, no lymphadenopathy Cardiovascular: RRR, normal S1 and normal S2, no murmurs/rubs/gallops, PMI nondisplaced, no JVD, noperipheral edema Respiratory: Good aeration, CTAB Abdomen: Soft, nontender, nondistended, + bowel sounds Neuro: Alert, no facial droop, tongue midline, no gross motor deficits Treadmill nuclear stress 04/07/2017: normal study with moderate reduced exercise capacity (UMAIR +25%) and borderline hypertensive response (resting BP 150/100, max BP 221/110). Pharm 03/16/2021: low risk, probably normal study. Stress echo 08/06/2021: No evidence of exercise-induced ischemia with submaximal heart rate on ECG orechocardiographic images. The patient did have anginal-like chest pain with exercise prompting early discontinuation of the exam.?? Normal blood pressure response to exercise.?? Reduced exercise capacity. ECG at on 04/05/2017: sinus rhythm with first degree AV block and no ST-T changes Labs 04/05/2016: sodium 136, potassium 4.4, chloride 102, CO2 23, BUN 16, Cr 0.8, BNP < 25.2, trop negative, D-dimer negative, WBC 4.6, Hct 41.9, Platelets 170 Labs 07/25/2017: WBC 5.1, Hct 41.7, platelets 210, sodium 139, potassium 3.7, chloride 101, CO2 25, BUN 20, Cr 0.90, Glucose 153, Alt 81, total cholesterol 158, TG 242, HDL 36, LDL 74 Labs 07/05/2018: sodium 141, potassium 4.1, chloride 106, CO2 25, BUN 16, Cr 0.8, TG 260, TC 153, HDL 37, LDL 64, WBC 4.6, Hct 43.6, Plt 212 Labs 12/06/2019: sodium 139, potassium 3.8, chloride 105, CO2 27, BUN 19, Cr 0.78, TG 139, TC 131, HDL 41, LDL 62, WBC 5.0, Hct 44.5, Plt 211 Labs 07/13/2020: sodium 137, potassium 4.3, chloride 103, CO2 23, BUN 17, Cr 0.76, TG 323, TC 162, HDL 42, LDL 55, WBC 4.3, Hct 43.6, Plt 203 Labs 07/13/2021: sodium 140, potassium 4.7, chloride 104, CO2 23, BUN 17, Cr 0.95, TG 283, TC 152, HDL 41, LDL 54, WBC 4.5, HCt 44.2, Plt 185 Labs 03/09/2022: LDL 72 Labs 03/23/2022: sodium 135, potassium 4.1, chloride 104, CO2 27, BUN 20, Cr 0.88, WBC 4.4, Hematocrit 45.5, Plt 179 Assessment/Plan Comments: 1. ASHD (arteriosclerotic heart disease) 2. History of heart artery stent Ambulatory Referral to Cardiac Rehabilitation 3. Essential hypertension Basic metabolic panel, Complete blood count 4. Hyperlipidemia, unspecified hyperlipidemia type Lipid panel 5. Pacemaker # CAD status post ABNER ??2 to LAD 06/2015 in the setting of unstable angina. S/p ABNER to RCA 08/09/2019 in the setting of STEMI. S/p ABNER to COMPUTER ENGINEER of the RCA 03/23/2022. LVEF 60% on Echo 08/08/2019. Recommendations as below: - Continue aspirin 81 mg at night for life. - Continue clopidogrel 75mg daily for 6-12 months - Continue rosuvastatin 40mg at bedtime - Start ezetimibe 10mg qAM to get LDL < 70 - Continue carvedilol 6.25mg bid - Continue losartan 100mg daily at night - Continue fenofibrate 145mg daily - Stop imdur 120mg daily - Stop ranolazine 500mg bid - Educated the patient about heart healthy diet # Intermittent complete heart block s/p permanent pacemaker 01/02/2020 # Diabetes mellitus type II: defer to PCP - Patient educated about weight loss benefits - Continue metformin and glipizide through PCP - Continue SGLT2 daily also through PCP # Intermittent complete heart block s/p permanent pacemaker 01/02/2020 that is functioning well. F/U in 4 months with labs (VV ok). Med filled. To prevent the spread of Coronavirus, this visit is being conducted via two-way video. The patient is currently located in their home. The patient has verbally consented to this type of visit and expressed understanding that they or their insurance will be billed. Electronically signed by Ruben Whittington MD 04/20/2022 10:09 AM documented in this encounter Plan of Treatment Scheduled Orders Name Type Priority Associated Diagnoses Orde r Schedule Basic metabolic panel Lab Routine Essential hypertension Expected: 08/20/2022, Expires: 10/22/2023 Complete blood count Lab Routine Essential hypertension Expected: 08/20/2022, Expires: 10/22/2023 Lipid panel Lab Routine Hyperlipidemia, unspecified hyperlipidemia type Expected: 08/20/2022, Expires: 04/21/2023 Scheduled Referrals Name Type Priority Associated Diagnoses Order Schedule Ambulatory Referral to Cardiac Rehabilitation Outpatient Referral Routine History of heart artery stent Ordered: 04/20/2022 documented as of this encounter Medical Devices Implanted Type Area Nurse Chemical Dependency Device Identifier Shelf Expiration Date Model / Serial / Lot Monitor, Ronni Dx Cardiac - [id number] Implanted:Qty: 1 on 12/23/2019 at [facility] M301 / / Lead, [employer] /52 - [id number] Implanted:Qty: 1 on 01/01/[address] [facility] /52 / / documented as of this encounter Visit Diagnoses Diagnosis ASHD (arteriosclerotic heart disease)- Primary Coronary atherosclerosis of unspecified type of vessel, jena or graft History of heart artery stent Essential hypertension Unspecified essential hypertension Hyperlipidemia, unspecified hyperlipidemia type Pacemaker Cardiac pacemaker in situ documented in this encounter Advance Directives Latest Code Status on File Code Status Date Activated Date Inactivated Comments Full Code 03/23/2022 10:14 AM 03/24/2022 12:59 PM Code Status History Code Status Date Activated Date Inactivated Comments Full Code 01/01/2020 5:42 PM 01/02/2020 2:40 AM Full Code 12/23/2019 1:25 PM 12/24/2019 2:35 AM Full Code 07/17/2017 1:06 PM 07/17/2017 4:27 PM Care Teams Audio Visual Project Manager Relationship Specialty [place] [id number] [address] [place] [address] PCP - General Family Medicine 03/25/22 08/22/22 documented as of this encounter
== END ==
PROVIDERS: Family Provider Student in an Organized Health Care Education/Training Program; PCP Family Medicine; Referring Provider Family Medicine; Visit Provider Family Medicine
DX: G62.9 Polyneuropathy, unspecified (principal); E11.9 Type 2 diabetes mellitus without complications; E78.00 Pure hypercholesterolemia, unspecified; N40.1 Benign prostatic hyperplasia with lower urinary tract symptoms; M51.36 Other intervertebral disc degeneration, lumbar region; M51.37 Other intervertebral disc degeneration, lumbosacral region; M47.816 Spondylosis without myelopathy or radiculopathy, lumbar region; M47.817 Spondylosis without myelopathy or radiculopathy, lumbosacral region
CPT/HCPCS: 36415; 72100; 80053; 82043; 82570; 83036; 84153

== ENCOUNTER 2022-12-12 09:44 | Day surgery (SDC) | payer BC, SELFPAY ==
--- NOTE | 2022-12-12 | PATH_ITS ---
[facility] Accession Number: [id number] No. of containers..01 Tissue . 01 Material submitted: . colon - TRANSVERSE POLYP . 01 Diagnosis: Transverse Colon Polyp, Polypectomy: Tubular adenoma. MRV 12/20/2022 1320 Local . 01 Electronically signed: . Lachelle Stanley MD, Pathologist NPI- [id number] . 01 Gross description: . TRANSVERSE POLYP: Received in formalin is 1 fragment(s) of thao, soft tissue measuring 0.6 x 0.6 x 0.5 cm submitted entirely in 1 cassette(s) /KIKO 12/13/2022 1844 Local . 01 Pathologist provided ICD-10: D12.6 . 01 CPT . 697206 Specimen Comment: A courtesy copy of this report has been sent to [phone] Performed at: 01 [facility] [address] [place] [address], [place], [place] [id number] MD Lavell Gagnon MD Phone: [phone]
[2022-12-12 10:16] VITALS: BP 150/107; PULSE 98; RESP 16; TEMP 36.4; O2SAT 94; BMI 31.1
[2022-12-12] MEDS: LACTATED RINGERS 1,000 ML 150 ML IV (10:37)
--- NOTE | 2022-12-12 10:57 | P.HP_ITS ---
History of Present Illness History of Present Illness Date Patient Seen: 12/12/22 Time Patient Seen: 10:57 Chief complaint: Screening Colonoscopy Narrative: Here for colon cancer screening today. He is off his Plavix more than 5 days. [facility] Medical History Peripheral neuropathy Bicipital tendinitis of right shoulder Pacemaker Tinnitus of both ears Hx of pneumothorax (1978) Status post insertion of drug-eluting stent into left anterior descending (LAD) artery (06/2015) Allergic rhinitis (Unknown) IBS (irritable bowel syndrome) (Unknown) GERD (gastroesophageal reflux disease) (Unknown) Dyspnea on exertion (05/01/17) Type 2 diabetes mellitus without complication, without long-term current use of insulin (06/24/16) Pure hypercholesterolemia (02/18/16) Paresthesia of left upper extremity (12/17/15) Coronary artery disease involving [place] coronary artery of [place] heart without angina pectoris (07/21/15) Surgical History S/P coronary artery stent placement (~08/2019) Status post colectomy History of esophagogastroduodenoscopy (EGD) Status post laparoscopic cholecystectomy Social History household members: significant other Smoking Status: Never smoker alcohol intake: current substance use type: does not use Meds Home Medications and Allergies Home Medications Medication Instructions Recorded Confirmed Type melatonin 3 mg tablet 9 mg PO HS ##0 06/09/10 12/12/22 History aspirin 81 mg tablet,delayed 81 mg PO DAILY #30 tabs 12/11/17 12/12/22 Rx release (Aspir-) fenofibrate nanocrystallized 145 145 mg PO QDAY #90 tabs 04/17/18 12/12/22 Rx mg tablet (Tricor) rosuvastatin 40 mg tablet 40 mg PO DAILY #90 tabs 04/17/18 12/12/22 Rx losartan 100 mg tablet 100 mg PO DAILY 10/17/19 12/12/22 History mometasone 0.1 % topical cream 1 applic topical BID #15 grams 07/19/21 12/09/22 Rx nitroglycerin 0.4 mg sublingual 0.4 mg sublingual Q5M PRN chest 02/11/22 12/09/22 Rx tablet pain #20 tabs azelastine 137 mcg (0.1 %) nasal ml intranasal 03/19/22 12/09/22 History spray aerosol carvedilol 6.25 mg tablet 6.25 mg PO BID 03/19/22 12/12/22 History clopidogrel 75 mg tablet (Plavix) 75 mg PO DAILY Post heart 06/06/22 12/12/22 History procedure (1 year) ezetimibe 10 mg tablet 10 mg PO DAILY 06/06/22 12/12/22 History omeprazole 10 mg capsule,delayed 10 mg PO DAILY 06/06/22 12/12/22 History release finasteride 5 mg tablet See Rx Instructions .Route 11/14/22 12/12/22 Rx .COMPLEX #23 tabs brimonidine 0.2 % eye drops 1 drp EYE-LEFT BID 12/09/22 12/09/22 History dapagliflozin propanediol 10 mg 10 mg PO DAILY #90 tabs 12/09/22 12/12/22 Rx tablet (Farxiga) gabapentin 100 mg capsule 100 mg PO BID #60 caps 12/09/22 12/12/22 Rx glipizide 5 mg tablet 5 mg PO .Dinner #90 tabs 12/09/22 12/12/22 Rx metformin 500 mg tablet 1,000 mg (2 x 500 mg) PO BID #360 12/09/22 12/12/22 Rx tabs ofloxacin 0.3 % eye drops drp EYE-BOTH 12/09/22 12/09/22 History prednisolone acetate 1 % eye 1 drp EYE-BOTH 4XD 12/09/22 12/09/22 History drops,suspension Allergies Allergy/AdvReac Type Severity Reaction Status Date / Time grass pollen [GRASS POLLEN] Allergy Unknown Verified 12/09/22 10:23 mold [MOLD] Allergy Unknown Verified 12/09/22 10:23 Review of Systems Review of Systems ROS: Yes All systems reviewed with the patient and are negative except as otherwise documented Exam Vital Signs (past 8 hours): - 12/12/22 10:16 Temperature 97.5 F L Pulse Rate 98 H Respiratory Rate 16 Blood Pressure 150/107 H Pulse Oximetry 94 Oxygen Delivery Method Room Air Oxygen Delivery Method Room Air Const General: cooperative HENMT Head: normal to inspection Eyes General: appearance normal, both eyes and all related structures Neck Neck: normal visual inspection Chest Chest: normal inspection of the chest Resp Effort & Inspection: normal respiratory effort Cardio Rate: regular rate GI Inspection: normal to inspection Skin General: no rashes or lesions noted Neuro General: patient alert and patient awake Extrem General: normal to inspection and no pedal edema Psych Appearance: grossly normal Assessment & Plan Assessment & Plan narrative: 62-year-old male here for colon cancer screening. Colonoscopy is pursued today.
--- NOTE | 2022-12-12 10:58 | PM.PREOP ---
Pre-operative Note Interval Note History & Physical reviewed/Exam performed by Physician: Yes Changes to H&P: No ASA Class (for procedural sedation): III
--- NOTE | 2022-12-12 12:04 | PM.OP.COLON ---
Operative Date/Time/Diagnoses Date of procedure: 12/12/22 Time of procedure: 12:04 Pre-op diagnosis: Colon cancer screening Post-op diagnosis: same Procedure & Clinicians Study performed: Colonoscopy with hot snare polypectomy Same procedure as scheduled: Yes Indications: Colon cancer screening Surgeon: Serafin Pendleton Procedure Notes SCOAP/Timeout: Done Procedure in detail: After the risks and benefits were explained, written and verbal informed consent was obtained. The patient was brought into the procedure room and placed into the left lateral decubitus position. Please see anesthesia notes for sedation details. Digital rectal examination was accomplished. The scope was introduced into the patient and advanced under direct visualization to the cecum as identified by the appendiceal orifice and ileocecal valve. The scope was slowly withdrawn to carefully examine the mucosa for any defects or lesions. Comprehensive imaging was accomplished throughout the rectum including the dentate line. The colon was decompressed, the scope was then removed from the patient who tolerated the procedure well. Adult colonoscope Bowel prep adequate Scope withdrawal time: 6 minutes Sedation minutes: 15 Complications: none Impression: Patient had a side to end anastomosis about 40 cm from the anal verge. This was widely patent without any associated pathology. In the transverse colon there was an approximately 6-7 mm sessile polyp removed with hot snare. No additional pathology was appreciated throughout apart from grade 2 hemorrhoids noted on retroflexed views. Endoscopic diagnosis 1. Colon polyp 2. Patent left colon anastomosis 3. Grade 2 hemorrhoids Post-procedure Plan for aftercare: 1. Await histopathology. 2. Okay to resume Plavix starting tomorrow. 3. Repeat colonoscopy in 5-7 years. Disposition: PACU
[2022-12-12 12:05] VITALS: BP 117/76; PULSE 84; RESP 22; TEMP 35.8; O2SAT 94
[2022-12-12 12:10] VITALS: BP 122/81; PULSE 77; RESP 21; O2SAT 94
[2022-12-12 12:15] VITALS: BP 127/82; PULSE 70; RESP 19; O2SAT 97
[2022-12-12 12:20] VITALS: BP 109/71; PULSE 65; RESP 20; TEMP 36.4; O2SAT 97
[2022-12-12 12:31] VITALS: BP 152/109; PULSE 69; RESP 18; O2SAT 96
== END 2022-12-12 12:40 | disposition home or self-care (01) ==
PROVIDERS: Family Provider Student in an Organized Health Care Education/Training Program; PCP Family Medicine; Referring Provider Internal Medicine Gastroenterology; Visit Provider Internal Medicine Gastroenterology
PROC: 0DJD8ZZ Inspection of Lower Intestinal Tract, Via Natural or Artificial Opening Endoscopic (ICD-10-PCS; CPT 45378; principal; 2022-12-12 11:00)
DX: Z12.11 Encounter for screening for malignant neoplasm of colon (principal); K64.1 Second degree hemorrhoids; D12.3 Benign neoplasm of transverse colon
CPT/HCPCS: 45385; J2704

== ENCOUNTER → 2023-04-20 06:37 | Outpatient (CLI) | payer BC, SELFPAY ==
[2023-04-20 08:25] LABS: BUN Creatinine Ratio 25.8 (6-22); Blood Urea Nitrogen 17 mg/dL (9-20); Calcium 9.7 mg/dL (8.4-10.2); Carbon Dioxide 25 mmol/L (22-32); Chloride 106 mmol/L (98-107); Estimated Glomerular Filt Rate > 60 mL/min (>60); Glucose 194 mg/dL (80-110); HEMOLYSIS < 15 (0-50); Potassium 4.1 mmol/L (3.4-5.1); Sodium 140 mmol/L (137-145)
[2023-04-20 08:39] LABS: Add Manual Diff / Slide Review NO; Basophils Absolute Auto 0 /uL (0-100); Basophils Percent Auto 0.8 % (0-2); Eosinophils Absolute Auto 100 /uL (0-450); Eosinophils Percent Auto 2.2 % (2-4); Hemoglobin 14.4 g/dL (13.5-17.5); Lymphocytes Absolute Auto 1900 /uL (1100-4500); Lymphocytes Percent Auto 39.3 % (25-40); Mean Corpuscular HGB Conc 34.2 % (30-36); Mean Corpuscular Hemoglobin 31.9 PG (26-34); Mean Corpuscular Volume 93.1 fL (80-100); Monocytes Absolute Auto 500 /uL (0-900); Monocytes Percent Auto 9.9 % (3-14); Neutrophils Absolute Auto 2300 /uL (1500-7000); Neutrophils Percent Auto 47.8 % (50-75); Platelet Count 187 X10^3/uL (150-400); Red Blood Cell Count 4.51 X10^6/uL (4.5-5.9); Red Cell Distribution Width 13.1 % (11.6-14.8); White Blood Cell Count 4.9 X10^3/uL (4.5-11.0)
== END ==
LOC: LAB 06:38
PROVIDERS: Family Provider Student in an Organized Health Care Education/Training Program; PCP Family Medicine; Referring Provider Internal Medicine Cardiovascular Disease; Visit Provider Internal Medicine Cardiovascular Disease
DX: I25.10 Atherosclerotic heart disease of native coronary artery without angina pectoris (principal)
CPT/HCPCS: 36415; 80048; 85025

== ENCOUNTER → 2023-06-19 10:42 | Outpatient (CLI) | payer BC, SELFPAY ==
[2023-06-19 11:27] LABS: Hemoglobin A1C% w Est Avg Glu 8.2 % (4.0-6.0)
[2023-06-19 12:04] LABS: Prostate Specific Antigen Scrn 0.228 ng/mL (0.1-4.0)
== END ==
PROVIDERS: Family Provider Student in an Organized Health Care Education/Training Program; PCP Family Medicine; Referring Provider Family Medicine; Visit Provider Family Medicine
DX: Z12.5 Encounter for screening for malignant neoplasm of prostate (principal); G62.9 Polyneuropathy, unspecified; E11.9 Type 2 diabetes mellitus without complications
CPT/HCPCS: 36415; 83036; G0103

== ENCOUNTER → 2023-11-14 06:57 | Outpatient (CLI) | payer BC, SELFPAY ==
[2023-11-14 09:10] LABS: Alanine Aminotransferase 49 IU/L (<50); Albumin 3.8 g/dL (3.5-5.0); Albumin Globulin Ratio 1.4 (1.0-2.8); Alkaline Phosphatase 29 U/L (38-126); Aspartate Aminotransferase 37 IU/L (17-59); BUN Creatinine Ratio 23.9 (6-22); Bilirubin Total 0.5 mg/dL (0.2-1.3); Blood Urea Nitrogen 16 mg/dL (9-20); Calcium 9.4 mg/dL (8.4-10.2); Carbon Dioxide 27 mmol/L (22-32); Chloride 103 mmol/L (98-107); Cholesterol 97 mg/dL (140-199); Estimated Glomerular Filt Rate > 60 mL/min (>60); Globulin 2.7 g/dL (1.7-4.1); Glucose 137 mg/dL (80-110); HDL Cholesterol 35 mg/dL (40-60); HEMOLYSIS 20 (0-50); LDL Cholesterol Calculated 36 mg/dL (<100); Potassium 4.1 mmol/L (3.4-5.1); Sodium 136 mmol/L (137-145); Total Protein 6.5 g/dL (6.3-8.2); Triglycerides 129 mg/dL (35-150)
[2023-11-14 09:37] LABS: Hemoglobin A1C% w Est Avg Glu 6.5 % (4.0-6.0)
== END ==
LOC: LAB 06:57
PROVIDERS: Family Provider Student in an Organized Health Care Education/Training Program; PCP Family Medicine; Referring Provider Family Medicine; Visit Provider Family Medicine
DX: I10 Essential (primary) hypertension (principal); E11.9 Type 2 diabetes mellitus without complications; N40.1 Benign prostatic hyperplasia with lower urinary tract symptoms
CPT/HCPCS: 36415; 80053; 80061; 83036

== ENCOUNTER → 2024-03-26 06:57 | Outpatient (CLI) | payer BC, SELFPAY ==
[2024-03-26 08:37] LABS: Alanine Aminotransferase 52 IU/L (<50); Albumin 4.6 g/dL (3.5-5.0); Albumin Globulin Ratio 1.8 (1.0-2.8); Alkaline Phosphatase 34 U/L (38-126); Aspartate Aminotransferase 37 IU/L (17-59); BUN Creatinine Ratio 30.4 (6-22); Bilirubin Total 0.4 mg/dL (0.2-1.3); Blood Urea Nitrogen 24 mg/dL (9-20); Calcium 10.2 mg/dL (8.4-10.2); Carbon Dioxide 24 mmol/L (22-32); Chloride 104 mmol/L (98-107); Cholesterol 108 mg/dL (140-199); Estimated Glomerular Filt Rate > 60 mL/min (>60); Globulin 2.6 g/dL (1.7-4.1); Glucose 161 mg/dL (80-110); HDL Cholesterol 35 mg/dL (40-60); HEMOLYSIS < 15 (0-50); LDL Cholesterol Calculated 25 mg/dL (<100); Potassium 4.3 mmol/L (3.4-5.1); Sodium 138 mmol/L (137-145); Total Protein 7.2 g/dL (6.3-8.2); Triglycerides 238 mg/dL (35-150)
[2024-03-26 08:41] LABS: Hemoglobin A1C% w Est Avg Glu 7.3 % (4.0-6.0)
== END ==
PROVIDERS: Family Provider Student in an Organized Health Care Education/Training Program; PCP Family Medicine; Referring Provider Family Medicine; Visit Provider Family Medicine
DX: E11.9 Type 2 diabetes mellitus without complications (principal); I10 Essential (primary) hypertension; E78.00 Pure hypercholesterolemia, unspecified
CPT/HCPCS: 36415; 80053; 80061; 83036

== ENCOUNTER → 2024-04-03 12:17 | Outpatient (CLI) | payer BC, SELFPAY ==
[2024-04-05 09:39] LABS: Rubeola Measles IgG > 300.0 AU/mL (Immune >16.4)
== END ==
LOC: LAB 12:17
PROVIDERS: Family Provider Student in an Organized Health Care Education/Training Program; PCP Family Medicine; Referring Provider Family Medicine; Visit Provider Family Medicine
DX: Z01.84 Encounter for antibody response examination (principal)
CPT/HCPCS: 86735; 86762; 86765

== ENCOUNTER → 2024-04-25 06:53 | Outpatient (CLI) | payer BC, SELFPAY ==
[2024-04-25 07:51] LABS: Hematocrit 42.3 % (41-53); Hemoglobin 14.3 g/dL (13.5-17.5); Mean Corpuscular HGB Conc 33.9 % (30-36); Mean Corpuscular Hemoglobin 32.3 PG (26-34); Mean Corpuscular Volume 95.4 fL (80-100); Platelet Count 173 X10^3/uL (150-400); Red Blood Cell Count 4.43 X10^6/uL (4.5-5.9); Red Cell Distribution Width 13.4 % (11.6-14.8); White Blood Cell Count 4.6 X10^3/uL (4.5-11.0)
[2024-04-25 08:23] LABS: BUN Creatinine Ratio 23.6 (6-22); Blood Urea Nitrogen 21 mg/dL (9-20); Calcium 10.1 mg/dL (8.4-10.2); Carbon Dioxide 23 mmol/L (22-32); Chloride 106 mmol/L (98-107); Cholesterol 116 mg/dL (140-199); Estimated Glomerular Filt Rate > 60 mL/min (>60); Glucose 160 mg/dL (80-110); HDL Cholesterol 31 mg/dL (40-60); HEMOLYSIS < 15 (0-50); LDL Cholesterol Calculated 30 mg/dL (<100); Potassium 4.1 mmol/L (3.4-5.1); Sodium 139 mmol/L (137-145); Triglycerides 274 mg/dL (35-150)
[2024-04-25 08:26] LABS: Hemoglobin A1C% w Est Avg Glu 6.9 % (4.0-6.0)
== END ==
PROVIDERS: PCP Family Medicine; Referring Provider Internal Medicine Cardiovascular Disease; Visit Provider Internal Medicine Cardiovascular Disease
DX: I10 Essential (primary) hypertension (principal); E78.5 Hyperlipidemia, unspecified; Z95.0 Presence of cardiac pacemaker
CPT/HCPCS: 36415; 80048; 80061; 83036; 85027

== ENCOUNTER → 2024-07-15 09:22 | Outpatient (CLI) | payer BC, SELFPAY ==
[2024-07-15 10:04] LABS: Alanine Aminotransferase 68 IU/L (<50); Albumin 4.7 g/dL (3.5-5.0); Alkaline Phosphatase 33 U/L (38-126); Aspartate Aminotransferase 47 IU/L (17-59); BUN Creatinine Ratio 24.7 (6-22); Bilirubin Total 0.8 mg/dL (0.2-1.3); Blood Urea Nitrogen 21 mg/dL (9-20); Calcium 10.1 mg/dL (8.4-10.2); Carbon Dioxide 24 mmol/L (22-32); Chloride 104 mmol/L (98-107); Estimated Glomerular Filt Rate > 60 mL/min (>60); Globulin 2.4 g/dL (1.7-4.1); Glucose 112 mg/dL (70-99); HEMOLYSIS < 15 (0-50); Potassium 4.4 mmol/L (3.4-5.1); Sodium 139 mmol/L (137-145); Total Protein 7.1 g/dL (6.3-8.2)
[2024-07-15 10:29] LABS: Creatinine Urine Random 63.85 mg/dL
[2024-07-15 10:33] LABS: Prostate Specific Antigen Scrn 0.288 ng/mL (0.1-4.0)
[2024-07-15 10:34] LABS: Microalbumin Urine Random < 0.6 mg/dL (0-1.6)
== END ==
LOC: LAB 09:23
PROVIDERS: PCP Family Medicine; Referring Provider Family Medicine; Visit Provider Family Medicine
DX: Z00.00 Encounter for general adult medical examination without abnormal findings (principal); Z12.5 Encounter for screening for malignant neoplasm of prostate; I10 Essential (primary) hypertension; E11.9 Type 2 diabetes mellitus without complications
CPT/HCPCS: 36415; 80053; 82043; 82570; 83036; G0103

== ENCOUNTER 2024-08-08 13:02 | Emergency (ER) | payer BC, SELFPAY ==
[2024-08-08 13:14] VITALS: BP 154/80; PULSE 67; RESP 16; TEMP 36.3; O2SAT 98; BMI 31.7
--- NOTE | 2024-08-08 13:18 | DI.RAD.S_ITS ---
PROCEDURE: XR SHOULDER RT MIN 2V INDICATIONS: Fall, pain TECHNIQUE: 3 views of the shoulder were acquired. COMPARISON: None. FINDINGS: Bones: No fractures or dislocations. No suspicious bony lesions. Visualized ribs appear intact. Soft tissues: No suspicious soft tissue calcifications. IMPRESSION: No visualized acute fracture or dislocation. However, if clinical concern and/or pain persist, short interval imaging followup in 7-10 days is recommended, as occult injury cannot be definitively excluded. Dictated by: Ana Akers M.D. on 08/08/2024 at 14:13 Approved by: Ana Akers M.D. on 08/08/2024 at 14:14
--- NOTE | 2024-08-08 13:18 | DI.RAD.S_ITS ---
PROCEDURE: XR SHOULDER LT MIN 2V INDICATIONS: Fall, pain TECHNIQUE: 3 views of the shoulder were acquired. COMPARISON: None. FINDINGS: Bones: No fractures or dislocations. No suspicious bony lesions. Visualized ribs appear intact. Soft tissues: No suspicious soft tissue calcifications. IMPRESSION: No visualized acute fracture or dislocation. However, if clinical concern and/or pain persist, short interval imaging followup in 7-10 days is recommended, as occult injury cannot be definitively excluded. Dictated by: Ana Akers M.D. on 08/08/2024 at 14:12 Approved by: Ana Akers M.D. on 08/08/2024 at 14:13
--- NOTE | 2024-08-08 13:19 | DI.RAD.S_ITS ---
PROCEDURE: XR ANKLE RT MIN 3V INDICATIONS: fall, pain TECHNIQUE: 3 views of the ankle were acquired. COMPARISON: None. FINDINGS: Bones: No fractures or dislocations. Ankle mortise is normally aligned. No suspicious bony lesions. Calcaneal spur. Soft tissues: No tibiotalar joint effusion. Achilles tendon appears normal. IMPRESSION: No visualized acute fracture or dislocation. However, if clinical concern and/or pain persist, short interval imaging followup in 7-10 days is recommended, as occult injury cannot be definitively excluded. Dictated by: Ana Akers M.D. on 08/08/2024 at 14:11 Approved by: Ana Akers M.D. on 08/08/2024 at 14:12
--- NOTE | 2024-08-08 13:19 | DI.RAD.S_ITS ---
PROCEDURE: XR KNEE RT 3V INDICATIONS: fall, pain TECHNIQUE: 3 views of the knee were acquired. COMPARISON: None. FINDINGS: Bones: No fractures or dislocations. No suspicious bony lesions. [id number] tricompartmental arthritic change. No erosions. Soft tissues: Mild to moderate joint effusion. No suspicious soft tissue calcifications. IMPRESSION: Ofns-va-kpozubgl joint effusion. No visualized acute fracture or dislocation. However, if clinical concern and/or pain persist, short interval imaging followup in 7-10 days is recommended, as occult injury cannot be definitively excluded. Dictated by: Ana Akers M.D. on 08/08/2024 at 14:12 Approved by: Ana Akers M.D. on 08/08/2024 at 14:12
--- NOTE | 2024-08-08 16:10 | ED.FALL ---
HPI - Fall <Yoselyn Greene PA-C - Last Filed: 08/08/24 20:03> General Chief Complaint: Fall Stated Complaint: GLF right shoulder pain and rt ankle Time Seen by Provider: 08/08/24 14:26 Source: patient Mode of arrival: Ambulatory History of Present Illness HPI Narrative: Mr. Jauregui is a very pleasant 64-year-old gentleman with a past medical history of CAD, T2 DM, BPH who presents to the emergency department for a fall now with right ankle right knee and right shoulder pain. Patient states he was walking down a step at home stepping onto tile that he did not want no was wet when his leg slipped out in front of him causing him to somewhat awkwardly fall down with a bent right leg, then hitting his right shoulder on the sidewall. He did not hit his head. He is now experiencing throbbing pain of the right ankle, pain of the right knee, and an abrasion and pain of the right shoulder. He is also having chronic pain of his left shoulder. He denies hitting his head, neck pain or back pain. No trunk pain. No medications prior to arrival, no bleeding wounds. No blood thinner use. Related Data Home Medications ?Medication ?Instructions ?Recorded ?Confirmed melatonin 3 mg tablet 9 mg PO HS ##0 06/09/10 07/15/24 losartan 100 mg tablet 100 mg PO DAILY 10/17/19 07/15/24 azelastine 137 mcg (0.1 %) nasal ml intranasal 03/19/22 07/15/24 spray carvedilol 6.25 mg tablet 6.25 mg PO BID 03/19/22 07/15/24 ezetimibe 10 mg tablet 10 mg PO DAILY 06/06/22 07/15/24 omeprazole 10 mg capsule,delayed 10 mg PO DAILY 06/06/22 07/15/24 release vitamin B complex PO 06/19/23 07/15/24 gabapentin 300 mg capsule 900 mg PO BEDTIME 07/15/24 Previous Rx's ?Medication ?Instructions ?Recorded aspirin 81 mg tablet,delayed 81 mg PO DAILY #30 tabs 12/11/17 release (Aspir-) fenofibrate nanocrystallized 145 145 mg PO QDAY #90 tabs 04/17/18 mg tablet (Tricor) rosuvastatin 40 mg tablet 40 mg PO DAILY #90 tabs 04/17/18 mometasone 0.1 % topical cream 1 applic topical BID #15 grams 07/19/21 metformin 500 mg tablet 1,000 mg (2 x 500 mg) PO BID #360 01/11/24 tabs pioglitazone 15 mg tablet 15 mg PO DAILY #90 tabs 03/04/24 nitroglycerin 0.4 mg sublingual 0.4 mg sublingual Q5M PRN chest 03/11/24 tablet pain #20 tabs dapagliflozin propanediol 10 mg 10 mg PO DAILY #90 tabs 04/12/24 tablet (Farxiga) finasteride 5 mg tablet See Rx Instructions .Route 05/09/24 .COMPLEX #23 tabs tirzepatide 7.5 mg/0.5 mL 7.5 mg (0.5 mL) SUBCUT QWEEK #2 mL 05/24/24 subcutaneous pen injector (Reilly) glipizide 2.5 mg tablet 5 mg (2 x 2.5 mg) PO .Dinner #90 07/15/24 tabs Allergies Allergy/AdvReac Type Severity Reaction Status Date / Time grass pollen (GRASS POLLEN) Allergy Unknown Verified 08/08/24 13:14 mold (MOLD) Allergy Unknown Verified 08/08/24 13:14 tree and shrub pollen AdvReac Mild Verified 08/08/24 13:14 Review of Systems <Yoselyn Greene PA-C - Last Filed: 08/08/24 20:03> Review of Systems ROS Unobtainable: All systems reviewed & are unremarkable except as noted in HPI and below Patient History <Yoselyn Greene PA-C - Last Filed: 08/08/24 20:03> Medical History Well adult exam Peripheral neuropathy Bicipital tendinitis of right shoulder Pacemaker Tinnitus of both ears Hx of pneumothorax (1978) Status post insertion of drug-eluting stent into left anterior descending (LAD) artery (06/2015) Allergic rhinitis (Unknown) IBS (irritable bowel syndrome) (Unknown) GERD (gastroesophageal reflux disease) (Unknown) Dyspnea on exertion (05/01/17) Type 2 diabetes mellitus without complication, without long-term current use of insulin (06/24/16) Pure hypercholesterolemia (02/18/16) Paresthesia of left upper extremity (12/17/15) Coronary artery disease involving [place] coronary artery of [place] heart without angina pectoris (07/21/15) Surgical History S/P coronary artery stent placement (~08/2019) Status post colectomy History of esophagogastroduodenoscopy (EGD) Status post laparoscopic cholecystectomy Social History marital status: number of children: 0 household members: significant other lives independently: Yes caregiver/support person: No pets and animals: Yes education level: college occupational status: employed current occupational exposures/hazards: No mely/scientology: All religions are a form of a Cult special mely needs: No travel history: over 6 months ago sexual history: minimal leisure activities: exercise and other other: gardening seatbelt use: always helmet use: No water heater temp set < 120 deg: No working smoke detector in home: Yes fire extinguisher in home: Yes carbon monox detector in home: Yes firearms in home: Yes firearms unloaded and locked: Yes do you feel safe at home: Yes Smoking Status: Never smoker alcohol intake: current substance use type: does not use during the past year weight has: remained stable well-balanced diet: daily or most days daily servings fruits/ve-4 caffeine: Yes eating out: rarely or never Type(s) of exercise: walking and sedentary lifestyle frequency: 1-2 times per week duration: > 90 minutes/day Smoking Status: Never smoker alcohol intake frequency: a few times a week Exam <Yoselyn Greene PA-C - Last Filed: 08/08/24 20:03> Narrative Exam Narrative: GENERAL: 64 year old patient appears stated age. Well-developed patient, in no acute distress. HEAD: Atraumatic. Normocephalic. EYES: Extraocular motions intact. No scleral icterus. No injection or drainage. NECK: Trachea midline. Cervical ROM intact. CARDIOVASCULAR: Regular rate and rhythm. RESPIRATORY: ?Nonlabored respirations. ?Speaking in clear, full sentences. ?Clear to auscultation. Breath sounds equal bilaterally. No wheezes, rales, or rhonchi. ? GASTROINTESTINAL: Abdomen soft, non-tender, nondistended. EXTREMITIES: Mild edema of lateral right ankle with tenderness to palpation just distal to the lateral malleolus. There is no ecchymosis or overlying skin changes. Strong DP and PT pulses bilaterally and brisk capillary refill in the toes. Patient has subjective pain of right knee but no reproducible tenderness or joint laxity. On the right anterior shoulder there is a superficial abrasion with no bony deformities. Patient is still able to abduct and adduct bilateral shoulders. Strong radial pulses bilaterally and good forensic psychologist strength. BACK: Nontender without deformity or crepitance. No flank tenderness. NEURO: AOx3. ?Clear speech. ?Moves all 4 extremities appropriately. SKIN: No rash or erythema of visible areas with the exception of right anterior shoulder abrasion Initial Vital Signs Initial Vital Signs: Vital Signs Temperature 97.3 F L 08/08/24 13:14 Pulse Rate 67 08/08/24 13:14 Respiratory Rate 16 08/08/24 13:14 Blood Pressure 154/80 H 08/08/24 13:14 Pulse Oximetry 98 08/08/24 13:14 Oxygen Delivery Method Room Air 08/08/24 13:14 <Prem Thompson MD - Last Filed: 08/11/24 18:43> Initial Vital Signs Initial Vital Signs: Vital Signs Temperature 97.3 F L 08/08/24 13:14 Pulse Rate 67 08/08/24 13:14 Respiratory Rate 16 08/08/24 13:14 Blood Pressure 154/80 H 08/08/24 13:14 Pulse Oximetry 98 08/08/24 13:14 Oxygen Delivery Method Room Air 08/08/24 13:14 Course <Yoselyn Greene PA-C - Last Filed: 08/08/24 20:03> Orders Ordered: Discontinued Medications Hydrocodone Bitart/Acetaminophen (Hydrocodone/Acet 5/325 Tablet) 1 tab PO NOW ONE Stop: 08/08/24 16:30 Last Admin: 08/08/24 17:01 Dose: 1 tab Documented By: GITA Vital Signs Vital signs: Vital Signs - 8 hr 08/08/24 13:14 08/08/24 17:37 Temperature 97.3 F L Pulse Rate 67 65 Respiratory Rate 16 16 Blood Pressure 154/80 H 150/79 H Pulse Oximetry 98 100 Oxygen Delivery Method Room Air Room Air <Prem Thompson MD - Last Filed: 08/11/24 18:43> Orders Ordered: Discontinued Medications Hydrocodone Bitart/Acetaminophen (Hydrocodone/Acet 5/325 Tablet) 1 tab PO NOW ONE Stop: 08/08/24 16:30 Last Admin: 08/08/24 17:01 Dose: 1 tab Documented By: GITA Vital Signs Vital signs: Vital Signs - 8 hr 08/08/24 13:14 08/08/24 17:37 Temperature 97.3 F L Pulse Rate 67 65 Respiratory Rate 16 16 Blood Pressure 154/80 H 150/79 H Pulse Oximetry 98 100 Oxygen Delivery Method Room Air Room Air MDM - Fall <Yoselyn Greene PA-C - Last Filed: 08/08/24 20:03> Medical Records Attestation: I reviewed the patient's medical records. [facility] Narrative Medical decision making narrative: 64-year-old gentleman with a past medical history of CAD, T2 DM, BPH who presents to the emergency department for a fall now with right ankle right knee and right shoulder pain. Differential diagnosis includes but is not limited to right shoulder sprain, strain, fracture, contusion, right knee sprain, strain, fracture, contusion, right ankle inversion sprain, strain, fracture, etc. On exam the patient is in no acute distress, nontoxic appearing, vital signs appropriate. He has an abrasion on the anterior right shoulder and edema of the lateral right ankle otherwise physical exam is overall reassuring. X-ray of bilateral shoulders, right knee and right ankle were obtained in triage. We will treat patient's pain with hydrocodone-acetaminophen as he does have a family member here to drive him home. Knee x-ray reveals [id number] tricompartmental arthritic change, [id number] joint effusion, no acute fracture or dislocation. This was treated with an Doug wrap in the ED. Right ankle x-ray reveals no acute abnormalities. Due to his significant lateral ankle pain and swelling, after shared decision-making with the patient, he opted for a right ankle air splint for suspected lateral sprain, he ambulates well with a splint. Bilateral shoulder x-rays reveal no acute abnormalities. Recommended rice therapy for both patient's ankle and knee injury. Advised ibuprofen/Tylenol, follow up with PCP and ortho if needed. Discussed ED return precautions. Patient verbalized understanding of all information and is agreeable with the plan, he is feeling better and ambulatory. He is stable for discharge home. Discharge Plan Departure Patient Disposition: Home Clinical Impression: Fall from ground level, Effusion, right knee Inversion sprain of right ankle Qualifiers: Encounter type: initial encounter Qualified Code(s): S93.401A - Sprain of unspecified ligament of right ankle, initial encounter Contusion of right shoulder Qualifiers: Encounter type: initial encounter Qualified Code(s): S40.011A - Contusion of right shoulder, initial encounter Instructions: DI for Ankle Sprain Activity Restrictions/Additional Instructions: Dear Mr. Jauregui, Thank you for coming to the emergency department. I am very sorry that you had a fall today. Your x-rays did not show any broken bones but you do have a right ankle sprain, a right knee effusion, and a contusion of the right shoulder. Please wear an Doug wrap on the right knee and a brace on the right ankle. Please use RICE therapy for your pain in addition to ibuprofen/acetaminophen. Rest the painful area. Ice the area of pain/swelling for at least 15 minutes, 4x a day. Compress the area of swelling using a brace, wrap, or splint if applied. Elevate the painful or swollen extremity by supporting it above the level of the heart with pillows when sitting or laying. Please take Ibuprofen (Motrin/Advil) or Acetaminophen (Tylenol) for pain. These are available over the counter. You may take Ibuprofen 600 mg every 8 hours with food for pain. You may also take Acetaminophen 650 mg every 4-6 hours for pain. Do not exceed 3000 mg of Tylenol a day as this can cause liver damage. Do not drink alcohol with either of these medications. Please follow up with your primary care doctor, if you have persistent pain you may need referral to orthopedics. Please follow up with your primary care doctor within the next 2-3 days for ER follow-up. (If you do not have a PCP you can call [phone]. ?to schedule an appointment with an [facility] Primary Care Provider) IF YOU DEVELOP ANY NEW OR WORSENING SYMPTOMS, RETURN TO THE ER! Please read the attached instructions, they highlight more specific treatments and interventions for you at home. Thank you for letting me participate in your care, Yoselyn Greene PA-C Prescriptions: No Action aspirin [Aspir-81] 81 mg tablet,delayed release (DR/EC) 81 mg PO DAILY Qty: 30 11RF melatonin 3 MG tablet 9 mg PO HS Qty: 0 fenofibrate nanocrystallized [Tricor] 145 mg tablet 145 mg PO QDAY Qty: 90 1RF rosuvastatin 40 mg tablet 40 mg PO DAILY Qty: 90 1RF metformin 500 mg tablet 1,000 mg PO BID Qty: 360 3RF pioglitazone 15 mg tablet 15 mg PO DAILY Qty: 90 3RF nitroglycerin 0.4 mg tablet, sublingual 0.4 mg SL Q5M PRN (Reason: chest pain) Qty: 20 2RF Rx Instructions: do not exceed 3 doses per episode Farxiga 10 mg tablet 10 mg PO DAILY Qty: 90 3RF finasteride 5 mg tablet See Rx Instructions .ROUTE .COMPLEX Qty: 23 3RF Dose Instruction: 1.25 mg orally daily Take one quarter tablet once a day. Rx Instructions: 1.25 mg orally daily Take one quarter tablet once a day. Mounjaro 7.5 mg/0.5 mL pen injector 7.5 mg SUBCUT QWEEK Qty: 2 2RF mometasone 0.1 % cream 1 applic TOP BID Qty: 15 0RF carvedilol 6.25 mg tablet 6.25 mg PO BID Patient Comments: take 1 tablet by mouth twice a day azelastine 137 mcg (0.1 %) aerosol,spray intranasal Patient Comments: instill 2 sprays into each nostril twice a day for RHINITIS or allergies omeprazole 10 mg capsule,delayed release(DR/EC) 10 mg PO DAILY ezetimibe 10 mg tablet 10 mg PO DAILY vitamin B complex PO gabapentin 300 mg capsule 900 mg PO BEDTIME glipizide 2.5 mg tablet 5 mg PO .Dinner Qty: 90 3RF losartan 100 mg tablet 100 mg PO DAILY Referrals: Lucas Mercado DO [Primary Care Provider, Family Practice] Stand Alone Forms: Patient Portal/API ED Sign-out <Prem Thompson MD - Last Filed: 08/11/24 18:43> Cosign ED Attending Cosignature Attestation: I was immediately available in the department for consultation. ?This documentation has been reviewed and I agree with assessment and plan. Supervised by Prem Thompson MD
[2024-08-08] MEDS: HYDROCODONE/ACET 5/325 TABLET 1 TAB PO (17:01)
[2024-08-08 17:37] VITALS: BP 150/79; PULSE 65; RESP 16; O2SAT 100
== END 2024-08-08 18:07 | disposition home or self-care (01) ==
PROVIDERS: Emergency Provider Physician Assistant; PCP Family Medicine
DX: S93.401A Sprain of unspecified ligament of right ankle, initial encounter (principal); S40.011A Contusion of right shoulder, initial encounter; M25.461 Effusion, right knee; W01.0XXA Fall on same level from slipping, tripping and stumbling without subsequent striking against object, initial encounter
CPT/HCPCS: 73030; 73562; 73610; 99283; 99284

== ENCOUNTER → 2024-09-13 13:15 | Outpatient (CLI) | payer BC, SELFPAY ==
--- NOTE | 2024-09-13 13:15 | DI.CT.S_ITS ---
PROCEDURE: CT ANKLE RIGHT WITHOUT CON INDICATIONS: Persistent pain and swelling after fall on 08/08 TECHNIQUE: Noncontrast 1-1.5 mm axial sections acquired from above the tibiotalar joint to the bottom of the calcaneus, with coronal and sagittal reformats. For radiation dose reduction, the following was used: automated exposure control, adjustment of mA and/or kV according to patient size. COMPARISON: [facility], CR, XR ANKLE RT MIN 3V, 08/08/2024, 13:24. FINDINGS: Image quality: Excellent. Bones: Tiny calcified fragment at the anterior medial aspect of the distal fibula near the anterior tibiofibular ligament insertion, possibly a small avulsion fracture. No other acute osseous fracture is seen. No osteochondral lesion in the talar dome. Small plantar calcaneal enthesophyte. No suspicious intraosseous lesion. Soft tissues: Soft tissue edema is seen at the lateral aspect of the ankle occluding surrounding the region of the anterior talofibular ligament. However, the ligaments, tendons, and articular cartilages are not well evaluated with CT. The visualized musculature is normal in bulk. IMPRESSION: 1. Tiny osseous fragment at the anterior medial aspect of the distal fibula may represent a small avulsion fracture involving the anterior tibiofibular ligament attachment site. 2. Focal soft tissue edema in the region of the anterior talofibular ligament is suspicious for underlying sprain, but not well evaluated with CT. MRI could be performed for further evaluation and to evaluate further soft tissue injuries or occult trabecular bone injury if indicated clinically. Approved by: Luisito Antoine M.D. on 09/16/2024 at 9:18
== END ==
PROVIDERS: PCP Family Medicine; Referring Provider Physician Assistant; Visit Provider Physician Assistant
DX: M25.571 Pain in right ankle and joints of right foot (principal); S99.911A Unspecified injury of right ankle, initial encounter; R60.0 Localized edema; X58.XXXA Exposure to other specified factors, initial encounter
CPT/HCPCS: 73700

== ENCOUNTER → 2024-11-21 12:50 | Outpatient (CLI) | payer BC, SELFPAY | LOC: PHYS 12:51 | PROVIDERS: Family Provider Family Medicine; PCP Family Medicine; Referring Provider Family Medicine; Visit Provider Family Medicine | DX: M54.10 Radiculopathy, site unspecified (principal); M79.602 Pain in left arm | CPT/HCPCS: 95886; 95909 ==

== ENCOUNTER → 2024-11-26 08:02 | Outpatient (CLI) | payer BC, SELFPAY ==
[2024-11-26 09:25] LABS: Hemoglobin A1C% w Est Avg Glu 6.4 % (4.0-6.0)
[2024-11-26 09:29] LABS: Alanine Aminotransferase 60 IU/L (<50); Albumin 4.6 g/dL (3.5-5.0); Albumin Globulin Ratio 1.7 (1.0-2.8); Alkaline Phosphatase 33 U/L (38-126); Blood Urea Nitrogen 17 mg/dL (9-20); Calcium 9.8 mg/dL (8.4-10.2); Carbon Dioxide 24 mmol/L (22-32); Chloride 105 mmol/L (98-107); Estimated Glomerular Filt Rate > 60 mL/min (>60); Globulin 2.7 g/dL (1.7-4.1); Glucose 103 mg/dL (70-99); HEMOLYSIS 16 (0-50); Potassium 4.3 mmol/L (3.4-5.1); Sodium 139 mmol/L (137-145); Total Protein 7.3 g/dL (6.3-8.2)
== END ==
PROVIDERS: Family Provider Family Medicine; PCP Family Medicine; Referring Provider Family Medicine; Visit Provider Family Medicine
DX: E11.9 Type 2 diabetes mellitus without complications (principal); I10 Essential (primary) hypertension
CPT/HCPCS: 36415; 80053; 83036

== ENCOUNTER 2024-11-27 10:48 | Emergency (ER) | payer BC, SELFPAY ==
[2024-11-27 11:07] VITALS: BP 172/108; PULSE 78; RESP 16; TEMP 36.8; O2SAT 98; BMI 29.1
--- NOTE | 2024-11-27 11:18 | ED.ABDPAIN ---
HPI - Abdominal Pain <Yoselyn Greene PA-C - Last Filed: 11/27/24 12:53> General Chief Complaint: Abdominal Pain Stated Complaint: Nausea vomitting w/ right flank pain Time Seen by Provider: 11/27/24 11:18 Source: patient Mode of arrival: Ambulatory History of Present Illness HPI narrative: Mr. Jauregui is a pleasant 64-year-old gentleman with a past medical history of CAD s/p stents, T2 DM, BPH, HTN, diverticulitis with bowel resection who presents to the emergency department for right-sided abdominal pain and constipation x9 days now associated with nausea and dizziness. Patient states that he typically deals with constipation however since 11/18 he has had daily constipation, he did take magnesium citrate in addition of MiraLax on Monday which resulted in diarrhea however shortly after the constipation returned. He has had some intermittent dull pain in the right anterior side of his abdominal wall that has been coming and going, not currently present. However today he developed nausea without vomiting and the sensation of dizziness/lightheadedness which is what prompted his ER arrival. He does take Mounjaro his last dose was Monday, describes his abdominal pain is being in the location where he injects himself. He denies feeling similar symptoms in the past. He denies history of kidney stones. He denies chest pain, shortness of breath, coughing, back pain, dysuria, hematuria, penile or scrotal pain. Denies melena, hematochezia or hematemesis. He does not take any blood thinners but he does take baby aspirin. He did not take his morning medications including blood pressure medication because he did not eat anything this morning. Abdominal surgical history includes bowel resection, cholecystectomy. He also has an AICD. Related Data Home Medications ?Medication ?Instructions ?Recorded ?Confirmed melatonin 3 mg tablet 9 mg PO HS ##0 06/09/10 11/22/24 losartan 100 mg tablet 100 mg PO DAILY 10/17/19 11/22/24 azelastine 137 mcg (0.1 %) nasal ml intranasal 03/19/22 11/22/24 spray carvedilol 6.25 mg tablet 6.25 mg PO BID 03/19/22 11/22/24 ezetimibe 10 mg tablet 10 mg PO DAILY 06/06/22 11/22/24 vitamin B complex PO 06/19/23 11/22/24 gabapentin 300 mg capsule 900 mg PO BEDTIME 07/15/24 11/22/24 glipizide 2.5 mg tablet 2.5 mg PO .Dinner 09/30/24 11/22/24 cholecalciferol (vitamin D3) 50 50 mcg PO DAILY 11/22/24 11/22/24 mcg (2,000 unit) capsule Previous Rx's ?Medication ?Instructions ?Recorded aspirin 81 mg tablet,delayed 81 mg PO DAILY #30 tabs 12/11/17 release (Aspir-) fenofibrate nanocrystallized 145 145 mg PO QDAY #90 tabs 04/17/18 mg tablet (Tricor) rosuvastatin 40 mg tablet 40 mg PO DAILY #90 tabs 04/17/18 mometasone 0.1 % topical cream 1 applic topical BID #15 grams 07/19/21 metformin 500 mg tablet 1,000 mg (2 x 500 mg) PO BID #360 01/11/24 tabs pioglitazone 15 mg tablet 15 mg PO DAILY #90 tabs 03/04/24 nitroglycerin 0.4 mg sublingual 0.4 mg sublingual Q5M PRN chest 03/11/24 tablet pain #20 tabs dapagliflozin propanediol 10 mg 10 mg PO DAILY #90 tabs 04/12/24 tablet (Farxiga) finasteride 5 mg tablet See Rx Instructions .Route 05/09/24 .COMPLEX #23 tabs inhalational spacing device #1 ea 09/24/24 (Aerochamber MV spacer) omeprazole 10 mg capsule,delayed 10 mg PO QAM #90 caps 10/08/24 release tirzepatide 7.5 mg/0.5 mL 7.5 mg (0.5 mL) SUBCUT QWEEK #2 mL 10/14/24 subcutaneous pen injector (Mounjaro) ondansetron 4 mg disintegrating 4 mg PO Q8H PRN nausea and 11/27/24 tablet vomiting #12 tabs Allergies Allergy/AdvReac Type Severity Reaction Status Date / Time grass pollen (GRASS POLLEN) Allergy Unknown Verified 11/22/24 08:52 mold (MOLD) Allergy Unknown Verified 11/22/24 08:52 tree and shrub pollen AdvReac Mild Verified 11/22/24 08:52 Review of Systems <Yoselyn Greene PA-C - Last Filed: 11/27/24 12:53> Review of Systems ROS Unobtainable: All systems reviewed & are unremarkable except as noted in HPI and below Patient History <Yoselyn Greene PA-C - Last Filed: 11/27/24 12:53> Medical History Paresthesia Cervical radiculitis Cervical spondylolysis Acute bronchitis Left arm pain Well adult exam Peripheral neuropathy Bicipital tendinitis of right shoulder Pacemaker Tinnitus of both ears Hx of pneumothorax (1978) Status post insertion of drug-eluting stent into left anterior descending (LAD) artery (06/2015) Allergic rhinitis (Unknown) IBS (irritable bowel syndrome) (Unknown) GERD (gastroesophageal reflux disease) (Unknown) Dyspnea on exertion (05/01/17) Type 2 diabetes mellitus without complication, without long-term current use of insulin (06/24/16) Pure hypercholesterolemia (02/18/16) Paresthesia of left upper extremity (12/17/15) Coronary artery disease involving [place] coronary artery of [place] heart without angina pectoris (07/21/15) Surgical History S/P coronary artery stent placement (~08/2019) Status post colectomy History of esophagogastroduodenoscopy (EGD) Status post laparoscopic cholecystectomy Social History marital status: number of children: 0 household members: significant other lives independently: Yes caregiver/support person: No pets and animals: Yes education level: college occupational status: employed current occupational exposures/hazards: No mely/mosque: All religions are a form of a Cult special mely needs: No travel history: over 6 months ago sexual history: minimal leisure activities: exercise and other other: gardening seatbelt use: always helmet use: No water heater temp set < 120 deg: No working smoke detector in home: Yes fire extinguisher in home: Yes carbon monox detector in home: Yes firearms in home: Yes firearms unloaded and locked: Yes do you feel safe at home: Yes alcohol intake: current substance use type: does not use during the past year weight has: remained stable well-balanced diet: daily or most days daily servings fruits/ve-4 caffeine: Yes eating out: rarely or never Type(s) of exercise: walking and sedentary lifestyle frequency: 1-2 times per week duration: > 90 minutes/day alcohol intake frequency: a few times a week Exam <Yoselyn Greene PA-C - Last Filed: 11/27/24 12:53> Narrative Exam Narrative: GENERAL: 64 year old patient appears stated age. Well-developed patient, in no acute distress. HEAD: Atraumatic. Normocephalic. EYES: No scleral icterus. No injection or drainage. NECK: Trachea midline. Cervical ROM intact. CARDIOVASCULAR: Regular rate and rhythm. RESPIRATORY: ?Nonlabored respirations. ?Speaking in clear, full sentences. ?Clear to auscultation. Breath sounds equal bilaterally. No wheezes, rales, or rhonchi. ? GASTROINTESTINAL: Abdomen soft, nondistended, bowel sounds present. Patient reports 1/10 pain with deep palpation of the right periumbilical region. No rebound or guarding. Midline abdominal surgical scar present. EXTREMITIES: No LE edema. 2+ BL DP pulses. BACK: No CVA tenderness BL. NEURO: AOx3. ?Clear speech. ?Moves all 4 extremities appropriately. SKIN: No rash or erythema of visible areas Initial Vital Signs Initial Vital Signs: Vital Signs Temperature 98.2 F 11/27/24 11:07 Pulse Rate 78 11/27/24 11:07 Respiratory Rate 16 11/27/24 11:07 Blood Pressure 172/108 H 11/27/24 11:07 Pulse Oximetry 98 11/27/24 11:07 Oxygen Delivery Method Room Air 11/27/24 11:07 <Prem Thompson MD - Last Filed: 11/27/24 18:57> Initial Vital Signs Initial Vital Signs: Vital Signs Temperature 98.2 F 11/27/24 11:07 Pulse Rate 78 11/27/24 11:07 Respiratory Rate 16 11/27/24 11:07 Blood Pressure 172/108 H 11/27/24 11:07 Pulse Oximetry 98 11/27/24 11:07 Oxygen Delivery Method Room Air 11/27/24 11:07 Course <Yoselyn Greene PA-C - Last Filed: 11/27/24 12:53> Orders Ordered: ED Orders 11/27/24 11:15 Complete Blood Count AUTO DIFF Stat Comprehensive Metabolic Panel Stat Lipase Stat Magnesium Stat Troponin & CK Cardiac Panel Stat 11/27/24 11:25 EKG-12 Lead Stat 11/27/24 11:27 CT abdomen pelvis w con Stat 11/27/24 11:56 Urinalysis Screen (Dip Only) Stat Discontinued Medications Sodium Chloride (Normal Saline 0.9%) 1,000 mls @ 1,000 mls/hr IV BOLUS ONE Stop: 11/27/24 12:26 Last Infusion: 11/27/24 12:45 Dose: Infused Documented By: Admin: 11/27/24 12:01 Dose: 1,000 mls/hr Documented By: VINCENT Ondansetron HCl (Ondansetron 4 Mg/2 Ml Inj) 4 mg IV NOW PRN PRN Reason: Nausea And Vomiting Ondansetron HCl (Ondansetron 4 Mg Odt) 4 mg PO NOW PRN PRN Reason: Nausea And Vomiting Ondansetron HCl (Ondansetron 4 Mg/2 Ml Inj) 4 mg IV NOW ONE Stop: 11/27/24 11:28 Last Admin: 11/27/24 12:02 Dose: 4 mg Documented By: VINCENT Vital Signs Vital signs: Vital Signs - 8 hr 11/27/24 11:07 11/27/24 11:20 11/27/24 11:30 Temperature 98.2 F Pulse Rate 78 63 64 Respiratory Rate 16 19 20 Blood Pressure 172/108 H Pulse Oximetry 98 99 98 Oxygen Delivery Method Room Air 11/27/24 11:58 11/27/24 11:58 11/27/24 12:00 Temperature Pulse Rate 66 Respiratory Rate 18 Blood Pressure 159/87 H 143/77 H Pulse Oximetry 99 Oxygen Delivery Method 11/27/24 12:00 11/27/24 12:48 Temperature Pulse Rate 64 Respiratory Rate 16 Blood Pressure Pulse Oximetry 99 Oxygen Delivery Method Room Air Room Air <Prem Thompson MD - Last Filed: 11/27/24 18:57> Orders Ordered: ED Orders 11/27/24 11:15 Complete Blood Count AUTO DIFF Stat Comprehensive Metabolic Panel Stat Lipase Stat Magnesium Stat Troponin & CK Cardiac Panel Stat 11/27/24 11:25 EKG-12 Lead Stat 11/27/24 11:27 CT abdomen pelvis w con Stat 11/27/24 11:56 Urinalysis Screen (Dip Only) Stat Discontinued Medications Sodium Chloride (Normal Saline 0.9%) 1,000 mls @ 1,000 mls/hr IV BOLUS ONE Stop: 11/27/24 12:26 Last Infusion: 11/27/24 12:45 Dose: Infused Documented By: Admin: 11/27/24 12:01 Dose: 1,000 mls/hr Documented By: VINCENT Ondansetron HCl (Ondansetron 4 Mg/2 Ml Inj) 4 mg IV NOW PRN PRN Reason: Nausea And Vomiting Ondansetron HCl (Ondansetron 4 Mg Odt) 4 mg PO NOW PRN PRN Reason: Nausea And Vomiting Ondansetron HCl (Ondansetron 4 Mg/2 Ml Inj) 4 mg IV NOW ONE Stop: 11/27/24 11:28 Last Admin: 11/27/24 12:02 Dose: 4 mg Documented By: VINCENT Vital Signs Vital signs: Vital Signs - 8 hr 11/27/24 11:07 11/27/24 11:20 11/27/24 11:30 Temperature 98.2 F Pulse Rate 78 63 64 Respiratory Rate 16 19 20 Blood Pressure 172/108 H Pulse Oximetry 98 99 98 Oxygen Delivery Method Room Air 11/27/24 11:58 11/27/24 11:58 11/27/24 12:00 Temperature Pulse Rate 66 Respiratory Rate 18 Blood Pressure 159/87 H 143/77 H Pulse Oximetry 99 Oxygen Delivery Method 11/27/24 12:00 11/27/24 12:48 Temperature Pulse Rate 64 Respiratory Rate 16 Blood Pressure Pulse Oximetry 99 Oxygen Delivery Method Room Air Room Air MDM - Abdominal Pain <Yoselyn Estefany Greene PA-C - Last Filed: 11/27/24 12:53> Medical Records Attestation: I reviewed the patient's medical records. Lab Data 11/27/24 11:15 11/27/24 11:15 Labs: Lab Results 11/27/24 11/27/24 Range/Units 11:15 11:56 WBC 5.5 (4.5-11.0) X10^3/uL RBC 4.73 (4.5-5.9) X10^6/uL Hgb 15.4 (13.5-17.5) g/dL Hct 44.8 (41-53) % MCV 94.6 (80-100) fL MCH 32.6 (26-34) PG MCHC 34.4 (30-36) % RDW 14.0 (11.6-14.8) % Plt Count 242 (150-400) X10^3/uL Neut % (Auto) 59.5 (50-75) % Lymph % (Auto) 29.6 (25-40) % [place] % (Auto) 8.7 (3-14) % Eos % (Auto) 1.5 L (2-4) % Baso % (Auto) 0.7 (0-2) % Neut # (Auto) 3300 (9998-3853) /uL Lymph # (Auto) 1600 (2060-6413) /uL [place] # (Auto) 500 (0-900) /uL Eos # (Auto) 100 (0-450) /uL Baso # (Auto) 0 (0-100) /uL Sodium 139 (137-145) mmol/L Potassium 4.4 (3.4-5.1) mmol/L Chloride 104 (98-107) mmol/L Carbon Dioxide 22 (22-32) mmol/L BUN 15 (9-20) mg/dL Creatinine 0.81 (0.66-1.25) mg/dL Estimated GFR > 60 (>60) mL/min BUN/Creatinine Ratio 18.5 (6-22) Glucose 123 H (70-99) mg/dL Calcium 10.1 (8.4-10.2) mg/dL Magnesium 2.0 (1.6-2.3) mg/dL Total Bilirubin 0.9 (0.2-1.3) mg/dL AST 58 (17-59) IU/L ALT 67 H (<50) IU/L Alkaline Phosphatase 38 (38-126) U/L Total Creatine Kinase 44 L (55-170) U/L Troponin I < 0.012 (0.01-0.034) ng/mL Total Protein 8.4 H (6.3-8.2) g/dL Albumin 5.1 H (3.5-5.0) g/dL Globulin 3.3 (1.7-4.1) g/dL Albumin/Globulin Ratio 1.5 (1.0-2.8) Lipase 96 (23-300) U/L Urine Color Yellow Urine Appearance Clear Urine pH 6.0 (4.5-8.0) Ur Specific [place] 1.010 (1.000-1.035) Urine Protein Negative (Negative) Urine Glucose (UA) 3+ H (Negative) g/dL Urine Ketones Negative (NEGATIVE) Urine Occult Blood Negative (Negative) Urine Nitrate Negative (Negative) Urine Bilirubin Negative (NEGATIVE) Urine Urobilinogen 0.2 (0.2) E.U./dL Ur Leukocyte Esterase Negative (NEGATIVE) Imaging Data CT scan - abdomen/pelvis: Radiologist's Impression: PROCEDURE: CT ABDOMEN PELVIS W CON INDICATIONS: Right sided abdominal pain; constipation; nausea TECHNIQUE: After the administration of intravenous contrast, axial sections acquired from the lung bases to the pubic symphysis. Coronal and sagittal reformats were performed. For radiation dose reduction, the following was used: automated exposure control, adjustment of mA and/or kV according to patient size. COMPARISON: [facility], CT, CHEST/ABDOMEN WITH CONTRAST, 03/27/2017, 8:08. FINDINGS: Image quality: Diagnostic. Lower Chest: Pacemaker, coronary artery calcifications. Extreme lung bases are clear. Heart size is within normal limits. No hiatal hernia. ABDOMEN: Liver: No solid mass. Gallbladder: Absent Biliary ducts: No biliary dilation. Pancreas: No ductal dilation. Diffuse fatty replacement of the pancreas. Spleen: Size is within normal limits. Adrenal Glands: No adrenal nodules. Kidneys and Ureters: No hydronephrosis. No solid mass. No complex renal cystic lesion which requires follow up. Stomach and Bowel: Normal colonic caliber, without significant wall thickening. Normal appendix. Peritoneum: No abnormal intraperitoneal fluid. No free air. Ventral Wall: No significant ventral hernia. Abdominal Nodes: No retroperitoneal or mesenteric adenopathy by size criteria. Vessels: Aorta and inferior vena cava are normal in size. PELVIS: Pelvic Organs: Unremarkable. Bladder: No bladder wall thickening, accounting for underdistention. Pelvic Nodes: No enlarged lymph nodes. Miscellaneous: Fat containing left inguinal hernia. No acute bowel pathology. Bones: No aggressive osseous abnormality. IMPRESSION: 1. Normal appendix. 2. No findings which explain right-sided abdominal pain. 3. Remote cholecystectomy. Dictated by: Gavino Owens M.D. on 11/27/2024 at 11:55 Approved by: Gavino Owens M.D. on 11/27/2024 at 11:58 [facility] Narrative Medical decision making narrative: 64-year-old gentleman with a past medical history of CAD s/p stents, T2 DM, BPH, HTN, diverticulitis with bowel resection who presents to the emergency department for right-sided abdominal pain and constipation x9 days now associated with nausea and dizziness. Differential diagnosis includes but is not limited to bowel obstruction, constipation, LEYLA, UTI, pyelonephritis, ureterolithiasis, colitis, diverticulitis, appendicitis, electrolyte abnormality, dehydration, etc. On exam the patient is in no acute distress, nontoxic-appearing, all vital signs within normal limits except for blood pressure which is elevated at 172/108, patient did not take his morning antihypertensives as he did not eat anything. He is experiencing right-sided periumbilical abdominal pain associated with constipation nausea and intermittent lightheadedness, pain is not currently present. We will obtain CBC, CMP, lipase, magnesium, troponin and CK, EKG, CT abdomen pelvis with IV contrast, urinalysis. We will treat with fluids and Zofran at this time. EKG reviewed by attending physician, Dr. Thompson. EKG reveals sinus rhythm with a rate of 64 beats per minute, QTC 420, frequent PVCs. Labs reveal normal WBC count 5.5, hemoglobin 15.4, platelets 242. Sodium 139, potassium 4.4, BUN 15, creatinine 0.81. Glucose 123. Total bilirubin 0.9. AST 58. ALT slightly elevated 67. Alkaline phosphatase 38. Total creatinine kinase 44. Total protein 8.4. Albumin 5.1. Normal lipase 96. Negative/undetectable troponin. CT reveals normal appendix, no findings which explain right-sided abdominal pain. Remote cholecystectomy. 1215: Reviewed lab work, imaging results with the patient. He has received Zofran and about half of his IV fluids and reports feeling better, no longer feeling dizzy or lightheaded, no longer nauseous, he is still pain-free. Printed and discussed imaging results. Urinalysis pending at this time. Urinalysis reveals 3+ glucose, no signs of infection. Pt feeling better, BP improved to 120/70s. Discussed workup with the patient, advised PCP follow up. Did inform him of his A1c results yesterday, but encourage further discussion with his primary. Discussed supportive care, rest, increase hydration, Zofran as needed, strict ER return precautions. Patient verbalized understanding of all information is agreeable to plan. He is ambulatory and stable for discharge home. <Prem Thompson MD - Last Filed: 11/27/24 18:57> Lab Data Labs: Lab Results 11/27/24 11/27/24 Range/Units 11:15 11:56 WBC 5.5 (4.5-11.0) X10^3/uL RBC 4.73 (4.5-5.9) X10^6/uL Hgb 15.4 (13.5-17.5) g/dL Hct 44.8 (41-53) % MCV 94.6 (80-100) fL MCH 32.6 (26-34) PG MCHC 34.4 (30-36) % RDW 14.0 (11.6-14.8) % Plt Count 242 (150-400) X10^3/uL Neut % (Auto) 59.5 (50-75) % Lymph % (Auto) 29.6 (25-40) % [place] % (Auto) 8.7 (3-14) % Eos % (Auto) 1.5 L (2-4) % Baso % (Auto) 0.7 (0-2) % Neut # (Auto) 3300 (7706-3177) /uL Lymph # (Auto) 1600 (7724-6515) /uL [place] # (Auto) 500 (0-900) /uL Eos # (Auto) 100 (0-450) /uL Baso # (Auto) 0 (0-100) /uL Sodium 139 (137-145) mmol/L Potassium 4.4 (3.4-5.1) mmol/L Chloride 104 (98-107) mmol/L Carbon Dioxide 22 (22-32) mmol/L BUN 15 (9-20) mg/dL Creatinine 0.81 (0.66-1.25) mg/dL Estimated GFR > 60 (>60) mL/min BUN/Creatinine Ratio 18.5 (6-22) Glucose 123 H (70-99) mg/dL Calcium 10.1 (8.4-10.2) mg/dL Magnesium 2.0 (1.6-2.3) mg/dL Total Bilirubin 0.9 (0.2-1.3) mg/dL AST 58 (17-59) IU/L ALT 67 H (<50) IU/L Alkaline Phosphatase 38 (38-126) U/L Total Creatine Kinase 44 L (55-170) U/L Troponin I < 0.012 (0.01-0.034) ng/mL Total Protein 8.4 H (6.3-8.2) g/dL Albumin 5.1 H (3.5-5.0) g/dL Globulin 3.3 (1.7-4.1) g/dL Albumin/Globulin Ratio 1.5 (1.0-2.8) Lipase 96 (23-300) U/L Urine Color Yellow Urine Appearance Clear Urine pH 6.0 (4.5-8.0) Ur Specific [place] 1.010 (1.000-1.035) Urine Protein Negative (Negative) Urine Glucose (UA) 3+ H (Negative) g/dL Urine Ketones Negative (NEGATIVE) Urine Occult Blood Negative (Negative) Urine Nitrate Negative (Negative) Urine Bilirubin Negative (NEGATIVE) Urine Urobilinogen 0.2 (0.2) E.U./dL Ur Leukocyte Esterase Negative (NEGATIVE) Discharge Plan Departure Patient Disposition: Home Clinical Impression: Right sided abdominal pain, Nausea Instructions: DI for Abdominal Pain-Adult, DI for Nausea -- Adult Activity Restrictions/Additional Instructions: Dear Mr. Jauregui, Thank you for coming to the emergency department. Today your workup was overall reassuring, it did not reveal any abnormalities with your bowels, appendix or other intra-abdominal process. You received IV fluids and Zofran. Please rest, increase hydration, and follow up with the primary care doctor. Please return to the emergency department if you develop any new or worsening symptoms, severe pain, chest pain, fevers, difficulty breathing or any other concerns. I have sent some nausea medication to Yessy Fuchs to use if needed. Please follow up with your primary care doctor within the next 2-3 days for ER follow-up. (If you do not have a PCP you can call [phone]. ?to schedule an appointment with an [facility] Primary Care Provider) IF YOU DEVELOP ANY NEW OR WORSENING SYMPTOMS, RETURN TO THE ER! Please read the attached instructions, they highlight more specific treatments and interventions for you at home. Thank you for letting me participate in your care, Yoselyn Greene PA-C Prescriptions: New ondansetron 4 mg tablet,disintegrating 4 mg PO Q8H PRN (Reason: nausea and vomiting) Qty: 12 0RF No Action aspirin [Aspir-81] 81 mg tablet,delayed release (DR/EC) 81 mg PO DAILY Qty: 30 11RF (DME) Aerochamber MV Spacer See Rx Instructions .ROUTE .MEDSUPPLY Qty: 1 0RF Rx Instructions: As directed melatonin 3 MG tablet 9 mg PO HS Qty: 0 fenofibrate nanocrystallized [Tricor] 145 mg tablet 145 mg PO QDAY Qty: 90 1RF rosuvastatin 40 mg tablet 40 mg PO DAILY Qty: 90 1RF metformin 500 mg tablet 1,000 mg PO BID Qty: 360 3RF pioglitazone 15 mg tablet 15 mg PO DAILY Qty: 90 3RF nitroglycerin 0.4 mg tablet, sublingual 0.4 mg SL Q5M PRN (Reason: chest pain) Qty: 20 2RF Rx Instructions: do not exceed 3 doses per episode Farxiga 10 mg tablet 10 mg PO DAILY Qty: 90 3RF finasteride 5 mg tablet See Rx Instructions .ROUTE .COMPLEX Qty: 23 3RF Dose Instruction: 1.25 mg orally daily Take one quarter tablet once a day. Rx Instructions: 1.25 mg orally daily Take one quarter tablet once a day. omeprazole 10 mg capsule,delayed release(DR/EC) 10 mg PO QAM Qty: 90 2RF Mounjaro 7.5 mg/0.5 mL pen injector 7.5 mg SUBCUT QWEEK Qty: 2 6RF mometasone 0.1 % cream 1 applic TOP BID Qty: 15 0RF carvedilol 6.25 mg tablet 6.25 mg PO BID Patient Comments: take 1 tablet by mouth twice a day azelastine 137 mcg (0.1 %) aerosol,spray intranasal Patient Comments: instill 2 sprays into each nostril twice a day for RHINITIS or allergies ezetimibe 10 mg tablet 10 mg PO DAILY vitamin B complex PO gabapentin 300 mg capsule 900 mg PO BEDTIME glipizide 2.5 mg tablet 2.5 mg PO .Dinner losartan 100 mg tablet 100 mg PO DAILY cholecalciferol (vitamin D3) 50 mcg (2,000 unit) capsule 50 mcg PO DAILY Referrals: Lucas Mercado DO [Primary Care Provider, Family Practice] Stand Alone Forms: Patient Portal/API ED Sign-out <Prem Thompson MD - Last Filed: 11/27/24 18:57> Cosign ED Attending Cosignature Attestation: I was immediately available in the department for consultation. ?This documentation has been reviewed and I agree with assessment and plan. Supervised by Prem Thompson MD
[2024-11-27 11:20] VITALS: PULSE 63; RESP 19; O2SAT 99
--- NOTE | 2024-11-27 11:25 | EKG_ITS ---
[place] [id number] [place] [id number] Test Date: 2024-11-27 Pat Name: Serafin Jauregui Department: 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
--- NOTE | 2024-11-27 11:27 | DI.CT.S_ITS ---
PROCEDURE: CT ABDOMEN PELVIS W CON INDICATIONS: Right sided abdominal pain; constipation; nausea TECHNIQUE: After the administration of intravenous contrast, axial sections acquired from the lung bases to the pubic symphysis. Coronal and sagittal reformats were performed. For radiation dose reduction, the following was used: automated exposure control, adjustment of mA and/or kV according to patient size. COMPARISON: [facility], CT, CHEST/ABDOMEN WITH CONTRAST, 03/27/2017, 8:08. FINDINGS: Image quality: Diagnostic. Lower Chest: Pacemaker, coronary artery calcifications. Extreme lung bases are clear. Heart size is within normal limits. No hiatal hernia. ABDOMEN: Liver: No solid mass. Gallbladder: Absent Biliary ducts: No biliary dilation. Pancreas: No ductal dilation. Diffuse fatty replacement of the pancreas. Spleen: Size is within normal limits. Adrenal Glands: No adrenal nodules. Kidneys and Ureters: No hydronephrosis. No solid mass. No complex renal cystic lesion which requires follow up. Stomach and Bowel: Normal colonic caliber, without significant wall thickening. Normal appendix. Peritoneum: No abnormal intraperitoneal fluid. No free air. Ventral Wall: No significant ventral hernia. Abdominal Nodes: No retroperitoneal or mesenteric adenopathy by size criteria. Vessels: Aorta and inferior vena cava are normal in size. PELVIS: Pelvic Organs: Unremarkable. Bladder: No bladder wall thickening, accounting for underdistention. Pelvic Nodes: No enlarged lymph nodes. Miscellaneous: Fat containing left inguinal hernia. No acute bowel pathology. Bones: No aggressive osseous abnormality. IMPRESSION: 1. Normal appendix. 2. No findings which explain right-sided abdominal pain. 3. Remote cholecystectomy. Dictated by: Gavino Owens M.D. on 11/27/2024 at 11:55 Approved by: Gavino Owens M.D. on 11/27/2024 at 11:58
[2024-11-27 11:30] VITALS: PULSE 64; RESP 20; O2SAT 98
[2024-11-27 11:42] LABS: Alanine Aminotransferase 67 IU/L (<50); Albumin 5.1 g/dL (3.5-5.0); Albumin Globulin Ratio 1.5 (1.0-2.8); Alkaline Phosphatase 38 U/L (38-126); Blood Urea Nitrogen 15 mg/dL (9-20); Calcium 10.1 mg/dL (8.4-10.2); Carbon Dioxide 22 mmol/L (22-32); Chloride 104 mmol/L (98-107); Estimated Glomerular Filt Rate > 60 mL/min (>60); Globulin 3.3 g/dL (1.7-4.1); Glucose 123 mg/dL (70-99); HEMOLYSIS 19 (0-50); Lipase 96 U/L (23-300); Potassium 4.4 mmol/L (3.4-5.1); Sodium 139 mmol/L (137-145); Total Protein 8.4 g/dL (6.3-8.2)
[2024-11-27 11:43] LABS: Add Manual Diff / Slide Review NO; Creatine Kinase 44 U/L (55-170); Hematocrit 44.8 % (41-53); Hemoglobin 15.4 g/dL (13.5-17.5); Lymphocytes Absolute Auto 1600 /uL (1100-4500); Magnesium 2.0 mg/dL (1.6-2.3); Mean Corpuscular HGB Conc 34.4 % (30-36); Mean Corpuscular Hemoglobin 32.6 PG (26-34); Mean Corpuscular Volume 94.6 fL (80-100); Platelet Count 242 X10^3/uL (150-400)
[2024-11-27 11:54] LABS: Troponin I < 0.012 ng/mL (0.01-0.034)
[2024-11-27 11:58] VITALS: BP 159/87; PULSE 66; RESP 18; O2SAT 99
[2024-11-27 12:00] VITALS: BP 143/77; PULSE 64; RESP 16; O2SAT 99
[2024-11-27] MEDS: SODIUM CHLORIDE 0.9% 1,000 ML 1000 ML IV (12:01)
[2024-11-27] MEDS: ONDANSETRON 4 MG/2 ML INJ IV (12:02)
[2024-11-27 12:25] LABS: Appearance Urine UA CLEAR; Bilirubin Urine UA NEGATIVE (NEGATIVE); Color Urine UA YELLOW; Glucose Urine UA 3+ g/dL (Negative); Ketones Urine UA NEGATIVE (NEGATIVE); Leukocyte Esterase Urine UA NEGATIVE (NEGATIVE); Nitrite Urine UA NEGATIVE (Negative); Occult Blood Urine UA NEGATIVE (Negative); Protein Urine UA NEGATIVE (Negative); Specific Gravity Urine UA 1.010 (1.000-1.035); Urobilinogen Urine UA 0.2 E.U./dL (0.2); pH Urine UA 6.0 (4.5-8.0)
== END 2024-11-27 12:48 | disposition home or self-care (01) ==
PROVIDERS: Emergency Provider Physician Assistant; Family Provider Family Medicine; PCP Family Medicine
DX: R10.A1 Flank pain, right side (principal); R11.0 Nausea
CPT/HCPCS: 36415; 74177; 80053; 81003; 82550; 83690; 83735; 84484; 85025; 93005; 93010; 96361; 96374; 99284; J2405; J7030